=== PATIENT | male | born 1960 | race Caucasian/White ===

== ENCOUNTER 2017-08-23 14:11 | Inpatient (IN) | payer BC ==
[2017-08-23 15:41] LABS: Basophils % (A) 0 %; Eosinophils # (A) 0.1 k/uL (0-0.7); Eosinophils % (A) 2 %; HCT 42.2 % (39.0-53.0); HGB 14.1 gm/dL (13.0-17.5); Lymphocytes # (A) 0.8 k/uL (1.0-4.8); Lymphocytes % (A) 11 %; MCH 29.2 pg (25.0-35.0); MCHC 33.4 g/dL (31.0-37.0); MCV 87.3 fL (80.0-100.0); Mean Platelet Volume 7.2; Monocytes # (A) 0.5 k/uL (0-1.0); Monocytes % (A) 7 %; Neutrophils # (A) 5.5 k/uL (1.3-7.7); Neutrophils % (A) 78 %; Platelet Count 331 k/uL (150-450); RBC 4.83 m/uL (4.30-5.90); RDW 12.8 % (11.5-15.5); WBC 7.1 k/uL (3.8-10.6)
--- NOTE | 2017-08-23 15:43 | XR ---
EXAMINATION TYPE: XR chest 2V DATE OF EXAM: 08/23/2017 COMPARISON: NONE HISTORY: Shortness of breath TECHNIQUE: Frontal and lateral views of the chest are obtained. FINDINGS: Scattered senescent parenchymal changes noted. Patchy density left perihilar region may reflect underlying infiltrate. Correlate clinically and prog ress studies are recommended Heart size is stable. Mediastinal structures are stable and grossly unremarkable. No evidence for hilar prominence. Degenerative changes dorsal spine. IMPRESSION: 1. Patchy density left perihilar region may reflect underlying infiltrate. Correlate clinically and p rogress studies are recommended
[2017-08-23 15:46] LABS: Calcium 10.9 mg/dL (8.4-10.2); Potassium 4.3 mmol/L (3.5-5.1); Total Bilirubin 0.5 mg/dL (0.2-1.3); Total Protein 6.9 g/dL (6.3-8.2)
[2017-08-23 15:57] LABS: Creatine Kinase 57 U/L (55-170)
[2017-08-23] MEDS ORDERED: methylPREDNISolone SOD SUCCI 125 MG/2 ML VIAL IV STA (15:57)
[2017-08-23] MEDS ORDERED: IPRATROPIUM-ALBUTEROL 3 ML NEB INHALATION STA (15:57)
--- NOTE | 2017-08-23 15:59 | ED ---
General Adult HPI - General Chief complaint: Shortness of Breath Stated complaint: Difficulty Breathing Time Seen by Provider: 08/23/17 14:15 Source: patient, RN notes reviewed Mode of arrival: ambulatory Limitations: no limitations - History of Present Illness Initial comments: This is a 57-year-old male presents emergency department with past medical history significant for COPD per patient states he has been having some shortness of breath and coughing over the last few weeks and he has been on antibiotics and steroids which seemed to help for a short period time but he's been coughing last 2 weeks and been extremely short of breath per patient denies any chest pain or palpitations. Patient denies any fever chills. Patient's states he has had no sputum production. Patient denies any leg swelling or calf pain. Patient denies abdominal pain patient denies nausea vomiting diarrhea. Patient denies headache patient denies numbness weakness. Patient denies lightheadedness dizziness or near syncopal episode. - Related Data Home Medications Medication Instructions Recorded Confirmed traZODone HCL [Desyrel] 50 mg PO HS PRN 12/10/13 08/23/17 Albuterol Inhaler [Ventolin Hfa 1 - 2 puff INHALATION RT-Q6H PRN 08/23/17 Inhaler] Ascorbic Acid [Vitamin C] 500 mg PO BID 08/23/17 08/23/17 Aspirin [Adult Low Dose Aspirin EC] 81 mg PO DAILY 08/23/17 08/23/17 Fluticasone/Umeclidin/Vilanter 1 puff INHALATION RT-DAILY 08/23/17 08/23/17 [Trelecharles Ellipta 100-62.5-25] Glucosamine/Chondr Meneses A Sod [Osteo 1 tab PO DAILY 08/23/17 08/23/17 Bi-Flex Caplet] Multivitamin [Men's Multi-Vitamin] 1 tab PO DAILY 08/23/17 08/23/17 Nicotine 14Mg/24Hr Patch [Habitrol 1 patch TRANSDERM DAILY 08/23/17 08/23/17 14Mg/24Hr Patch] Omeprazole Magnesium [PriLOSEC OTC] 20 mg PO DAILY 08/23/17 08/23/17 Valsartan/Hydrochlorothiazide 1 tab PO DAILY 08/23/17 08/23/17 [Diovan Hct 80-12.5 mg Tablet] Allergies Allergy/AdvReac Type Severity Reaction Status Date / Time No Known Allergies Allergy Verified 08/23/17 19:04 Review of Systems ROS Statement: Those systems with pertinent positive or pertinent negative responses have been documented in the HPI. ROS Other: All systems not noted in ROS Statement are negative. Past Medical History Past Medical History: COPD, GERD/Reflux, Hypertension, Osteoarthritis (OA), Prostate Disorder Additional Past Medical History / Comment(s): CURRENTLY BEING TREATED FOR A PROSTATE INFECTION. Alcoholism History of Any Multi-Drug Resistant Organisms: None Reported Past Surgical History: Orthopedic Surgery Past Anesthesia/Blood Transfusion Reactions: Family History of Problems w/ Anesthesia Additional Past Anesthesia/Blood Transfusion Reaction / Comment(s): FATHER WOKE UP VERY AGITATED AND HAD TO BE "RE-MEDICATED" Past Psychological History: No Psychological Hx Reported Smoking Status: Current some day smoker Past Alcohol Use History: None Reported Past Drug Use History: None Reported - Past Family History Father Family Medical History: Myocardial Infarction (DE) Additional Family Medical History / Comment(s): ALCOHOLIC-- Mother Family Medical History: Myocardial Infarction (DE) Additional Family Medical History / Comment(s): ALCOHOLIC. General Exam - General Exam Comments Initial Comments: GENERAL: Patient is well-developed and well-nourished. Patient is nontoxic and well- hydrated and is in mild distress. ENT: Neck is soft and supple. No significant lymphadenopathy is noted. Oropharynx is clear. Moist mucous membranes. Neck has full range of motion without eliciting any pain. EYES: The sclera were anicteric and conjunctiva were pink and moist. Extraocular movements were intact and pupils were equal round and reactive to light. Eyelids were unremarkable. PULMONARY: She has some expiratory wheezing and decreased breath sounds throughout CARDIOVASCULAR: There is a regular rate and rhythm without any murmurs gallops or rubs. ABDOMEN: Soft and nontender with normal bowel sounds. No palpable organomegaly was noted. There is no palpable pulsatile mass. SKIN: Skin is clear with no lesions or rashes and otherwise unremarkable. NEUROLOGIC: Patient is alert and oriented x3. Cranial nerves II through XII are grossly intact. Motor and sensory are also intact. Normal speech, volume and content. Symmetrical smile. act. MUSCULOSKELETAL: Normal extremities with adequate strength and full range of motion. LYMPHATICS: No significant lymphadenopathy is noted PSYCHIATRIC: Normal psychiatric evaluation. Limitations: no limitations Course Vital Signs 08/23/17 08/23/17 08/23/17 14:13 16:06 16:58 Temperature 98.1 F 97.5 F L Pulse Rate 108 H 104 H 109 H Respiratory 20 18 Rate Blood Pressure 114/60 106/61 O2 Sat by Pulse 99 96 Oximetry Medical Decision Making - Medical Decision Making Chest x-ray shows left lower lobe pneumonia. Patient failed outpatient antibiotic treatment. I started the patient on Levaquin. Patient received a breathing treatment did feel little bit better. I gave the patient antibiotics as well. I spoke with some physician and he agreed to admit the patient admitted the patient wrote admitting orders - Lab Data Result diagrams: 08/23/17 15:20 08/23/17 15:20 Lab Results 08/23/17 08/23/17 08/23/17 Range/Units 15:20 15:20 15:20 WBC 7.1 (3.8-10.6) k/uL RBC 4.83 (4.30-5.90) m/uL Hgb 14.1 (13.0-17.5) gm/dL Hct 42.2 (39.0-53.0) % MCV 87.3 (80.0-100.0) fL MCH 29.2 (25.0-35.0) pg MCHC 33.4 (31.0-37.0) g/dL RDW 12.8 (11.5-15.5) % Plt Count 331 (150-450) k/uL Neutrophils % 78 % Lymphocytes % 11 % Monocytes % 7 % Eosinophils % 2 % Basophils % 0 % Neutrophils # 5.5 (1.3-7.7) k/uL Lymphocytes # 0.8 L (1.0-4.8) k/uL Monocytes # 0.5 (0-1.0) k/uL Eosinophils # 0.1 (0-0.7) k/uL Basophils # 0.0 (0-0.2) k/uL Sodium 142 (137-145) mmol/L Potassium 4.3 (3.5-5.1) mmol/L Chloride 100 (98-107) mmol/L Carbon Dioxide 26 (22-30) mmol/L Anion Gap 16 mmol/L BUN 24 H (9-20) mg/dL Creatinine 1.10 (0.66-1.25) mg/dL Est GFR (CKD-EPI)AfAm 87 (>60 ml/min/1.73 sqM) Est GFR (CKD-EPI)NonAf 75 (>60 ml/min/1.73 sqM) Glucose 91 (74-99) mg/dL Plasma Lactic Acid Pierre (0.7-2.0) mmol/L Calcium 10.9 H (8.4-10.2) mg/dL Total Bilirubin 0.5 (0.2-1.3) mg/dL AST 27 (17-59) U/L ALT 29 (21-72) U/L Alkaline Phosphatase 89 (38-126) U/L Total Creatine Kinase 57 (55-170) U/L CK-MB (CK-2) 1.0 (0.0-2.4) ng/mL CK-MB (CK-2) Rel Index 1.8 Troponin I <0.012 (0.000-0.034) ng/mL Total Protein 6.9 (6.3-8.2) g/dL Albumin 4.0 (3.5-5.0) g/dL 08/23/17 Range/Units 15:20 WBC (3.8-10.6) k/uL RBC (4.30-5.90) m/uL Hgb (13.0-17.5) gm/dL Hct (39.0-53.0) % MCV (80.0-100.0) fL MCH (25.0-35.0) pg MCHC (31.0-37.0) g/dL RDW (11.5-15.5) % Plt Count (150-450) k/uL Neutrophils % % Lymphocytes % % Monocytes % % Eosinophils % % Basophils % % Neutrophils # (1.3-7.7) k/uL Lymphocytes # (1.0-4.8) k/uL Monocytes # (0-1.0) k/uL Eosinophils # (0-0.7) k/uL Basophils # (0-0.2) k/uL Sodium (137-145) mmol/L Potassium (3.5-5.1) mmol/L Chloride (98-107) mmol/L Carbon Dioxide (22-30) mmol/L Anion Gap mmol/L BUN (9-20) mg/dL Creatinine (0.66-1.25) mg/dL Est GFR (CKD-EPI)AfAm (>60 ml/min/1.73 sqM) Est GFR (CKD-EPI)NonAf (>60 ml/min/1.73 sqM) Glucose (74-99) mg/dL Plasma Lactic Acid Pierre 1.5 (0.7-2.0) mmol/L Calcium (8.4-10.2) mg/dL Total Bilirubin (0.2-1.3) mg/dL AST (17-59) U/L ALT (21-72) U/L Alkaline Phosphatase (38-126) U/L Total Creatine Kinase (55-170) U/L CK-MB (CK-2) (0.0-2.4) ng/mL CK-MB (CK-2) Rel Index Troponin I (0.000-0.034) ng/mL Total Protein (6.3-8.2) g/dL Albumin (3.5-5.0) g/dL Disposition Clinical Impression: Pneumonia Disposition: ADMITTED IP TO THIS HOSP Is patient prescribed a controlled substance at d/c from ED?: No Time of Disposition: 16:25
[2017-08-23] MEDS ORDERED: LEVOFLOXACIN 750MG-D5W PMX 750 MG in DEXTROSE/WATER 1 150ML.BAG IVPB STA (16:00)
[2017-08-23 16:10] LABS: Troponin I <0.012 ng/mL (0.000-0.034)
[2017-08-23] MEDS ORDERED: PNEUMONIA PROTOCOL UTILIZED 1 EACH MISC PO PRN (16:28)
--- NOTE | 2017-08-23 16:59 | P.HPIM ---
History of Present Illness H&P Date: 08/23/17 Chief Complaint: shortness of breath 57 year old male that comes in with symptoms of shortness of breath and cough. Seems that symptoms have been ongoing for about 2 months now. Patient has taken 2 courses of prednisone and antibiotics. Last finished about 10 days ago. Denies any fever or chills. Says his appetite has been good. Shortness of breath exacerbated with exertion. Dry cough. No sputum production. He does not recall what was the antibiotic that he took. He was scheduled to see Dr. Roque for the first time next week. Today patient became very short of breath. Symptoms improved after steroids and nebulizer treatment given in the ER. Patient also says that he quit smoking 2 1/2 months ago. Review of Systems No chest pain no palpitations no fever no chills also systems reviewed were negative except those mentioned in HPI Past Medical History Past Medical History: COPD, GERD/Reflux, Hypertension, Osteoarthritis (OA), Prostate Disorder Additional Past Medical History / Comment(s): CURRENTLY BEING TREATED FOR A PROSTATE INFECTION. Alcoholism History of Any Multi-Drug Resistant Organisms: None Reported Past Surgical History: Orthopedic Surgery Past Anesthesia/Blood Transfusion Reactions: Family History of Problems w/ Anesthesia Additional Past Anesthesia/Blood Transfusion Reaction / Comment(s): FATHER WOKE UP VERY AGITATED AND HAD TO BE "RE-MEDICATED" Past Psychological History: No Psychological Hx Reported Smoking Status: Current some day smoker Past Alcohol Use History: None Reported Past Drug Use History: None Reported Medications and Allergies Home Medications Medication Instructions Recorded Confirmed Type Acetaminophen Tab [Tylenol] 325 mg PO Q6H PRN 12/10/13 08/23/17 History Calcium Carbonate [Tums] 500 mg PO TID PRN 12/10/13 08/23/17 History Naproxen Sodium [Aleve] 220 mg PO Q12HR PRN 12/10/13 08/23/17 History traZODone HCL [Desyrel] 50 mg PO HS PRN 12/10/13 08/23/17 History Valsartan/Hydrochlorothiazide 1 tab PO DAILY 08/23/17 08/23/17 History [Diovan Hct 80-12.5 mg Tablet] Allergies Allergy/AdvReac Type Severity Reaction Status Date / Time No Known Allergies Allergy Verified 08/23/17 14:17 Physical Exam Vitals: Vital Signs Temp Pulse Resp BP Pulse Ox 08/23/17 16:06 104 H 08/23/17 14:13 98.1 F 108 H 20 114/60 99 Intake and Output 08/23/17 08/23/17 08/23/17 06:59 14:59 22:59 Other: Weight 88.451 kg - Constitutional General appearance: no acute distress - EENT Eyes: EOMI, PERRLA - Neck Neck: no lymphadenopathy - Respiratory Respiratory: bilateral: wheezing, negative: CTA - Cardiovascular Rhythm: regular Heart sounds: normal: S1, S2 - Gastrointestinal General gastrointestinal: normal bowel sounds, soft - Integumentary Integumentary: normal - Neurologic Neurologic: CNII-XII intact, focal deficits - Musculoskeletal Musculoskeletal: gait normal - Psychiatric Psychiatric: A&O x's 3, appropriate affect Results CBC & Chem 7: 08/23/17 15:20 08/23/17 15:20 Labs: Abnormal Lab Results - Last 24 Hours (Table) 08/23/17 08/23/17 Range/Units 15:20 15:20 Lymphocytes # 0.8 L (1.0-4.8) k/uL BUN 24 H (9-20) mg/dL Calcium 10.9 H (8.4-10.2) mg/dL Assessment and Plan (1) Pneumonia Narrative/Plan: Continue IV Levaquin Current Visit: Yes Status: Acute Code(s): J18.9 - PNEUMONIA, UNSPECIFIED ORGANISM SNOMED Code(s): 613907855 (2) COPD (chronic obstructive pulmonary disease) Narrative/Plan: Nebulizer treatments IV steroids Pulmonary consult Patient never go formally diagnosed but probable with this history of smoking Current Visit: Yes Status: Acute Code(s): J44.9 - CHRONIC OBSTRUCTIVE PULMONARY DISEASE, UNSPECIFIED SNOMED Code(s): 71746903 (3) Hypertension Narrative/Plan: Controlled Continue valsartan hydrochlorothiazide Current Visit: Yes Status: Acute Code(s): I10 - ESSENTIAL (PRIMARY) HYPERTENSION SNOMED Code(s): 05937510
[2017-08-23] MEDS ORDERED: RX INFO: IV CONTRAST WAS GIVEN 1 EACH MISC MISCELLANE PRN ×4 (18:03→18:30)
[2017-08-23] MEDS ORDERED: PROMETHAZ-COD 6.25-10 MG/5 ML 5 ML CUP PO PRN (18:34)
--- NOTE | 2017-08-23 18:35 | P.CNPUL ---
History of Present Illness Consult date: 08/23/17 Reason for consult: pneumonia History of present illness: A 57-year-old male patient comes in to the hospital because of worsening shortness of breath and cough. The patient has been having these symptoms for the past 2 months. He has already received 2 rounds of antibiotics and steroids. He last finished the antibiotics approximately 10 days ago. He was supposed to see me in the office for the first time next week. The patient came in because of worsening shortness of breath. In the emergency department he was given IV steroids and nebulized treatments and he is feeling better already. Upon further questioning, the patient states that his been having increased cough and episodes for the past few months. The patient's cough has been progressively getting worse to the point where it's waking up in the middle of the night and sometimes he is unable to catch her breath in between and he gets nauseated and he throws up. No hemoptysis. No pleurisy. He subsequently lost his voice and this was attributed to smoking. At this point in time the patient 's voice is muffled and is quite hoarse and he has not had any recovery and he is voice characteristics over this past few months. He has been losing some weight and he has lost approximately 12 pounds. He is a chronic smoker and he was smoking up to 2 pack of cigarettes a day. He was asked to quit smoking by his primary care physician and he is in the process of quitting for now. No history of asthma. Most of recurrent pneumonias. No history of lymphoma. No history of any recurrent respiratory tract infections. No fever. No chills. No weight loss. His chest x-ray shows fullness within the left hilum and there are certain shadows that cannot be attributed based on vascular structures only. As such the patient will need a CAT scan. On his blood work, no significant leukocytosis. His calcium level was slightly elevated at 10.9. Renal function is within normal limits. On examination, the patient has firm lesions in the supraclavicular area which she was not aware of. Review of Systems Constitutional: Reports fatigue, Reports weight loss Eyes: denies blurred vision, denies bulging eye, denies decreased vision Ears: deny: decreased hearing, ear discharge, earache Ears, nose, mouth and throat: Reports as per HPI, Reports hoarseness, Reports neck lump, Reports sore throat Cardiovascular: Reports dyspnea on exertion Respiratory: Reports cough, Reports dyspnea Genitourinary: Reports as per HPI Musculoskeletal: Denies myalgias Musculoskeletal: absent: ankle pain, ankle stiffness, ankle swelling Integumentary: Denies pruritus, Denies rash Neurological: Denies numbness, Denies weakness Psychiatric: Denies anxiety, Denies depression Endocrine: Denies fatigue, Denies weight change Past Medical History Past Medical History: COPD, GERD/Reflux, Hypertension, Osteoarthritis (OA), Prostate Disorder Additional Past Medical History / Comment(s): COPD, hypertension, acid reflux, prostatitis, alcoholism, degenerative arthritis History of Any Multi-Drug Resistant Organisms: None Reported Past Surgical History: Orthopedic Surgery Past Anesthesia/Blood Transfusion Reactions: Family History of Problems w/ Anesthesia Additional Past Anesthesia/Blood Transfusion Reaction / Comment(s): FATHER WOKE UP VERY AGITATED AND HAD TO BE "RE-MEDICATED" Past Psychological History: No Psychological Hx Reported Smoking Status: Current some day smoker (The patient smokes about a pack of cigarettes a day and has been smoking since a young age. No alcoholism. 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.) Past Alcohol Use History: None Reported Past Drug Use History: None Reported Medications and Allergies Home Medications Medication Instructions Recorded Confirmed Type Acetaminophen Tab [Tylenol] 325 mg PO Q6H PRN 12/10/13 08/23/17 History Calcium Carbonate [Tums] 500 mg PO TID PRN 12/10/13 08/23/17 History Naproxen Sodium [Aleve] 220 mg PO Q12HR PRN 12/10/13 08/23/17 History traZODone HCL [Desyrel] 50 mg PO HS PRN 12/10/13 08/23/17 History Valsartan/Hydrochlorothiazide 1 tab PO DAILY 08/23/17 08/23/17 History [Diovan Hct 80-12.5 mg Tablet] Allergies Allergy/AdvReac Type Severity Reaction Status Date / Time No Known Allergies Allergy Verified 08/23/17 14:17 Physical Exam Vitals: Vital Signs Temp Pulse Pulse Resp BP BP Pulse Ox 08/23/17 17:29 97.0 F L 112 H 18 116/80 96 08/23/17 16:58 97.5 F L 109 H 18 106/61 96 08/23/17 16:06 104 H 08/23/17 14:13 98.1 F 108 H 20 114/60 99 Intake and Output 08/23/17 08/23/17 08/23/17 06:59 14:59 22:59 Other: Weight 88.451 kg 85.3 kg - Constitutional General appearance: no acute distress, the patient is not having any acute respiratory distress. His speech is interrupted by frequent coughing episodes. - EENT Eyes: EOMI, PERRLA - Neck Neck: There is a firm lymphadenopathy in the left supraclavicular area where several lymph nodes were palpated the largest of which is probably around 2 cm in size and it's quite firm on palpation. The right supra-clavicular areas within normal limits. No axillary lymph nodes were noted. - Respiratory Respiratory: There is obvious diminishment sounds bilaterally. There is prolongation of expiratory phase of breathing and diffuse expiratory wheezes heard throughout the lung ramirez bilaterally. - Cardiovascular Rhythm: regular Heart sounds: normal: S1, S2 - Gastrointestinal General gastrointestinal: normal bowel sounds, soft - Integumentary Integumentary: normal - Neurologic Neurologic: CNII-XII intact, focal deficits - Musculoskeletal Musculoskeletal: gait normal - Psychiatric Psychiatric: A&O x's 3, appropriate affect Results - Laboratory Findings CBC and BMP: 08/23/17 15:20 08/23/17 15:20 Abnormal lab findings: Abnormal Labs 08/23/17 08/23/17 15:20 15:20 Lymphocytes # 0.8 L BUN 24 H Calcium 10.9 H - Diagnostic Findings Chest x-ray: image reviewed Assessment and Plan Plan: Assessment 1 chronic cough with obvious abnormalities on a chest x-ray especially within the left hilum. There is fullness within the left hilum and there is concern for left hilar mass causing cough and possibly contributing to his hoarseness as I suspected the patient also has paralysis of the vocal cords. Overall suspicion for a left hilar tumor is quite high in this patient with chronic smoking and has progressive dyspnea and cough and hoarseness. 2 left supraclavicular lymphadenopathy, likely malignant 3 hoarseness, possible vocal cord paralysis on the left that needs to be further investigated 4 mild hypercalcemia, possible malignant in nature 5 COPD exacerbation 6 smoker 7 hypertension Plan There is a high suspicion that the patient has an underlying malignancy. Based on his progressive cough and dyspnea and hoarseness and based on the abnormalities of the chest x-ray and the abnormality on his physical examination that showed firm lymphadenopathy within the left supraclavicular area. My recommendations is to continue the DuoNeb nebulized treatments for now and put the patient IV Solu-Medrol and Phenergan for cough. Will also proceed with a CAT scan of the chest and neck with contrast. We'll consult interventional radiology to perform a fine-needle aspirate or a core biopsy of the left supraclavicular lymph node to establish a tissue diagnosis. Further recommendations are to follow based on the findings. We'll monitor the patient' s progress and recommend accordingly.
[2017-08-23] MEDS: NICOTINE 14MG/24HR PATCH TRANSDERM SCH (18:36)
[2017-08-23] MEDS ORDERED: INFLUENZA VACCINE (6 MOS+) 60 MCG/0.5 ML SYRINGE IM ONE (20:22)
[2017-08-23] MEDS: IPRATROPIUM-ALBUTEROL 3 ML NEB INHALATION SCH (20:28)
--- NOTE | 2017-08-23 21:15 | CT ---
EXAMINATION TYPE: CT neck chest w con DATE OF EXAM: 08/23/2017 COMPARISON: NONE HISTORY: Hoarseness, lesion left supraclavicular area, pneumonia CT DLP: 1074.50 mGycm CONTRAST: Patient injected with 100 mL of Isovue 300. TECHNIQUE: Axial images at 3 mm thick sections. Reconstructed images in the coronal plane and sagitt al plane are reviewed. FINDINGS: Limited CT sections are obtained the lung apices. The lung apices are evaluated on the CT of the chest. CT neck: The torus tubarius and fossa of Rosenmuller are normal. Manager Ed spaces are normal. Para nasal sinuses and mastoid air cells are clear. Parotid glands appear normal and symmetrical. Submandibular glands, are normal. Parapharyngeal spac es are normal. No suspicious adenopathy within the upper neck is evident. The enlarged abnormal selina opathy within the left supraclavicular region is evident. The hypopharynx appears within normal limits. Vocal cord level appear symmetrical. Thyroid as visualized is normal. Osseous structures are normal. IMPRESSIONS: 1. Enlarged left supraclavicular adenopathy. 2. Please see chest CT report same date. EXAMINATION TYPE: CT neck chest w con DATE OF EXAM: 08/23/2017 COMPARISON: NONE HISTORY: Hoarseness, lesion left supraclavicular area, pneumonia CT DLP: 1074.50 mGycm, Automated exposure control for dose reduction was used. CONTRAST: Performed injected with 100 mL of Isovue 300. TECHNIQUE: Axial images were obtained at 5 mm thick sections. Reconstructed images are reviewed on [employer] computer in the coronal plane. FINDINGS: Portion of the thyroid visualized is normal. There are multiple supraclavicular lymph nodes . These are larger and more numerous on the left with customer support representative largest measuring approximately 1.3 cm multiple superior mediastinal lymph nodes are also present. In the pretracheal space the large st lymph node measures 1.9 cm. Multiple aortopulmonic window lymph nodes are present which appear to be matted. The lower pretracheal node measures 1.3 cm. A subcarinal lymph node measures 1.0 cm. Coronary artery calcification is noted. There is diffuse thickening surrounding the bronchi lingula and right lower lobe. The perihilar regio ns and peribronchial thickening and some diffuse soft tissue. Underlying neoplasm should be considere d. There is a posterior medial left lung base mass measuring approximately 1.3 cm. Series 6 image 42. The ascending aorta diameter at the level of the main pulmonary artery is 3.7 cm. The main pulmonary artery diameter at the bifurcation is 2.[address] sections are obtained through the upper abdomen. Abdomen is essentially unremarkable. IMPRESSIONS: 1. Suspected nodular mass in the posterior infrahilar region on the left with perihilar soft tissue t hickening and peribronchial thickening. Findings are suspicious for neoplasm. Pneumonia could be cons idered within the differential. 2. Multiple enlarged lymph nodes throughout the mediastinum and in the supraclavicular regions greate r on the left suspicious for metastatic disease.
[2017-08-23] MEDS ORDERED: CALCIUM CARBONATE 500 MG CHEWABLE PO PRN (23:01)
[2017-08-23] MEDS ORDERED: guaiFENesin SYRUP 100MG/5ML 200 MG/10 ML CUP PO PRN (23:01)
[2017-08-23] MEDS: methylPREDNISolone SOD SUCCI 125 MG/2 ML VIAL IV SCH (23:35)
[2017-08-24] MEDS ORDERED: traZODone HCL 50 MG TAB PO PRN (02:12)
[2017-08-24] MEDS ORDERED: PANTOPRAZOLE 40 MG TABLET PO ONE (02:30)
[2017-08-24] MEDS: methylPREDNISolone SOD SUCCI 125 MG/2 ML VIAL IV SCH ×3 (06:39→18:33)
[2017-08-24] MEDS: IPRATROPIUM-ALBUTEROL 3 ML NEB INHALATION SCH ×3 (08:03→20:22)
--- NOTE | 2017-08-24 08:57 | XR ---
EXAMINATION TYPE: XR chest 2V DATE OF EXAM: 08/24/2017 COMPARISON: Prior chest x-ray and chest CT 08/23/2017 HISTORY: Pneumonia TECHNIQUE: Frontal and lateral views of the chest are obtained. FINDINGS: Interstitium is increased. No pneumothorax or pleural effusion. Cardiac silhouette, pulmon melissa vascularity are stable. Prominence of the left hilar region again noted. Mediastinum is widened compatible with known adenopathy. IMPRESSION: Interstitial lung disease. Mediastinal left hilar adenopathy. Consider pulmonary consult .
--- NOTE | 2017-08-24 09:10 | P.PN ---
Subjective Progress Note Date: 08/24/17 Principal diagnosis: shortness of breath /cough Patient says he has been coughing all night. has some shortness of breath Objective - Vital Signs Vital signs: Vital Signs Temp 97.1 F L 08/24/17 06:32 Pulse 100 08/24/17 08:23 Resp 16 08/24/17 08:23 BP 121/69 08/24/17 06:32 Pulse Ox 96 08/24/17 08:12 Intake & Output 08/23/17 08/24/17 08/24/17 18:59 06:59 18:59 Weight 85.3 kg Other: Voiding Method Toilet # Voids 1 - Exam gen:alert and oriented lungs:clear to auscultation heart:s1s2 abdomen:soft and depressible,non tender ext:no edema - Labs CBC & Chem 7: 08/23/17 15:20 08/23/17 15:20 Labs: Abnormal Lab Results - Last 24 Hours (Table) 08/23/17 08/23/17 Range/Units 15:20 15:20 Lymphocytes # 0.8 L (1.0-4.8) k/uL BUN 24 H (9-20) mg/dL Calcium 10.9 H (8.4-10.2) mg/dL Assessment and Plan (1) Lung mass Narrative/Plan: Plan for biopsy Suspicious for malignancy Current Visit: Yes Status: Acute Code(s): R91.8 - OTHER NONSPECIFIC ABNORMAL FINDING OF LUNG FIELD SNOMED Code(s): 364921712 (2) Lymphadenopathy Narrative/Plan: Plan for biopsy Current Visit: Yes Status: Acute Code(s): R59.1 - GENERALIZED ENLARGED LYMPH NODES SNOMED Code(s): 57244697 (3) Pneumonia Narrative/Plan: Continue IV Levaquin Current Visit: Yes Status: Acute Code(s): J18.9 - PNEUMONIA, UNSPECIFIED ORGANISM SNOMED Code(s): 367247971 (4) COPD (chronic obstructive pulmonary disease) Narrative/Plan: Nebulizer treatments IV steroids Pulmonary consult Patient never go formally diagnosed but probable with this history of smoking Current Visit: Yes Status: Acute Code(s): J44.9 - CHRONIC OBSTRUCTIVE PULMONARY DISEASE, UNSPECIFIED SNOMED Code(s): 87063959 (5) Hypertension Narrative/Plan: Controlled Continue valsartan hydrochlorothiazide Current Visit: Yes Status: Acute Code(s): I10 - ESSENTIAL (PRIMARY) HYPERTENSION SNOMED Code(s): 99639531
[2017-08-24 09:15] LABS: INR 1.1 (<1.2); Partial Thromboplastin Time 23.8 sec (22.0-30.0); Prothrombin Time 10.4 sec (9.0-12.0)
[2017-08-24 11:52] LABS: Glucose,Whole Blood 151 mg/dL (75-99)
[2017-08-24] MEDS: PROMETHAZ-COD 6.25-10 MG/5 ML 5 ML CUP PO SCH ×3 (11:54→22:11)
[2017-08-24] MEDS: INSULIN ASPART 100 UNIT/ML 1 ML 10 ML VIAL SQ SCH ×3 (13:06→22:06)
--- NOTE | 2017-08-24 13:11 | P.PN ---
Subjective Progress Note Date: 08/24/17 Principal diagnosis: Chronic cough, voice hoarseness, and the CT chest revealed a left hilar tumor, left supraclavicular lymphadenopathy, likely malignant. A 57-year-old male patient comes in to the hospital because of worsening shortness of breath and cough. The patient has been having these symptoms for the past 2 months. He has already received 2 rounds of antibiotics and steroids. He last finished the antibiotics approximately 10 days ago. He was supposed to see me in the office for the first time next week. The patient came in because of worsening shortness of breath. In the emergency department he was given IV steroids and nebulized treatments and he is feeling better already. Upon further questioning, the patient states that his been having increased cough and episodes for the past few months. The patient's cough has been progressively getting worse to the point where it's waking up in the middle of the night and sometimes he is unable to catch her breath in between and he gets nauseated and he throws up. No hemoptysis. No pleurisy. He subsequently lost his voice and this was attributed to smoking. At this point in time the patient 's voice is muffled and is quite hoarse and he has not had any recovery and he is voice characteristics over this past few months. He has been losing some weight and he has lost approximately 12 pounds. He is a chronic smoker and he was smoking up to 2 pack of cigarettes a day. He was asked to quit smoking by his primary care physician and he is in the process of quitting for now. No history of asthma. Most of recurrent pneumonias. No history of lymphoma. No history of any recurrent respiratory tract infections. No fever. No chills. No weight loss. His chest x-ray shows fullness within the left hilum and there are certain shadows that cannot be attributed based on vascular structures only. As such the patient will need a CAT scan. On his blood work, no significant leukocytosis. His calcium level was slightly elevated at 10.9. Renal function is within normal limits. On examination, the patient has firm lesions in the supraclavicular area which she was not aware of. On 08/24/2017 patient seen again in follow-up. Patient's CT neck and chest was reviewed, and showed a large left supraclavicular adenopathy, suspicious for malignancy. We consult interventional radiology for a fine-needle aspiration core biopsy of left subclavicular lymph nodes today. Patient voice continues to be hoarse, and there is suspicion of vocal cord paralysis, and ENT service will be consulted in that regard. Patient remains on room air, with O2 sat 91%. Afebrile, slightly tachycardic with heart rate up to 108 BPM. Lung sounds are diminished bilaterally, prolongation of expiratory phase of breathing and diffuse expiratory wheezes. No evidence of acute distress. Patient continues on IV Levaquin, nebulized treatments, and IV steroids. Objective - Vital Signs Vital signs: Vital Signs Temp 97.1 F L 08/24/17 08:00 Pulse 100 08/24/17 08:23 Resp 16 08/24/17 08:23 BP 121/69 08/24/17 08:00 Pulse Ox 96 08/24/17 08:12 Intake & Output 08/23/17 08/24/17 08/24/17 18:59 06:59 18:59 Weight 85.3 kg Other: Voiding Method Toilet # Voids 1 - Exam Constitutional General appearance: no acute distress, the patient is not having any acute respiratory distress. His speech is interrupted by frequent coughing episodes. - EENT Eyes: EOMI, PERRLA - Neck Neck: There is a firm lymphadenopathy in the left supraclavicular area where several lymph nodes were palpated the largest of which is probably around 2 cm in size and it's quite firm on palpation. The right supra-clavicular areas within normal limits. No axillary lymph nodes were noted. - Respiratory Respiratory: There is obvious diminishment sounds bilaterally. There is prolongation of expiratory phase of breathing and diffuse expiratory wheezes heard throughout the lung ramirez bilaterally. - Cardiovascular Rhythm: regular Heart sounds: normal: S1, S2 - Gastrointestinal General gastrointestinal: normal bowel sounds, soft - Integumentary Integumentary: normal - Neurologic Neurologic: CNII-XII intact, focal deficits - Musculoskeletal Musculoskeletal: gait normal - Psychiatric Psychiatric: A&O x's 3, appropriate affect - Labs CBC & Chem 7: 08/23/17 15:20 08/23/17 15:20 Labs: Abnormal Lab Results - Last 24 Hours (Table) 08/23/17 08/23/17 08/24/17 Range/Units 15:20 15:20 11:41 Lymphocytes # 0.8 L (1.0-4.8) k/uL BUN 24 H (9-20) mg/dL POC Glucose (mg/dL) 151 H (75-99) mg/dL Calcium 10.9 H (8.4-10.2) mg/dL Assessment and Plan Plan: Assessment: 1 chronic cough with obvious abnormalities on a chest x-ray especially within the left hilum. There is fullness within the left hilum and there is concern for left hilar mass causing cough and possibly contributing to his hoarseness as I suspected the patient also has paralysis of the vocal cords. Overall suspicion for a left hilar tumor is quite high in this patient with chronic smoking and has progressive dyspnea and cough and hoarseness. Neck/Chest CT showed enlarged left supraclavicular adenopathy, highly suspicious for malignancy. The patient is scheduled to undergo a fine-needle aspiration core biopsy by interventional radiology today. 2 left supraclavicular lymphadenopathy, likely malignant 3 hoarseness, possible vocal cord paralysis on the left that needs to be further investigated 4 mild hypercalcemia, possible malignant in nature 5 COPD exacerbation 6 smoker 7 hypertension Plan: Patient is scheduled to undergo FNA needle aspiration biopsy on the left supraclavicular lymph nodes, continues to be hoarse, we will consult ENT service for investigation of possible vocal cord paralysis on the left. Continue with empiric antibiotics, continue IV steroids, continue with nebulized treatments. We'll continue to closely follow. I performed a history & physical examination of the patient and discussed their management with my nurse practitioner, Mariam Ruiz. I reviewed the nurse practitioner's note and agree with the documented findings and plan of care. Lung sounds are positive for scattered wheezes, diminished lung sounds. The findings and the impression was discussed with the patient. I attest to the documentation by the nurse practitioner. Time with Patient: Less than 30
[2017-08-24 14:54] VITALS: BMI 26.2
--- NOTE | 2017-08-24 15:44 | US ---
EXAMINATION TYPE: US biopsy lymph node DATE OF EXAM: 08/24/2017 HISTORY: Left supraclavicular mass. FINDINGS: Maximal barrier technique was utilized. The skin overlying a suitable path to the patient' s mass was localized with ultrasound and the overlying skin prepped and draped. Ultrasound was utili zed with sterile technique. Lidocaine was used for local anesthesia. A skin chirag was made with a sc alpel. An 18-gauge needle was advanced under direct ultrasound guidance and core specimen obtained o f the mass. Specimen submitted in saline to Pathology. Following the procedure, hemostasis achieved and the patient is discharged in stable condition without complication. IMPRESSION:STATUS POST ULTRASOUND GUIDED CORE BIOPSY OF left supraclavicular MASS, PATHOLOGY IS PENDI NG. THIS PROCEDURE IS PERFORMED BY THE UNDERSIGNED.
[2017-08-24 17:03] LABS: Glucose,Whole Blood 156 mg/dL (75-99)
[2017-08-24] MEDS: LEVOFLOXACIN 750MG-D5W PMX 750 MG in DEXTROSE/WATER 1 150ML.BAG IVPB SCH (17:17)
[2017-08-24 18:21] LABS: Hemoglobin A1C 5.6 % (4.0-6.0)
[2017-08-24] MEDS: NICOTINE 14MG/24HR PATCH TRANSDERM SCH (18:33)
--- NOTE | 2017-08-24 19:35 | CONS ---
CONSULTATION REASON FOR CONSULTATION: Voice hoarseness, rule out paralysis. HISTORY: This is a 57-year-old white male who was admitted with shortness of breath and pneumonia. He was noted to have a left supraclavicular mass as well as pulmonary lesions as well as nodes in the superior mediastinum and pretracheal space, multiple. The mass is in the posterior infrahilar region on the left. The patient is being treated with antibiotics and steroids and has improved as far as his breathing. He is now afebrile. He states that he developed bronchitis about 3 months ago and became acutely hoarse. He has had quite a lot of coughing, which has improved with codeine- based cough suppressant now. He has no dysphagia, but does have occasional cough with taking fluids. No particular infiltrate on his last chest x-ray. He has no sore throat or otalgia. CT scan of the neck did not show any laryngeal lesions. PAST MEDICAL HISTORY: Positive for COPD, reflux, hypertension, arthritis, prostate disorder. PAST SURGICAL HISTORY: Orthopedic surgery. ALLERGIES: No known drug allergies. MEDICATIONS AT HOME: 1. Tylenol. 2. Tums. 3. Aleve. 4. Desyrel. 5. Diovan. SOCIAL HISTORY: He does have a long past history of smoking, but quit about 3 months ago. He also has a history of alcoholism and drug use, but none now. REVIEW OF SYSTEMS: Noncontributory other than as above. PHYSICAL EXAM: Vital signs are stable. GENERAL: This is a well-developed adult white male in no acute distress. He does have a weak voice and no respiratory difficulty. HEENT. Head: Normocephalic and atraumatic. Ears: Bilateral ear canals are clear. Tympanic membranes unremarkable and mobile. The nose shows no drainage. The septum is deviated to the right. The nasopharynx is unremarkable. Mouth shows no abnormal lesions or masses. Oropharynx shows no abnormal mass or lesions or erythema. Hypopharynx and larynx exam with flexible laryngoscopy shows no abnormal masses or lesions; however, the left true vocal cord is paralyzed in the paramedian position. Right vocal cord compensates, but was still a residual 1-2 mm posterior glottic chink on vocalization. Neck is supple. There is a left supraclavicular node noted with a gauze Band-Aid on it presently which is firm, nontender and fixed, approximately 2 cm. ASSESSMENT: 1. Left vocal cord paralysis. 2. Left supraclavicular adenopathy. 3. Left infrahilar mass with mediastinal adenopathy. PLAN: The patient has left vocal cord paralysis which is likely related to recurrent laryngeal nerve involvement with tumor in the mediastinum. The fine-needle aspiration of the left supraclavicular area may give ultimate etiology; however, certainly it appears that he has a pulmonary primary malignancy with metastatic disease. Will proceed with speech and swallowing evaluation to be sure he is not aspirating and if so, may need to restrict diet. He may necessitate a medialization procedure for the vocal cord; however, if he undergoes treatment for the chest lesion, then this vocal cord paralysis could potentially improve. I have already counseled him on swallowing precautions to try to prevent aspiration. Would await further evaluation on pathology and ultimately the decision making from the Pulmonary service as to how he will be treated prior to making any further decisions on any direct treatment with the vocal cord paralysis. If there are questions or concerns, please contact me. Approximately 40 minutes spent in consultation with the patient, over half of this in counseling. MMODL / IJN: [id number] /
--- NOTE | 2017-08-24 19:44 | PCN ---
PROCEDURE NOTE PREOPERATIVE DIAGNOSIS: Hoarseness. POSTOPERATIVE DIAGNOSIS: Left vocal cord [id number]. PROCEDURE: Flexible laryngoscopy. ANESTHESIA: None. COMPLICATIONS: None. FINDINGS: Left true vocal cord paralysis. PROCEDURE: The patient was in a hospital bed in a sitting position. Informed consent was obtained. Flexible laryngoscopy was performed through the left nasal cavity with systematic evaluation of the left nasal cavity and nasopharynx, oropharynx, hypopharynx and larynx with the above findings in his consultation note noted. The laryngoscope was removed. The patient had no complications, no blood loss. MMODL / IJN: [id number] /
[2017-08-24 20:57] LABS: Glucose,Whole Blood 159 mg/dL (75-99)
[2017-08-24] MEDS: ASCORBIC ACID 500 MG TAB PO SCH (21:37)
[2017-08-24] MEDS: ACETAMINOPHEN TAB 325 MG TAB PO PRN (23:13)
[2017-08-24] MEDS: PANTOPRAZOLE 40 MG TABLET PO SCH (23:13)
[2017-08-25] MEDS: methylPREDNISolone SOD SUCCI 125 MG/2 ML VIAL IV SCH ×5 (00:42→23:53)
[2017-08-25] MEDS: PROMETHAZ-COD 6.25-10 MG/5 ML 5 ML CUP PO SCH ×4 (05:50→21:58)
[2017-08-25 07:26] LABS: Glucose,Whole Blood 143 mg/dL (75-99)
[2017-08-25] MEDS ORDERED: PANTOPRAZOLE 40 MG TABLET PO SCH (07:30)
[2017-08-25] MEDS: NON-FORMULARY DRUG (Glucosamine/Chondr Su A Sod [Osteo Bi-Flex Caplet] 1 TAB) PO SCH (07:49)
[2017-08-25] MEDS: INSULIN ASPART 100 UNIT/ML 1 ML 10 ML VIAL SQ SCH ×4 (07:50→21:59)
[2017-08-25] MEDS: HYDROCHLOROTHIAZIDE 12.5 MG CAP PO SCH (07:50)
[2017-08-25] MEDS: ASCORBIC ACID 500 MG TAB PO SCH ×2 (07:50→21:58)
[2017-08-25] MEDS: VALSARTAN 80 MG TAB PO SCH (07:51)
[2017-08-25] MEDS: IPRATROPIUM-ALBUTEROL 3 ML NEB INHALATION SCH ×3 (07:56→19:49)
[2017-08-25] MEDS ORDERED: NON-FORMULARY DRUG (Fluticasone/Umeclidin/Vilanter [Trelegy Ellipta 100-62.5-25] 1 PUFF) INHALATION SCH (08:00)
[2017-08-25] MEDS ORDERED: NICOTINE 14MG/24HR PATCH TRANSDERM SCH (09:00)
[2017-08-25] MEDS: MULTIVITAMINS, THERA 1 EACH TAB PO SCH (11:56)
[2017-08-25 11:59] LABS: Glucose,Whole Blood 153 mg/dL (75-99)
[2017-08-25] MEDS: IPRATROPIUM-ALBUTEROL 3 ML NEB INHALATION PRN ×2 (13:01→13:39)
[2017-08-25] MEDS: TRELEGY ELLIPTA INHALATION SCH (13:01)
[2017-08-25] MEDS: ACETAMINOPHEN TAB 325 MG TAB PO PRN ×2 (14:23→21:59)
--- NOTE | 2017-08-25 15:23 | P.PN ---
Subjective Progress Note Date: 08/25/17 Principal diagnosis: Chronic cough, voice hoarseness with left vocal cord paralysis, left hilar tumor , left supraclavicular lymphadenopathy. Suspect malignancy. A 57-year-old male patient comes in to the hospital because of worsening shortness of breath and cough. The patient has been having these symptoms for the past 2 months. He has already received 2 rounds of antibiotics and steroids. He last finished the antibiotics approximately 10 days ago. He was supposed to see me in the office for the first time next week. The patient came in because of worsening shortness of breath. In the emergency department he was given IV steroids and nebulized treatments and he is feeling better already. Upon further questioning, the patient states that his been having increased cough and episodes for the past few months. The patient's cough has been progressively getting worse to the point where it's waking up in the middle of the night and sometimes he is unable to catch her breath in between and he gets nauseated and he throws up. No hemoptysis. No pleurisy. He subsequently lost his voice and this was attributed to smoking. At this point in time the patient 's voice is muffled and is quite hoarse and he has not had any recovery and he is voice characteristics over this past few months. He has been losing some weight and he has lost approximately 12 pounds. He is a chronic smoker and he was smoking up to 2 pack of cigarettes a day. He was asked to quit smoking by his primary care physician and he is in the process of quitting for now. No history of asthma. Most of recurrent pneumonias. No history of lymphoma. No history of any recurrent respiratory tract infections. No fever. No chills. No weight loss. His chest x-ray shows fullness within the left hilum and there are certain shadows that cannot be attributed based on vascular structures only. As such the patient will need a CAT scan. On his blood work, no significant leukocytosis. His calcium level was slightly elevated at 10.9. Renal function is within normal limits. On examination, the patient has firm lesions in the supraclavicular area which she was not aware of. On 08/24/2017 patient seen again in follow-up. Patient's CT neck and chest was reviewed, and showed a large left supraclavicular adenopathy, suspicious for malignancy. We consult interventional radiology for a fine-needle aspiration core biopsy of left subclavicular lymph nodes today. Patient voice continues to be hoarse, and there is suspicion of vocal cord paralysis, and ENT service will be consulted in that regard. Patient remains on room air, with O2 sat 91%. Afebrile, slightly tachycardic with heart rate up to 108 BPM. Lung sounds are diminished bilaterally, prolongation of expiratory phase of breathing and diffuse expiratory wheezes. No evidence of acute distress. Patient continues on IV Levaquin, nebulized treatments, and IV steroids. The patient is seen again today 08/25/2017 in follow-up on the regular medical floor. He is awake and alert in no acute distress. He did undergo evaluation by ENT and was found to have a left sided vocal cord paralysis. Most likely secondary to compression of the recurrent laryngeal nerve. He also had undergone a fine-needle aspiration of the left supraclavicular mass. Results are pending. He is breathing easier today as compared to yesterday. He has less cough as well. 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 He is maintaining good O2 saturations in the mid 90s on room air. He's been afebrile. Hemodynamically stable. Objective - Vital Signs Vital signs: Vital Signs Temp 97.6 F 08/25/17 05:55 Pulse 96 08/25/17 13:50 Resp 16 08/25/17 05:55 BP 108/71 08/25/17 05:55 Pulse Ox 95 08/25/17 05:55 Intake & Output 08/24/17 08/25/17 08/25/17 18:59 06:59 18:59 Intake Total 472 600 Balance 472 600 Weight 85.3 kg Intake: Oral 472 600 Other: Voiding Method Toilet Toilet # Voids 1 1 2 - Exam GENERAL EXAM: Alert, active, comfortable in no apparent distress. HEAD: Normocephalic. EYES: Normal reaction of pupils, equal size. NOSE: Clear with pink turbinates. THROAT: Hoarseness. No erythema or exudates. NECK: No palpable mass and left supraclavicular area. No JVD. CHEST: No chest wall deformity. LUNGS: Equal air entry expiratory wheeze. Some scattered rhonchi in the left lung. CVS: S1 and S2 normal with no audible murmur, regular rhythm. ABDOMEN: No hepatosplenomegaly, normal bowel sounds, no guarding or rigidity. SPINE: No scoliosis or deformity SKIN: No rashes CENTRAL NERVOUS SYSTEM: No focal deficits, tone is normal in all 4 extremities. EXTREMITIES: There is no peripheral edema. No clubbing, no cyanosis. Peripheral pulses are intact. - Labs CBC & Chem 7: 08/23/17 15:20 08/23/17 15:20 Labs: Abnormal Lab Results - Last 24 Hours (Table) 08/24/17 08/24/17 08/25/17 Range/Units 16:52 20:53 07:08 POC Glucose (mg/dL) 156 H 159 H 143 H (75-99) mg/dL 08/25/17 Range/Units 11:52 POC Glucose (mg/dL) 153 H (75-99) mg/dL Microbiology - Last 24 Hours (Table) 08/23/17 15:20 Blood Culture - Preliminary Blood No Growth after 24 hours Assessment and Plan Assessment: Assessment: 1 chronic cough with obvious abnormalities on a chest x-ray especially within the left hilum. There is fullness within the left hilum and there is concern for left hilar mass causing cough and possibly contributing to his hoarseness. ENT consultation was conducted. The patient does have a paralyzed left vocal cord. Overall suspicion for a left hilar tumor is quite high in this patient with chronic smoking and has progressive dyspnea and cough and hoarseness. Neck/ Chest CT showed enlarged left supraclavicular adenopathy, highly suspicious for malignancy. The patient did undergo a fine-needle aspiration core biopsy by interventional radiology with pathology pending. 2 left supraclavicular lymphadenopathy, likely malignant 3 hoarseness, vocal cord paralysis on the left 4 mild hypercalcemia, possible malignant in nature 5 COPD exacerbation 6 smoker 7 hypertension Plan: The patient was seen and evaluated by Dr. Roque. ENT notes were reviewed and appreciated. Pathology is pending regarding the left supraclavicular mass. Malignancy as suspected. We will consult oncology. We'll continue with his current treatment plan for now. We'll increase his activity as tolerated. We' ll continue to follow and make further recommendations based on his clinical status. I, the cosigning physician, performed a history & physical examination of the patient. Lungs sounds with faint end expiratory wheeze, few scattered rhonchi more so on the left. Maintaining good O2 saturations in the 90s on room air. I discussed the assessment and plan of care with my nurse practitioner, Sruthi Stone. I attest to the above note as dictated by her.
[2017-08-25] MEDS: LEVOFLOXACIN 750MG-D5W PMX 750 MG in DEXTROSE/WATER 1 150ML.BAG IVPB SCH (16:46)
[2017-08-25] MEDS: NICOTINE 14MG/24HR PATCH TRANSDERM SCH (16:56)
[2017-08-25 17:16] LABS: Glucose,Whole Blood 144 mg/dL (75-99)
[2017-08-25 21:28] LABS: Glucose,Whole Blood 156 mg/dL (75-99)
[2017-08-25] MEDS: PANTOPRAZOLE 40 MG TABLET PO SCH (21:58)
[2017-08-26] MEDS: PROMETHAZ-COD 6.25-10 MG/5 ML 5 ML CUP PO SCH ×4 (06:07→22:42)
[2017-08-26] MEDS: methylPREDNISolone SOD SUCCI 125 MG/2 ML VIAL IV SCH ×4 (06:07→23:47)
[2017-08-26] MEDS: TRELEGY ELLIPTA INHALATION SCH (07:17)
[2017-08-26] MEDS: IPRATROPIUM-ALBUTEROL 3 ML NEB INHALATION SCH ×4 (07:17→20:41)
[2017-08-26 07:38] LABS: Glucose,Whole Blood 128 mg/dL (75-99)
[2017-08-26] MEDS: INSULIN ASPART 100 UNIT/ML 1 ML 10 ML VIAL SQ SCH ×4 (07:39→21:45)
[2017-08-26] MEDS: VALSARTAN 80 MG TAB PO SCH (08:15)
[2017-08-26] MEDS: NON-FORMULARY DRUG (Glucosamine/Chondr Su A Sod [Osteo Bi-Flex Caplet] 1 TAB) PO SCH (08:15)
[2017-08-26] MEDS: HYDROCHLOROTHIAZIDE 12.5 MG CAP PO SCH (08:15)
[2017-08-26] MEDS: ASCORBIC ACID 500 MG TAB PO SCH ×2 (08:15→20:56)
--- NOTE | 2017-08-26 09:18 | P.PN ---
Subjective Progress Note Date: 08/26/17 Principal diagnosis: shortness of breath /cough Still having cough throughout the night. Hoarseness of voice unchanged. Patient says that his shortness of breath has improved Objective - Vital Signs Vital signs: Vital Signs Temp 98.1 F 08/26/17 05:35 Pulse 96 08/26/17 07:34 Resp 20 08/26/17 05:35 BP 142/81 08/26/17 05:35 Pulse Ox 96 08/26/17 07:20 Intake & Output 08/25/17 08/26/17 08/26/17 18:59 06:59 18:59 Intake Total 200 240 Balance 200 240 Intake: Oral 200 240 Other: Voiding Method Toilet # Voids 2 1 - Exam gen:alert and oriented lungs:clear to auscultation heart:s1s2 abdomen:soft and depressible,non tender ext:no edema - Labs CBC & Chem 7: 08/23/17 15:20 08/23/17 15:20 Labs: Abnormal Lab Results - Last 24 Hours (Table) 08/25/17 08/25/17 08/25/17 Range/Units 11:52 17:08 21:24 POC Glucose (mg/dL) 153 H 144 H 156 H (75-99) mg/dL 08/26/17 Range/Units 07:07 POC Glucose (mg/dL) 128 H (75-99) mg/dL Microbiology - Last 24 Hours (Table) 08/23/17 15:20 Blood Culture - Preliminary Blood No Growth after 48 hours Assessment and Plan (1) Lung mass Narrative/Plan: Dr. Donovan and Dr. Roque following Await biopsy results performed on Sunday on the lymph node Current Visit: Yes Status: Acute Code(s): R91.8 - OTHER NONSPECIFIC ABNORMAL FINDING OF LUNG FIELD SNOMED Code(s): 206354608 (2) Lymphadenopathy Narrative/Plan: Status post biopsy Current Visit: Yes Status: Acute Code(s): R59.1 - GENERALIZED ENLARGED LYMPH NODES SNOMED Code(s): 66014792 (3) Pneumonia Narrative/Plan: ivLevaquin Current Visit: Yes Status: Acute Code(s): J18.9 - PNEUMONIA, UNSPECIFIED ORGANISM SNOMED Code(s): 464408922 (4) COPD (chronic obstructive pulmonary disease) Narrative/Plan: Stable continue prednisone and nebulizer Current Visit: Yes Status: Acute Code(s): J44.9 - CHRONIC OBSTRUCTIVE PULMONARY DISEASE, UNSPECIFIED SNOMED Code(s): 58803623 (5) Hypertension Narrative/Plan: Controlled Continue valsartan and hydrochlorothiazide Current Visit: Yes Status: Acute Code(s): I10 - ESSENTIAL (PRIMARY) HYPERTENSION SNOMED Code(s): 59054279 Plan: Discussed with Dr. Roque, would like to continue workup as an inpatient
[2017-08-26] MEDS: MULTIVITAMINS, THERA 1 EACH TAB PO SCH (12:17)
[2017-08-26] MEDS: ACETAMINOPHEN TAB 325 MG TAB PO PRN ×2 (12:19→21:45)
[2017-08-26 12:30] LABS: Glucose,Whole Blood 140 mg/dL (75-99)
--- NOTE | 2017-08-26 14:41 | P.PN ---
Subjective Progress Note Date: 08/26/17 Chronic cough, voice hoarseness with left vocal cord paralysis, left hilar tumor , left supraclavicular lymphadenopathy. Suspect malignancy. A 57-year-old male patient comes in to the hospital because of worsening shortness of breath and cough. The patient has been having these symptoms for the past 2 months. He has already received 2 rounds of antibiotics and steroids. He last finished the antibiotics approximately 10 days ago. He was supposed to see me in the office for the first time next week. The patient came in because of worsening shortness of breath. In the emergency department he was given IV steroids and nebulized treatments and he is feeling better already. Upon further questioning, the patient states that his been having increased cough and episodes for the past few months. The patient's cough has been progressively getting worse to the point where it's waking up in the middle of the night and sometimes he is unable to catch her breath in between and he gets nauseated and he throws up. No hemoptysis. No pleurisy. He subsequently lost his voice and this was attributed to smoking. At this point in time the patient 's voice is muffled and is quite hoarse and he has not had any recovery and he is voice characteristics over this past few months. He has been losing some weight and he has lost approximately 12 pounds. He is a chronic smoker and he was smoking up to 2 pack of cigarettes a day. He was asked to quit smoking by his primary care physician and he is in the process of quitting for now. No history of asthma. Most of recurrent pneumonias. No history of lymphoma. No history of any recurrent respiratory tract infections. No fever. No chills. No weight loss. His chest x-ray shows fullness within the left hilum and there are certain shadows that cannot be attributed based on vascular structures only. As such the patient will need a CAT scan. On his blood work, no significant leukocytosis. His calcium level was slightly elevated at 10.9. Renal function is within normal limits. On examination, the patient has firm lesions in the supraclavicular area which she was not aware of. On 08/24/2017 patient seen again in follow-up. Patient's CT neck and chest was reviewed, and showed a large left supraclavicular adenopathy, suspicious for malignancy. We consult interventional radiology for a fine-needle aspiration core biopsy of left subclavicular lymph nodes today. Patient voice continues to be hoarse, and there is suspicion of vocal cord paralysis, and ENT service will be consulted in that regard. Patient remains on room air, with O2 sat 91%. Afebrile, slightly tachycardic with heart rate up to 108 BPM. Lung sounds are diminished bilaterally, prolongation of expiratory phase of breathing and diffuse expiratory wheezes. No evidence of acute distress. Patient continues on IV Levaquin, nebulized treatments, and IV steroids. The patient is seen again today 08/25/2017 in follow-up on the regular medical floor. He is awake and alert in no acute distress. He did undergo evaluation by ENT and was found to have a left sided vocal cord paralysis. Most likely secondary to compression of the recurrent laryngeal nerve. He also had undergone a fine-needle aspiration of the left supraclavicular mass. Results are pending. He is breathing easier today as compared to yesterday. He has less cough as well. 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 He is maintaining good O2 saturations in the mid 90s on room air. He's been afebrile. Hemodynamically stable. On 08/27/2079 I'm seeing this patient for a follow-up. His cough has subsided somewhat compared to yesterday. He is still very hoarse. He was confirmed to have a left vocal cord paralysis due to involvement of the recurrent laryngeal nerve. Fine-needle aspirate of the supraclavicular mass was done and the results are still pending for now. Meanwhile an oncology consultation was also requested. I think the patient may ultimately require a bronchoscopy to inspect his airways especially continues to have excessive cough. He has no specific complaints. Awaiting the workup to be completed and the patient to be seen by various consultants regarding his ongoing difficulties with hoarseness and cough and. Underlying malignancy is highly suspected. Objective - Vital Signs Vital signs: Vital Signs Temp 98.1 F 08/26/17 05:35 Pulse 96 08/26/17 11:39 Resp 20 08/26/17 05:35 BP 142/81 08/26/17 05:35 Pulse Ox 96 08/26/17 07:20 Intake & Output 08/25/17 08/26/17 08/26/17 18:59 06:59 18:59 Intake Total 200 240 Balance 200 240 Intake: Oral 200 240 Other: Voiding Method Toilet # Voids 2 1 3 - Exam GENERAL EXAM: Alert, active, comfortable in no apparent distress. HEAD: Normocephalic. EYES: Normal reaction of pupils, equal size. NOSE: Clear with pink turbinates. THROAT: Hoarseness. No erythema or exudates. NECK: No palpable mass and left supraclavicular area. No JVD. CHEST: No chest wall deformity. LUNGS: Equal air entry expiratory wheeze. Some scattered rhonchi in the left lung. CVS: S1 and S2 normal with no audible murmur, regular rhythm. ABDOMEN: No hepatosplenomegaly, normal bowel sounds, no guarding or rigidity. SPINE: No scoliosis or deformity SKIN: No rashes CENTRAL NERVOUS SYSTEM: No focal deficits, tone is normal in all 4 extremities. EXTREMITIES: There is no peripheral edema. No clubbing, no cyanosis. Peripheral pulses are intact. - Labs CBC & Chem 7: 08/23/17 15:20 08/23/17 15:20 Labs: Abnormal Lab Results - Last 24 Hours (Table) 08/25/17 08/25/17 08/26/17 Range/Units 17:08 21:24 07:07 POC Glucose (mg/dL) 144 H 156 H 128 H (75-99) mg/dL 08/26/17 Range/Units 11:58 POC Glucose (mg/dL) 140 H (75-99) mg/dL Microbiology - Last 24 Hours (Table) 08/23/17 15:20 Blood Culture - Preliminary Blood No Growth after 48 hours Assessment and Plan Plan: 1 chronic cough with obvious abnormalities on a chest x-ray especially within the left hilum. There is fullness within the left hilum and there is concern for left hilar mass causing cough and possibly contributing to his hoarseness. ENT consultation was conducted. The patient does have a paralyzed left vocal cord. Overall suspicion for a left hilar tumor is quite high in this patient with chronic smoking and has progressive dyspnea and cough and hoarseness. Neck/ Chest CT showed enlarged left supraclavicular adenopathy, highly suspicious for malignancy. The patient did undergo a fine-needle aspiration core biopsy by interventional radiology with pathology pending. 2 left supraclavicular lymphadenopathy, likely malignant 3 hoarseness, vocal cord paralysis on the left 4 mild hypercalcemia, possible malignant in nature 5 COPD exacerbation 6 smoker 7 hypertension Plan Awaiting the final pathology from the supraclavicular biopsy of the lymph node. Meanwhile the patient is being treated with accommodation bronchodilators and steroids and antitussive medication. An oncology consultation will be needed once the biopsy results are available. The patient had an ENT evaluation. He may need a lateralization thyroplasty at a later stage regarding the vocal cord paralysis. No other new complaints for now. Cough has subsided. We'll continue to follow.
[2017-08-26] MEDS: LEVOFLOXACIN 750MG-D5W PMX 750 MG in DEXTROSE/WATER 1 150ML.BAG IVPB SCH (16:22)
[2017-08-26 17:06] LABS: Glucose,Whole Blood 133 mg/dL (75-99)
[2017-08-26] MEDS: NICOTINE 14MG/24HR PATCH TRANSDERM SCH (17:55)
[2017-08-26] MEDS: PANTOPRAZOLE 40 MG TABLET PO SCH (20:56)
--- NOTE | 2017-08-26 21:19 | CONS ---
CONSULTATION DATE OF SERVICE: August 26, 2017. REASON FOR CONSULTATION: Possible lung cancer. CHIEF COMPLAINT: Hoarseness of his voice. HISTORY OF PRESENT ILLNESS: Mr. Wheeler is a very pleasant 57 years old gentleman who was initially admitted to the hospital on 08/23/2017 because of worsening shortness of breath and cough of about 3 months duration. This was treated initially with courses of steroid and antibiotics in the outpatient setting without any improvement. His initial chest x- ray was suspicious for a left hilar mass. Subsequently, he ended up having a CT scan of the neck and chest, which revealed evidence of bilateral supraclavicular lymphadenopathies and suspected mass in the left hilar lesion with perihilar soft tissue thickening and peribronchial thickening as well and multiple enlarged nodes throughout the mediastinum. The patient subsequently ended up having ultrasound-guided biopsy of the left supraclavicular node and results are pending. He was evaluated by ENT and he was found to have paralysis of his vocal cord. As stated above, the patient has been having this ongoing cough for the last 3 months with worsening hoarseness of his voice. The cough is nonproductive. He has lost about 10 pounds over the last 3 months and there is no associated hemoptysis. He denies any headaches or dysphagia, nausea or vomiting or change in her bowel movement. He denies any musculoskeletal pain. No melena, hematochezia or hematuria, hemoptysis, hematemesis or epistaxis. PAST MEDICAL HISTORY: Significant for hypertension, COPD, gastroesophageal reflux disease, arthritis. He had an orthopedic surgery in the past. SOCIAL HISTORY: He is a smoker on a daily basis. He used to drink. FAMILY HISTORY: For malignancy is negative. His father had myocardial infarction. REVIEW OF SYSTEMS: As stated above in history of present illness, otherwise negative. MEDICATION: Medications and allergies are reviewed in his electronic medical record. PHYSICAL EXAMINATION: He is alert, oriented x3. Does not appear to be in distress at this time. His vital signs temperature 98.1, afebrile, pulse 96 regular, respiration 20, blood pressure 142/81. HEENT: Normocephalic, atraumatic. The right pupil is dilated. NECK: Supple. No jugular venous distention. Chest equal expansion bilaterally. Lungs revealed clear to auscultation and percussion. HEART: Regular rate and rhythm. ABDOMEN: Soft. No tenderness, organomegaly or masses. Bowel sounds present. EXTREMITIES: No edema. Skin no significant bruises, ecchymosis, petechiae. Lymphatics: He has palpable left supraclavicular nodes. Musculoskeletal, no percussion tenderness directly over spine, sternum. RADIOGRAPHIC DATA: As mentioned above in the history of present illness. LABORATORY DATA: WBC 7.1, hemoglobin 14.1, hematocrit 42.2, platelets are 313. Sodium 142, potassium is 4.3, chloride is 100, CO2 is 26, BUN is 24, creatinine 1.1. His calcium is 10.9, AST 26, ALT is 29. IMPRESSION: 1. 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 2. Mild hypercalcemia. This also could be related to underlying malignancy. RECOMMENDATION: 1. We will await the results of the ultrasound guided left supraclavicular node biopsy. 2. Based on the pathologic finding, then the further staging workup, further therapeutic decision will be made. 3. Monitor calcium and continue with further decision will be made. The above was discussed in detail with the patient. I have answered all his questions. Thank you very much for asking me to participate in the care of this nice gentleman. [place] / [place]: [id number] /
[2017-08-26 21:24] LABS: Glucose,Whole Blood 174 mg/dL (75-99)
[2017-08-27] MEDS: PROMETHAZ-COD 6.25-10 MG/5 ML 5 ML CUP PO SCH ×4 (04:41→21:12)
[2017-08-27] MEDS: methylPREDNISolone SOD SUCCI 125 MG/2 ML VIAL IV SCH ×2 (06:27→12:00)
[2017-08-27] MEDS: ACETAMINOPHEN TAB 325 MG TAB PO PRN ×3 (06:39→21:16)
[2017-08-27] MEDS: IPRATROPIUM-ALBUTEROL 3 ML NEB INHALATION SCH ×4 (07:22→20:19)
[2017-08-27] MEDS: TRELEGY ELLIPTA INHALATION SCH (07:27)
[2017-08-27 07:32] LABS: Glucose,Whole Blood 122 mg/dL (75-99)
[2017-08-27] MEDS: VALSARTAN 80 MG TAB PO SCH (07:53)
[2017-08-27] MEDS: ASCORBIC ACID 500 MG TAB PO SCH ×2 (07:53→21:12)
[2017-08-27] MEDS: HYDROCHLOROTHIAZIDE 12.5 MG CAP PO SCH (07:53)
[2017-08-27] MEDS: INSULIN ASPART 100 UNIT/ML 1 ML 10 ML VIAL SQ SCH ×4 (07:54→21:04)
[2017-08-27] MEDS: NON-FORMULARY DRUG (Glucosamine/Chondr Su A Sod [Osteo Bi-Flex Caplet] 1 TAB) PO SCH (07:55)
[2017-08-27 09:31] LABS: Basophils % (A) 0 %; Eosinophils % (A) 0 %; HGB 12.5 gm/dL (13.0-17.5); Lymphocytes # (A) 0.7 k/uL (1.0-4.8); Lymphocytes % (A) 5 %; MCH 28.9 pg (25.0-35.0); MCHC 32.1 g/dL (31.0-37.0); MCV 90.3 fL (80.0-100.0); Mean Platelet Volume 7.1; Monocytes # (A) 0.4 k/uL (0-1.0); Monocytes % (A) 3 %; Neutrophils # (A) 13.5 k/uL (1.3-7.7); Neutrophils % (A) 92 %; Platelet Count 350 k/uL (150-450); RBC 4.32 m/uL (4.30-5.90); RDW 13.1 % (11.5-15.5); WBC 14.6 k/uL (3.8-10.6)
[2017-08-27 09:46] LABS: Anion Gap 16 mmol/L; Blood Urea Nitrogen 28 mg/dL (9-20); Calcium 9.8 mg/dL (8.4-10.2); Carbon Dioxide 21 mmol/L (22-30); Chloride 101 mmol/L (98-107); Glucose 201 mg/dL (74-99); Potassium 4.2 mmol/L (3.5-5.1); Sodium 138 mmol/L (137-145)
--- NOTE | 2017-08-27 12:22 | P.PN ---
Subjective Progress Note Date: 08/27/17 Principal diagnosis: Chronic cough, voice hoarseness, and the CT chest revealed a left hilar tumor, left supraclavicular lymphadenopathy, likely malignant. A 57-year-old male patient comes in to the hospital because of worsening shortness of breath and cough. The patient has been having these symptoms for the past 2 months. He has already received 2 rounds of antibiotics and steroids. He last finished the antibiotics approximately 10 days ago. He was supposed to see me in the office for the first time next week. The patient came in because of worsening shortness of breath. In the emergency department he was given IV steroids and nebulized treatments and he is feeling better already. Upon further questioning, the patient states that his been having increased cough and episodes for the past few months. The patient's cough has been progressively getting worse to the point where it's waking up in the middle of the night and sometimes he is unable to catch her breath in between and he gets nauseated and he throws up. No hemoptysis. No pleurisy. He subsequently lost his voice and this was attributed to smoking. At this point in time the patient 's voice is muffled and is quite hoarse and he has not had any recovery and he is voice characteristics over this past few months. He has been losing some weight and he has lost approximately 12 pounds. He is a chronic smoker and he was smoking up to 2 pack of cigarettes a day. He was asked to quit smoking by his primary care physician and he is in the process of quitting for now. No history of asthma. Most of recurrent pneumonias. No history of lymphoma. No history of any recurrent respiratory tract infections. No fever. No chills. No weight loss. His chest x-ray shows fullness within the left hilum and there are certain shadows that cannot be attributed based on vascular structures only. As such the patient will need a CAT scan. On his blood work, no significant leukocytosis. His calcium level was slightly elevated at 10.9. Renal function is within normal limits. On examination, the patient has firm lesions in the supraclavicular area which she was not aware of. On 08/24/2017 patient seen again in follow-up. Patient's CT neck and chest was reviewed, and showed a large left supraclavicular adenopathy, suspicious for malignancy. We consult interventional radiology for a fine-needle aspiration core biopsy of left subclavicular lymph nodes today. Patient voice continues to be hoarse, and there is suspicion of vocal cord paralysis, and ENT service will be consulted in that regard. Patient remains on room air, with O2 sat 91%. Afebrile, slightly tachycardic with heart rate up to 108 BPM. Lung sounds are diminished bilaterally, prolongation of expiratory phase of breathing and diffuse expiratory wheezes. No evidence of acute distress. Patient continues on IV Levaquin, nebulized treatments, and IV steroids. The patient is seen again today 08/25/2017 in follow-up on the regular medical floor. He is awake and alert in no acute distress. He did undergo evaluation by ENT and was found to have a left sided vocal cord paralysis. Most likely secondary to compression of the recurrent laryngeal nerve. He also had undergone a fine-needle aspiration of the left supraclavicular mass. Results are pending. He is breathing easier today as compared to yesterday. He has less cough as well. 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 He is maintaining good O2 saturations in the mid 90s on room air. He's been afebrile. Hemodynamically stable. On 08/27/2079 I'm seeing this patient for a follow-up. His cough has subsided somewhat compared to yesterday. He is still very hoarse. He was confirmed to have a left vocal cord paralysis due to involvement of the recurrent laryngeal nerve. Fine-needle aspirate of the supraclavicular mass was done and the results are still pending for now. Meanwhile an oncology consultation was also requested. I think the patient may ultimately require a bronchoscopy to inspect his airways especially continues to have excessive cough. He has no specific complaints. Awaiting the workup to be completed and the patient to be seen by various consultants regarding his ongoing difficulties with hoarseness and cough and. Underlying malignancy is highly suspected. On 08/27/2017 patient seen in follow-up on medical surgical floor. The results of the lymph node biopsy are still pending, patient's shortness of breath and coughing is improving. Patient is receiving promethazine [id number], he is being evaluated by speech therapy for his left vocal cord paralysis. He was seen by medical oncology in consultation who is also waiting on the results of the lymph node biopsy. Patient remains afebrile, he is on room air with O2 sat 96%. Vital signs are stable. Lung sounds are positive for some bibasilar rales , worse on the right posterior lower lobe. No worsening dyspnea. Patient is on IV Solu-Medrol, empiric antibiotics in the form of Levaquin, and bronchodilators. Continue current medical treatment. Objective - Vital Signs Vital signs: Vital Signs Temp 97.8 F 08/27/17 05:30 Pulse 90 08/27/17 07:33 Resp 16 08/27/17 08:00 BP 120/74 08/27/17 05:30 Pulse Ox 96 08/27/17 05:30 Intake & Output 08/26/17 08/27/17 08/27/17 18:59 06:59 18:59 Intake Total 240 Balance 240 Intake: Oral 240 Other: Voiding Method Toilet Toilet # Voids 3 1 - Exam Constitutional General appearance: no acute distress, the patient is not having any acute respiratory distress. His speech is interrupted by frequent coughing episodes. - EENT Eyes: EOMI, PERRLA - Neck Neck: There is a firm lymphadenopathy in the left supraclavicular area where several lymph nodes were palpated the largest of which is probably around 2 cm in size and it's quite firm on palpation. The right supra-clavicular areas within normal limits. No axillary lymph nodes were noted. - Respiratory Respiratory: There is obvious diminishment sounds bilaterally. There is prolongation of expiratory phase of breathing and there is some scattered rails auscultated and bilateral bases, right greater than the left - Cardiovascular Rhythm: regular Heart sounds: normal: S1, S2 - Gastrointestinal General gastrointestinal: normal bowel sounds, soft - Integumentary Integumentary: normal - Neurologic Neurologic: CNII-XII intact, focal deficits - Musculoskeletal Musculoskeletal: gait normal - Psychiatric Psychiatric: A&O x's 3, appropriate affect - Labs CBC & Chem 7: 08/27/17 09:16 08/27/17 09:16 Labs: Abnormal Lab Results - Last 24 Hours (Table) 08/26/17 08/26/17 08/26/17 Range/Units 11:58 17:00 21:18 WBC (3.8-10.6) k/uL Hgb (13.0-17.5) gm/dL Neutrophils # (1.3-7.7) k/uL Lymphocytes # (1.0-4.8) k/uL Carbon Dioxide (22-30) mmol/L BUN (9-20) mg/dL Glucose (74-99) mg/dL POC Glucose (mg/dL) 140 H 133 H 174 H (75-99) mg/dL 08/27/17 08/27/17 08/27/17 Range/Units 07:26 09:16 09:16 WBC 14.6 H (3.8-10.6) k/uL Hgb 12.5 L (13.0-17.5) gm/dL Neutrophils # 13.5 H (1.3-7.7) k/uL Lymphocytes # 0.7 L (1.0-4.8) k/uL Carbon Dioxide 21 L (22-30) mmol/L BUN 28 H (9-20) mg/dL Glucose 201 H (74-99) mg/dL POC Glucose (mg/dL) 122 H (75-99) mg/dL Microbiology - Last 24 Hours (Table) 08/23/17 15:20 Blood Culture - Preliminary Blood No Growth after 72 hours Assessment and Plan Plan: Assessment: 1 chronic cough with obvious abnormalities on a chest x-ray especially within the left hilum. There is fullness within the left hilum and there is concern for left hilar mass causing cough and possibly contributing to his hoarseness as I suspected the patient also has paralysis of the vocal cords. Overall suspicion for a left hilar tumor is quite high in this patient with chronic smoking and has progressive dyspnea and cough and hoarseness. Neck/Chest CT showed enlarged left supraclavicular adenopathy, highly suspicious for malignancy. The patient is scheduled to undergo a fine-needle aspiration core biopsy by interventional radiology today. 2 left supraclavicular lymphadenopathy, likely malignant 3 hoarseness, related to left vocal cord paralysis 4 mild hypercalcemia, possible malignant in nature 5 COPD exacerbation 6 smoker 7 hypertension Plan: Continue with current medical treatment, patient is less wheezy, less short of breath. His cough is better controlled with cough syrup, promethazine which she is getting around the clock. We'll decrease the IV Solu-Medrol to 40 mg every 8 hours, continue Levaquin, continue bronchodilators. Still awaiting the results of the left supraclavicular lymph node biopsy. Patient is being evaluated by speech therapy for possible aspiration. Activity as tolerated, encourage ambulation. I performed a history & physical examination of the patient and discussed their management with my nurse practitioner, Mariam Ruiz. I reviewed the nurse practitioner's note and agree with the documented findings and plan of care. Lung sounds are positive for bibasilar crackles, right greater than the left. The findings and the impression was discussed with the patient. I attest to the documentation by the nurse practitioner. Time with Patient: Less than 30
[2017-08-27 12:44] LABS: Glucose,Whole Blood 130 mg/dL (75-99)
[2017-08-27] MEDS: MULTIVITAMINS, THERA 1 EACH TAB PO SCH (13:15)
--- NOTE | 2017-08-27 13:46 | FL ---
MODIFIED SWALLOW / DEGLUTITION STUDY DATE OF EXAM: 08/27/2017 CLINICAL HISTORY: 57-year-old male presents with pneumonia, rule out silent aspiration. Patient with vocal fold paralysis. Dysphagia. TECHNIQUE: Deglutition study is performed utilizing thin liquid barium, honey and nectar thick liqui d barium, barium thick applesauce, and barium coated cracker. COMPARISON: None. Total fluoroscopy time: 63 seconds. Total images: None. Real-time fluoroscopy support was provided to speech pathology. FINDINGS: The oral and pharyngeal phases show satisfactory initiation and propagation with all modalities teste d. The patient is edentulous. Satisfactory mastication with solid modality. There is no evidence of penetration or aspiration with any modality tested. No significant pharyngeal residue was appreciate d. IMPRESSION: Functional swallow. Please refer to speech therapist notes for further details if necessary.
--- NOTE | 2017-08-27 16:55 | P.PN ---
Subjective Progress Note Date: 08/27/17 patient reports that his shortness of breath and coughing is improved, denies any chest pain. Still complain of hoarseness this is also slightly improved. No acute events overnight Objective - Vital Signs Vital signs: Vital Signs Temp 96.9 F L 08/27/17 14:40 Pulse 88 08/27/17 15:52 Resp 16 08/27/17 14:40 BP 120/68 08/27/17 14:40 Pulse Ox 97 08/27/17 15:38 Intake & Output 08/26/17 08/27/17 08/27/17 18:59 06:59 18:59 Intake Total 240 Balance 240 Intake: Oral 240 Other: Voiding Method Toilet Toilet # Voids 3 1 3 - Exam Constitutional: No acute distress, conversant, pleasant Eyes: Anicteric sclerae, moist conjunctiva, no lid-lag, PERRLA ENMT: NC/AT,Oropharynx clear, no erythema, exudates Neck:Supple, FROM, no masses, or JVD, No carotid bruits; No thyromegaly, firm lymphadenopathy in the left supraclavicular area where several lymph nodes were palpated the largest of which is probably around 2 cm in size and it's quite firm on palpation. no right sided LAD Lungs: Clear to auscultation, Clear to percussion, Normal respiratory effort, no accessory muscle use Cardiovascular: Heart regular in rate and rhythm, No murmurs, gallops, or rubs no peripheral edema Abdominal: Soft Nontender, nom distended, no guarding, no rebound or rigidity, Normoactive bowel sounds No hepatomegaly, No splenomegaly, No palpable mass No abdominal wall hernia noted Skin: Normal temperature, tone, texture, turgor, No induration No subcutaneous nodules, No rash, lesions, No ulcers Extremities:No digital cyanosis No clubbing, Pedal pulses intact and symmetrical Radial pulses intact and symmetrical Normal gait and station, No calf tenderness Psychiatric: Alert and oriented to person, place and time, Appropriate affect Intact judgement Neuro: Muscles Strength 5/5 in all 4 extremities, Sensation to light touch grossly present throughout, Cranial nerves II-XII grossly intact. No focal sensory deficits - Labs CBC & Chem 7: 08/27/17 09:16 08/27/17 09:16 Labs: Abnormal Lab Results - Last 24 Hours (Table) 08/26/17 08/26/17 08/27/17 Range/Units 17:00 21:18 07:26 WBC (3.8-10.6) k/uL Hgb (13.0-17.5) gm/dL Neutrophils # (1.3-7.7) k/uL Lymphocytes # (1.0-4.8) k/uL Carbon Dioxide (22-30) mmol/L BUN (9-20) mg/dL Glucose (74-99) mg/dL POC Glucose (mg/dL) 133 H 174 H 122 H (75-99) mg/dL 08/27/17 08/27/17 08/27/17 Range/Units 09:16 09:16 12:41 WBC 14.6 H (3.8-10.6) k/uL Hgb 12.5 L (13.0-17.5) gm/dL Neutrophils # 13.5 H (1.3-7.7) k/uL Lymphocytes # 0.7 L (1.0-4.8) k/uL Carbon Dioxide 21 L (22-30) mmol/L BUN 28 H (9-20) mg/dL Glucose 201 H (74-99) mg/dL POC Glucose (mg/dL) 130 H (75-99) mg/dL Microbiology - Last 24 Hours (Table) 08/23/17 15:20 Blood Culture - Preliminary Blood No Growth after 72 hours Assessment and Plan (1) Lung mass Narrative/Plan: * Awaiting pathology results for left supraclavicular lymph node biopsy * Patient seen by oncology Dr. Gomes, high suspicion of underlying malignancy possibly a bronchogenic carcinoma Current Visit: Yes Status: Acute Code(s): R91.8 - OTHER NONSPECIFIC ABNORMAL FINDING OF LUNG FIELD SNOMED Code(s): 689815234 (2) COPD (chronic obstructive pulmonary disease) Narrative/Plan: * Continue DuoNeb breathing treatments, IV steroids and Levaquin * Pulmonary following Current Visit: Yes Status: Acute Code(s): J44.9 - CHRONIC OBSTRUCTIVE PULMONARY DISEASE, UNSPECIFIED SNOMED Code(s): 05989874 (3) Vocal cord paralysis Narrative/Plan: * Patient seen by speech pathology recommending MOBAS swallow evaluation * Laryngoscopy indicating left vocal cord paralysis as a cause of the patient's hoarseness Current Visit: Yes Status: Acute Code(s): J38.00 - PARALYSIS OF VOCAL CORDS AND LARYNX, UNSPECIFIED SNOMED Code(s): 353772968 (4) Hypertension Narrative/Plan: * Patient's blood pressure stable medical continue current regimen with losartan and HCTZ * Patient having intermittent tachycardia potentially related to his inhaler treatments will order echocardiogram to further evaluate his cardiac structure Current Visit: Yes Status: Acute Code(s): I10 - ESSENTIAL (PRIMARY) HYPERTENSION SNOMED Code(s): 42723112 (5) Lymphadenopathy Current Visit: Yes Status: Acute Code(s): R59.1 - GENERALIZED ENLARGED LYMPH NODES SNOMED Code(s): 32141303 (6) Pneumonia Narrative/Plan: Continue with Levaquin Current Visit: Yes Status: Acute Code(s): J18.9 - PNEUMONIA, UNSPECIFIED ORGANISM SNOMED Code(s): 361617373
[2017-08-27] MEDS: NICOTINE 14MG/24HR PATCH TRANSDERM SCH (17:24)
[2017-08-27] MEDS: LEVOFLOXACIN 750 MG TAB PO SCH (17:25)
[2017-08-27 17:35] LABS: Glucose,Whole Blood 128 mg/dL (75-99)
[2017-08-27 20:41] LABS: Glucose,Whole Blood 126 mg/dL (75-99)
[2017-08-27] MEDS: PANTOPRAZOLE 40 MG TABLET PO SCH (21:12)
[2017-08-27] MEDS: methylPREDNISolone SOD SUCCI 40 MG/ML 1 ML VIAL IV SCH (21:13)
[2017-08-28] MEDS: PROMETHAZ-COD 6.25-10 MG/5 ML 5 ML CUP PO SCH ×3 (04:41→16:30)
[2017-08-28] MEDS: methylPREDNISolone SOD SUCCI 40 MG/ML 1 ML VIAL IV SCH ×2 (04:43→11:43)
[2017-08-28] MEDS: ACETAMINOPHEN TAB 325 MG TAB PO PRN ×2 (04:43→11:55)
[2017-08-28 06:01] VITALS: BP 133/85; RESP 18; TEMP 96.4
[2017-08-28] MEDS: IPRATROPIUM-ALBUTEROL 3 ML NEB INHALATION SCH ×3 (07:09→16:27)
[2017-08-28] MEDS: TRELEGY ELLIPTA INHALATION SCH (07:09)
[2017-08-28 07:12] LABS: Glucose,Whole Blood 120 mg/dL (75-99)
[2017-08-28] MEDS: MULTIVITAMINS, THERA 1 EACH TAB PO SCH (08:07)
[2017-08-28] MEDS: INSULIN ASPART 100 UNIT/ML 1 ML 10 ML VIAL SQ SCH ×3 (08:07→16:30)
[2017-08-28] MEDS: ASCORBIC ACID 500 MG TAB PO SCH (08:07)
[2017-08-28] MEDS: HYDROCHLOROTHIAZIDE 12.5 MG CAP PO SCH (08:07)
[2017-08-28] MEDS: VALSARTAN 80 MG TAB PO SCH (08:07)
[2017-08-28] MEDS: NON-FORMULARY DRUG (Glucosamine/Chondr Su A Sod [Osteo Bi-Flex Caplet] 1 TAB) PO SCH (08:08)
--- NOTE | 2017-08-28 11:11 | ECHOF ---
Referral Reason:Tachycardia MEASUREMENTS -------- HEIGHT: 180.3 cm WEIGHT: 85.3 kg BP: 120/68 RVIDd: 2.2 cm (< 3.3) IVSd: 1.1 cm (0.6 - 1.1) LVIDd: 4.3 cm (3.9 - 5.3) LVPWd: 1.0 cm (0.6 - 1.1) IVSs: 1.3 cm LVIDs: 3.2 cm LVPWs: 1.3 cm LAESV Index (A-L): 14.31 ml/m Ao Diam: 3.7 cm (2.0 - 3.7) AV Cusp: 1.7 cm (1.5 - 2.6) LA Diam: 2.6 cm (2.7 - 3.8) MV EXCURSION: 18.048 mm (> 18.000) MV EF SLOPE: 66 mm/s (70 - 150) EPSS: 0.8 cm MV E Terry: 0.66 m/s MV DecT: 265 ms MV A Terry: 0.91 m/s MV E/A Ratio: 0.73 RAP: 5.00 mmHg RVSP: 10.25 mmHg FINDINGS -------- Resting tachycardia (HR>100bpm). This was a technically adequate study. The left ventricular size is normal. Left ventricular wall thickness is normal. Overall left vent ricular systolic function is normal with, an EF between 55 - 60 %. The right ventricle is normal in size and function. Normal LA size by volume 22+/-6 ml/m2. The right atrium is normal in size. Aortic valve is trileaflet and is mildly thickened. There is no evidence of aortic regurgitation. There is no evidence of aortic stenosis. The mitral valve leaflets are mildly thickened. There is trace to mild mitral regurgitation. Trace tricuspid regurgitation present. Right ventricular systolic pressure is normal at < 35 mmHg. There is no evidence of pulmonary hypertension. Trace/mild (physiologic) pulmonic regurgitation. The aortic root size is normal. IVC Not well visulized. There is a trivial pericardial effusion present. CONCLUSIONS -------- 1. Resting tachycardia (HR>100bpm). 2. This was a technically adequate study. 3. The left ventricular size is normal. 4. Left ventricular wall thickness is normal. 5. Overall left ventricular systolic function is normal with, an EF between 55 - 60 %. 6. Normal LA size by volume 22+/-6 ml/m2. 7. Aortic valve is trileaflet and is mildly thickened. 8. The mitral valve leaflets are mildly thickened. 9. There is trace to mild mitral regurgitation. 10. Trace tricuspid regurgitation present. 11. Right ventricular systolic pressure is normal at < 35 mmHg. 12. There is no evidence of pulmonary hypertension. 13. Trace/mild (physiologic) pulmonic regurgitation. 14. The aortic root size is normal. 15. IVC Not well visulized. 16. There is a trivial pericardial effusion present. CRAFT WORKER: Tr Bradley RDCS
[2017-08-28 12:04] LABS: Glucose,Whole Blood 137 mg/dL (75-99)
--- NOTE | 2017-08-28 13:16 | P.PN ---
Subjective Progress Note Date: 08/28/17 Principal diagnosis: Chronic cough, voice hoarseness, and the CT chest revealed a left hilar tumor, left supraclavicular lymphadenopathy, likely malignant. A 57-year-old male patient comes in to the hospital because of worsening shortness of breath and cough. The patient has been having these symptoms for the past 2 months. He has already received 2 rounds of antibiotics and steroids. He last finished the antibiotics approximately 10 days ago. He was supposed to see me in the office for the first time next week. The patient came in because of worsening shortness of breath. In the emergency department he was given IV steroids and nebulized treatments and he is feeling better already. Upon further questioning, the patient states that his been having increased cough and episodes for the past few months. The patient's cough has been progressively getting worse to the point where it's waking up in the middle of the night and sometimes he is unable to catch her breath in between and he gets nauseated and he throws up. No hemoptysis. No pleurisy. He subsequently lost his voice and this was attributed to smoking. At this point in time the patient 's voice is muffled and is quite hoarse and he has not had any recovery and he is voice characteristics over this past few months. He has been losing some weight and he has lost approximately 12 pounds. He is a chronic smoker and he was smoking up to 2 pack of cigarettes a day. He was asked to quit smoking by his primary care physician and he is in the process of quitting for now. No history of asthma. Most of recurrent pneumonias. No history of lymphoma. No history of any recurrent respiratory tract infections. No fever. No chills. No weight loss. His chest x-ray shows fullness within the left hilum and there are certain shadows that cannot be attributed based on vascular structures only. As such the patient will need a CAT scan. On his blood work, no significant leukocytosis. His calcium level was slightly elevated at 10.9. Renal function is within normal limits. On examination, the patient has firm lesions in the supraclavicular area which she was not aware of. On 08/24/2017 patient seen again in follow-up. Patient's CT neck and chest was reviewed, and showed a large left supraclavicular adenopathy, suspicious for malignancy. We consult interventional radiology for a fine-needle aspiration core biopsy of left subclavicular lymph nodes today. Patient voice continues to be hoarse, and there is suspicion of vocal cord paralysis, and ENT service will be consulted in that regard. Patient remains on room air, with O2 sat 91%. Afebrile, slightly tachycardic with heart rate up to 108 BPM. Lung sounds are diminished bilaterally, prolongation of expiratory phase of breathing and diffuse expiratory wheezes. No evidence of acute distress. Patient continues on IV Levaquin, nebulized treatments, and IV steroids. The patient is seen again today 08/25/2017 in follow-up on the regular medical floor. He is awake and alert in no acute distress. He did undergo evaluation by ENT and was found to have a left sided vocal cord paralysis. Most likely secondary to compression of the recurrent laryngeal nerve. He also had undergone a fine-needle aspiration of the left supraclavicular mass. Results are pending. He is breathing easier today as compared to yesterday. He has less cough as well. 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 He is maintaining good O2 saturations in the mid 90s on room air. He's been afebrile. Hemodynamically stable. On 08/27/2079 I'm seeing this patient for a follow-up. His cough has subsided somewhat compared to yesterday. He is still very hoarse. He was confirmed to have a left vocal cord paralysis due to involvement of the recurrent laryngeal nerve. Fine-needle aspirate of the supraclavicular mass was done and the results are still pending for now. Meanwhile an oncology consultation was also requested. I think the patient may ultimately require a bronchoscopy to inspect his airways especially continues to have excessive cough. He has no specific complaints. Awaiting the workup to be completed and the patient to be seen by various consultants regarding his ongoing difficulties with hoarseness and cough and. Underlying malignancy is highly suspected. On 08/27/2017 patient seen in follow-up on medical surgical floor. The results of the lymph node biopsy are still pending, patient's shortness of breath and coughing is improving. Patient is receiving promethazine [id number], he is being evaluated by speech therapy for his left vocal cord paralysis. He was seen by medical oncology in consultation who is also waiting on the results of the lymph node biopsy. Patient remains afebrile, he is on room air with O2 sat 96%. Vital signs are stable. Lung sounds are positive for some bibasilar rales , worse on the right posterior lower lobe. No worsening dyspnea. Patient is on IV Solu-Medrol, empiric antibiotics in the form of Levaquin, and bronchodilators. Continue current medical treatment. On 08/28/2017 patient is seen in follow-up on medical surgical floor. He continues to improve, coughing less, and is not able to produce some sputum. Less wheezy, less bronchospastic. He had MBS study yesterday and was noted to have no evidence of penetration or aspiration. He still whispers. Lung sounds are only positive for a few scattered rales, but no rhonchi or wheezing noted. Patient continues on promethazine for his persistent cough. The results of the supraclavicular lymph node biopsy are still pending at this time, patient's echocardiogram showed EF of 55-60%, no evidence of pulmonary hypertension. He denies any chest pain, no acute events overnight, he has been ambulating extensively and tolerating activity well. Would like to go home today. From pulmonary standpoint patient is stable for discharge home today, he has completed 5 days of Levaquin 750 mg with significant improvement, will continue prednisone taper, we'll continue cough syrup for 7 more days. Follow-up with medical oncology and Dr. Roque in the office and 7-10 days Objective - Vital Signs Vital signs: Vital Signs Temp 96.4 F L 08/28/17 05:40 Pulse 84 08/28/17 11:34 Resp 18 08/28/17 07:38 BP 133/85 08/28/17 05:40 Pulse Ox 94 L 08/28/17 05:40 Intake & Output 08/27/17 08/28/17 08/28/17 18:59 06:59 18:59 Intake Total 200 Balance 200 Weight 85.3 kg Intake: Oral 200 Other: Voiding Method Toilet # Voids 3 1 - Exam Constitutional General appearance: no acute distress, the patient is not having any acute respiratory distress. His speech is interrupted by frequent coughing episodes. - EENT Eyes: EOMI, PERRLA - Neck Neck: There is a firm lymphadenopathy in the left supraclavicular area where several lymph nodes were palpated the largest of which is probably around 2 cm in size and it's quite firm on palpation. The right supra-clavicular areas within normal limits. No axillary lymph nodes were noted. - Respiratory Respiratory: There is obvious diminishment sounds bilaterally. Patient is positive for a few scattered rales, no significant wheezing on today's exam, there is prolongation of expiratory phase - Cardiovascular Rhythm: regular Heart sounds: normal: S1, S2 - Gastrointestinal General gastrointestinal: normal bowel sounds, soft - Integumentary Integumentary: normal - Neurologic Neurologic: CNII-XII intact, focal deficits - Musculoskeletal Musculoskeletal: gait normal - Psychiatric Psychiatric: A&O x's 3, appropriate affect - Labs CBC & Chem 7: 08/27/17 09:16 08/27/17 09:16 Labs: Abnormal Lab Results - Last 24 Hours (Table) 08/27/17 08/27/17 08/28/17 Range/Units 17:34 20:38 07:02 POC Glucose (mg/dL) 128 H 126 H 120 H (75-99) mg/dL 08/28/17 Range/Units 12:00 POC Glucose (mg/dL) 137 H (75-99) mg/dL Microbiology - Last 24 Hours (Table) 08/23/17 15:20 Blood Culture - Preliminary Blood No Growth after 96 hours Assessment and Plan Plan: Assessment: 1 chronic cough with obvious abnormalities on a chest x-ray especially within the left hilum. There is fullness within the left hilum and there is concern for left hilar mass causing cough and possibly contributing to his hoarseness as I suspected the patient also has paralysis of the vocal cords. Overall suspicion for a left hilar tumor is quite high in this patient with chronic smoking and has progressive dyspnea and cough and hoarseness. Neck/Chest CT showed enlarged left supraclavicular adenopathy, highly suspicious for malignancy. The patient is scheduled to undergo a fine-needle aspiration core biopsy by interventional radiology today. 2 left supraclavicular lymphadenopathy, likely malignant 3 hoarseness, related to left vocal cord paralysis 4 mild hypercalcemia, possible malignant in nature 5 COPD exacerbation 6 smoker 7 hypertension Plan: Clinically patient ports continuous improvement, less dyspneic, less wheezy, his cough is improving, although persist especially at bedtime. Vital signs are stable, no acute events overnight, no chest pain. Patient has received a course of Levaquin 750 mg for 5 days, and has responded well. From pulmonary standpoint patient stable for discharge home today, on prednisone taper, no need for outpatient oral antibiotics, his maintenance inhalers, and promethazine cough syrup. Will need to follow-up with Dr. Roque and Dr. Jack regarding the results of his lymph node biopsies in 1 week I performed a history & physical examination of the patient and discussed their management with my nurse practitioner, Mariam Ruiz. I reviewed the nurse practitioner's note and agree with the documented findings and plan of care. Lung sounds are positive for bibasilar crackles, right greater than the left. The findings and the impression was discussed with the patient. I attest to the documentation by the nurse practitioner. Time with Patient: Less than 30
--- NOTE | 2017-08-28 15:19 | P.DS ---
Providers Date of admission: 08/24/17 14:22 Expected date of discharge: 08/28/17 Attending physician: Linda Ma MD Consults: 08/23/17 16:28 Consult Physician Routine Consulting Provider: Caroline Roque Consult Reason/Comments: Pneumonia Do you want consulting provider notified?: Yes 08/24/17 10:20 Consult Physician Urgent Consulting Provider: Nicho Croft Consult Reason/Comments: voice hoarseness, rule out VC paralysis Do you want consulting provider notified?: Yes 08/25/17 15:23 Consult Physician Routine Consulting Provider: Hima Donovan Consult Reason/Comments: Left hilar mass, left supraclavicular mass, pathology pending. Do you want consulting provider notified?: Yes, Notify in am 08/28/17 11:57 Consult Physician Routine Consulting Provider: iRchardson Roque Consult Reason/Comments: establish with Radiation Onc for either definitive or palliative treatment Do you want consulting provider notified?: Already Contacted Primary care physician: Ben Busch - Discharge Diagnosis(es) (1) Lung mass Current Visit: Yes Status: Acute (2) COPD (chronic obstructive pulmonary disease) Current Visit: Yes Status: Acute (3) Vocal cord paralysis Current Visit: Yes Status: Acute (4) Hypertension Current Visit: Yes Status: Acute (5) Lymphadenopathy Current Visit: Yes Status: Acute (6) Pneumonia Current Visit: Yes Status: Acute Hospital Course: The patient is a 57-year-old male that presented to the ER increase cough shortness of breath and was subsequently admitted for acute COPD exacerbation and pneumoniaand started on empiric IV antibiotics and systemic steroids along with scheduled and when necessary breathing treatments, the patient had the symptoms ongoing for the last 2 months and had 2 rounds of antibiotics. The patient also complained of and given his significant pack history he had a chest x-ray that showed fullness of the left hilum, subsequent CT of the neck/chest revealed enlarged left supraclavicular lymphadenopathy with a suspicious liver mass in the posterior infrahilar region on the left with perihilar soft tissue thickening and peribronchial thickening suspicious of neoplasm. Pulmonary Dr. Roque was consulted and recommended supraclavicular lymph node biopsy that was done and results are pending at time of discharge, given the patient's hoarseness the patient was seen by ENT and laryngoscopy was performed indicating left vocal cord paralysis likely due to her compression of the left recurrent laryngeal nerve. Subsequently MObAS study was performed which showed no suggestion of any aspiration. The patient was seen by oncology Dr. Jack, and the case was discussed that this is possibly a bronchogenic adenocarcinoma and that we would wait for pathology results. Patient was subsequently discharged home in stable condition with plans for follow-up with pulmonary Dr. Roque 08/31/[address] Jack on 09/04/17 for ongoing plan of care. He was given new prescription for prednisone taper, Phenergan and codeine cough syrup, and a refill of his losartan/HCTZ 80/12.5 mg by mouth daily #90 Patient Condition at Discharge: Fair Plan - Discharge Summary Discharge Rx Participant: Yes New Discharge Prescriptions: New predniSONE 10 mg PO DAILY 12 Days #30 tab Promethaz-Cod 6.25-10 mg/5 ml [Phenergan with Codeine] 5 ml PO Q6HR PRN 7 Days #140 ml PRN Reason: cough guaiFENesin SYRUP 100MG/5ML [Robitussin] 200 mg PO Q6H PRN cup PRN Reason: Cough Ipratropium-Albuterol Nebulize [Duoneb 0.5 mg-3 mg/3 ml Soln] 3 ml INHALATION RT-QID PRN 30 Days #30 ampul.neb PRN Reason: SOA/cough Promethaz-Cod 6.25-10 mg/5 ml [Phenergan with Codeine] 5 ml PO Q6H ml Continue traZODone HCL [Desyrel] 50 mg PO HS PRN PRN Reason: Insomnia Ascorbic Acid [Vitamin C] 500 mg PO BID Nicotine 14Mg/24Hr Patch [Habitrol] 1 patch TRANSDERM DAILY Omeprazole Magnesium [PriLOSEC OTC] 20 mg PO DAILY Multivitamin [Men's Multi-Vitamin] 1 tab PO DAILY Glucosamine/Chondr Meneses A Sod [Osteo Bi-Flex Caplet] 1 tab PO DAILY Fluticasone/Umeclidin/Vilanter [Trelegy Ellipta 100-62.5-25] 1 puff INHALATION RT-DAILY Aspirin [Adult Low Dose Aspirin EC] 81 mg PO DAILY Valsartan/Hydrochlorothiazide [Diovan Hct 80-12.5 mg Tablet] 1 tab PO DAILY # 90 tablet Discontinued Albuterol Inhaler [Ventolin Hfa Inhaler] 1 - 2 puff INHALATION RT-Q6H PRN PRN Reason: Shortness Of Breath Discharge Medication List traZODone HCL [Desyrel] 50 mg PO HS PRN 12/10/13 [History] Ascorbic Acid [Vitamin C] 500 mg PO BID 08/23/17 [History] Aspirin [Adult Low Dose Aspirin EC] 81 mg PO DAILY 08/23/17 [History] Fluticasone/Umeclidin/Vilanter [Trelegy Ellipta 100-62.5-25] 1 puff INHALATION RT-DAILY 08/23/17 [History] Glucosamine/Chondr Meneses A Sod [Osteo Bi-Flex Caplet] 1 tab PO DAILY 08/23/17 [ History] Multivitamin [Men's Multi-Vitamin] 1 tab PO DAILY 08/23/17 [History] Nicotine 14Mg/24Hr Patch [Habitrol] 1 patch TRANSDERM DAILY 08/23/17 [History] Omeprazole Magnesium [PriLOSEC OTC] 20 mg PO DAILY 08/23/17 [History] Ipratropium-Albuterol Nebulize [Duoneb 0.5 mg-3 mg/3 ml Soln] 3 ml INHALATION RT -QID PRN 30 Days #30 ampul.neb 08/28/17 [Rx] Promethaz-Cod 6.25-10 mg/5 ml [Phenergan with Codeine] 5 ml PO Q6H ml 08/28/17 [Rx] Promethaz-Cod 6.25-10 mg/5 ml [Phenergan with Codeine] 5 ml PO Q6HR PRN 7 Days # 140 ml 08/28/17 [Rx] Valsartan/Hydrochlorothiazide [Diovan Hct 80-12.5 mg Tablet] 1 tab PO DAILY #90 tablet 08/28/17 [Rx] guaiFENesin SYRUP 100MG/5ML [Robitussin] 200 mg PO Q6H PRN cup 08/28/17 [Rx] predniSONE 10 mg PO DAILY 12 Days #30 tab 08/28/17 [Rx] Follow up Appointment(s)/Referral(s): Richardson Roque MD [STAFF PHYSICIAN] - 09/13/17 9:00 am (To see Dr Roque at [facility] on September at 9am. Radiation Oncologist. ) Ben Busch DO [Primary Care Provider] - 09/03/17 1:30 pm Caroline Roque MD [STAFF PHYSICIAN] - 08/31/17 2:30 pm Stephanie Gomes MD [STAFF PHYSICIAN] - 09/04/17 ([facility] will call you with appointment time) Patient Instructions/Handouts: Lymphadenopathy (GEN), Pneumonia (DC), Lymph Node Biopsy (DC) Activity/Diet/Wound Care/Special Instructions: Cardiac diet. Activity as tolerated. NO smoking, cessation information provided. Discharge Disposition: HOME SELF-CARE
[2017-08-28 16:30] VITALS: PULSE 88
[2017-08-28] MEDS: LEVOFLOXACIN 750 MG TAB PO SCH (16:30)
--- NOTE | 2017-08-29 20:08 | CDI ---
Last Revision, April 2017 Documentation Clarification Form Date: 08/29/2017 12:00:00 AM From: [facility] [place] Phone: If you have a question, contact Lyn Bisyadiraomari, Classification Officer at Admit Date: 08/24/2017 2:22:00 PM Patient Name: David Noonan Visit Number: [id number] Discharge Date: 08/28/17 ATTENTION: The Clinical Documentation Specialists (CDI) and [facility] Coding Staff appreciate your assistance in clarifying documentation. Please respond to the clarification below the line at the bottom and electronically sign. The CDI & [facility] Coding staff will review the response and follow-up if needed. Please note: Queries are made part of the Legal Health Record. If you have any questions, please contact the author of this message via ITS. Dr. Corey Lewis Pathology results from the supraclavicular lymph node biopsy done on 08/24/17 are now available to view and indicate a diagnosis of metastatic non-small cell carcinoma consistent with adenocarcinoma. The ICD-10-CM Official Guidelines for Coding and Reporting (Section III, B. Abnormal Findings) states, "Abnormal findings (laboratory, x-ray, pathologic, and other diagnostic results) are not coded and reported unless the physician indicates their clinical significance. In your professional opinion, do you agree with the pathology report specifying the lymph node findings as metastatic non-small cell carcinoma consistent with adenocarcinoma? x Yes Thank you for your time. MTDD
== END 2017-08-28 17:16 | disposition home or self-care (01) | DRG 194 ==
LOC: EC 14:11 → 4MS4W 16:28 → OBSVTOIN 16:28 → UNDOADMOB 16:28 → 4MS4W 16:39 → OBSVTOIN 08-24 14:22 → INTOOBSV 08-24 14:22 → UNDODISIN 08-28 17:16 → UNDODISOB 08-28 17:16
PROVIDERS: ADMIT Internal Medicine; ATTEND Internal Medicine
PROC: 0CJS8ZZ Inspection of Larynx, Via Natural or Artificial Opening Endoscopic (ICD-10-PCS; principal; 2017-08-24)
PROC: 07D23ZX Extraction of Left Neck Lymphatic, Percutaneous Approach, Diagnostic (ICD-10-PCS; 2017-08-24)
DX: J18.9 Pneumonia, unspecified organism (principal); J44.0 Chronic obstructive pulmonary disease with (acute) lower respiratory infection; J38.01 Paralysis of vocal cords and larynx, unilateral; C77.0 Secondary and unspecified malignant neoplasm of lymph nodes of head, face and neck; E83.52 Hypercalcemia; J44.1 Chronic obstructive pulmonary disease with (acute) exacerbation; R91.8 Other nonspecific abnormal finding of lung field; F17.210 Nicotine dependence, cigarettes, uncomplicated; C80.1 Malignant (primary) neoplasm, unspecified; I10 Essential (primary) hypertension; K21.9 Gastro-esophageal reflux disease without esophagitis; M19.90 Unspecified osteoarthritis, unspecified site; Z79.51 Long term (current) use of inhaled steroids; Z79.82 Long term (current) use of aspirin; Z79.899 Other long term (current) drug therapy; Z82.49 Family history of ischemic heart disease and other diseases of the circulatory system; Z87.01 Personal history of pneumonia (recurrent)
CPT/HCPCS: 36415; 38505; 70491; 71046; 71260; 74230; 76942; 80048; 80053; 82550; 82553; 83036; 83605; 84484; 85025; 85610; 85730; 87040; 88305; 88341; 88342; 93005; 93306; 94640; 94760; 96365; 96375; 99285

== ENCOUNTER → 2017-09-01 | Outpatient (CLI) | payer BC ==
--- NOTE | 2017-09-02 11:43 | PE ---
EXAMINATION TYPE: PET CT fusion skull to thigh DATE OF EXAM: 09/01/2017 CLINICAL HISTORY: 77-year-old male initially staging solitary pulmonary nodule. TECHNIQUE: Following the intravenous administration of 10.2 mCi of F-18 FDG, whole body images are performed from the skull base to the midthigh. Images are reviewed on the computer in the coronal, a xial, and sagittal planes. Reconstructed rotating images are created on independent workstation and reviewed on the computer. A localization and attenuation correction CT is performed in conjunction with the PET scan. Glucose level: 182 mg/dL CTDI: 3.88 mGy DLP: 345.65 mGy-cm COMPARISON: 08/11/2012 and 08/07/2017 FINDINGS: PET: Physiologic FDG uptake within the neck. A 7 mm right upper lobe pulmonary nodule axial image 77 is just at the threshold for adequate PET tanisha racterization but shows no discrete FDG uptake and was present back on 08/11/2012. A 1.8 cm related left apical pulmonary nodule showed only patchy groundglass on 08/11/2012. Max SUV 3.4 which is suspicious for a nodule of this size. Heterogeneous liver uptake likely normal variation. Average liver SUV is 2.8. Otherwise, physiologic FDG uptake within the abdomen and pelvis. Variable mild degenerative disc FDG uptake throughout the spine. Variable mild to moderate uptake at the left hip seems to relate to combination of heterotopic ossifi cation anteriorly and gluteal insertional tendinosis. ATTENUATION CORRECTION CT: Visualized paranasal sinuses are clear. Post resection changes involving the left mastoid process. Ri ghtward nasal septal deviation. No cervical lymphadenopathy. Median sternotomy wires are present with post-CABG changes. Heart upper limits of normal in size with out pericardial effusion. Aorta normal caliber with conventional arch was a branching anatomy and mil d atherosclerotic calcifications. Large caliber to the main radial pulmonary arteries at 2.9 and 2.8 cm, respectively, suggesting underlying pulmonary arterial hypertension. Scattered nonenlarged media stinal lymph nodes are present. Patchy peribronchovascular groundglass is noted in the mid and lower lungs. The overall opacities hav e improved from 08/07/2017. There is biapical pleural-parenchymal scarring and moderate emphysema. No p leural effusion. Normal variant azygos fissure. Tiny hiatal hernia. There is an endovascular abdominal aortic stent graft present distending from the level of the celiac axis. Infrarenal tetlin sac size is 4.9 cm versus 5.3 cm preprocedural on 2015. Moderate stool burden. No mesenteric or retroperitoneal lymphadenopathy. Bladder is urine distended. Prostate gland prominent degenerative 5.2 cm wide. No abnormal fluid karen ection in the pelvis or pelvic lymphadenopathy seen. There is some scarring in the bilateral inguinal regions. Bones: Mild degenerative changes at the hips. Moderate degenerative changes SI joints. Endplate spond ylosis throughout the visualized spine and cervical spondylosis. No osseous destructive process seen. IMPRESSION: 1. The spiculated 1.8 cm left apical pulmonary nodule shows borderline moderate hypermetabolism and i s suspicious for lung cancer. 2. No evidence for metastatic disease. 3. A 7 mm right upper lobe pulmonary nodule shows no discrete FDG uptake and was present back in 2012 suggesting a benign etiology. 4. COPD with moderate emphysema and pulmonary arterial hypertension. 5. Some patchy peribronchovascular groundglass in the mid to lower lungs is improving from 08/07/2017. Correlate for possible causes such as improving pneumonia or interstitial pneumonitis.
== END | disposition home or self-care (01) ==
LOC: RADPETMAIN 13:53
PROVIDERS: ATTEND Internal Medicine Hematology & Oncology
DX: C77.9 Secondary and unspecified malignant neoplasm of lymph node, unspecified (principal); C34.82 Malignant neoplasm of overlapping sites of left bronchus and lung; C78.1 Secondary malignant neoplasm of mediastinum; C79.89 Secondary malignant neoplasm of other specified sites; C79.51 Secondary malignant neoplasm of bone; J38.01 Paralysis of vocal cords and larynx, unilateral; K44.9 Diaphragmatic hernia without obstruction or gangrene; N20.0 Calculus of kidney
CPT/HCPCS: 78815; A9552

== ENCOUNTER → 2017-09-20 | Outpatient (CLI) | payer BC ==
--- NOTE | 2017-09-20 15:04 | MR ---
EXAMINATION TYPE: MR brain wo/w con DATE OF EXAM: 09/20/2017 COMPARISON: PET/CT dated 09/01/2017 HISTORY: Malignant neoplasm of lower lobe, left lung TECHNIQUE: Multiplanar, multisequence images of the brain and brainstem is performed without and with IV contras t, utilizing 8.5 mL intravenous Gadavist . FINDINGS: Diffusion weighted images demonstrate no evidence of a recent infarct or other diffusion ab normality. There is no extra-axial fluid collection. Solitary punctate T2/FLAIR hyperintense focus is seen within the left parietal lobe in the periatrial white matter on FLAIR image 32. The ventricul ar system and cisternal spaces are normal in size and appearance. The brain volume is age appropriat e. Midline structures demonstrate normal morphology. The craniocervical junction appears within normal limits. Post contrast images demonstrate no abnormal enhancement. The dural venous sinuses appear pa tent. The globes are intact. There is moderate right maxillary mucosal thickening with inspissated de bris and an air-fluid level. Bilateral vicente bullosa are incidentally noted. Minimal mucosal thicken ing is seen in the ethmoid sinuses. Remaining visualized paranasal sinuses and mastoid air cells are well aerated. Nasal turbinate mucosal hypertrophy is also seen. Major intracranial flow voids are farzaneh ntained. IMPRESSION: 1. No abnormal postcontrast enhancement. No evidence of intracranial metastasis. 2. Solitary focus of nonspecific white matter change, without enhancement, likely on the basis of praneeth roangiopathy. 3. Redemonstration of moderate right paranasal sinus disease, minimal ethmoidal mucosal thickening, a nd nasal turbinate mucosal hypertrophy.
== END | disposition home or self-care (01) ==
LOC: RADMRIMAIN 13:37
PROVIDERS: ATTEND Radiology Radiation Oncology
DX: C34.32 Malignant neoplasm of lower lobe, left bronchus or lung (principal); R90.89 Other abnormal findings on diagnostic imaging of central nervous system
CPT/HCPCS: 70553; A9581

== ENCOUNTER → 2017-11-09 | Outpatient (CLI) | payer BC ==
[2017-11-09 15:06] LABS: Blood Urea Nitrogen 12 mg/dL (9-20)
--- NOTE | 2017-11-12 14:22 | CT ---
"EXAMINATION TYPE: CT ChestAbdPelvis w con DATE OF EXAM: 11/09/2017 COMPARISON: PET/CT dated 09/01/2017. CT neck and chest dated 08/23/2017. HISTORY: Lung CA. Follow-up exam. CT DLP: 2133 mGycm. Automated Exposure Control for Dose Reduction was Utilized. CONTRAST: CT scan of the thorax, abdomen and pelvis is performed with IV Contrast, patient injected with 100 mL of Isovue 300. FINDINGS: LUNGS: The previously seen left basilar pulmonary nodule measuring 2.2 cm on the prior PET/CT of 09/01 now measures 0.8 x 1.2 cm on series 3 image 34. New small pleural effusions and bibasilar atele ctasis have developed in the interim. There is left-sided peribronchial cuffing and central intralobu lar septal thickening with decrease in degree of soft tissue density surrounding the bronchi. MEDIASTINUM: There is decrease in degree of mediastinal lymphadenopathy with the previously seen abno rmal right paratracheal lymph node measuring up to 1.6 cm in short axis and now currently measuring u p to 1.1 cm. The previously seen abnormally enlarged prevascular lymph nodes have resolved in the int erim. The aorticopulmonary window soft tissue mass that extends to encase the left hilar vasculature has also decreased when measured on series 3 image 20 currently measuring up to 2.8 x 3.9 cm and prev iously 3.6 x 5.5 cm. There is no narrowing of the left mainstem bronchus. The subcarinal lymph node p reviously measured 1.0 cm in short axis and now measures 9 mm. However there is been interval worsening of a now large pericardial effusion with maximal thickness o f 3.3 cm. This is low density indicative of simple fluid. No distinct enhancement is seen to suggest current pericarditis. No reflux of contrast is seen within the inferior vena cava or hepatic veins to suggest right heart failure. Extensive three-vessel coronary calcifications are seen. OTHER: The previously seen left axillary soft tissue density is vague and barely perceptible on today 's examination on series 3 image 32. Minimal bilateral retroareolar probable gynecomastia is noted. LIVER/GB: There are at least 4 subcentimeter hypoattenuated hepatic lesions that are ill-defined yennifer uring up to 3 mm such as on series 3 image 43, 55 and 56. These were appreciated on the prior PET/CT and appear slightly less conspicuous than on the prior exam of 08/23/2017.. PANCREAS: No significant abnormality is seen. SPLEEN: No significant abnormality is seen. ADRENALS: Left adrenal gland nodularity is less than on the prior exam and remains low density, howev er is unchanged overall in size measuring approximately 1.2 cm. No right adrenal gland lesion is seen . KIDNEYS: There is a nonobstructing left lower pole 8 mm calculus and too small to accurately characte rize cortically based left lower pole lateral 4 mm hypoattenuating lesion. BOWEL: No dilated large or small bowel. Motion artifact throughout the abdomen slightly limits evalu ation. Appendix is contrast-filled and within normal limits LYMPH NODES: No greater than 1cm abdominal or pelvic lymph nodes are appreciated. OSSEOUS STRUCTURES: There is redemonstration of a similar-appearing lytic lesion within the T12 verte bral body (previously described as L1 as well as focal sclerotic lesions within T9, T10, T12, L2, L3, L4, and L5. Punctate foci are also seen within the posterior spinous processes of T4 and T5 as well as a punctate sclerotic focus within T2 vertebral body. These punctate foci are nonspecific and were present on the prior PET/CT. OTHER: Moderate calcific and noncalcific atheromatous plaquing is seen within the abdominal aorta and its branches. Circumferential urinary bladder wall thickening is likely due to incomplete distention . Very small urachal remnant is noted. IMPRESSION: 1. Response to treatment. Marked decrease in degree of mediastinal adenopathy, marked decrease in the size of the left aorticopulmonary window mass, an overall decrease in degree of soft tissue density/ peribronchial thickening along the left central bronchi. Additionally the left lower lobe pulmonary n odule has also decreased in size previously measuring 2.2 cm now measures up to 1.2 cm. 2. Interval worsening of the now large pericardial effusion measuring up to 3.3 cm. No current eviden ce on CT of right heart strain although echocardiogram could be performed for further evaluation. 3. Similar appearing osseous lytic lesion of T12 with multifocal punctate sclerotic foci also suspici ous for stable metastatic foci. 4. The subcentimeter hepatic lesions that are suspicious for metastasis are less conspicuous than on the prior exam (only 4 now appreciable). 5. Unchanged nonspecific left adrenal gland nodule, low-density and possibly benign. A Yellow level critical message alert has been initiated for Stephanie Gomes MD via the [employer] 36 0 | Critical Results System on 11/12/2017 2:18 PM. This message alert has been sent to Stephanie Gomes MD via the preferences provided by the clinician for the receipt of Radiology Critical Findings. Mess age ID [id number]."
== END | disposition home or self-care (01) ==
LOC: RADCTMAIN 14:16
PROVIDERS: ATTEND Internal Medicine Hematology & Oncology
DX: Z03.89 Encounter for observation for other suspected diseases and conditions ruled out (principal); R59.0 Localized enlarged lymph nodes; R91.8 Other nonspecific abnormal finding of lung field; R91.1 Solitary pulmonary nodule; I31.3 Pericardial effusion (noninflammatory); M89.9 Disorder of bone, unspecified; D73.89 Other diseases of spleen; E27.8 Other specified disorders of adrenal gland; C34.32 Malignant neoplasm of lower lobe, left bronchus or lung
CPT/HCPCS: 82565; 84520; 71260; 74177; 36415; Q9967

== ENCOUNTER 2017-11-13 16:44 | Inpatient (IN) | payer BC ==
[2017-11-13] MEDS ORDERED: ONDANSETRON ODT 4 MG TAB PO PRN (19:23)
[2017-11-13 20:32] LABS: HCT 27.6 % (39.0-53.0); HGB 9.3 gm/dL (13.0-17.5); Hypochromasia Slight; MCH 29.6 pg (25.0-35.0); MCHC 33.7 g/dL (31.0-37.0); MCV 87.9 fL (80.0-100.0); Mean Platelet Volume 6.4; Platelet Count 297 k/uL (150-450); Poikilocytosis Slight; RBC 3.13 m/uL (4.30-5.90); RDW 15.1 % (11.5-15.5)
[2017-11-13 20:35] LABS: WBC 1.4 k/uL (3.8-10.6)
[2017-11-13 20:36] LABS: ALT 44 U/L (21-72); AST 29 U/L (17-59); Albumin 3.4 g/dL (3.5-5.0); Alkaline Phosphatase 84 U/L (38-126); Anion Gap 14 mmol/L; Blood Urea Nitrogen 15 mg/dL (9-20); Calcium 8.9 mg/dL (8.4-10.2); Carbon Dioxide 25 mmol/L (22-30); Chloride 98 mmol/L (98-107); Glucose 115 mg/dL (74-99); Potassium 3.7 mmol/L (3.5-5.1); Sodium 137 mmol/L (137-145); Total Bilirubin 0.4 mg/dL (0.2-1.3)
[2017-11-13 21:06] LABS: Eosinophils # (M) 0.01 k/uL (0-0.7); Lymphocytes # (M) 0.36 k/uL (1.0-4.8); Monocytes # (M) 0.11 k/uL (0-1.0); Neutrophils # (M) 0.91 k/uL (1.3-7.7); Neutrophils % (M) 65 %; Nucleated Red Blood Cells 0 /100 WBC (0-0); Polychromasia Present; Total Cells Counted 100
[2017-11-13] MEDS: SENNOSIDES 8.6 MG TAB PO SCH (21:10)
[2017-11-13] MEDS: methylPREDNISolone SOD SUCCI 40 MG/ML 1 ML VIAL IV SCH (21:10)
[2017-11-13] MEDS: traZODone HCL 50 MG TAB PO SCH (21:10)
[2017-11-13] MEDS ORDERED: ACETAMINOPHEN TAB 500 MG TAB PO PRN (22:32)
[2017-11-14 06:08] LABS: Glucose,Whole Blood 156 mg/dL (75-99)
[2017-11-14] MEDS: INSULIN ASPART 100 UNIT/ML 1 ML 10 ML VIAL SQ SCH ×4 (06:11→22:25)
[2017-11-14] MEDS: PANTOPRAZOLE 40 MG TABLET PO SCH ×2 (06:40→17:10)
[2017-11-14] MEDS ORDERED: FUROSEMIDE 20 MG TAB PO SCH (09:00)
[2017-11-14] MEDS ORDERED: BENZONATATE 100 MG CAP PO SCH (09:00)
[2017-11-14] MEDS: methylPREDNISolone SOD SUCCI 40 MG/ML 1 ML VIAL IV SCH ×2 (09:21→22:29)
[2017-11-14] MEDS: FOLIC ACID 1 MG TAB PO SCH (09:21)
--- NOTE | 2017-11-14 10:41 | P.CRDCN ---
History of Present Illness Consult date: 11/14/17 Chief complaint: Shortness of breath History of present illness: This is a pleasant 57-year-old gentleman with a past medical history significant for stage IV lung cancer who responded very well to immunotherapy and currently on immunotherapy was directly admitted from Dr. Gomes office to the hospital for further evaluation and management after he was found to have moderate to large pericardial effusion. The patient underwent a computed tomography scan of the chest as a follow-up on the lung cancer and that revealed large pericardial effusion. Subsequently the patient was sent to the hospital where he underwent an echocardiogram yesterday which I reviewed and revealed moderate to large pericardial effusion without tamponade physiology. The patient denies having any chest pain or chest discomfort but he does have shortness of breath which according to him is the same as before which is chronic and related to his history of smoking in the past as well as to the lung cancer. No dizziness or lightheadedness, no feeling of heart racing or fluttering, and no syncope. Hemodynamically the patient has been maintaining normal blood pressure but his heart rate has been slightly on the tachycardic side and the heart rate is in the 100 beats per minutes. The patient was admitted to the hospital. He was started on steroids IV. We will repeat the echocardiogram tomorrow morning to assess for progression or regression in the amount of pericardial effusion. We will continue monitor the blood pressure and heart rate very closely. He was receiving Lasix by mouth which I did stop. Past Medical History Past Medical History: Cancer, COPD, GERD/Reflux, Hypertension, Osteoarthritis ( OA), Pneumonia, Prostate Disorder Additional Past Medical History / Comment(s): recovering alcoholic-quit 2002,hx of skin ca(sx), pt stated lung cancer w/ mets dx august 2017 currently recieving chemo(had a tx last sunday11-05-17 and immunotherapy), occ episodes of liteheadedness w/ exertion History of Any Multi-Drug Resistant Organisms: None Reported Past Surgical History: Orthopedic Surgery Additional Past Surgical History / Comment(s): rt carpal tunel release, skin cancer removed from face/nose, colonoscopy/polypectomy-per pt was neg. Past Anesthesia/Blood Transfusion Reactions: Family History of Problems w/ Anesthesia Additional Past Anesthesia/Blood Transfusion Reaction / Comment(s): FATHER WOKE UP VERY AGITATED AND HAD TO BE "RE-MEDICATED" Smoking Status: Former smoker - Past Family History Father Family Medical History: Myocardial Infarction ([place]) Additional Family Medical History / Comment(s): ALCOHOLIC-- Mother Family Medical History: Myocardial Infarction ([place]) Additional Family Medical History / Comment(s): ALCOHOLIC. Medications and Allergies Home Medications Medication Instructions Recorded Confirmed Type traZODone HCL [Desyrel] 50 mg PO HS PRN 12/10/13 11/13/17 History Glucosamine/Chondr Meneses A Sod [Osteo 1 tab PO DAILY 08/23/17 11/13/17 History Bi-Flex Caplet] Multivitamin [Men's Multi-Vitamin] 1 tab PO DAILY 08/23/17 11/13/17 History Omeprazole Magnesium [PriLOSEC OTC] 20 mg PO BID 08/23/17 11/13/17 History Benzonatate [Tessalon Perles] 100 mg PO DAILY PRN 11/13/17 11/13/17 History Folic Acid 1 mg PO DAILY 11/13/17 11/13/17 History Furosemide [Lasix] 20 mg PO DAILY 11/13/17 11/13/17 History Ondansetron [Zofran] 4 mg PO Q6H PRN 11/13/17 11/13/17 History Sennosides-Docusate Sodium 2 tab PO HS PRN 11/13/17 11/13/17 History [Senokot-S] Allergies Allergy/AdvReac Type Severity Reaction Status Date / Time No Known Allergies Allergy Verified 11/13/17 18:21 Physical Exam Vitals: Vital Signs Temp Pulse Pulse Resp BP Pulse Ox 11/14/17 09:00 96.4 F L 103 H 103 H 16 108/73 95 11/13/17 20:00 97.8 F 106 H 18 120/79 94 L 11/13/17 17:30 97.8 F 110 H 16 131/77 97 Intake and Output 11/13/17 11/14/17 11/14/17 22:59 06:59 14:59 Intake Total 250 Balance 250 Intake: IV 10 Invasive Line 1 10 Oral 240 Other: Voiding Method Toilet Weight 0 g 72 kg - Constitutional General appearance: no acute distress - Respiratory Respiratory: bilateral: CTA - Cardiovascular Rhythm: regular Heart sounds: normal: S1, S2 Results 11/13/17 19:58 11/13/17 19:58 Cardiac Enzymes 11/13/17 Range/Units 19:58 AST 29 (17-59) U/L CBC 11/13/17 Range/Units 19:58 WBC 1.4 L* (3.8-10.6) k/uL RBC 3.13 L (4.30-5.90) m/uL Hgb 9.3 L (13.0-17.5) gm/dL Hct 27.6 L (39.0-53.0) % Plt Count 297 (150-450) k/uL Comprehensive Metabolic Panel 11/13/17 Range/Units 19:58 Sodium 137 (137-145) mmol/L Potassium 3.7 (3.5-5.1) mmol/L Chloride 98 (98-107) mmol/L Carbon Dioxide 25 (22-30) mmol/L BUN 15 (9-20) mg/dL Creatinine 0.84 (0.66-1.25) mg/dL Glucose 115 H (74-99) mg/dL Calcium 8.9 (8.4-10.2) mg/dL AST 29 (17-59) U/L ALT 44 (21-72) U/L Alkaline Phosphatase 84 (38-126) U/L Total Protein 6.0 L (6.3-8.2) g/dL Albumin 3.4 L (3.5-5.0) g/dL Current Medications Generic Name Dose Route Start Last Admin Trade Name Freq PRN Reason Stop Dose Admin Acetaminophen 500 mg 11/13/17 22:32 Tylenol Tab PO Q6HR PRN Fever and/ or Pain Benzonatate 100 mg 11/14/17 09:00 11/14/17 09:51 Tessalon Perles PO 100 mg DAILY KALI Administration Folic Acid 1 mg 11/14/17 12:00 11/14/17 09:21 Folic Acid PO 1 mg DAILY@1200 KALI Administration Furosemide 20 mg 11/14/17 09:00 11/14/17 09:21 Lasix PO 20 mg DAILY KALI Administration Insulin Aspart 0 unit 11/14/17 07:30 11/14/17 06:11 Novolog SQ Not Given ACHS [facility] Protocol Methylprednisolone Sodium Succinate 40 mg 11/13/17 21:00 11/14/17 09:21 Solu-Medrol IV 40 mg Q12HR KALI Administration Ondansetron HCl 4 mg 11/13/17 19:23 Zofran Odt PO Q6H PRN Nausea Pantoprazole Sodium 40 mg 11/14/17 07:30 11/14/17 06:40 Protonix PO 40 mg AC-BID KALI Administration Senna 17.2 mg 11/13/17 21:00 11/13/17 21:10 Senokot PO 17.2 mg HS KALI Administration Trazodone HCl 50 mg 11/13/17 21:00 11/13/17 21:10 Desyrel PO 50 mg HS KALI Administration Intake and Output 11/13/17 11/14/17 11/14/17 22:59 06:59 14:59 Intake Total 250 Balance 250 Intake: IV 10 Invasive Line 1 10 Oral 240 Other: Voiding Method Toilet Weight 0 g 72 kg 11/13/17 19:58 11/13/17 19:58 Assessment and Plan Assessment: Assessment #1 moderate to large pericardial effusion without tamponade physiology #2 stage IV lung cancer currently on immunotherapy #3 history of smoking in the past. Plan #1 the patient was started on steroids IV which we will continue that #2 repeat the echocardiogram in the next 24-48 hours to assess for progression or regression in the amount of pericardial effusion #3 continue monitor the vital signs very closely, and consider pericardial window for any drop in the blood pressure or for any tachycardia #4 follow-up with the patient. Thank you for allowing us participate in his care
[2017-11-14 11:53] LABS: Glucose,Whole Blood 169 mg/dL (75-99)
--- NOTE | 2017-11-14 13:53 | P.HPIM ---
History of Present Illness H&P Date: 11/14/17 Chief Complaint: Weakness This is a very nice patient who follows closely with Dr. Gomes for his oncologic care. He was first evaluated on 08/26/2017 as inpatient who he was admitted because of persistent cough and hoarseness of his voice of about 3 months duration. On 08/23/2017,CT scan of neck revealed left supraclavicular node,CT of chest revealed 1.3cm LLL mass and left hilar adenopathy and bulky mediastinal nodes. On 08/24/2017,biopsy of left supraclavicular node was positive for adenocarcinoma,IHC stains were non specific but felt in view of clinical picture to be compatible with lung origin. On 09/01/2017,PET scan revealed suspicious uptake in bulky mediastinal nodes, bilateral supraclavicular nodes,LLL lesion,6 suspicious liver lesions and small lytic lesion on T8-L1. PDL-1 was negative,NexGen revealed TP53 mutation, negative EGFR,ALK,ROS-1,BRAF,MET He started carboplatin/alimta/keytruda on 09/24/2017. He was last evaluated in the office by Dr. Gomes on 10/29/17 and complained of feeling tired,some swelling in both feet,eating okay,no diarrhea or rash. The swelling improved with the low dose lasix and he was set up for a restaging CT scan on 11/12/17. The CT scan CT Chest/Abdomen/Pelvis from 11/12/17 - Showed overall good response to treatment. He received 3 of the 6 planned treatments. There was a marked decrease in the mediastinal adenopathy and decreased left aortic pulmonary window mass, decrease degree of soft tissue density/peribronchial thickening along central bronchi, LLL nodule decreased. Osseous lesions on t12 same, and likely decreased liver lesions. ALthough the concern on the CT was the interval worsening of a now large pericardial effusion. He was sent for an immediate echocardiogram on 11/13/[address] Gomes discussed findings with Dr. Ocasio. Because of the concern of impending tamponade it was advised to admit him and monitor closely for improvement after anti-inflammatory administration. He was seen in the office prior to admission. Minimal side effects expressed with the exception of weakness, fatigue, cough (occassionaly clear productive), and LE swelling which has now resolved. I reveiwed the CT scan with him and we planned for a direct admission at that time with consultation to cardiology and order for high dose steroids. 11/14/17 - Patient was seen and evaluated in follow-up today. He feels overall good, and is in good spirits because of his CT scan results. No noticeable swelling of upper extremities or neck at glance, no increased shortness of breath, same unchanged cough since diagnosis, no dizziness, nausea, or light- headiness. He feels tired and weak but has felt this way throughout treatment. His voice is hoarse, chronic since 3 months prior to diagnosis. Heart Rate has been mildly tachycardic around 105, BP stable. Last cycle of chemotherapy was on 11/05/17, therefore is blood counts do show cytopenia's. He received Carboplatin, Almta, and Keytruda. He did not receive a colony stimulating factor such as neulasta. Review of Systems A 14 point review of systems assessed and completed and all negative except HPI Past Medical History Past Medical History: Cancer, COPD, GERD/Reflux, Hypertension, Osteoarthritis ( OA), Pneumonia, Prostate Disorder Additional Past Medical History / Comment(s): recovering alcoholic-quit 2002,hx of skin ca(sx), pt stated lung cancer w/ mets dx august 2017 currently recieving chemo(had a tx last sunday11-05-17 and immunotherapy), occ episodes of liteheadedness w/ exertion History of Any Multi-Drug Resistant Organisms: None Reported Past Surgical History: Orthopedic Surgery Additional Past Surgical History / Comment(s): rt carpal tunel release, skin cancer removed from face/nose, colonoscopy/polypectomy-per pt was neg. Past Anesthesia/Blood Transfusion Reactions: Family History of Problems w/ Anesthesia Additional Past Anesthesia/Blood Transfusion Reaction / Comment(s): FATHER WOKE UP VERY AGITATED AND HAD TO BE "RE-MEDICATED" Smoking Status: Former smoker - Past Family History Father Family Medical History: Myocardial Infarction (NH) Additional Family Medical History / Comment(s): ALCOHOLIC-- Mother Family Medical History: Myocardial Infarction (NH) Additional Family Medical History / Comment(s): ALCOHOLIC. Medications and Allergies Home Medications Medication Instructions Recorded Confirmed Type traZODone HCL [Desyrel] 50 mg PO HS PRN 12/10/13 11/13/17 History Glucosamine/Chondr Meneses A Sod [Osteo 1 tab PO DAILY 08/23/17 11/13/17 History Bi-Flex Caplet] Multivitamin [Men's Multi-Vitamin] 1 tab PO DAILY 08/23/17 11/13/17 History Omeprazole Magnesium [PriLOSEC OTC] 20 mg PO BID 08/23/17 11/13/17 History Benzonatate [Tessalon Perles] 100 mg PO DAILY PRN 11/13/17 11/13/17 History Folic Acid 1 mg PO DAILY 11/13/17 11/13/17 History Furosemide [Lasix] 20 mg PO DAILY 11/13/17 11/13/17 History Ondansetron [Zofran] 4 mg PO Q6H PRN 11/13/17 11/13/17 History Sennosides-Docusate Sodium 2 tab PO HS PRN 11/13/17 11/13/17 History [Senokot-S] Allergies Allergy/AdvReac Type Severity Reaction Status Date / Time No Known Allergies Allergy Verified 11/13/17 18:21 Physical Exam Vitals: Vital Signs Temp Pulse Pulse Resp BP Pulse Ox 11/14/17 11:22 97.4 F L 100 100 16 120/73 96 11/14/17 09:00 96.4 F L 103 H 103 H 16 108/73 95 11/13/17 20:00 97.8 F 106 H 18 120/79 94 L 11/13/17 17:30 97.8 F 110 H 16 131/77 97 Intake and Output 11/13/17 11/14/17 11/14/17 22:59 06:59 14:59 Intake Total 250 Balance 250 Intake: IV 10 Invasive Line 1 10 Oral 240 Other: Voiding Method Toilet Weight 0 g 72 kg Hoarse Voice is chronic, No significant neck swelling or JVD noted. Mild fulness on very inquisite exam of neck. - Constitutional General appearance: average body habitus, cooperative, no acute distress - EENT Eyes: EOMI, PERRLA, dentition normal, normal appearance ENT: NA/AT, normal oropharynx - Neck supple, Trachea Midline, no JVD Neck: normal ROM - Respiratory Respiratory: bilateral: CTA (No increased effort) - Cardiovascular Heart rate: 102 (Mild Muffled) Rhythm: irregularly irregular leg Peripheral Edema: bilateral: Trace (Puffiness in LE, non-pitting) - Gastrointestinal General gastrointestinal: normal bowel sounds, soft - Integumentary Integumentary: normal - Neurologic No focal defects Neurologic: CNII-XII intact - Musculoskeletal Musculoskeletal: gait normal, generalized weakness, strength equal bilaterally - Psychiatric Psychiatric: A&O x's 3, appropriate affect, intact judgment & insight Results CBC & Chem 7: 11/13/17 19:58 11/13/17 19:58 Labs: Abnormal Lab Results - Last 24 Hours (Table) 11/13/17 11/13/17 11/14/17 Range/Units 19:58 19:58 06:07 WBC 1.4 L* (3.8-10.6) k/uL RBC 3.13 L (4.30-5.90) m/uL Hgb 9.3 L (13.0-17.5) gm/dL Hct 27.6 L (39.0-53.0) % Neutrophils # (Manual) 0.91 L (1.3-7.7) k/uL Lymphocytes # (Manual) 0.36 L (1.0-4.8) k/uL Glucose 115 H (74-99) mg/dL POC Glucose (mg/dL) 156 H (75-99) mg/dL Total Protein 6.0 L (6.3-8.2) g/dL Albumin 3.4 L (3.5-5.0) g/dL 11/14/17 Range/Units 11:49 WBC (3.8-10.6) k/uL RBC (4.30-5.90) m/uL Hgb (13.0-17.5) gm/dL Hct (39.0-53.0) % Neutrophils # (Manual) (1.3-7.7) k/uL Lymphocytes # (Manual) (1.0-4.8) k/uL Glucose (74-99) mg/dL POC Glucose (mg/dL) 169 H (75-99) mg/dL Total Protein (6.3-8.2) g/dL Albumin (3.5-5.0) g/dL CT scan - abdomen: report reviewed CT scan - chest: report reviewed CT scan - pelvis: report reviewed Thrombosis Risk Factor Assmnt - DVT/VTE Prophylaxis DVT/VTE Prophylaxis: Pharmacologic Prophylaxis ordered - Choose All That Apply Each Factor Represents 1 point: Age 41-60 years Other Risk Factors: No Thrombosis Risk Factor Assessment Total Risk Factor Score: 1 Thrombosis Risk Factor Assessment Level: Low Risk Assessment and Plan Plan: Assessment and Plan: 1. 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 Stage IV (T1, N3, M1B) - Molecular testing negative for EGFR, ALK, ROS1, BRAF, MET - Status Post Cycle 3 of recommended 6 Carboplatin, Almta, and Keytruda (No Neulasta Initiated). Last Treatment on 11/05/17. - Most Recent Restaging CT Scan on 11/12/17 - Showed Overall Marked Response to Treatment Evidenced by Decrease in Disease, see HPI. - Plan to continue treatment with Carboplatin and Almta as outpatient, will need to further assess and evaluate if Keytruda (PD1-inhibitor) risk of inflammation contributed to current Pericardial Effusion increase. Will be decided as outpatient by Dr. Gomes - Monitor Daily CBC and CMP with recent treatment - COntinue daily Folic Acid as patient is on Almta 2. Increasing Moderate to Large Pericardial Effusion with Potential of Impending Tamponade - Dr. Ocasio from Cardiology following - Reviewed and discussed results of Echocardiogram with Cardiology, currently continue to monitor on conservative treatment (i.e. steroids). Probable reassessment in am with limited echocardiogram. - Potential etiology related to inflammatory risk of PD1-Inhibitor - Keytruda, Initiated Corticosteroids at 1mg/kg/day, if improvement occurs will require A very slow long taper of steroids. PPI Prophylaxis with High Dose Steroids Ordered - If no improvement on effusion, Pericardiocentesis with fluid to be sent for cytology recommended, ?pericardial window per cardiology recs. 3. Neutropenia - Secondary to recent Chemotherapy - Recheck today, if patients WBC and Neutrophils are still low will initiate temporary protection with Granix daily. - Monitor closely for s/s of infection 4. Normocytic Anemia - Secondary to chemotherapy - Check Iron studies for possible supplementation to assist with his fatigue 5. VTE Prophylaxis - Lovenox 40mg Subcut Daily 6. Insomnia - Trazadone Physician Attestation: I have completed the full history and physical of this patient and agree with above dictation by Vanessa Richardson NP. Dictated as a scribe.
[2017-11-14 15:21] LABS: ALT 43 U/L (21-72); AST 27 U/L (17-59); Albumin 3.6 g/dL (3.5-5.0); Alkaline Phosphatase 87 U/L (38-126); Anion Gap 14 mmol/L; Blood Urea Nitrogen 13 mg/dL (9-20); Calcium 9.3 mg/dL (8.4-10.2); Carbon Dioxide 22 mmol/L (22-30); Chloride 103 mmol/L (98-107); Glucose 156 mg/dL (74-99); Potassium 4.5 mmol/L (3.5-5.1); Sodium 139 mmol/L (137-145); Total Bilirubin 0.2 mg/dL (0.2-1.3); Total Protein 6.4 g/dL (6.3-8.2)
[2017-11-14 15:24] LABS: Basophils % (A) 0 %; Eosinophils % (A) 0 %; HCT 28.5 % (39.0-53.0); HGB 9.1 gm/dL (13.0-17.5); Hypochromasia Slight; Lymphocytes # (A) 0.2 k/uL (1.0-4.8); Lymphocytes % (A) 13 %; MCV 87.4 fL (80.0-100.0); Mean Platelet Volume 7.3; Monocytes # (A) 0.1 k/uL (0-1.0); Monocytes % (A) 5 %; Neutrophils # (A) 1.4 k/uL (1.3-7.7); Neutrophils % (A) 79 %; Platelet Count 267 k/uL (150-450); Poikilocytosis Slight; RBC 3.26 m/uL (4.30-5.90); RDW 14.9 % (11.5-15.5); Reticulocyte % 0.2 % (0.5-2.0)
[2017-11-14 15:29] LABS: WBC 1.7 k/uL (3.8-10.6)
[2017-11-14 15:47] LABS: Poikilocytosis (M) Present; Target Cells Present
[2017-11-14 16:49] LABS: Glucose,Whole Blood 157 mg/dL (75-99)
[2017-11-14] MEDS: ENOXAPARIN 40 MG/0.4 ML SYRINGE SQ SCH (17:09)
[2017-11-14 20:52] LABS: Iron Saturation 25.79 (15.00-50.00)
[2017-11-14 20:59] LABS: Glucose,Whole Blood 134 mg/dL (75-99)
[2017-11-14 21:09] LABS: Folate, Serum >24.0 ng/mL
[2017-11-14] MEDS: SENNOSIDES 8.6 MG TAB PO SCH (22:29)
[2017-11-14] MEDS: traZODone HCL 50 MG TAB PO SCH (22:30)
[2017-11-14] MEDS: BENZONATATE 100 MG CAP PO PRN (22:31)
[2017-11-15 06:20] LABS: Glucose,Whole Blood 140 mg/dL (75-99)
[2017-11-15] MEDS: INSULIN ASPART 100 UNIT/ML 1 ML 10 ML VIAL SQ SCH ×4 (06:30→21:11)
[2017-11-15] MEDS: PANTOPRAZOLE 40 MG TABLET PO SCH ×2 (06:31→17:22)
[2017-11-15] MEDS: ENOXAPARIN 40 MG/0.4 ML SYRINGE SQ SCH (08:22)
[2017-11-15] MEDS: methylPREDNISolone SOD SUCCI 40 MG/ML 1 ML VIAL IV SCH ×2 (08:22→20:22)
--- NOTE | 2017-11-15 10:29 | P.PN ---
Subjective Progress Note Date: 11/15/17 Principal diagnosis: Pericardial effusion This is a pleasant 57-year-old gentleman with a past medical history significant for stage IV lung cancer who responded very well to immunotherapy and currently on immunotherapy was directly admitted from Dr. Gomes office to the hospital for further evaluation and management after he was found to have moderate to large pericardial effusion. The patient underwent a computed tomography scan of the chest as a follow-up on the lung cancer and that revealed large pericardial effusion. Subsequently the patient was sent to the hospital where he underwent an echocardiogram yesterday which I reviewed and revealed moderate to large pericardial effusion without tamponade physiology. The patient denies having any chest pain or chest discomfort but he does have shortness of breath which according to him is the same as before which is chronic and related to his history of smoking in the past as well as to the lung cancer. No dizziness or lightheadedness, no feeling of heart racing or fluttering, and no syncope. Hemodynamically the patient has been maintaining normal blood pressure but his heart rate has been slightly on the tachycardic side and the heart rate is in the 100 beats per minutes. The patient was admitted to the hospital. He was started on steroids IV. We will repeat the echocardiogram tomorrow morning to assess for progression or regression in the amount of pericardial effusion. We will continue monitor the blood pressure and heart rate very closely. He was receiving Lasix by mouth which I did stop. On follow-up with the patient today, overall is feeling slightly better. Denies having any chest pain or chest discomfort. A limited echocardiogram was performed bedside which I reviewed and showed improvement in the amount of pericardial effusion and continues to have no signs of tamponade physiology. The heart rate still around 100. The blood pressure seems to be within normal limits. I did recommend continue the IV steroids and repeat the echocardiogram in 48 hours. Objective - Vital Signs Vital signs: Vital Signs Temp 97.8 F 11/15/17 08:10 Pulse 100 11/15/17 08:10 Resp 18 11/15/17 08:10 BP 118/73 11/15/17 08:10 Pulse Ox 95 11/15/17 08:10 Intake & Output 11/14/17 11/15/17 11/15/17 18:59 06:59 18:59 Intake Total 490 Balance 490 Weight 82.4 kg Intake: IV 10 Invasive Line 1 10 Oral 480 Other: Voiding Method Toilet Toilet # Voids 1 2 - Constitutional General appearance: Present: no acute distress - Respiratory Respiratory: bilateral: CTA - Cardiovascular Rhythm: regular Heart sounds: normal: S1, S2 - Labs CBC & Chem 7: 11/14/17 14:40 11/14/17 14:40 Labs: Abnormal Lab Results - Last 24 Hours (Table) 11/14/17 11/14/17 11/14/17 Range/Units 11:49 14:40 14:40 WBC 1.7 L* (3.8-10.6) k/uL RBC 3.26 L (4.30-5.90) m/uL Hgb 9.1 L (13.0-17.5) gm/dL Hct 28.5 L (39.0-53.0) % Lymphocytes # 0.2 L (1.0-4.8) k/uL Retic Count 0.2 L (0.5-2.0) % Glucose (74-99) mg/dL POC Glucose (mg/dL) 169 H (75-99) mg/dL Ferritin 1296.4 H (22.0-322.0) ng/mL Vitamin B12 1483.0 H (200.0-944.0) pg/mL 11/14/17 11/14/17 11/14/17 Range/Units 14:40 16:28 20:58 WBC (3.8-10.6) k/uL RBC (4.30-5.90) m/uL Hgb (13.0-17.5) gm/dL Hct (39.0-53.0) % Lymphocytes # (1.0-4.8) k/uL Retic Count (0.5-2.0) % Glucose 156 H (74-99) mg/dL POC Glucose (mg/dL) 157 H 134 H (75-99) mg/dL Ferritin (22.0-322.0) ng/mL Vitamin B12 (200.0-944.0) pg/mL 11/15/17 Range/Units 06:18 WBC (3.8-10.6) k/uL RBC (4.30-5.90) m/uL Hgb (13.0-17.5) gm/dL Hct (39.0-53.0) % Lymphocytes # (1.0-4.8) k/uL Retic Count (0.5-2.0) % Glucose (74-99) mg/dL POC Glucose (mg/dL) 140 H (75-99) mg/dL Ferritin (22.0-322.0) ng/mL Vitamin B12 (200.0-944.0) pg/mL Assessment and Plan Assessment: Assessment #1 moderate to large pericardial effusion without tamponade physiology. The pericardial effusion has improved on an echocardiogram was performed today #2 stage IV lung cancer currently on immunotherapy #3 history of smoking in the past. Plan #1 the patient was started on steroids IV which we will continue that #2 repeat the echocardiogram in the next 48 hours to assess for progression or regression in the amount of pericardial effusion #3 continue monitor the vital signs very closely, and consider pericardial window for any drop in the blood pressure or for any tachycardia #4 follow-up with the patient. Thank you for allowing us participate in his care
[2017-11-15 11:11] LABS: HCT 27.4 % (39.0-53.0); Hypochromasia Slight; MCH 29.6 pg (25.0-35.0); MCHC 32.9 g/dL (31.0-37.0); Mean Platelet Volume 6.4; Platelet Count 234 k/uL (150-450); Poikilocytosis Slight; RBC 3.05 m/uL (4.30-5.90); RDW 15.6 % (11.5-15.5); WBC 2.1 k/uL (3.8-10.6)
[2017-11-15] MEDS: FOLIC ACID 1 MG TAB PO SCH (11:18)
[2017-11-15 11:59] LABS: Glucose,Whole Blood 127 mg/dL (75-99)
[2017-11-15 12:23] LABS: Lymphocytes # (M) 0.38 k/uL (1.0-4.8); Monocytes # (M) 0.21 k/uL (0-1.0); Neutrophils # (M) 1.51 k/uL (1.3-7.7); Neutrophils % (M) 72 %; Nucleated Red Blood Cells 0 /100 WBC (0-0); Total Cells Counted 100
[2017-11-15 16:26] LABS: Glucose,Whole Blood 162 mg/dL (75-99)
--- NOTE | 2017-11-15 17:52 | ECHOF ---
Referral Reason:pericardial effusion MEASUREMENTS -------- HEIGHT: 157.5 cm WEIGHT: 82.1 kg BP: FINDINGS -------- Sinus rhythm. Pt had complete 11/13/17 for Pericardial Effusion: Limited Study for Pericardial Effusion. There is a moderate, generalized pericardial effusion present. CONCLUSIONS -------- 1. Pt had complete 11/13/17 for Pericardial Effusion: Limited Study for Pericardial Effusion. 2. There is a moderate, generalized pericardial effusion present. DIFFUSION OPERATOR: China Onofre RDCS
[2017-11-15] MEDS: BENZONATATE 100 MG CAP PO PRN (18:05)
--- NOTE | 2017-11-15 19:03 | P.PN ---
Subjective Progress Note Date: 11/15/17 Principal diagnosis: Impending Tamponade This is a very nice patient who follows closely with Dr. Gomes for his oncologic care. He was first evaluated on 08/26/2017 as inpatient who he was admitted because of persistent cough and hoarseness of his voice of about 3 months duration. On 08/23/2017,CT scan of neck revealed left supraclavicular node,CT of chest revealed 1.3cm LLL mass and left hilar adenopathy and bulky mediastinal nodes. On 08/24/2017,biopsy of left supraclavicular node was positive for adenocarcinoma,IHC stains were non specific but felt in view of clinical picture to be compatible with lung origin. On 09/01/2017,PET scan revealed suspicious uptake in bulky mediastinal nodes, bilateral supraclavicular nodes,LLL lesion,6 suspicious liver lesions and small lytic lesion on T8-L1. PDL-1 was negative,NexGen revealed TP53 mutation, negative EGFR,ALK,ROS-1,BRAF,MET He started carboplatin/alimta/keytruda on 09/24/2017. He was last evaluated in the office by Dr. Gomes on 10/29/17 and complained of feeling tired,some swelling in both feet,eating okay,no diarrhea or rash. The swelling improved with the low dose lasix and he was set up for a restaging CT scan on 11/12/17. The CT scan CT Chest/Abdomen/Pelvis from 11/12/17 - Showed overall good response to treatment. He received 3 of the 6 planned treatments. There was a marked decrease in the mediastinal adenopathy and decreased left aortic pulmonary window mass, decrease degree of soft tissue density/peribronchial thickening along central bronchi, LLL nodule decreased. Osseous lesions on t12 same, and likely decreased liver lesions. ALthough the concern on the CT was the interval worsening of a now large pericardial effusion. He was sent for an immediate echocardiogram on 11/13/[address] Gomes discussed findings with Dr. Ocasio. Because of the concern of impending tamponade it was advised to admit him and monitor closely for improvement after anti-inflammatory administration. He was seen in the office prior to admission. Minimal side effects expressed with the exception of weakness, fatigue, cough (occassionaly clear productive), and LE swelling which has now resolved. I reveiwed the CT scan with him and we planned for a direct admission at that time with consultation to cardiology and order for high dose steroids. 11/14/17 - Patient was seen and evaluated in follow-up today. He feels overall good, and is in good spirits because of his CT scan results. No noticeable swelling of upper extremities or neck at glance, no increased shortness of breath, same unchanged cough since diagnosis, no dizziness, nausea, or light- headiness. He feels tired and weak but has felt this way throughout treatment. His voice is hoarse, chronic since 3 months prior to diagnosis. Heart Rate has been mildly tachycardic around 105, BP stable. Last cycle of chemotherapy was on 11/05/17, therefore is blood counts do show cytopenia's. He received Carboplatin, Almta, and Keytruda. He did not receive a colony stimulating factor such as neulasta. 11/15/17 - David is doing well today, he is still in good spirits. His WBC count is recovering as expected from his chemotherapy yas. He continues with no apparent signs of tamponade physically. His Heart rate is mildly tachycardic at 100, which is likely multifactoral with his anemia. His blood pressure is wnl. He did have a repeat limited echocardiogram this am at bedside which showed improvement in the pericardial effusion fluid. Objective - Vital Signs Vital signs: Vital Signs Temp 97.1 F L 11/15/17 15:00 Pulse 107 H 11/15/17 15:00 Resp 18 11/15/17 15:00 BP 136/86 11/15/17 15:00 Pulse Ox 96 11/15/17 15:00 Intake & Output 11/14/17 11/15/17 11/15/17 18:59 06:59 18:59 Intake Total 490 840 Balance 490 840 Weight 82.4 kg Intake: IV 10 Invasive Line 1 10 Oral 480 840 Other: Voiding Method Toilet Toilet # Voids 1 2 1 - Constitutional General appearance: Present: cooperative, no acute distress - EENT Eyes: Present: EOMI, dentition normal, normal appearance ENT: Present: NA/AT, normal oropharynx - Neck Details: supple, trachea midline Neck: Present: normal ROM - Respiratory Respiratory: negative: CTA (respiratory effort noted) - Cardiovascular Heart rate: 104 Rhythm: regular Heart sounds: normal: S1, S2 - Peripheral edema leg Peripheral Edema: bilateral: Trace (non-pitting puffiness) - Gastrointestinal General gastrointestinal: Present: normal bowel sounds, soft - Integumentary Integumentary: Present: pale - Neurologic Neurologic Comment(s): No focal defects Neurologic: Present: CNII-XII intact - Musculoskeletal Musculoskeletal: Present: gait normal, strength equal bilaterally - Labs CBC & Chem 7: 11/15/17 10:33 11/14/17 14:40 Labs: Abnormal Lab Results - Last 24 Hours (Table) 11/14/17 11/14/17 11/15/17 Range/Units 14:40 20:58 06:18 WBC (3.8-10.6) k/uL RBC (4.30-5.90) m/uL Hgb (13.0-17.5) gm/dL Hct (39.0-53.0) % RDW (11.5-15.5) % Lymphocytes # (Manual) (1.0-4.8) k/uL POC Glucose (mg/dL) 134 H 140 H (75-99) mg/dL Ferritin 1296.4 H (22.0-322.0) ng/mL Vitamin B12 1483.0 H (200.0-944.0) pg/mL 11/15/17 11/15/17 11/15/17 Range/Units 10:33 11:57 16:23 WBC 2.1 L (3.8-10.6) k/uL RBC 3.05 L (4.30-5.90) m/uL Hgb 9.0 L (13.0-17.5) gm/dL Hct 27.4 L (39.0-53.0) % RDW 15.6 H (11.5-15.5) % Lymphocytes # (Manual) 0.38 L (1.0-4.8) k/uL POC Glucose (mg/dL) 127 H 162 H (75-99) mg/dL Ferritin (22.0-322.0) ng/mL Vitamin B12 (200.0-944.0) pg/mL Assessment and Plan Plan: Assessment and Plan: 1. 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 Stage IV (T1, N3, M1B) - Molecular testing negative for EGFR, ALK, ROS1, BRAF, MET - Status Post Cycle 3 of recommended 6 Carboplatin, Almta, and Keytruda (No Neulasta Initiated). Last Treatment on 11/05/17. - Most Recent Restaging CT Scan on 11/12/17 - Showed Overall Marked Response to Treatment Evidenced by Decrease in Disease, see HPI. - Plan to continue treatment with Carboplatin and Almta as outpatient, will need to further assess and evaluate if Keytruda (PD1-inhibitor) risk of inflammation contributed to current Pericardial Effusion increase. Will be decided as outpatient by Dr. Gomes - Monitor Daily CBC and CMP with recent treatment - Continue daily Folic Acid as patient is on Almta 2. Increasing Moderate to Large Pericardial Effusion with Potential of Impending Tamponade - Dr. Ocasio from Cardiology following - Reviewed and discussed results of Echocardiogram with Cardiology, currently continue to monitor on conservative treatment (i.e. steroids). Probable reassessment in am with limited echocardiogram. - Potential etiology related to inflammatory risk of PD1-Inhibitor - Keytruda, Initiated Corticosteroids at 1mg/kg/day, if improvement occurs will require A very slow long taper of steroids. PPI Prophylaxis with High Dose Steroids Ordered - Limited echocardiogram performed today 11/15/17 - Improvement id pericardial fluid effusion was identified. He will continue on IV corticosteroid (with PPI prophylaxis) and per cardiolgy plan will be to repeat echocardiogram again in 48 hours, if fluid continues to decrease favorably he will likely be discharged on a long steroid taper. 3. Neutropenia - Secondary to recent Chemotherapy - Recheck today shows increasing WBC, Neutrophils are within normal ranges, therefore will not need addition of colony stimulating factor at this time with expected normal WBC recovery - Monitor closely for s/s of infection 4. Normocytic Anemia - Secondary to chemotherapy - monitor CBC 5. VTE Prophylaxis - Lovenox 40mg Subcut Daily 6. Insomnia - Trazadone Vanessa Richardson NP
[2017-11-15] MEDS: traZODone HCL 50 MG TAB PO SCH (20:22)
[2017-11-15] MEDS: SENNOSIDES 8.6 MG TAB PO SCH (20:22)
[2017-11-15 21:09] LABS: Glucose,Whole Blood 124 mg/dL (75-99)
[2017-11-16] MEDS: BENZONATATE 100 MG CAP PO PRN ×3 (03:11→17:37)
[2017-11-16 06:07] LABS: Glucose,Whole Blood 131 mg/dL (75-99)
[2017-11-16] MEDS: INSULIN ASPART 100 UNIT/ML 1 ML 10 ML VIAL SQ SCH ×4 (06:08→20:43)
[2017-11-16] MEDS: PANTOPRAZOLE 40 MG TABLET PO SCH ×2 (06:14→17:36)
[2017-11-16] MEDS: ENOXAPARIN 40 MG/0.4 ML SYRINGE SQ SCH (09:17)
[2017-11-16] MEDS: methylPREDNISolone SOD SUCCI 40 MG/ML 1 ML VIAL IV SCH ×2 (09:17→21:23)
--- NOTE | 2017-11-16 10:52 | P.PN ---
Subjective Progress Note Date: 11/16/17 Principal diagnosis: Pericardial effusion This is a pleasant 57-year-old gentleman with a past medical history significant for stage IV lung cancer who responded very well to immunotherapy and currently on immunotherapy was directly admitted from Dr. Mireya hutchinson to the hospital for further evaluation and management after he was found to have moderate to large pericardial effusion. The patient underwent a computed tomography scan of the chest as a follow-up on the lung cancer and that revealed large pericardial effusion. Subsequently the patient was sent to the hospital where he underwent an echocardiogram yesterday which I reviewed and revealed moderate to large pericardial effusion without tamponade physiology. The patient denies having any chest pain or chest discomfort but he does have shortness of breath which according to him is the same as before which is chronic and related to his history of smoking in the past as well as to the lung cancer. No dizziness or lightheadedness, no feeling of heart racing or fluttering, and no syncope. Hemodynamically the patient has been maintaining normal blood pressure but his heart rate has been slightly on the tachycardic side and the heart rate is in the 100 beats per minutes. The patient was admitted to the hospital. He was started on steroids IV. We will repeat the echocardiogram tomorrow morning to assess for progression or regression in the amount of pericardial effusion. We will continue monitor the blood pressure and heart rate very closely. He was receiving Lasix by mouth which I did stop. On follow-up with the patient today, overall is feeling slightly better. Denies having any chest pain or chest discomfort. I will continue the IV steroids and repeat limited echocardiogram tomorrow to assess for the improvement in the pericardial effusion. Hopefully the patient can be discharged home tomorrow. Objective - Vital Signs Vital signs: Vital Signs Temp 98 F 11/16/17 03:12 Pulse 100 11/16/17 04:00 Resp 18 11/16/17 04:00 BP 121/68 11/16/17 03:12 Pulse Ox 95 11/16/17 03:12 Intake & Output 11/15/17 11/16/17 11/16/17 18:59 06:59 18:59 Intake Total 840 236 Output Total 400 Balance 840 -400 236 Weight 82.2 kg Intake: Oral 840 236 Output: Urine 400 Other: Voiding Method Toilet # Voids 1 1 1 - Constitutional General appearance: Present: no acute distress - Respiratory Respiratory: bilateral: CTA - Cardiovascular Rhythm: regular Heart sounds: normal: S1, S2 - Labs CBC & Chem 7: 11/15/17 10:33 11/14/17 14:40 Labs: Abnormal Lab Results - Last 24 Hours (Table) 11/15/17 11/15/17 11/15/17 Range/Units 10:33 11:57 16:23 WBC 2.1 L (3.8-10.6) k/uL RBC 3.05 L (4.30-5.90) m/uL Hgb 9.0 L (13.0-17.5) gm/dL Hct 27.4 L (39.0-53.0) % RDW 15.6 H (11.5-15.5) % Lymphocytes # (Manual) 0.38 L (1.0-4.8) k/uL POC Glucose (mg/dL) 127 H 162 H (75-99) mg/dL 11/15/17 11/16/17 Range/Units 21:07 06:05 WBC (3.8-10.6) k/uL RBC (4.30-5.90) m/uL Hgb (13.0-17.5) gm/dL Hct (39.0-53.0) % RDW (11.5-15.5) % Lymphocytes # (Manual) (1.0-4.8) k/uL POC Glucose (mg/dL) 124 H 131 H (75-99) mg/dL Assessment and Plan Assessment: Assessment #1 moderate to large pericardial effusion without tamponade physiology. The pericardial effusion has improved on an echocardiogram was performed today #2 stage IV lung cancer currently on immunotherapy #3 history of smoking in the past. Plan #1 continue the IV steroids #2 repeat the echocardiogram tomorrow. Thank you for allowing us participate in his care
[2017-11-16 11:37] LABS: Glucose,Whole Blood 122 mg/dL (75-99)
[2017-11-16] MEDS: FOLIC ACID 1 MG TAB PO SCH (12:15)
[2017-11-16 17:17] LABS: Glucose,Whole Blood 134 mg/dL (75-99)
--- NOTE | 2017-11-16 20:30 | P.PN ---
Subjective Progress Note Date: 11/16/17 Principal diagnosis: Impending Tamponade This is a very nice patient who follows closely with Dr. Gomes for his oncologic care. He was first evaluated on 08/26/2017 as inpatient who he was admitted because of persistent cough and hoarseness of his voice of about 3 months duration. On 08/23/2017,CT scan of neck revealed left supraclavicular node,CT of chest revealed 1.3cm LLL mass and left hilar adenopathy and bulky mediastinal nodes. On 08/24/2017,biopsy of left supraclavicular node was positive for adenocarcinoma,IHC stains were non specific but felt in view of clinical picture to be compatible with lung origin. On 09/01/2017,PET scan revealed suspicious uptake in bulky mediastinal nodes, bilateral supraclavicular nodes,LLL lesion,6 suspicious liver lesions and small lytic lesion on T8-L1. PDL-1 was negative,NexGen revealed TP53 mutation, negative EGFR,ALK,ROS-1,BRAF,MET He started carboplatin/alimta/keytruda on 09/24/2017. He was last evaluated in the office by Dr. Gomes on 10/29/17 and complained of feeling tired,some swelling in both feet,eating okay,no diarrhea or rash. The swelling improved with the low dose lasix and he was set up for a restaging CT scan on 11/12/17. The CT scan CT Chest/Abdomen/Pelvis from 11/12/17 - Showed overall good response to treatment. He received 3 of the 6 planned treatments. There was a marked decrease in the mediastinal adenopathy and decreased left aortic pulmonary window mass, decrease degree of soft tissue density/peribronchial thickening along central bronchi, LLL nodule decreased. Osseous lesions on t12 same, and likely decreased liver lesions. ALthough the concern on the CT was the interval worsening of a now large pericardial effusion. He was sent for an immediate echocardiogram on 11/13/[address] Gomes discussed findings with Dr. Ocasio. Because of the concern of impending tamponade it was advised to admit him and monitor closely for improvement after anti-inflammatory administration. He was seen in the office prior to admission. Minimal side effects expressed with the exception of weakness, fatigue, cough (occassionaly clear productive), and LE swelling which has now resolved. I reveiwed the CT scan with him and we planned for a direct admission at that time with consultation to cardiology and order for high dose steroids. 11/14/17 - Patient was seen and evaluated in follow-up today. He feels overall good, and is in good spirits because of his CT scan results. No noticeable swelling of upper extremities or neck at glance, no increased shortness of breath, same unchanged cough since diagnosis, no dizziness, nausea, or light- headiness. He feels tired and weak but has felt this way throughout treatment. His voice is hoarse, chronic since 3 months prior to diagnosis. Heart Rate has been mildly tachycardic around 105, BP stable. Last cycle of chemotherapy was on 11/05/17, therefore is blood counts do show cytopenia's. He received Carboplatin, Almta, and Keytruda. He did not receive a colony stimulating factor such as neulasta. 11/15/17 - David is doing well today, he is still in good spirits. His WBC count is recovering as expected from his chemotherapy yas. He continues with no apparent signs of tamponade physically. His Heart rate is mildly tachycardic at 100, which is likely multifactoral with his anemia. His blood pressure is wnl. He did have a repeat limited echocardiogram this am at bedside which showed improvement in the pericardial effusion fluid. 11/16/17 - Feeling good today, swelling in legs decreased, cough improving and overall he feels better. A little jittery from steroids, but otherwise no acute concerns Objective - Vital Signs Vital signs: Vital Signs Temp 98.1 F 11/16/17 16:00 Pulse 91 11/16/17 16:00 Resp 18 11/16/17 16:00 BP 126/77 11/16/17 16:00 Pulse Ox 97 11/16/17 16:00 Intake & Output 11/16/17 11/16/17 11/17/17 06:59 18:59 06:59 Intake Total 1312 Output Total 400 Balance -400 1312 Weight 82.2 kg Intake: Oral 1312 Output: Urine 400 Other: Voiding Method Toilet # Voids 1 1 - Constitutional General appearance: Present: cooperative, no acute distress - EENT Eyes: Present: EOMI, PERRLA ENT: Present: NA/AT, normal oropharynx - Neck Details: Supple, Trachea Midline - Respiratory Respiratory: bilateral: CTA (No increased effort) - Cardiovascular Rhythm: regular (Rate has improved to 90s) Heart sounds: normal: S1, S2 - Gastrointestinal General gastrointestinal: Present: normal bowel sounds, soft - Integumentary Integumentary: Present: normal - Neurologic Neurologic Comment(s): No focal defects Neurologic: Present: CNII-XII intact - Musculoskeletal Musculoskeletal: Present: gait normal, strength equal bilaterally - Psychiatric Psychiatric: Present: A&O x's 3, appropriate affect, intact judgment & insight - Labs CBC & Chem 7: 11/15/17 10:33 11/14/17 14:40 Labs: Abnormal Lab Results - Last 24 Hours (Table) 11/15/17 11/16/17 11/16/17 Range/Units 21:07 06:05 11:36 POC Glucose (mg/dL) 124 H 131 H 122 H (75-99) mg/dL 11/16/17 Range/Units 17:05 POC Glucose (mg/dL) 134 H (75-99) mg/dL Assessment and Plan Plan: Assessment and Plan: 1. 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 Stage IV (T1, N3, M1B) - Molecular testing negative for EGFR, ALK, ROS1, BRAF, MET - Status Post Cycle 3 of recommended 6 Carboplatin, Almta, and Keytruda (No Neulasta Initiated). Last Treatment on 11/05/17. - Most Recent Restaging CT Scan on 11/12/17 - Showed Overall Marked Response to Treatment Evidenced by Decrease in Disease, see HPI. - Plan to continue treatment with Carboplatin and Almta as outpatient, will need to further assess and evaluate if Keytruda (PD1-inhibitor) risk of inflammation contributed to current Pericardial Effusion increase. Will be decided as outpatient by Dr. Gomes - Monitor Daily CBC and CMP with recent treatment - Continue daily Folic Acid as patient is on Almta 2. Increasing Moderate to Large Pericardial Effusion with Potential of Impending Tamponade - Dr. Ocasio from Cardiology following - Reviewed and discussed results of Echocardiogram with Cardiology, currently continue to monitor on conservative treatment (i.e. steroids). Probable reassessment in am with limited echocardiogram. - Potential etiology related to inflammatory risk of PD1-Inhibitor - Keytruda, Initiated Corticosteroids at 1mg/kg/day, if improvement occurs will require A very slow long taper of steroids. PPI Prophylaxis with High Dose Steroids Ordered - Limited echocardiogram performed today 11/15/17 - Improvement id pericardial fluid effusion was identified. He will continue on IV corticosteroid (with PPI prophylaxis) and per cardiolgy plan will be to repeat echocardiogram again in 48 hours, if fluid continues to decrease favorably he will likely be discharged on a long steroid taper. 3. Neutropenia - Secondary to recent Chemotherapy - Improved - Recheck shows increasing WBC, Neutrophils are within normal ranges, therefore will not need addition of colony stimulating factor at this time with expected normal WBC recovery - Monitor closely for s/s of infection 4. Normocytic Anemia - Secondary to chemotherapy - monitor CBC 5. VTE Prophylaxis - Lovenox 40mg Subcut Daily 6. Insomnia - Trazadone Vanessa Richardson [employer]
[2017-11-16 21:09] LABS: Glucose,Whole Blood 135 mg/dL (75-99)
[2017-11-16] MEDS: traZODone HCL 50 MG TAB PO SCH (21:24)
[2017-11-16] MEDS: SENNOSIDES 8.6 MG TAB PO SCH (21:24)
[2017-11-17 04:22] VITALS: RESP 16
[2017-11-17 04:50] VITALS: PULSE 100
[2017-11-17 06:10] LABS: Glucose,Whole Blood 133 mg/dL (75-99)
[2017-11-17] MEDS: INSULIN ASPART 100 UNIT/ML 1 ML 10 ML VIAL SQ SCH (06:16)
[2017-11-17] MEDS: PANTOPRAZOLE 40 MG TABLET PO SCH (06:21)
[2017-11-17] MEDS: BENZONATATE 100 MG CAP PO PRN (06:21)
[2017-11-17] MEDS: methylPREDNISolone SOD SUCCI 40 MG/ML 1 ML VIAL IV SCH (09:29)
[2017-11-17] MEDS: ENOXAPARIN 40 MG/0.4 ML SYRINGE SQ SCH (09:29)
--- NOTE | 2017-11-17 09:32 | P.DS ---
Providers Date of admission: 11/13/17 16:52 Expected date of discharge: 11/17/17 Attending physician: Stephanie Gomes Consults: 11/13/17 19:19 Consult Physician Stat Consulting Provider: Roel Ocasio Consult Reason/Comments: plueral effusions Do you want consulting provider notified?: Yes Primary care physician: Stephanie Gomes [facility] Course: The patient is a 57-year-old white male, with stage IV adenocarcinoma of the lung, recently diagnosed in 08/22. He was started on treatment with chemoimmunotherapy, consisting of carboplatin/Alimta/Keytruda. He is status post 3/6 cycles. Computed tomography scan after 3 cycles showed a good treatment response but incidentally showed increase in size of pericardial effusion. The patient also noted symptoms such as increase in heart rate, as well as swelling of his hands and feet. He was therefore admitted to the hospital, and cardiology was consulted. The main concern was pericardial effusion due to immunotherapy effect. The patient was therefore started on IV steroids. He otherwise remained asymptomatic, and noted resolution of his extremity swelling. He was seen by cardiology, and had serial echocardiograms showing decrease in size of the effusion. It was therefore decided to discharge him home on a tapering dose of steroids, once he had a follow-up echocardiogram done today and this was reviewed and felt to be satisfactory by cardiology. Pertinent Studies: Serial echocardiograms Patient Condition at Discharge: Fair Plan - Discharge Summary Discharge Rx Participant: Yes New Discharge Prescriptions: New predniSONE See Taper PO DIRECTED #56 tab No Action traZODone HCL [Desyrel] 50 mg PO HS PRN PRN Reason: Insomnia Omeprazole Magnesium [PriLOSEC OTC] 20 mg PO BID Multivitamin [Men's Multi-Vitamin] 1 tab PO DAILY Glucosamine/Chondr Meneses A Sod [Osteo Bi-Flex Caplet] 1 tab PO DAILY Ondansetron [Zofran] 4 mg PO Q6H PRN PRN Reason: Nausea And Vomiting Benzonatate [Tessalon Perles] 100 mg PO DAILY PRN PRN Reason: Cough Sennosides-Docusate Sodium [Senokot-S] 2 tab PO HS PRN PRN Reason: Constipation Furosemide [Lasix] 20 mg PO DAILY Folic Acid 1 mg PO DAILY Discharge Medication List traZODone HCL [Desyrel] 50 mg PO HS PRN 12/10/13 [History] Glucosamine/Chondr Meneses A Sod [Osteo Bi-Flex Caplet] 1 tab PO DAILY 08/23/17 [ History] Multivitamin [Men's Multi-Vitamin] 1 tab PO DAILY 08/23/17 [History] Omeprazole Magnesium [PriLOSEC OTC] 20 mg PO BID 08/23/17 [History] Benzonatate [Tessalon Perles] 100 mg PO DAILY PRN 11/13/17 [History] Folic Acid 1 mg PO DAILY 11/13/17 [History] Furosemide [Lasix] 20 mg PO DAILY 11/13/17 [History] Ondansetron [Zofran] 4 mg PO Q6H PRN 11/13/17 [History] Sennosides-Docusate Sodium [Senokot-S] 2 tab PO HS PRN 11/13/17 [History] predniSONE See Taper PO DIRECTED #56 tab 11/17/17 [Rx] Follow up Appointment(s)/Referral(s): Stephanie Gomes MD [Primary Care Provider] - 11/21/17 2:30 pm (Sunday with Vanessa [employer]CH[employer]GER) Roel Ocasio MD [STAFF PHYSICIAN] - 2 Weeks (Pt to call office for appt) Discharge Disposition: HOME SELF-CARE
--- NOTE | 2017-11-17 10:58 | P.PN ---
Subjective Progress Note Date: 11/17/17 Principal diagnosis: Pericardial effusion This is a pleasant 57-year-old gentleman with a past medical history significant for stage IV lung cancer who responded very well to immunotherapy and currently on immunotherapy was directly admitted from Dr. Mireya hutchinson to the hospital for further evaluation and management after he was found to have moderate to large pericardial effusion. The patient underwent a computed tomography scan of the chest as a follow-up on the lung cancer and that revealed large pericardial effusion. Subsequently the patient was sent to the hospital where he underwent an echocardiogram yesterday which I reviewed and revealed moderate to large pericardial effusion without tamponade physiology. The patient denies having any chest pain or chest discomfort but he does have shortness of breath which according to him is the same as before which is chronic and related to his history of smoking in the past as well as to the lung cancer. No dizziness or lightheadedness, no feeling of heart racing or fluttering, and no syncope. Hemodynamically the patient has been maintaining normal blood pressure but his heart rate has been slightly on the tachycardic side and the heart rate is in the 100 beats per minutes. The patient was admitted to the hospital. He was started on steroids IV. We will repeat the echocardiogram tomorrow morning to assess for progression or regression in the amount of pericardial effusion. We will continue monitor the blood pressure and heart rate very closely. He was receiving Lasix by mouth which I did stop. On follow-up with the patient today, overall is feeling slightly better. Denies having any chest pain or chest discomfort. The repeated echocardiogram revealed mild improvement in the amount of pericardial effusion. The patient is in process to be discharged home on oral steroids and I will follow-up with the patient as an outpatient with an echocardiogram. Objective - Vital Signs Vital signs: Vital Signs Temp 96.7 F L 11/17/17 04:00 Pulse 100 11/17/17 04:00 Resp 16 11/17/17 04:00 BP 134/86 11/17/17 04:00 Pulse Ox 97 11/17/17 04:00 Intake & Output 11/16/17 11/17/17 11/17/17 18:59 06:59 18:59 Intake Total 1312 Output Total 200 Balance 1312 -200 Weight 82.3 kg Intake: Oral 1312 Output: Urine 200 Other: Voiding Method Toilet # Voids 1 3 - Constitutional General appearance: Present: no acute distress - Respiratory Respiratory: bilateral: CTA - Cardiovascular Rhythm: regular Heart sounds: normal: S1, S2 - Labs CBC & Chem 7: 11/15/17 10:33 11/14/17 14:40 Labs: Abnormal Lab Results - Last 24 Hours (Table) 11/16/17 11/16/17 11/16/17 Range/Units 11:36 17:05 21:08 POC Glucose (mg/dL) 122 H 134 H 135 H (75-99) mg/dL 11/17/17 Range/Units 06:09 POC Glucose (mg/dL) 133 H (75-99) mg/dL Assessment and Plan Assessment: Assessment #1 moderate to large pericardial effusion without tamponade physiology. The pericardial effusion has improved on an echocardiogram was performed today #2 stage IV lung cancer currently on immunotherapy #3 history of smoking in the past. Plan #1 the repeated echocardiogram showed improvement in the pericardial effusion #2 the patient is in process to be discharged home. Thank you for allowing us participate in his care
[2017-11-17 11:03] VITALS: BP 124/85; TEMP 98
--- NOTE | 2017-11-17 13:07 | ECHOF ---
Referral Reason:PE MEASUREMENTS -------- HEIGHT: 180.3 cm WEIGHT: 82.1 kg BP: 134/86 IVSd: 1.2 cm (0.6 - 1.1) LVIDd: 3.5 cm (3.9 - 5.3) LVPWd: 1.1 cm (0.6 - 1.1) IVSs: 1.2 cm LVIDs: 2.1 cm LVPWs: 1.3 cm FINDINGS -------- Sinus rhythm. This was a technically good study. Limited study for assessment of pericardial effusion. The left ventricular size is normal. There is mild concentric left ventricular hypertrophy. Overa ll left ventricular systolic function is normal with, an EF between 60 - 65 %. There is a moderate, generalized pericardial effusion present. CONCLUSIONS -------- 1. Sinus rhythm. 2. This was a technically good study. 3. Limited study for assessment of pericardial effusion. 4. The left ventricular size is normal. 5. There is mild concentric left ventricular hypertrophy. 6. Overall left ventricular systolic function is normal with, an EF between 60 - 65 %. 7. There is a moderate, generalized pericardial effusion present. [employer] SUPERVISOR: Tr Bradley [facility]
== END 2017-11-17 12:05 | disposition home or self-care (01) | DRG 315 ==
LOC: 6SEL 16:52
PROVIDERS: ADMIT Internal Medicine Hematology & Oncology; ATTEND Internal Medicine Hematology & Oncology
DX: I31.3 Pericardial effusion (noninflammatory) (principal); C34.90 Malignant neoplasm of unspecified part of unspecified bronchus or lung; C78.7 Secondary malignant neoplasm of liver and intrahepatic bile duct; C77.9 Secondary and unspecified malignant neoplasm of lymph node, unspecified; C79.70 Secondary malignant neoplasm of unspecified adrenal gland; F10.21 Alcohol dependence, in remission; D70.1 Agranulocytosis secondary to cancer chemotherapy; D64.81 Anemia due to antineoplastic chemotherapy; T45.1X5A Adverse effect of antineoplastic and immunosuppressive drugs, initial encounter; G47.00 Insomnia, unspecified; I10 Essential (primary) hypertension; J44.9 Chronic obstructive pulmonary disease, unspecified; K21.9 Gastro-esophageal reflux disease without esophagitis; Z82.49 Family history of ischemic heart disease and other diseases of the circulatory system; Z85.828 Personal history of other malignant neoplasm of skin; Z87.891 Personal history of nicotine dependence; Z81.1 Family history of alcohol abuse and dependence; Z79.899 Other long term (current) drug therapy; Z87.01 Personal history of pneumonia (recurrent); M19.90 Unspecified osteoarthritis, unspecified site; Z86.010 Personal history of colon polyps
CPT/HCPCS: 80053; 82607; 82728; 82746; 83540; 83550; 85025; 85045; 93308

== ENCOUNTER → 2017-11-13 | Outpatient (CLI) | payer BC ==
--- NOTE | 2017-11-14 10:39 | ECHOF ---
Referral Reason:I31.3 Pericardial effusion MEASUREMENTS -------- HEIGHT: 180.3 cm WEIGHT: 81.6 kg BP: 144/73 RVIDd: 2.8 cm (< 3.3) IVSd: 1.2 cm (0.6 - 1.1) LVIDd: 4.4 cm (3.9 - 5.3) LVPWd: 1.2 cm (0.6 - 1.1) IVSs: 1.6 cm LVIDs: 2.7 cm LVPWs: 1.5 cm LAESV Index (A-L): 25.79 ml/m Ao Diam: 3.5 cm (2.0 - 3.7) AV Cusp: 2.0 cm (1.5 - 2.6) LA Diam: 2.9 cm (2.7 - 3.8) EPSS: 0.5 cm MV E Terry: 0.43 m/s MV DecT: 174 ms MV A Terry: 0.90 m/s MV E/A Ratio: 0.48 RAP: 5.00 mmHg RVSP: 14.45 mmHg MV EF SLOPE: 55.09 mm/s (70 - 150) MV EXCURSION: 1.44 cm (> 18.000) FINDINGS -------- Resting tachycardia (HR>100bpm). This was a technically good study. The left ventricular size is normal. There is mild concentric left ventricular hypertrophy. Overa ll left ventricular systolic function is normal with, an EF between 60 - 65 %. The right ventricle is normal in size and function. Normal LA size by volume 22+/-6 ml/m2. The right atrium is normal in size. Aortic valve is trileaflet and is mildly thickened. There is no evidence of aortic regurgitation. There is no evidence of aortic stenosis. The mitral valve leaflets are mildly thickened. There is trace to mild mitral regurgitation. Trace tricuspid regurgitation present. Right ventricular systolic pressure is normal at < 35 mmHg. There is no evidence of pulmonary hypertension. Trace/mild (physiologic) pulmonic regurgitation. The aortic root size is normal. IVC Not well visulized. There is a large, generalized pericardial effusion present. CONCLUSIONS -------- 1. Resting tachycardia (HR>100bpm). 2. This was a technically good study. 3. The left ventricular size is normal. 4. There is mild concentric left ventricular hypertrophy. 5. Overall left ventricular systolic function is normal with, an EF between 60 - 65 %. 6. Normal LA size by volume 22+/-6 ml/m2. 7. Aortic valve is trileaflet and is mildly thickened. 8. The mitral valve leaflets are mildly thickened. 9. There is trace to mild mitral regurgitation. 10. Trace tricuspid regurgitation present. 11. Right ventricular systolic pressure is normal at < 35 mmHg. 12. There is no evidence of pulmonary hypertension. 13. Trace/mild (physiologic) pulmonic regurgitation. 14. The aortic root size is normal. 15. IVC Not well visulized. 16. There is a large, generalized pericardial effusion present. RADIO BOARD OPERATOR ANNOUNCER: Tr Bradley RDCS
== END | disposition home or self-care (01) ==
LOC: RADECHMAIN 13:07
PROVIDERS: ATTEND Internal Medicine Hematology & Oncology
DX: I08.3 Combined rheumatic disorders of mitral, aortic and tricuspid valves (principal)
CPT/HCPCS: 93306

== ENCOUNTER → 2017-12-26 | Outpatient (CLI) | payer BC ==
--- NOTE | 2017-12-26 16:19 | US ---
EXAMINATION TYPE: US venous doppler duplex UE LT DATE OF EXAM: 12/26/2017 COMPARISON: NONE CLINICAL HISTORY: M79.622,R22.32 PAIN AND SWELLING LT UPPER LIMB. Warmness, hardness, redness left me dial upper arm for 1 week post chemo treatment (right hand) SIDE PERFORMED: left Grayscale, color doppler, spectral doppler imaging performed of the deep veins of the upper extremity . There is normal flow, compressability and vascular waveforms. Left Arm: No evidence of DVT. Superficial thrombus left basilic IMPRESSION: Superficial thrombus as noted without evidence of DVT.
== END | disposition home or self-care (01) ==
LOC: RADUSWWP 15:31
PROVIDERS: ATTEND Internal Medicine Hematology & Oncology
DX: I82.612 Acute embolism and thrombosis of superficial veins of left upper extremity (principal)

== ENCOUNTER → 2018-01-16 | Outpatient (CLI) | payer BC ==
[2018-01-16 18:09] LABS: Blood Urea Nitrogen 14 mg/dL (9-20)
--- NOTE | 2018-01-17 00:26 | CT ---
EXAMINATION TYPE: CT ChestAbdPelvis w con DATE OF EXAM: 01/16/2018 COMPARISON: 11/09/2017 and 08/23/2017 HISTORY: 57-year-old male lung ca, observe for mets TECHNIQUE: Contiguous axial scanning of the chest, abdomen, and pelvis performed with IV Contrast, pa tient injected with 100 mL of Isovue 300. Delayed images through the kidneys were obtained. Coronal/s agittal reconstructions performed. CT DLP: 1316.4 mGycm Automated exposure control for dose reduction was used. FINDINGS: Chest: Heart upper limits of normal in size with trace residual pericardial effusion. Significantly improved from prior. Coronary vessel calcifications are present in remarkable for clear artery disease. Borderline ectasia ascending aorta 3.5 cm. Conventional arch vessel branching anatomy. Trace bilateral gynecomastia. Residual AP soft tissue density measures 1.8 cm, not significantly uriostegui ged. An AP window area of nodularity is better defined and possibly new measuring 1.3 cm, axial image 24. Mild peribronchovascular soft tissue thickening at the left hilum is unchanged. There is bilater al gynecomastia. Mild diffuse bronchial wall thickening and mild centrilobular emphysema. Improved septal thickening i n the left upper lobe and interval resolution of the patient's previous trace to small pleural effusi ons. 6 mm right mid lung pulmonary nodule along the minor fissure, axial image 32 is unchanged. The patien t's previous medial left lower lobe pulmonary nodules no longer appreciated. A 6 mm pulmonary nodule posterior left upper lobe, axial and 24 not clearly seen previously. ABDOMEN: No focal liver lesion or biliary ductal dilatation. Portal venous system is patent. Gallbladder, right adrenal gland, right kidney, spleen, and pancreas appear within normal limits. 1.2 cm low-density nodule in the left adrenal gland is unchanged, suspected lipid rich adrenal adenoma. 1 cm nonobstructive left lower pole renal calculus is unchanged. Symmetric uptake and excretion of co ntrast from both kidneys. Moderate atherosclerotic calcifications and plaque within the abdominal aorta and left greater than r ight iliac arteries. No mesenteric or retroperitoneal lymphadenopathy. No dilated small bowel, free fluid, or free air. Tiny fatty umbilical hernia. Normal appendix. No significant stool burden. No pericolonic inflammatory change. Pelvis: Bladder partially distended. Left-sided pelvic phleboliths. No abnormal fluid collection in the pelvi s or pelvic lymphadenopathy. Bones: Numerous scattered tiny hyperdense foci throughout the spine, for example, left posterior aspect of t he T12 vertebral body, axial images 64 is stable from 11/09/2017 but more defined as compared to 018 the lytic lesion near the superior endplate of T12 shows some increasing surrounding sclerosis an d is equivocal for a healing Schmorl's node versus lytic lesion. IMPRESSION: 1. STABLE RESIDUAL 1.8 CM AP WINDOW SOFT TISSUE DENSITY AND STABLE MINIMAL LEFT HILAR PERIBRONCHOVASC ULAR SOFT TISSUE THICKENING. ADJACENT 1.3 CM SOFT TISSUE NODULARITY ALSO IN THE AP WINDOW IS SLIGHTLY MORE DEFINED. CONTINUED FOLLOW-UP RECOMMENDED. 2. 6 MM RIGHT MID LUNG PULMONARY NODULE IS STABLE AND THE PREVIOUS MEDIAL LEFT LOWER LOBE PULMONARY N ODULE IS NO LONGER SEEN. HOWEVER, THERE IS A POSSIBLE NEW 6 MM POSTERIOR LEFT UPPER LOBE PULMONARY NO DULE. AGAIN, FOLLOW UP RECOMMENDED. 3. SCATTERED TINY SCLEROTIC FOCI THROUGHOUT THE SPINE ARE UNCHANGED FROM 11/09/2017 BUT MORE NUMEROUS A ND MORE DEFINED COMPARED TO 08/23/2017. THESE MAY REPRESENT HEALED OSSEOUS METASTASES. 4. THE PREVIOUS LYTIC LESION ALONG THE SUPERIOR ENDPLATE OF T12 SHOWS SOME INCREASING PERIPHERAL SCLE ROSIS AND IS EQUIVOCAL FOR A HEALING LYTIC OSSEOUS METASTASIS VERSUS HEALING SCHMORL'S NODE. 5. RESOLUTION OF THE PATIENT'S PREVIOUS PERICARDIAL EFFUSION AND PLEURAL EFFUSIONS. 6. A 1 CM NONOBSTRUCTIVE LEFT RENAL CALCULUS.
== END ==
LOC: RADCTMAIN 16:40
PROVIDERS: ATTEND Internal Medicine Hematology & Oncology
DX: C34.32 Malignant neoplasm of lower lobe, left bronchus or lung (principal); N20.0 Calculus of kidney
CPT/HCPCS: 82565; 84520; 71260; 74177; 36415; Q9967

== ENCOUNTER 2018-02-13 11:03 | Day surgery (SDC) | payer BC ==
[2018-02-06 14:48] VITALS: BMI 26.4
[~2018-02-13 11:03] MED LIST: DEXAMETHASONE SOD PHOSPHATE 4 MG/ML 1 ML VIAL IV ONE; FAMOTIDINE 20 MG/2 ML VIAL IV ONE; HYDROmorphone 0.5 MG/0.5 ML SYRINGE IVP PRN; LACTATED RINGERS 1,000 ML IV SCH; MORPHINE SULFATE 2 MG/ML SYRINGE IV PRN; ONDANSETRON 4 MG/2 ML VIAL IVP ONE; ceFAZolin 1,000 MG in DEXTROSE/WATER 1 50ML.BAG IV ONE; ceFAZolin IN SWFI 2 GM/20 ML SYRINGE IVP ONE; metroNIDAZOLE-NS PMX 500 MG in SALINE 1 100ML.BAG IVPB ONE
[2018-02-13 12:27] VITALS: RESP 18; TEMP 97.8
[2018-02-13] MEDS ORDERED: LIDOCAINE 1% 20 ML VIAL (10MG/ML) FOR IV START INTRADERMA ONE (12:45)
[2018-02-13] MEDS ORDERED: DEXAMETHASONE SOD PHOS (MDV) 100 MG/10 ML VIAL IVP ONE (12:48)
[2018-02-13] MEDS ORDERED: ONDANSETRON 4 MG/2 ML VIAL IVP ONE (12:49)
[2018-02-13] MEDS ORDERED: PROPOFOL 10 MG/ML 20 ML VIAL IV ONE (13:22)
[2018-02-13] MEDS ORDERED: PHENYLEPHRINE-0.9% NACL SYG 1 MG/10 ML SYRINGE ONE (13:22)
[2018-02-13] MEDS ORDERED: fentaNYL (PF) 50 MCG/ML 2 ML AMP ONE (13:22)
[2018-02-13] MEDS ORDERED: KETAMINE 10 MG/ML 20 ML VIAL ONE (13:22)
[2018-02-13] MEDS ORDERED: MIDAZOLAM 2 MG/2 ML VIAL ONE (13:22)
[2018-02-13] MEDS ORDERED: DEXAMETHASONE SOD PHOS (MDV) 100 MG/10 ML VIAL ONE (13:22)
[2018-02-13] MEDS ORDERED: LIDOCAINE 1% INJ 10MG/ML (20 ML MDV) ONE (13:22)
[2018-02-13] MEDS ORDERED: LIDOCAINE 1%-EPI 1:100,000 30 ML VIAL SQ ONE ×2 (13:37)
--- NOTE | 2018-02-13 15:09 | P.OP ---
Date of Procedure: 02/13/18 Preoperative Diagnosis: Left vocal cord paralysis Postoperative Diagnosis: Same Procedure(s) Performed: Left medialization thyroplasty Anesthesia: MICHELLE Surgeon: Richardson Tran Estimated Blood Loss (ml): 2 Pathology: none sent Condition: stable Disposition: PACU Indications for Procedure: This is a 57-year-old white female with a history of pulmonary carcinoma and secondary left vocal cord paralysis. Operative Findings: Left true vocal cord paralyzed in the paramedian position Description of Procedure: Patient brought in the operative suite and placed in a supine position. The patient was positioned with head donut and shoulder roll and was prepped and draped in usual aseptic fashion. Patient underwent induction of IV sedation after appropriate monitors were placed by the server cashier. 1% lidocaine with 1 100,000 epinephrine was infused over the left side of the neck and anterior neck. A transverse anterior incision was made approximate 5 mm below the inferior edge of the thyroid cartilage crossing the midline. This was carried through the skin subcutaneous tissue as well as platysma layer. The strap muscles were identified and reflected laterally from the midline raphae. The thyroid cartilage was identified and was then skeletonized with position of the muscular layer. The inferior aspect of the thyroid cartilage which was reflected superiorly. The primary thyroplasty instrumentation was used to ascertain the lao point and then a window was made in the thyroid cartilage based on the template which was based on the lao point. The cartilage was ossified and therefore microscopy saw was utilized to make this window. The underlying perichondrium was elevated in her table of the thyroid cartilage and divided horizontally. The [place] thyroplasty sizing instruments were then utilized to ascertain the best voicing while the patient vocalized and the male #11 size was felt to be the best without strain. Therefore this size implant was placed. This was placed without difficulty. The patient then vocalized further and had improved strength of voice with less weakness. He had no strain and no respiratory difficulty or cough with this. Flexible laryngoscopy was then performed through the right nasal cavity and there didn't was noted to be good medialization of the left vocal cord. There was good airway and no stridor. A #10-Serbian suction drain was placed and the wound was closed in the muscular layers with inverted interrupted 4-0 Vicryl and 4-0 chromic suture and the subcutaneous layer closed with inverted interrupted 4-0 chromic suture and skin closed with running locking 5-0 nylon suture. Steri-Strips and sterile dressing were placed. The drain was working well with only 1 mL of output. The patient was awake and alert and transferred to the postop recovery area in satisfactory condition. Good vocalization was noted no stridor or respiratory difficulty.
[2018-02-13 15:38] VITALS: BP 111/74; PULSE 97
== END 2018-02-13 15:57 | disposition home or self-care (01) ==
LOC: OR 11:03
PROVIDERS: ATTEND Otolaryngology
DX: J38.01 Paralysis of vocal cords and larynx, unilateral (principal); I10 Essential (primary) hypertension; J44.9 Chronic obstructive pulmonary disease, unspecified; K21.9 Gastro-esophageal reflux disease without esophagitis; Z79.899 Other long term (current) drug therapy; Z79.52 Long term (current) use of systemic steroids; Z85.118 Personal history of other malignant neoplasm of bronchus and lung
CPT/HCPCS: 31591; L8509; J2250; J2405; J2001; J3010; J0690; J1100; J2370; J2704

== ENCOUNTER 2018-03-04 10:23 | Inpatient (IN) | payer BC, OTHER ==
[2018-03-04] MEDS ORDERED: ACETAMINOPHEN TAB 500 MG TAB PO STA (10:57)
--- NOTE | 2018-03-04 11:00 | ED ---
General Adult HPI - General Chief complaint: Fever Stated complaint: Chest pain Time Seen by Provider: 03/04/18 10:51 Source: patient, family, RN notes reviewed Mode of arrival: wheelchair Limitations: no limitations - History of Present Illness Initial comments: Patient is a pleasant 58-year-old male presenting to the emergency department with cough and fever and chest discomfort. Symptoms have been present for the past 4 days or so. Patient does have history of lung cancer. Last chemotherapy was one week ago. Patient went for follow-up today and was advised come to the emergency department. Cough is been dry nonproductive. Chest discomfort is sharp and mild however can become severe with coughing episodes. No leg pain or leg swelling. Patient has been somewhat fatigued. - Related Data Home Medications Medication Instructions Recorded Confirmed traZODone HCL [Desyrel] 50 mg PO HS PRN 12/10/13 03/04/18 Glucosamine/Chondr Meneses A Sod [Osteo 1 tab PO DAILY 08/23/17 03/04/18 Bi-Flex Caplet] Multivitamin [Men's Multi-Vitamin] 1 tab PO DAILY 08/23/17 03/04/18 Omeprazole Magnesium [PriLOSEC OTC] 20 mg PO BID 08/23/17 03/04/18 Benzonatate [Tessalon Perles] 100 mg PO DAILY PRN 11/13/17 03/04/18 Folic Acid 1 mg PO DAILY 11/13/17 03/04/18 Ondansetron [Zofran] 4 mg PO Q6H PRN 11/13/17 03/04/18 Sennosides-Docusate Sodium 2 tab PO HS PRN 11/13/17 03/04/18 [Senokot-S] Diphenox-Atrop 2.5-0.025 mg 1 tab PO DAILY PRN 02/06/18 03/04/18 [Lomotil] Metoprolol Tartrate [Lopressor] 25 mg PO BID 02/06/18 03/04/18 Tamsulosin HCl [Flomax] 0.4 mg PO HS 02/06/18 03/04/18 HYDROcodone/APAP 7.5-325MG [[place] 1 tab PO Q6HR PRN 03/04/18 03/04/18 7.5-325] Allergies Allergy/AdvReac Type Severity Reaction Status Date / Time No Known Allergies Allergy Verified 03/04/18 11:11 Review of Systems ROS Statement: Those systems with pertinent positive or pertinent negative responses have been documented in the HPI. ROS Other: All systems not noted in ROS Statement are negative. Constitutional: Reports: fever Eyes: Denies: eye pain ENT: Denies: ear pain Respiratory: Reports: cough Cardiovascular: Reports: chest pain Endocrine: Reports: fatigue Gastrointestinal: Denies: abdominal pain Genitourinary: Denies: dysuria Musculoskeletal: Denies: back pain Skin: Denies: rash Neurological: Denies: weakness Past Medical History Past Medical History: Cancer, COPD, GERD/Reflux, Hypertension, Osteoarthritis ( OA), Pneumonia, Prostate Disorder Additional Past Medical History / Comment(s): recovering alcoholic-quit 2002,hx of skin ca(sx), pt stated lung cancer w/ mets dx august 2017 currently recieving chemo(had a tx last sunday11-05-17 and immunotherapy), occ episodes of liteheadedness w/ exertion History of Any Multi-Drug Resistant Organisms: None Reported Past Surgical History: Orthopedic Surgery Additional Past Surgical History / Comment(s): rt carpal tunel release, skin cancer removed from face/nose, colonoscopy/polypectomy-per pt was neg. Past Anesthesia/Blood Transfusion Reactions: Family History of Problems w/ Anesthesia Additional Past Anesthesia/Blood Transfusion Reaction / Comment(s): FATHER WOKE UP VERY AGITATED AND HAD TO BE "RE-MEDICATED" Past Psychological History: No Psychological Hx Reported Smoking Status: Former smoker - Past Family History Father Family Medical History: Myocardial Infarction ([place]) Additional Family Medical History / Comment(s): ALCOHOLIC-- Mother Family Medical History: Myocardial Infarction ([place]) Additional Family Medical History / Comment(s): ALCOHOLIC. General Exam Limitations: no limitations General appearance: alert, in no apparent distress Head exam: Present: atraumatic Eye exam: Present: normal appearance, PERRL ENT exam: Present: normal oropharynx Neck exam: Present: normal inspection Respiratory exam: Present: normal lung sounds bilaterally. Absent: chest wall tenderness Cardiovascular Exam: Present: tachycardia GI/Abdominal exam: Present: soft. Absent: tenderness Extremities exam: Present: normal inspection. Absent: pedal edema, calf tenderness Back exam: Present: normal inspection Neurological exam: Present: alert Psychiatric exam: Present: normal affect, normal mood Skin exam: Present: normal color Course Vital Signs 03/04/18 03/04/18 03/04/18 10:28 10:38 11:00 Temperature 100.7 F H Pulse Rate 122 H Respiratory 24 Rate Blood Pressure 75/50 107/74 96/70 O2 Sat by Pulse 91 L 97 100 Oximetry 03/04/18 12:00 Temperature Pulse Rate 101 H Respiratory 18 Rate Blood Pressure 104/70 O2 Sat by Pulse 97 Oximetry - Reevaluation(s) Reevaluation #1: 03/04/18 14:40 Patient does meet criteria for sepsis. Diagnosed at 1440. Blood culture and lactic acid and IV antibiotics have all been ordered. EKG Findings - EKG Comments: EKG Findings:: Sinus tachycardia 110. PVCs present. [place] 150. QRS 88. QT 342. QTC or 62. Normal axis. Inferior Q waves. No acute ST change. Medical Decision Making - Medical Decision Making Case was earlier discussed with Dr. Love, who does recommend cefepime and vancomycin if patient is neutropenic. he does request CTA. CTA concerning for pulmonary embolism which may be somewhat chronic. Patient reevaluated and updated. Dr. Love also recommended patient be admitted to medical jury consultant. - Lab Data Result diagrams: 03/04/18 11:26 03/04/18 11:26 Lab Results 03/04/18 03/04/18 03/04/18 Range/Units 11:26 11:26 11:26 WBC 1.5 L (3.8-10.6) k/uL RBC 3.10 L (4.30-5.90) m/uL Hgb 9.3 L (13.0-17.5) gm/dL Hct 29.8 L (39.0-53.0) % MCV 96.2 (80.0-100.0) fL MCH 30.1 (25.0-35.0) pg MCHC 31.3 (31.0-37.0) g/dL RDW 17.8 H (11.5-15.5) % Plt Count 139 L (150-450) k/uL Neutrophils % (Manual) 61 % Band Neutrophils % 1 % Lymphocytes % (Manual) 16 % Monocytes % (Manual) 17 % Eosinophils % (Manual) 5 % Neutrophils # (Manual) 0.90 L (1.3-7.7) k/uL Lymphocytes # (Manual) 0.24 L (1.0-4.8) k/uL Monocytes # (Manual) 0.26 (0-1.0) k/uL Eosinophils # (Manual) 0.08 (0-0.7) k/uL Nucleated RBCs 0 (0-0) /100 WBC Manual Slide Review Performed Hypochromasia Slight Anisocytosis Slight Macrocytosis Slight PT (9.0-12.0) sec INR (<1.2) APTT (22.0-30.0) sec Sodium 135 L (137-145) mmol/L Potassium 4.8 (3.5-5.1) mmol/L Chloride 103 (98-107) mmol/L Carbon Dioxide 20 L (22-30) mmol/L Anion Gap 12 mmol/L BUN 19 (9-20) mg/dL Creatinine 1.09 (0.66-1.25) mg/dL Est GFR (CKD-EPI)AfAm 87 (>60 ml/min/1.73 sqM) Est GFR (CKD-EPI)NonAf 76 (>60 ml/min/1.73 sqM) Glucose 110 H (74-99) mg/dL Plasma Lactic Acid Pierre 1.8 (0.7-2.0) mmol/L Calcium 9.5 (8.4-10.2) mg/dL Total Bilirubin 1.1 (0.2-1.3) mg/dL AST 40 (17-59) U/L ALT 33 (21-72) U/L Alkaline Phosphatase 107 (38-126) U/L Total Creatine Kinase (55-170) U/L CK-MB (CK-2) (0.0-2.4) ng/mL CK-MB (CK-2) Rel Index Troponin I (0.000-0.034) ng/mL Total Protein 6.7 (6.3-8.2) g/dL Albumin 3.3 L (3.5-5.0) g/dL Urine Color Urine Appearance (Clear) Urine pH (5.0-8.0) Ur Specific [place] (1.001-1.035) Urine Protein (Negative) Urine Glucose (UA) (Negative) Urine Ketones (Negative) Urine Blood (Negative) Urine Nitrite (Negative) Urine Bilirubin (Negative) Urine Urobilinogen (<2.0) mg/dL Ur Leukocyte Esterase (Negative) Urine WBC (0-5) /hpf Amorphous Sediment (None) /hpf Urine Bacteria (None) /hpf Hyaline Casts (0-2) /lpf Urine Mucus (None) /hpf 03/04/18 03/04/18 03/04/18 Range/Units 11:26 11:26 11:40 WBC (3.8-10.6) k/uL RBC (4.30-5.90) m/uL Hgb (13.0-17.5) gm/dL Hct (39.0-53.0) % MCV (80.0-100.0) fL MCH (25.0-35.0) pg MCHC (31.0-37.0) g/dL RDW (11.5-15.5) % Plt Count (150-450) k/uL Neutrophils % (Manual) % Band Neutrophils % % Lymphocytes % (Manual) % Monocytes % (Manual) % Eosinophils % (Manual) % Neutrophils # (Manual) (1.3-7.7) k/uL Lymphocytes # (Manual) (1.0-4.8) k/uL Monocytes # (Manual) (0-1.0) k/uL Eosinophils # (Manual) (0-0.7) k/uL Nucleated RBCs (0-0) /100 WBC Manual Slide Review Hypochromasia Anisocytosis Macrocytosis PT 10.3 (9.0-12.0) sec INR 1.1 (<1.2) APTT 26.7 (22.0-30.0) sec Sodium (137-145) mmol/L Potassium (3.5-5.1) mmol/L Chloride (98-107) mmol/L Carbon Dioxide (22-30) mmol/L Anion Gap mmol/L BUN (9-20) mg/dL Creatinine (0.66-1.25) mg/dL Est GFR (CKD-EPI)AfAm (>60 ml/min/1.73 sqM) Est GFR (CKD-EPI)NonAf (>60 ml/min/1.73 sqM) Glucose (74-99) mg/dL Plasma Lactic Acid Pierre (0.7-2.0) mmol/L Calcium (8.4-10.2) mg/dL Total Bilirubin (0.2-1.3) mg/dL AST (17-59) U/L ALT (21-72) U/L Alkaline Phosphatase (38-126) U/L Total Creatine Kinase 21 L (55-170) U/L CK-MB (CK-2) <0.2 (0.0-2.4) ng/mL CK-MB (CK-2) Rel Index Troponin I 0.018 (0.000-0.034) ng/mL Total Protein (6.3-8.2) g/dL Albumin (3.5-5.0) g/dL Urine Color Light [place] Urine Appearance Cloudy (Clear) Urine pH 5.5 (5.0-8.0) Ur Specific [place] 1.018 (1.001-1.035) Urine Protein 1+ H (Negative) Urine Glucose (UA) Negative (Negative) Urine Ketones Negative (Negative) Urine Blood Negative (Negative) Urine Nitrite Negative (Negative) Urine Bilirubin 1+ H (Negative) Urine Urobilinogen 3.0 (<2.0) mg/dL Ur Leukocyte Esterase Large H (Negative) Urine WBC 60 H (0-5) /hpf Amorphous Sediment Rare H (None) /hpf Urine Bacteria Occasional H (None) /hpf Hyaline Casts 12 H (0-2) /lpf Urine Mucus Moderate H (None) /hpf - Radiology Data Radiology results: report reviewed (Computed tomography scan chest concerning for right-sided pulmonary embolism.), image reviewed (Chest x-ray shows no acute process) Disposition Clinical Impression: Neutropenic fever, Pulmonary embolism, Urinary tract infection Disposition: ADMITTED IP TO THIS [facility] Condition: Serious Is patient prescribed a controlled substance at d/c from ED?: No Referrals: None,Stated [Primary Care Provider] - 1-2 days Decision Time: 14:41
[2018-03-04] MEDS: SODIUM CHLORIDE 0.9% 500 ML 500 ML IV SCH ×2 (11:34→12:05)
[2018-03-04 11:53] LABS: Albumin 3.3 g/dL (3.5-5.0); Calcium 9.5 mg/dL (8.4-10.2); Potassium 4.8 mmol/L (3.5-5.1); Total Bilirubin 1.1 mg/dL (0.2-1.3); Total Protein 6.7 g/dL (6.3-8.2)
[2018-03-04 11:55] LABS: INR 1.1 (<1.2); Partial Thromboplastin Time 26.7 sec (22.0-30.0); Prothrombin Time 10.3 sec (9.0-12.0)
[2018-03-04 11:58] LABS: Anisocytosis Slight; HCT 29.8 % (39.0-53.0); HGB 9.3 gm/dL (13.0-17.5); Hypochromasia Slight; MCH 30.1 pg (25.0-35.0); MCHC 31.3 g/dL (31.0-37.0); MCV 96.2 fL (80.0-100.0); Macrocytosis Slight; Mean Platelet Volume 7.6; Platelet Count 139 k/uL (150-450); RDW 17.8 % (11.5-15.5); WBC 1.5 k/uL (3.8-10.6)
--- NOTE | 2018-03-04 11:58 | XR ---
EXAMINATION TYPE: XR chest 2V DATE OF EXAM: 03/04/2018 COMPARISON: 09/05/2017 HISTORY: Shortness of breath TECHNIQUE: Frontal and lateral views of the chest are obtained. FINDINGS: Scattered senescent parenchymal changes noted. Hyperinflation compatible with COPD. No evidence for infiltrate. No evidence for atelectasis. Heart size is stable. Mediastinal structures are stable and grossly unremarkable. No evidence for hilar prominence. Degenerative changes dorsal spine. IMPRESSION: 1. No evidence for acute pulmonary disease.
[2018-03-04 12:07] LABS: Creatine Kinase 21 U/L (55-170)
[2018-03-04 12:08] LABS: Amorphous Sediment,Urine Rare /hpf; Appearance,Urine Cloudy (Clear); Bacteria,Urine Occasional /hpf; Bilirubin,Urine 1+ (Negative); Blood,Urine Negative (Negative); Color,Urine Light Orange; Glucose,Urine (UA) Negative (Negative); Hyaline Casts,Urine 12 /lpf (0-2); Ketones,Urine Negative (Negative); Leukocyte Esterase,Urine Large (Negative); Mucus,Urine Moderate /hpf; Nitrite,Urine Negative (Negative); PH, Urine 5.5 (5.0-8.0); Protein,Urine 1+ (Negative); Specific Gravity,Urine 1.018 (1.001-1.035); WBC,Urine 60 /hpf (0-5)
[2018-03-04 12:21] LABS: Creatine Kinase MB <0.2 ng/mL (0.0-2.4); Troponin I 0.018 ng/mL (0.000-0.034)
[2018-03-04 12:33] LABS: Band Neutrophils % 1 %; Eosinophils # (M) 0.08 k/uL (0-0.7); Lymphocytes # (M) 0.24 k/uL (1.0-4.8); Monocytes # (M) 0.26 k/uL (0-1.0); Neutrophils % (M) 61 %; Nucleated Red Blood Cells 0 /100 WBC (0-0); Total Cells Counted 100
--- NOTE | 2018-03-04 14:09 | CT ---
EXAMINATION TYPE: CT angio chest DATE OF EXAM: 03/04/2018 COMPARISON: Prior CT chest 01/16/2018 HISTORY: SOB, history of lung CA CT DLP: 274.1 mGycm Automated exposure control for dose reduction was used. CONTRAST: CTA scan of the thorax is performed with IV Contrast, patient injected with 100 mL of Isovue 370, pul monary embolism protocol. MIP images are created and reviewed. 3D reconstructed images are created on an independent workstation and reviewed. FINDINGS: LUNGS: Dependent atelectatic changes are present, small left pleural effusion noted. Interstitial ban ds are prominent especially at the lung bases bilaterally, left upper lobe. There is bronchial wall t hickening. Nodular density along the right middle lobe is somewhat less well differentiated. AORTA: No additional significant abnormality is seen. MEDIASTINUM: There is satisfactory enhancement of the pulmonary artery and its branches, there is abn ormal luminal density which appears adherent to the root of the right pulmonary artery, luminal filli ng defects noted within the right pulmonary artery and including the right lower lobe branches. There is an interval development of abnormal increased attenuation within the mediastinum in the aorticopu lmonary window region, ill-defined soft tissue is present, extension towards the hilar regions. Minim al pericardial fluid, there are coronary artery calcifications. The heart is enlarged. OTHER: Liver again shows low attenuation. Changes of gynecomastia are stable. IMPRESSION: FINDINGS COMPATIBLE PULMONARY EMBOLI, THERE MAY BE A CHRONIC COMPONENT WITH RECANALIZATION OR POSSIBL Y WEB FORMATION, REPORT RELAYED TO DR. MENDES TELEPHONICALLY AT THE TIME OF PERFORMANCE OF THE EXAM. A BNORMAL SOFT TISSUE WITHIN THE MEDIASTINUM MAY BE RELATED TO PATIENT'S KNOWN DIAGNOSIS, INTERVAL DEVE LOPMENT OF SMALL LEFT PLEURAL EFFUSION. CORONARY ARTERY DISEASE AND CARDIOMEGALY.
[2018-03-04] MEDS ORDERED: CEFEPIME 2 GM in SODIUM CHLORIDE 0.9% 50 ML IVPB STA (14:38)
[2018-03-04] MEDS ORDERED: HEPARIN SODIUM,PORCINE 5,000 UNIT/ML 1 ML VIAL IV PRN (14:39)
[2018-03-04] MEDS ORDERED: VANCOMYCIN IV PER PHARMACY 1 EACH MISC MISCELLANE PRN (14:39)
[2018-03-04] MEDS ORDERED: HEPARIN SODIUM,PORCINE 10,000 UNIT/ML 1 ML VIAL IV ONE (14:39)
[2018-03-04] MEDS ORDERED: NALOXONE 0.4 MG/ML 1 ML VIAL IV PRN (14:41)
[2018-03-04] MEDS ORDERED: MORPHINE SULFATE 4 MG/ML SYRINGE IV PRN (14:41)
[2018-03-04] MEDS ORDERED: SODIUM CHLORIDE 0.9% 500 ML 600 ML IV STA (15:00)
[2018-03-04] MEDS ORDERED: SODIUM CHLORIDE 0.9% 1,000 ML IV STA ×2 (15:00)
[2018-03-04] MEDS: HEPARIN SOD,PORK IN 0.45% NACL 25,000 UNIT in 0.45% NACL 1 500ML.BAG IV SCH (15:20)
[2018-03-04] MEDS ORDERED: BENZONATATE 100 MG CAP PO PRN (15:34)
[2018-03-04] MEDS ORDERED: SENNOSIDES-DOCUSATE SODIUM 1 EACH TAB PO PRN (15:34)
[2018-03-04] MEDS ORDERED: VANCOMYCIN 1,750 MG in SODIUM CHLORIDE 0.9% 500 ML 500 ML IVPB ONE (16:00)
[2018-03-04] MEDS: SODIUM CHLORIDE 0.9% 1,000 ML IV SCH (16:15)
[2018-03-04] MEDS: PANTOPRAZOLE 40 MG TABLET PO SCH (20:28)
--- NOTE | 2018-03-04 21:20 | P.CONS ---
History of Present Illness - Reason for Consult Consult date: 03/04/18 Lung Cancer on Chemotherapy Requesting physician: Ren Justice - Chief Complaint Shortness of Breath - History of Present Illness This is a very nice patient who was first evaluated on 08/26/2017 as inpatient who he was admitted because of persistent cough and hoarness of his voice of about 3 months duration. On 08/23/2017,CT scan of neck revealed left supraclavicular node,CT of chest revealed 1.3cm LLL mass and left hilar adenopathy and bulky mediastinal nodes. On 08/24/2017,biopsy of left supraclavicular node was positive for adenocarcinoma,IHC stains were non specific but felt in view of clinical picture to be compatible with lung origin. On 09/01/2017,PET scan revealed suspicious uptake in bulky mediastinal nodes, bilateral supraclavicular nodes,LLL lesion,6 suspicious liver lesions and small lytic lesion on T8-L1 PDL-1 was negative,NexGen revealed TP53 mutation,negative EGFR,ALK,ROS-1,BRAF, MET He started carboplatin/alimta/keytruda on 09/24/2017. Repeat CT scan of chest/abdomen/pelvis on 11/12/2017 revealed significant improvement in his disease,however,there was large pericardial effusion,he was admitted to the hospital,had an echocardiogram,evaluated by cardiology,did not have cardiac tamponade,it was felt that it could be related to keytruda,was put on prednisone and the fluid improved. He was seen by Dr Ocasio after discharge from hospital and repeat echo in his office revealed significant improvement in his pericardial effusion. He resumed keytruda along with carboplatin/alimta on 12/17/2017 He completed 6 cycles of carboplatin/kd/keytruda on 01/09/2018. Repeat CT scan of chest/abdomen/pelvis on 01/16/2018 continued to reveal significant improvement ,no pericardial effusion. He feels much better,his appetite is down 03/04/18-Pt here today with c/o, fevers, sharp chest pain with deep inhalation, across chest and then straight down midline, pain is constant at a 3, and it increases to a 9 with the cough, general malise, not sleeping, no energy, stamina, dizziness, he notices it when he gets up, things look like they are "closing in", can't get out of the house, not sleeping, cough is better then it has been, less "bubbling", no expectoration - Sent for further evaluation to Emergency, CTA performed on admission and did show evidence of Pulmonary Embolism, patient has been started on Heparin Drip. . Review of Systems A 14 point review of systems assessed and completed and all negative except HPI Past Medical History Past Medical History: Cancer, COPD, GERD/Reflux, Hypertension, Osteoarthritis ( OA), Pneumonia, Prostate Disorder Additional Past Medical History / Comment(s): recovering alcoholic-quit 2002,hx of skin ca(sx), pt stated lung cancer w/ mets dx august 2017 currently recieving chemo(PER PT had a tx last sunday02-25-18 and immunotherapy), occ episodes of liteheadedness w/ exertion,HX LT VOCAL CORD PARALYSIS(SX0 History of Any Multi-Drug Resistant Organisms: None Reported Past Surgical History: Orthopedic Surgery Additional Past Surgical History / Comment(s): rt carpal tunel release, skin cancer removed from face/nose, colonoscopy/polypectomy-per pt was neg. 02-13-18 LT MEDIALIZATION THROIDPLASTY Past Anesthesia/Blood Transfusion Reactions: Family History of Problems w/ Anesthesia Additional Past Anesthesia/Blood Transfusion Reaction / Comm: FATHER WOKE UP VERY AGITATED AND HAD TO BE "RE-MEDICATED". HAD BLOOD TRANSFUSION-NO REACTION Smoking Status: Former smoker - Past Family History Father Family Medical History: Myocardial Infarction ([place]) Additional Family Medical History / Comment(s): ALCOHOLIC-- Mother Family Medical History: Myocardial Infarction ([place]) Additional Family Medical History / Comment(s): ALCOHOLIC. Medications and Allergies Home Medications Medication Instructions Recorded Confirmed Type traZODone HCL [Desyrel] 50 mg PO HS PRN 12/10/13 03/04/18 History Glucosamine/Chondr Meneses A Sod [Osteo 1 tab PO DAILY 08/23/17 03/04/18 History Bi-Flex Caplet] Multivitamin [Men's Multi-Vitamin] 1 tab PO DAILY 08/23/17 03/04/18 History Omeprazole Magnesium [PriLOSEC OTC] 20 mg PO BID 08/23/17 03/04/18 History Benzonatate [Tessalon Perles] 100 mg PO DAILY PRN 11/13/17 03/04/18 History Folic Acid 1 mg PO DAILY 11/13/17 03/04/18 History Ondansetron [Zofran] 4 mg PO Q6H PRN 11/13/17 03/04/18 History Sennosides-Docusate Sodium 2 tab PO HS PRN 11/13/17 03/04/18 History [Senokot-S] Diphenox-Atrop 2.5-0.025 mg 1 tab PO DAILY PRN 02/06/18 03/04/18 History [Lomotil] Metoprolol Tartrate [Lopressor] 25 mg PO BID 02/06/18 03/04/18 History Tamsulosin HCl [Flomax] 0.4 mg PO HS 02/06/18 03/04/18 History HYDROcodone/APAP 7.5-325MG [[place] 1 tab PO Q6HR PRN 03/04/18 03/04/18 History 7.5-325] Allergies Allergy/AdvReac Type Severity Reaction Status Date / Time No Known Allergies Allergy Verified 03/04/18 11:11 Physical Exam Vitals: Vital Signs Temp Pulse Resp BP Pulse Ox 03/04/18 19:57 98.0 F 101 H 18 101/72 100 03/04/18 18:00 99 18 106/75 96 03/04/18 17:00 95 18 101/64 98 03/04/18 16:30 98.0 F 86 19 105/72 03/04/18 16:00 90 15 95/63 100 03/04/18 15:30 88 23 99/69 03/04/18 15:00 90 15 95/62 96 03/04/18 14:30 90 15 89/60 96 03/04/18 14:00 92 18 84/59 95 03/04/18 13:30 92 18 86/60 03/04/18 13:00 96 23 86/62 96 03/04/18 12:30 100 17 98 03/04/18 12:00 101 H 18 104/70 97 03/04/18 11:00 96/70 100 03/04/18 10:38 107/74 97 03/04/18 10:28 100.7 F H 122 H 24 75/50 91 L Intake and Output 03/04/18 03/04/18 03/04/18 06:59 14:59 22:59 Intake Total 171.49 Balance 171.49 Intake: Intake, IV Titration 171.49 Amount Heparin Sod,Pork in 0.45% 171.49 NaCl 25,000 unit In 0.45 % NaCl 1 500ml.bag @ 18 UNITS/KG/HR 31.18 mls/hr IV .Q16H3M [facility] Rx#: [id number] Other: Weight 86.636 kg Patient no acute distress, awake alert and oriented.. HEENT: Normocephalic. Neck is supple. atraumatic, no lymphadenopathy Neck reveals no JVD, carotid bruits, or thyromegaly. CHEST Lung fieldsrhonchi throughout and expiratory wheezes, mild increased effort CARDIAC: Tachycardic. reg ABDOMEN: Soft. Bowel sounds normal. No organomegaly. Extremities: reveal no edema. No clubbing or cyanosis Neurologically awake, alert, oriented x3 No focal deficits noted Skin: No rash or skin lesions. Psychiatric: Anxious, appropriate Results CBC & Chem 7: 03/05/18 06:26 03/04/18 11:26 Labs: Abnormal Lab Results - Last 24 Hours (Table) 03/04/18 03/04/18 03/04/18 Range/Units 11:26 11:26 11:26 WBC 1.5 L (3.8-10.6) k/uL RBC 3.10 L (4.30-5.90) m/uL Hgb 9.3 L (13.0-17.5) gm/dL Hct 29.8 L (39.0-53.0) % RDW 17.8 H (11.5-15.5) % Plt Count 139 L (150-450) k/uL Neutrophils # (Manual) 0.90 L (1.3-7.7) k/uL Lymphocytes # (Manual) 0.24 L (1.0-4.8) k/uL APTT (22.0-30.0) sec Sodium 135 L (137-145) mmol/L Carbon Dioxide 20 L (22-30) mmol/L Glucose 110 H (74-99) mg/dL Total Creatine Kinase 21 L (55-170) U/L Albumin 3.3 L (3.5-5.0) g/dL Urine Protein (Negative) Urine Bilirubin (Negative) Ur Leukocyte Esterase (Negative) Urine WBC (0-5) /hpf Amorphous Sediment (None) /hpf Urine Bacteria (None) /hpf Hyaline Casts (0-2) /lpf Urine Mucus (None) /hpf 03/04/18 03/04/18 Range/Units 11:40 20:19 WBC (3.8-10.6) k/uL RBC (4.30-5.90) m/uL Hgb (13.0-17.5) gm/dL Hct (39.0-53.0) % RDW (11.5-15.5) % Plt Count (150-450) k/uL Neutrophils # (Manual) (1.3-7.7) k/uL Lymphocytes # (Manual) (1.0-4.8) k/uL APTT 56.0 H (22.0-30.0) sec Sodium (137-145) mmol/L Carbon Dioxide (22-30) mmol/L Glucose (74-99) mg/dL Total Creatine Kinase (55-170) U/L Albumin (3.5-5.0) g/dL Urine Protein 1+ H (Negative) Urine Bilirubin 1+ H (Negative) Ur Leukocyte Esterase Large H (Negative) Urine WBC 60 H (0-5) /hpf Amorphous Sediment Rare H (None) /hpf Urine Bacteria Occasional H (None) /hpf Hyaline Casts 12 H (0-2) /lpf Urine Mucus Moderate H (None) /hpf Microbiology - Last 24 Hours (Table) 03/04/18 11:40 Urine Culture - Preliminary Urine,Voided CT scan - chest: report reviewed Assessment and Plan Plan: Assessment and Recommendations: 1. Adenocarcinoma of the Lung: Currently on chemotherapy: - Last March 01, no neulasta - Immunotherapy recently discontinued secondary to pericarditis 2. Pancytopenia secondary to chemotherapy: Neutropenia - Add Zarxio while in hospital and neutrophils less than 1 - Monitor for fevers Thrombocytopenia: - Monitor daily and keep greater than 50K secondary to active anticoagulation therapy secondary to acute Pulmonary embolism Anemia - Transfuse if less than 7 - Continue daily CBC monitoring 3. Acute respiratory Failure secondary to Pulmonary embolism, Lung Carcinoma, and Community acquired pneumonia - Continue supportive care 4. Pulmonary Embolism: - COntinue to monitor on Heparin drip as patient is approaching yas and thrombocytopenia may worsen, must keep greater than 50K to ensure low risk for instant bleeding. - Once stabilized will discharge home on Eliquis or xarelto at therapeutic dose for pulmonary embolism
--- NOTE | 2018-03-04 22:57 | P.HPIM ---
History of Present Illness H&P Date: 03/04/18 Chief Complaint: Fever and chest pain. Patient is a 58-year-old male with a known history of lung cancer with metastases diagnosed in August 2017 currently receiving chemotherapy last dose on Sunday last week, hypertension, GERD, COPD and history of smoking came to ER with complaints of fever and chest pain. Patient says that he had chemotherapy on last Sunday. Since Sunday and his condition has been declining as per patient. Patient has been having fever for last 3 days and has been very shaky. Patient also developed chest pain which is sharp and coming on and off. Patient also been has been tachycardic with heart rate going up to 140s as per patient. Patient felt very weak and felt dizzy. Patient was feeling very weak even after going 4-5 steps. Patient went for follow-up today and was advised to come to ER for further evaluation. Patient does have cough without sputum production. Chest pain gets worse with coughing episodes. No leg swelling. No nausea vomiting or diarrhea. CT angiogram of the chest showed findings compatible with pulmonary emboli there may be a chronic component with recannulization or possibly the formation. Abnormal soft tissues in the mediastinum could be related to his diagnosis. Chest x-ray showed no acute cardiopulmonary process WBC 1.5, platelets 139 and hemoglobin 9.3 UA showed large leukocyte esterase and WBC greater than 60 Patient was tachycardic on admission and T-max 100.7 on admission Review of Systems Constitutional: Does have fever or chills . Generalized weakness and fatigue.. Abdomen: Patient denied nausea vomiting and diarrhea and abdominal pain. Cardiovascular: Patient does have sharp chest pain. No leg swelling. no palpitations. Respiratory: Cough without sputum production. Patient does have shortness of breath Neurologic: Patient denied any numbness or tingling headache. Musculoskeletal: Patient denies any complaints of joint swelling or deformity. Skin: Negative Psychiatric: Negative Endocrine: No heat or cold intolerance. No recent weight gain. Genitourinary: No dysuria or hematuria. All other 14 point ROS negative except the above Past Medical History Past Medical History: Cancer, COPD, GERD/Reflux, Hypertension, Osteoarthritis ( OA), Pneumonia, Prostate Disorder Additional Past Medical History / Comment(s): recovering alcoholic-quit 2002,hx of skin ca(sx), pt stated lung cancer w/ mets dx august 2017 currently recieving chemo(had a tx last sunday11-05-17 and immunotherapy), occ episodes of liteheadedness w/ exertion History of Any Multi-Drug Resistant Organisms: None Reported Past Surgical History: Orthopedic Surgery Additional Past Surgical History / Comment(s): rt carpal tunel release, skin cancer removed from face/nose, colonoscopy/polypectomy-per pt was neg. Past Anesthesia/Blood Transfusion Reactions: Family History of Problems w/ Anesthesia Additional Past Anesthesia/Blood Transfusion Reaction / Comment(s): FATHER WOKE UP VERY AGITATED AND HAD TO BE "RE-MEDICATED" Past Psychological History: No Psychological Hx Reported Smoking Status: Former smoker - Past Family History Father Family Medical History: Myocardial Infarction ([place]) Additional Family Medical History / Comment(s): ALCOHOLIC-- Mother Family Medical History: Myocardial Infarction ([place]) Additional Family Medical History / Comment(s): ALCOHOLIC. Medications and Allergies Home Medications Medication Instructions Recorded Confirmed Type traZODone HCL [Desyrel] 50 mg PO HS PRN 12/10/13 03/04/18 History Glucosamine/Chondr Meneses A Sod [Osteo 1 tab PO DAILY 08/23/17 03/04/18 History Bi-Flex Caplet] Multivitamin [Men's Multi-Vitamin] 1 tab PO DAILY 08/23/17 03/04/18 History Omeprazole Magnesium [PriLOSEC OTC] 20 mg PO BID 08/23/17 03/04/18 History Benzonatate [Tessalon Perles] 100 mg PO DAILY PRN 11/13/17 03/04/18 History Folic Acid 1 mg PO DAILY 11/13/17 03/04/18 History Ondansetron [Zofran] 4 mg PO Q6H PRN 11/13/17 03/04/18 History Sennosides-Docusate Sodium 2 tab PO HS PRN 11/13/17 03/04/18 History [Senokot-S] Diphenox-Atrop 2.5-0.025 mg 1 tab PO DAILY PRN 02/06/18 03/04/18 History [Lomotil] Metoprolol Tartrate [Lopressor] 25 mg PO BID 02/06/18 03/04/18 History Tamsulosin HCl [Flomax] 0.4 mg PO HS 02/06/18 03/04/18 History HYDROcodone/APAP 7.5-325MG [[place] 1 tab PO Q6HR PRN 03/04/18 03/04/18 History 7.5-325] Allergies Allergy/AdvReac Type Severity Reaction Status Date / Time No Known Allergies Allergy Verified 03/04/18 11:11 Physical Exam Vitals: Vital Signs Temp Pulse Resp BP Pulse Ox 03/04/18 12:00 101 H 18 104/70 97 03/04/18 11:00 96/70 100 03/04/18 10:38 107/74 97 03/04/18 10:28 100.7 F H 122 H 24 75/50 91 L Intake and Output 03/04/18 03/04/18 03/04/18 06:59 14:59 22:59 Other: Weight 86.636 kg PHYSICAL EXAMINATION: Patient is lying in the bed comfortably, no acute distress, awake alert and oriented.. HEENT: Normocephalic. Neck is supple. Pupils reactive. Nostrils clear. Oral cavity is moist. Ears reveal no drainage. Neck reveals no JVD, carotid bruits, or thyromegaly. CHEST EXAMINATION: Trachea is central. Symmetrical expansion. Bibasilar rhonchi. Lung ramirez clear to auscultation and percussion. CARDIAC: Normal S1, S2 with no gallops. No murmurs . Tachycardic. ABDOMEN: Soft. Bowel sounds normal. No organomegaly. No abdominal bruits. Extremities: reveal no edema. No clubbing or cyanosis Neurologically awake, alert, oriented x3 with well-coordinated movements. No focal deficits noted Skin: No rash or skin lesions. Psychiatric: Coperative. Nonsuicidal. Anxious Musculoskeletal: No joint swelling or deformity. Normal range of motion. Results CBC & Chem 7: 03/04/18 11:26 03/04/18 11:26 Labs: Abnormal Lab Results - Last 24 Hours (Table) 03/04/18 03/04/18 03/04/18 Range/Units 11:26 11:26 11:26 WBC 1.5 L (3.8-10.6) k/uL RBC 3.10 L (4.30-5.90) m/uL Hgb 9.3 L (13.0-17.5) gm/dL Hct 29.8 L (39.0-53.0) % RDW 17.8 H (11.5-15.5) % Plt Count 139 L (150-450) k/uL Neutrophils # (Manual) 0.90 L (1.3-7.7) k/uL Lymphocytes # (Manual) 0.24 L (1.0-4.8) k/uL Sodium 135 L (137-145) mmol/L Carbon Dioxide 20 L (22-30) mmol/L Glucose 110 H (74-99) mg/dL Total Creatine Kinase 21 L (55-170) U/L Albumin 3.3 L (3.5-5.0) g/dL Urine Protein (Negative) Urine Bilirubin (Negative) Ur Leukocyte Esterase (Negative) Urine WBC (0-5) /hpf Amorphous Sediment (None) /hpf Urine Bacteria (None) /hpf Hyaline Casts (0-2) /lpf Urine Mucus (None) /hpf 03/04/18 Range/Units 11:40 WBC (3.8-10.6) k/uL RBC (4.30-5.90) m/uL Hgb (13.0-17.5) gm/dL Hct (39.0-53.0) % RDW (11.5-15.5) % Plt Count (150-450) k/uL Neutrophils # (Manual) (1.3-7.7) k/uL Lymphocytes # (Manual) (1.0-4.8) k/uL Sodium (137-145) mmol/L Carbon Dioxide (22-30) mmol/L Glucose (74-99) mg/dL Total Creatine Kinase (55-170) U/L Albumin (3.5-5.0) g/dL Urine Protein 1+ H (Negative) Urine Bilirubin 1+ H (Negative) Ur Leukocyte Esterase Large H (Negative) Urine WBC 60 H (0-5) /hpf Amorphous Sediment Rare H (None) /hpf Urine Bacteria Occasional H (None) /hpf Hyaline Casts 12 H (0-2) /lpf Urine Mucus Moderate H (None) /hpf Thrombosis Risk Factor Assmnt - DVT/VTE Prophylaxis DVT/VTE Prophylaxis: Pharmacologic Prophylaxis ordered Assessment and Plan Assessment: Febrile neutropenia Acute pulmonary embolism Sepsis secondary to urinary tract infection Pancytopenia secondary to recent chemotherapy-one week ago Lung cancer with metastases diagnosed in August 2017 currently receiving chemotherapy. History of alcohol abuse GERD COPD with former smoking history Osteoarthritis of multiple joints Hypertension BPH rt carpal tunel release, skin cancer removed from face/nose, colonoscopy/ polypectomy-per pt was neg. DVT prophylaxis patient is already on heparin drip Plan: Patient will be continued on heparin drip. Continue with the broad-spectrum antibiotics in the form of vancomycin and cefepime. Continue to monitor CBC. Continue the pain management and follow with urine culture report. Oncology was consulted. Further recommendations based on the clinical course. Prognosis is guarded with multiple medical problems and comorbid conditions along with metastatic lung cancer. Time with Patient: Greater than 30
[2018-03-05] MEDS: VANCOMYCIN 1,500 MG in SODIUM CHLORIDE 0.9% 250 ML IVPB SCH ×2 (00:36→16:56)
[2018-03-05] MEDS: ACETAMINOPHEN TAB 325 MG TAB PO PRN ×3 (01:09→20:54)
[2018-03-05] MEDS: CEFEPIME 1 GM in SODIUM CHLORIDE 0.9% 50 ML IVPB SCH ×2 (04:05→16:19)
[2018-03-05] MEDS: SODIUM CHLORIDE 0.9% 1,000 ML IV SCH ×2 (04:05→16:57)
[2018-03-05] MEDS: PANTOPRAZOLE 40 MG TABLET PO SCH ×2 (06:06→16:57)
[2018-03-05 07:37] LABS: Anisocytosis Slight; HCT 24.4 % (39.0-53.0); Hypochromasia Moderate; MCH 30.2 pg (25.0-35.0); MCHC 31.2 g/dL (31.0-37.0); MCV 96.8 fL (80.0-100.0); Macrocytosis Slight; Mean Platelet Volume 7.6; Platelet Count 106 k/uL (150-450); RBC 2.53 m/uL (4.30-5.90); RDW 17.8 % (11.5-15.5)
[2018-03-05 07:43] LABS: HGB 7.6 gm/dL (13.0-17.5)
[2018-03-05] MEDS: MULTIVITAMINS, THERA 1 EACH TAB PO SCH (08:21)
[2018-03-05] MEDS: FOLIC ACID 1 MG TAB PO SCH (08:21)
[2018-03-05] MEDS ORDERED: NON-FORMULARY DRUG (Glucosamine/Chondr Su A Sod [Osteo Bi-Flex Caplet] 1 TAB) PO SCH (09:00)
[2018-03-05] MEDS ORDERED: PANTOPRAZOLE 40 MG/10 ML VIAL IV SCH (09:00)
[2018-03-05 11:55] LABS: Band Neutrophils % 1 %; Eosinophils # (M) 0.18 k/uL (0-0.7); Lymphocytes # (M) 0.17 k/uL (1.0-4.8); Monocytes # (M) 0.29 k/uL (0-1.0); Neutrophils % (M) 53 %; Nucleated Red Blood Cells 0 /100 WBC (0-0); Total Cells Counted 100
[2018-03-05 12:08] LABS: WBC 1.4 k/uL (3.8-10.6)
[2018-03-05] MEDS: HEPARIN SOD,PORK IN 0.45% NACL 25,000 UNIT in 0.45% NACL 1 500ML.BAG IV SCH (16:16)
[2018-03-05] MEDS ORDERED: traZODone HCL 50 MG TAB PO PRN (16:21)
[2018-03-05] MEDS: FILGRASTIM-SNDZ 480 MCG/0.8 ML SYRINGE SQ SCH (16:56)
[2018-03-05] MEDS: ALPRAZolam 0.25 MG TAB PO PRN (16:57)
[2018-03-05] MEDS: NYSTATIN 100,000 UNIT/ML SUSP 500,000 UNIT/5 ML CUP PO SCH ×2 (17:00→19:57)
--- NOTE | 2018-03-05 17:34 | P.PN ---
Subjective Progress Note Date: 03/05/18 Principal diagnosis: lung carcinoma new PE Tachycardia, Blood cultures and urine cultures negative Objective - Vital Signs Vital signs: Vital Signs Temp 98.7 F 03/05/18 04:00 Pulse 116 H 03/05/18 12:00 Resp 16 03/05/18 12:00 BP 99/62 03/05/18 12:00 Pulse Ox 97 03/05/18 12:00 Intake & Output 03/04/18 03/05/18 03/05/18 18:59 06:59 18:59 Intake Total 571.49 Output Total 1200 1000 Balance -628.51 -1000 Weight 86.636 kg 86.5 kg Intake: Intake, IV Titration 371.49 Amount Heparin Sod,Pork in 0.45% 171.49 NaCl 25,000 unit In 0.45 % NaCl 1 500ml.bag @ 18 UNITS/KG/HR 31.18 mls/hr IV .Q16H3M [facility] Rx#: [id number] Sodium Chloride 0.9% 1, 200 000 ml @ 75 mls/hr IV . [id number] [facility] Rx#:[id number] Oral 200 Output: Urine 1200 1000 Other: Voiding Method Urinal Urinal # Voids 3 - Exam Anxious, mild distress HEENT: Normocephalic. Neck is supple. Pupils reactive. Nostrils clear. Oral cavity is moist. Ears reveal no drainage. Neck reveals no JVD, carotid bruits, or thyromegaly. CHEST EXAMINATION: Trachea is central. Symmetrical expansion. Bibasilar rhonchi. Lung ramirez clear to auscultation and percussion. CARDIAC:Tachycardic, irreg ABDOMEN: Soft. Bowel sounds normal. No organomegaly. No abdominal bruits. Extremities: reveal no edema. No clubbing or cyanosis Neurologically awake, alert, oriented x3 with well-coordinated movements. No focal deficits noted Skin: No rash or skin lesions. Psychiatric: anxious, no focal defects, cooperative no lymphadenopathy - Labs CBC & Chem 7: 03/05/18 06:26 03/04/18 11:26 Labs: Abnormal Lab Results - Last 24 Hours (Table) 03/04/18 03/05/18 03/05/18 Range/Units 20:19 06:26 06:26 WBC 1.4 L* (3.8-10.6) k/uL RBC 2.53 L (4.30-5.90) m/uL Hgb 7.6 L D (13.0-17.5) gm/dL Hct 24.4 L (39.0-53.0) % RDW 17.8 H (11.5-15.5) % Plt Count 106 L (150-450) k/uL Neutrophils # (Manual) 0.70 L (1.3-7.7) k/uL Lymphocytes # (Manual) 0.17 L (1.0-4.8) k/uL APTT 56.0 H 50.9 H (22.0-30.0) sec Microbiology - Last 24 Hours (Table) 03/04/18 11:40 Urine Culture - Preliminary Urine,Voided Assessment and Plan Plan: Assessment and Recommendations: 1. Adenocarcinoma of the Lung: Currently on chemotherapy: - Last March 01, no neulasta - Immunotherapy recently discontinued secondary to pericarditis 2. Pancytopenia secondary to chemotherapy: Neutropenia - Add Zarxio today while in hospital and neutrophils less than 1 - Monitor for fevers Thrombocytopenia: - Monitor daily and keep greater than 50K secondary to active anticoagulation therapy secondary to acute Pulmonary embolism Anemia - Transfuse if less than 7 - Continue daily CBC monitoring 3. Acute respiratory Failure secondary to Pulmonary embolism, Lung Carcinoma, and Community acquired pneumonia - Continue supportive care 4. Pulmonary Embolism: - Continue to monitor on Heparin drip as patient is approaching yas and thrombocytopenia may worsen, must keep greater than 50K to ensure low risk for instant bleeding. - Once stabilized will discharge home on Eliquis or xarelto at therapeutic dose for pulmonary embolism 5. Perisistent tachycardia: - Cardiology Following 6. Febrile Neutropenia: - Lamb cultures neg so far - Continue broad spectru antibiotics.
[2018-03-05] MEDS: TAMSULOSIN 0.4 MG CAP.ER.24H PO SCH (19:56)
[2018-03-05] MEDS: METOPROLOL TARTRATE 12.5 MG TAB PO SCH (19:57)
[2018-03-05] MEDS ORDERED: METOPROLOL TARTRATE 25 MG TAB PO SCH (21:00)
[2018-03-06] MEDS: HEPARIN SOD,PORK IN 0.45% NACL 25,000 UNIT in 0.45% NACL 1 500ML.BAG IV SCH ×2 (00:39→19:39)
[2018-03-06] MEDS: VANCOMYCIN 1,500 MG in SODIUM CHLORIDE 0.9% 250 ML IVPB SCH ×2 (00:47→12:58)
[2018-03-06] MEDS: ALPRAZolam 0.25 MG TAB PO PRN ×3 (00:47→18:24)
[2018-03-06] MEDS: CEFEPIME 1 GM in SODIUM CHLORIDE 0.9% 50 ML IVPB SCH ×2 (04:00→17:13)
[2018-03-06] MEDS: SODIUM CHLORIDE 0.9% 1,000 ML IV SCH ×2 (05:31→08:42)
[2018-03-06] MEDS: PANTOPRAZOLE 40 MG TABLET PO SCH ×2 (06:22→17:14)
[2018-03-06 06:46] LABS: Anisocytosis Slight; Basophils % (A) 0 %; Eosinophils # (A) 0.2 k/uL (0-0.7); Eosinophils % (A) 5 %; HCT 24.7 % (39.0-53.0); HGB 7.5 gm/dL (13.0-17.5); Hypochromasia Moderate; Lymphocytes # (A) 0.3 k/uL (1.0-4.8); Lymphocytes % (A) 5 %; MCH 29.3 pg (25.0-35.0); MCHC 30.5 g/dL (31.0-37.0); MCV 95.9 fL (80.0-100.0); Macrocytosis Slight; Mean Platelet Volume 7.6; Monocytes # (A) 0.3 k/uL (0-1.0); Monocytes % (A) 5 %; Neutrophils # (A) 4.3 k/uL (1.3-7.7); Neutrophils % (A) 84 %; Platelet Count 123 k/uL (150-450); RBC 2.58 m/uL (4.30-5.90); WBC 5.1 k/uL (3.8-10.6)
[2018-03-06 07:31] LABS: ALT 35 U/L (21-72); AST 33 U/L (17-59); Albumin 2.4 g/dL (3.5-5.0); Alkaline Phosphatase 105 U/L (38-126); Anion Gap 9 mmol/L; Blood Urea Nitrogen 5 mg/dL (9-20); Carbon Dioxide 18 mmol/L (22-30); Chloride 113 mmol/L (98-107); Glucose 103 mg/dL (74-99); Sodium 140 mmol/L (137-145); Total Bilirubin 0.7 mg/dL (0.2-1.3); Total Protein 5.2 g/dL (6.3-8.2)
[2018-03-06 07:46] LABS: Potassium 3.8 mmol/L (3.5-5.1)
[2018-03-06] MEDS: ACETAMINOPHEN TAB 325 MG TAB PO PRN ×3 (08:29→23:28)
[2018-03-06] MEDS: METOPROLOL TARTRATE 12.5 MG TAB PO SCH ×2 (08:29→20:17)
[2018-03-06 08:30] LABS: Poikilocytosis (M) Present; Polychromasia Present
[2018-03-06] MEDS: FOLIC ACID 1 MG TAB PO SCH (08:30)
[2018-03-06] MEDS: BENZONATATE 100 MG CAP PO PRN (08:30)
[2018-03-06] MEDS: MULTIVITAMINS, THERA 1 EACH TAB PO SCH (08:30)
[2018-03-06] MEDS: NYSTATIN 100,000 UNIT/ML SUSP 500,000 UNIT/5 ML CUP PO SCH ×4 (08:39→20:18)
[2018-03-06] MEDS ORDERED: VANCOMYCIN TROUGH DUE 1 EACH MISC MISCELLANE ONE (11:00)
--- NOTE | 2018-03-06 12:09 | P.CNPUL ---
History of Present Illness Consult date: 03/06/18 Requesting physician: Edwin Be Chief complaint: Shortness of breath, profound weakness History of present illness: This is a very pleasant 58-year-old gentleman with a history of previous alcoholism, hypertension, osteoarthritis, benign prosthetic hypertrophy, gastroesophageal reflux disease, previous smoking history. He was diagnosed with metastatic non-small cell carcinoma consistent with adenocarcinoma back in August 2017 via FNA of the supraclavicular lymph node on the left. The PET scan 09/01/2017 showed extensive metastatic lymphadenopathy throughout the mediastinum involving the left hilum, right supraclavicular area, left supraclavicular area in addition to that the patient had a left hilar mass and left basilar metastatic pulmonary nodules. Several other lesions are present in the liver in addition to 1.2 cm left adrenal gland nodule that is thought to be metastatic in nature. The patient has also has metastases to the T8 spinous process and the small lytic ascitic lesion involving the anterior L1 vertebral body. There are also soft tissue metastatic deposits to the left axilla and the superficial upper left gluteal musculature. PDL 1 was negative, nexGen revealed Tp53 mutation, negative EGFR, ALK, ROS1, BRAF, MET. The patient started carboplatin/ali,aircraft captain/Keytruda on 09/24/2017. Follow-up computed tomography scan of the chest abdomen pelvis in November 2017 revealed improvement however there was a large paracardial effusion and he was admitted for the hospital at that time. No evidence of tamponade. Immunotherapy was discontinued. His chemotherapy was resumed and computed tomography scan in January revealed significant improvement with no evidence of pericardial effusion. His last round of therapy was 02/25/2018. The patient presented to the hospital on 03/04/2018 after be seen at the oncology office. The patient had significant weakness, shortness of breath, fever and sharp chest pain. Chest x-ray showed no acute pulmonary disease. CT angiogram did show evidence of pulmonary embolism that may be somewhat chronic in nature based on recannulization or possible web formation. There was some continued soft tissue within the mediastinum and small left pleural effusion. He did have a T- max of 100.7. Tachycardic. Hypotensive. The patient was admitted and initiated on a heparin drip. Initial labs revealed a WBC of 1.5. Hemoglobin 9.3. Platelet count 139,000. Creatinine 1.09. Troponin negative. He is seen today in consultation on the selective care unit. He is currently awake and alert in no acute distress. He is maintaining good O2 saturations in the mid to upper 90s on room air. He's been afebrile. Slightly tachycardic. Blood pressure stable. Urine cultures positive for group D enterococcus. Blood culture reveals no growth to date. White count 5.1. Hemoglobin 7.5. Platelet count 123,000. Creatinine 0.77. He has been initiated on cefepime and vancomycin. On Zarxio. Review of Systems Constitutional: Reports fever, Reports malaise, Reports poor appetite, Reports weakness Eyes: denies blurred vision, denies decreased vision Ears: deny: decreased hearing Ears, nose, mouth and throat: Reports hoarseness, Reports sore throat Cardiovascular: Reports decreased exercise tolerance, Reports dyspnea on exertion, Reports lightheadedness, Reports rapid heart beat, Reports shortness of breath Respiratory: Reports cough, Reports dyspnea Gastrointestinal: Reports loss of appetite Genitourinary: Reports as per HPI Musculoskeletal: Denies myalgias Integumentary: Denies pruritus, Denies rash Neurological: Denies numbness, Denies weakness Psychiatric: Reports anxiety Endocrine: Denies fatigue, Denies weight change Hematologic/Lymphatic: Reports as per HPI Allergic/Immunologic: Reports as per HPI Past Medical History Past Medical History: Cancer, COPD, GERD/Reflux, Hypertension, Osteoarthritis ( OA), Pneumonia, Prostate Disorder Additional Past Medical History / Comment(s): recovering alcoholic-quit 2002,hx of skin ca(sx), pt stated lung cancer w/ mets dx august 2017 currently recieving chemo(PER PT had a tx last sunday02-25-18 and immunotherapy), occ episodes of liteheadedness w/ exertion,HX LT VOCAL CORD PARALYSIS(SX0 History of Any Multi-Drug Resistant Organisms: None Reported Past Surgical History: Orthopedic Surgery Additional Past Surgical History / Comment(s): rt carpal tunel release, skin cancer removed from face/nose, colonoscopy/polypectomy-per pt was neg. 02-13-18 LT MEDIALIZATION THROIDPLASTY Past Anesthesia/Blood Transfusion Reactions: Family History of Problems w/ Anesthesia Additional Past Anesthesia/Blood Transfusion Reaction / Comment(s): FATHER WOKE UP VERY AGITATED AND HAD TO BE "RE-MEDICATED". HAD BLOOD TRANSFUSION-NO REACTION Smoking Status: Former smoker - Past Family History Father Family Medical History: Myocardial Infarction ([place]) Additional Family Medical History / Comment(s): ALCOHOLIC-- Mother Family Medical History: Myocardial Infarction ([place]) Additional Family Medical History / Comment(s): ALCOHOLIC. Medications and Allergies Home Medications Medication Instructions Recorded Confirmed Type traZODone HCL [Desyrel] 50 mg PO HS PRN 12/10/13 03/04/18 History Glucosamine/Chondr Meneses A Sod [Osteo 1 tab PO DAILY 08/23/17 03/04/18 History Bi-Flex Caplet] Multivitamin [Men's Multi-Vitamin] 1 tab PO DAILY 08/23/17 03/04/18 History Omeprazole Magnesium [PriLOSEC OTC] 20 mg PO BID 08/23/17 03/04/18 History Benzonatate [Tessalon Perles] 100 mg PO DAILY PRN 11/13/17 03/04/18 History Folic Acid 1 mg PO DAILY 11/13/17 03/04/18 History Ondansetron [Zofran] 4 mg PO Q6H PRN 11/13/17 03/04/18 History Sennosides-Docusate Sodium 2 tab PO HS PRN 11/13/17 03/04/18 History [Senokot-S] Diphenox-Atrop 2.5-0.025 mg 1 tab PO DAILY PRN 02/06/18 03/04/18 History [Lomotil] Metoprolol Tartrate [Lopressor] 25 mg PO BID 02/06/18 03/04/18 History Tamsulosin HCl [Flomax] 0.4 mg PO HS 02/06/18 03/04/18 History HYDROcodone/APAP 7.5-325MG [[place] 1 tab PO Q6HR PRN 03/04/18 03/04/18 History 7.5-325] Allergies Allergy/AdvReac Type Severity Reaction Status Date / Time No Known Allergies Allergy Verified 03/04/18 11:11 Physical Exam Vitals: Vital Signs Temp Pulse Resp BP Pulse Ox 03/06/18 08:00 119 H 16 94/64 98 03/06/18 04:00 97.7 F 111 H 20 103/67 98 03/06/18 00:00 98.2 F 115 H 20 99/62 95 03/05/18 20:00 97.9 F 140 H 20 120/72 95 03/05/18 17:30 97 03/05/18 15:38 99.2 F 130 H 16 121/81 96 03/05/18 12:00 116 H 16 99/62 97 03/05/18 11:31 16 Intake and Output 03/05/18 03/06/18 03/06/18 22:59 06:59 14:59 Intake Total 1120 761.392 180 Output Total 400 2800 500 Balance 720 -2038.608 -320 Intake: Intake, IV Titration 120 761.392 Amount Heparin Sod,Pork in 0.45% 261.392 NaCl 25,000 unit In 0.45 % NaCl 1 500ml.bag @ 18 UNITS/KG/HR 31.18 mls/hr IV .Q16H3M REPLACED BY [facility] Rx#: [id number] Sodium Chloride 0.9% 1, 120 500 000 ml @ 75 mls/hr IV . [id number] [facility] Rx#:[id number] Oral 1000 180 Output: Urine 400 2800 500 Other: Voiding Method Urinal Urinal # Voids 1 2 1 Weight 92 kg - Constitutional General appearance: average body habitus, mild distress - EENT Eyes: EOMI, PERRLA ENT: hearing grossly normal - Neck Neck: normal ROM Carotids: bilateral: upstroke normal Thyroid: bilateral: normal size - Respiratory Respiratory: bilateral: CTA - Cardiovascular Heart rate: 119 Rhythm: regular Heart sounds: normal: S1, S2 - Gastrointestinal General gastrointestinal: normal bowel sounds - Genitourinary Male genitourinary: enlarged prostate - Integumentary Integumentary: normal turgor - Neurologic Neurologic: CNII-XII intact - Musculoskeletal Musculoskeletal: generalized weakness - Psychiatric Psychiatric: A&O x's 3, appropriate affect, intact judgment & insight Results - Laboratory Findings CBC and BMP: 03/06/18 06:26 03/06/18 06:26 PT/INR, D-dimer PT 10.3 sec (9.0-12.0) 03/04/18 11:26 INR 1.1 (<1.2) 03/04/18 11:26 Abnormal lab findings: Abnormal Labs 03/04/18 03/04/18 03/04/18 11:26 11:26 11:26 WBC 1.5 L RBC 3.10 L Hgb 9.3 L Hct 29.8 L MCHC RDW 17.8 H Plt Count 139 L Neutrophils # (Manual) 0.90 L Lymphocytes # Lymphocytes # (Manual) 0.24 L APTT Sodium 135 L Chloride Carbon Dioxide 20 L BUN Glucose 110 H Calcium Total Creatine Kinase 21 L Total Protein Albumin 3.3 L Urine Protein Urine Bilirubin Ur Leukocyte Esterase Urine WBC Amorphous Sediment Urine Bacteria Hyaline Casts Urine Mucus 03/04/18 03/04/18 03/05/18 11:40 20:19 06:26 WBC 1.4 L* RBC 2.53 L Hgb 7.6 L D Hct 24.4 L MCHC RDW 17.8 H Plt Count 106 L Neutrophils # (Manual) 0.70 L Lymphocytes # Lymphocytes # (Manual) 0.17 L APTT 56.0 H Sodium Chloride Carbon Dioxide BUN Glucose Calcium Total Creatine Kinase Total Protein Albumin Urine Protein 1+ H Urine Bilirubin 1+ H Ur Leukocyte Esterase Large H Urine WBC 60 H Amorphous Sediment Rare H Urine Bacteria Occasional H Hyaline Casts 12 H Urine Mucus Moderate H 03/05/18 03/06/18 03/06/18 06:26 06:26 06:26 WBC RBC 2.58 L Hgb 7.5 L Hct 24.7 L MCHC 30.5 L RDW 18.0 H Plt Count 123 L Neutrophils # (Manual) Lymphocytes # 0.3 L Lymphocytes # (Manual) APTT 50.9 H 59.8 H Sodium Chloride Carbon Dioxide BUN Glucose Calcium Total Creatine Kinase Total Protein Albumin Urine Protein Urine Bilirubin Ur Leukocyte Esterase Urine WBC Amorphous Sediment Urine Bacteria Hyaline Casts Urine Mucus 03/06/18 06:26 WBC RBC Hgb Hct MCHC RDW Plt Count Neutrophils # (Manual) Lymphocytes # Lymphocytes # (Manual) APTT Sodium Chloride 113 H Carbon Dioxide 18 L BUN 5 L Glucose 103 H Calcium 8.0 L Total Creatine Kinase Total Protein 5.2 L Albumin 2.4 L Urine Protein Urine Bilirubin Ur Leukocyte Esterase Urine WBC Amorphous Sediment Urine Bacteria Hyaline Casts Urine Mucus - Diagnostic Findings Chest x-ray: image reviewed CT scan - chest: image reviewed Assessment and Plan Assessment: Impression: #1 Acute febrile illness with pancytopenia secondary to chemotherapy and group D enterococcus urinary tract infection. #2 Acute hypoxic respiratory failure secondary to suspected pulmonary embolism involving the root of the right pulmonary artery, and right lower lobe branches. Small left pleural effusion. There is interval development of an abnormal increased attenuation within the mediastinum at the aorticopulmonary window region, ill-defined soft tissue is present, extension towards the hilar regions. #3 Urinary tract infection secondary to group D enterococcus. #4 Metastatic non-small cell carcinoma consistent with adenocarcinoma via FNA of the left supra clavicular mass in August 2017 with metastatic lymphadenopathy throughout the mediastinum and skeletal and liver involvement per PET scan in August 2017. Status post chemo/immunotherapy. Follow-up scans show improvement. #5 Left vocal cord paralysis secondary to above. #6 History of chronic tobacco dependence. #7 Recent admission in November 2017 for large pericardial effusion suspect secondary to immunotherapy. #8 History of alcoholism. Quit drinking in 2002. #9 History of hypertension. #10 Osteoarthritis. Plan: The patient was seen and evaluated by Dr. Peralta. CAT scan, chest x-ray and labs were all reviewed. We will continue the patient heparin drip for now. Continue antibiotics in the form of vancomycin and cefepime. Continue hydration with 0.9 normal saline at 75 ML's per hour. He is currently stable from the pulmonary standpoint and maintaining good O2 saturations in the upper 90s on room air. He's currently afebrile. We'll continue to follow and make further recommendations based on his clinical status. I, the cosigning physician, performed a history & physical examination of the patient. Lungs sounds with faint crackles in left posterior base. Maintaining good O2 saturations in the 90s on room air. I discussed the assessment and plan of care with my nurse practitioner, Sruthi Stone. I attest to the above consultation as dictated by her. Time with Patient: Greater than 30
--- NOTE | 2018-03-06 12:46 | P.PN ---
Subjective Progress Note Date: 03/05/18 Principal diagnosis: Acute pulmonary embolism Metastatic lung cancer currently undergoing chemotherapy Sepsis secondary to urinary tract infection Patient is a 58-year-old male with a known history of lung cancer with metastases diagnosed in August 2017 currently receiving chemotherapy last dose on Sunday last week, hypertension, GERD, COPD and history of smoking came to ER with complaints of fever and chest pain. Patient says that he had chemotherapy on last Sunday. Since Sunday and his condition has been declining as per patient. Patient has been having fever for last 3 days and has been very shaky. Patient also developed chest pain which is sharp and coming on and off. Patient also been has been tachycardic with heart rate going up to 140s as per patient. Patient felt very weak and felt dizzy. Patient was feeling very weak even after going 4-5 steps. Patient went for follow-up today and was advised to come to ER for further evaluation. Patient does have cough without sputum production. Chest pain gets worse with coughing episodes. No leg swelling. No nausea vomiting or diarrhea. CT angiogram of the chest showed findings compatible with pulmonary emboli there may be a chronic component with recannulization or possibly the formation. Abnormal soft tissues in the mediastinum could be related to his diagnosis. Chest x-ray showed no acute cardiopulmonary process WBC 1.5, platelets 139 and hemoglobin 9.3 UA showed large leukocyte esterase and WBC greater than 60 Patient was tachycardic on admission and T-max 100.7 on admission 03/05/2018 Patient says that chest pain is slightly improved. Continued on heparin drip. Otherwise hemoglobin dropped to 7.6. No signs of active bleeding noted. Patient is still neutropenic. Patient is pancytopenic secondary to chemotherapy Oncology is following. Pulmonary was consulted. Continue the antibiotics for urinary tract infection and sepsis. Patient has been afebrile. Continued on vancomycin and cefepime. Current medications reviewed. Objective - Vital Signs Vital signs: Vital Signs Temp 98.7 F 03/05/18 04:00 Pulse 116 H 03/05/18 08:00 Resp 16 03/05/18 08:00 BP 103/64 03/05/18 08:00 Pulse Ox 98 03/05/18 08:00 Intake & Output 03/04/18 03/05/18 03/05/18 18:59 06:59 18:59 Intake Total 571.49 Output Total 1200 Balance -628.51 Weight 86.636 kg 86.5 kg Intake: Intake, IV Titration 371.49 Amount Heparin Sod,Pork in 0.45% 171.49 NaCl 25,000 unit In 0.45 % NaCl 1 500ml.bag @ 18 UNITS/KG/HR 31.18 mls/hr IV .Q16H3M [facility] Rx#: [id number] Sodium Chloride 0.9% 1, 200 000 ml @ 75 mls/hr IV . [id number] [facility] Rx#:[id number] Oral 200 Output: Urine 1200 Other: Voiding Method Urinal Urinal # Voids 3 - Exam PHYSICAL EXAMINATION: Patient is lying in the bed comfortably, no acute distress, awake alert and oriented.. HEENT: Normocephalic. Neck is supple. Pupils reactive. Nostrils clear. Oral cavity is moist. Ears reveal no drainage. Neck reveals no JVD, carotid bruits, or thyromegaly. CHEST EXAMINATION: Trachea is central. Symmetrical expansion. Bibasilar rhonchi. Lung ramirez clear to auscultation and percussion. CARDIAC: Normal S1, S2 with no gallops. No murmurs . Tachycardic. ABDOMEN: Soft. Bowel sounds normal. No organomegaly. No abdominal bruits. Extremities: reveal no edema. No clubbing or cyanosis Neurologically awake, alert, oriented x3 with well-coordinated movements. No focal deficits noted Skin: No rash or skin lesions. Psychiatric: Coperative. Nonsuicidal. Anxious Musculoskeletal: No joint swelling or deformity. Normal range of motion. - Labs CBC & Chem 7: 03/06/18 06:26 03/06/18 06:26 Labs: Abnormal Lab Results - Last 24 Hours (Table) 03/04/18 03/04/18 03/04/18 Range/Units 11:26 11:26 11:26 WBC 1.5 L (3.8-10.6) k/uL RBC 3.10 L (4.30-5.90) m/uL Hgb 9.3 L (13.0-17.5) gm/dL Hct 29.8 L (39.0-53.0) % RDW 17.8 H (11.5-15.5) % Plt Count 139 L (150-450) k/uL Neutrophils # (Manual) 0.90 L (1.3-7.7) k/uL Lymphocytes # (Manual) 0.24 L (1.0-4.8) k/uL APTT (22.0-30.0) sec Sodium 135 L (137-145) mmol/L Carbon Dioxide 20 L (22-30) mmol/L Glucose 110 H (74-99) mg/dL Total Creatine Kinase 21 L (55-170) U/L Albumin 3.3 L (3.5-5.0) g/dL Urine Protein (Negative) Urine Bilirubin (Negative) Ur Leukocyte Esterase (Negative) Urine WBC (0-5) /hpf Amorphous Sediment (None) /hpf Urine Bacteria (None) /hpf Hyaline Casts (0-2) /lpf Urine Mucus (None) /hpf 03/04/18 03/04/18 03/05/18 Range/Units 11:40 20:19 06:26 WBC 1.4 L* (3.8-10.6) k/uL RBC 2.53 L (4.30-5.90) m/uL Hgb 7.6 L D (13.0-17.5) gm/dL Hct 24.4 L (39.0-53.0) % RDW 17.8 H (11.5-15.5) % Plt Count 106 L (150-450) k/uL Neutrophils # (Manual) (1.3-7.7) k/uL Lymphocytes # (Manual) (1.0-4.8) k/uL APTT 56.0 H (22.0-30.0) sec Sodium (137-145) mmol/L Carbon Dioxide (22-30) mmol/L Glucose (74-99) mg/dL Total Creatine Kinase (55-170) U/L Albumin (3.5-5.0) g/dL Urine Protein 1+ H (Negative) Urine Bilirubin 1+ H (Negative) Ur Leukocyte Esterase Large H (Negative) Urine WBC 60 H (0-5) /hpf Amorphous Sediment Rare H (None) /hpf Urine Bacteria Occasional H (None) /hpf Hyaline Casts 12 H (0-2) /lpf Urine Mucus Moderate H (None) /hpf 03/05/18 Range/Units 06:26 WBC (3.8-10.6) k/uL RBC (4.30-5.90) m/uL Hgb (13.0-17.5) gm/dL Hct (39.0-53.0) % RDW (11.5-15.5) % Plt Count (150-450) k/uL Neutrophils # (Manual) (1.3-7.7) k/uL Lymphocytes # (Manual) (1.0-4.8) k/uL APTT 50.9 H (22.0-30.0) sec Sodium (137-145) mmol/L Carbon Dioxide (22-30) mmol/L Glucose (74-99) mg/dL Total Creatine Kinase (55-170) U/L Albumin (3.5-5.0) g/dL Urine Protein (Negative) Urine Bilirubin (Negative) Ur Leukocyte Esterase (Negative) Urine WBC (0-5) /hpf Amorphous Sediment (None) /hpf Urine Bacteria (None) /hpf Hyaline Casts (0-2) /lpf Urine Mucus (None) /hpf Microbiology - Last 24 Hours (Table) 03/04/18 11:40 Urine Culture - Preliminary Urine,Voided Assessment and Plan Assessment: Febrile neutropenia secondary to chemotherapy and urinary tract infection Acute pulmonary embolism Sepsis secondary to group B enterococcus urinary tract infection Pancytopenia secondary to recent chemotherapy-one week ago Lung cancer with metastases diagnosed in August 2017 currently receiving chemotherapy. History of alcohol abuse GERD COPD with former smoking history Osteoarthritis of multiple joints Hypertension BPH rt carpal tunel release, skin cancer removed from face/nose, colonoscopy/ polypectomy-per pt was neg. DVT prophylaxis patient is already on heparin drip Plan: Patient will be continued on heparin drip. Continue with the broad-spectrum antibiotics in the form of vancomycin and cefepime. Continue to monitor CBC. Continue the pain management and follow with urine culture report. Oncology was consulted. Further recommendations based on the clinical course. Prognosis is guarded with multiple medical problems and comorbid conditions along with metastatic lung cancer.
[2018-03-06] MEDS: FILGRASTIM-SNDZ 480 MCG/0.8 ML SYRINGE SQ SCH (12:57)
[2018-03-06] MEDS: RIVAROXABAN 15 MG TAB PO SCH (17:14)
--- NOTE | 2018-03-06 19:55 | P.PN ---
Subjective Progress Note Date: 03/06/18 Principal diagnosis: lung carcinoma new PE Seen in follow-up, overall he is not feeling well, he appears moderately confused, having trouble expressing the right word, he does not know the day but does know year. Denies vision changes or headaches but concerned as he feels very "cloudy", he has not had an appetite in the past week, stating today is the day he was able to "want" breakfast Objective - Vital Signs Vital signs: Vital Signs Temp 97.7 F 03/06/18 04:00 Pulse 105 H 03/06/18 12:00 Resp 16 03/06/18 12:00 BP 98/66 03/06/18 12:00 Pulse Ox 98 03/06/18 12:00 Intake & Output 03/06/18 03/06/18 03/07/18 06:59 18:59 06:59 Intake Total 1881.392 280 480 Output Total 3200 900 Balance -1318.608 -620 480 Weight 92 kg Intake: Intake, IV Titration 881.392 Amount Heparin Sod,Pork in 0.45% 261.392 NaCl 25,000 unit In 0.45 % NaCl 1 500ml.bag @ 18 UNITS/KG/HR 31.18 mls/hr IV .Q16H3M [facility] Rx#: [id number] Sodium Chloride 0.9% 1, 620 000 ml @ 75 mls/hr IV . [id number] [facility] Rx#:[id number] Oral 1000 280 480 Output: Urine 3200 900 Other: Voiding Method Urinal Urinal # Voids 2 1 # Bowel Movements 0 - Exam Anxious, mild distress HEENT: Normocephalic. Neck is supple. Pupils reactive. Nostrils clear. Oral cavity is moist. Ears reveal no drainage. Neck reveals no JVD, carotid bruits, or thyromegaly. CHEST EXAMINATION: Trachea is central. Symmetrical expansion. Bibasilar rhonchi. Lung ramirez clear to auscultation and percussion. CARDIAC:Tachycardic, irreg ABDOMEN: Soft. Bowel sounds normal. No organomegaly. No abdominal bruits. Extremities: reveal no edema. No clubbing or cyanosis Neurologically awake, alert, oriented x3 with well-coordinated movements. No focal deficits noted Skin: No rash or skin lesions. Psychiatric: anxious, no focal defects, cooperative no lymphadenopathy - Labs CBC & Chem 7: 03/06/18 06:26 03/06/18 06:26 Labs: Abnormal Lab Results - Last 24 Hours (Table) 03/06/18 03/06/18 03/06/18 Range/Units 06:26 06:26 06:26 RBC 2.58 L (4.30-5.90) m/uL Hgb 7.5 L (13.0-17.5) gm/dL Hct 24.7 L (39.0-53.0) % MCHC 30.5 L (31.0-37.0) g/dL RDW 18.0 H (11.5-15.5) % Plt Count 123 L (150-450) k/uL Lymphocytes # 0.3 L (1.0-4.8) k/uL APTT 59.8 H (22.0-30.0) sec Chloride 113 H (98-107) mmol/L Carbon Dioxide 18 L (22-30) mmol/L BUN 5 L (9-20) mg/dL Glucose 103 H (74-99) mg/dL Calcium 8.0 L (8.4-10.2) mg/dL Total Protein 5.2 L (6.3-8.2) g/dL Albumin 2.4 L (3.5-5.0) g/dL Microbiology - Last 24 Hours (Table) 03/04/18 11:40 Urine Culture - Final Urine,Voided Enterococcus faecalis 03/04/18 11:26 Blood Culture - Preliminary Blood No Growth after 48 hours Assessment and Plan Plan: Assessment and Recommendations: 1. Adenocarcinoma of the Lung: Currently on chemotherapy: - Last March 01, no neulasta - Immunotherapy recently discontinued secondary to pericarditis 2. Pancytopenia secondary to chemotherapy: Neutropenia - Add Zarxio today while in hospital and neutrophils less than 1 - Monitor for fevers - May stop Zarixo if WBC increase more Thrombocytopenia: - Monitor daily and keep greater than 50K secondary to active anticoagulation therapy secondary to acute Pulmonary embolism Anemia - Transfuse if less than 7 - Continue daily CBC monitoring 3. Acute respiratory Failure secondary to Pulmonary embolism, Lung Carcinoma, and Community acquired pneumonia - Continue supportive care 4. Pulmonary Embolism: - Continue to monitor on Heparin drip as patient is approaching yas and thrombocytopenia may worsen, must keep greater than 50K to ensure low risk for instant bleeding. - Once stabilized will discharge home on Eliquis or xarelto at therapeutic dose for pulmonary embolism 5. Perisistent tachycardia: - Cardiology Following 6. Febrile Neutropenia:improved - Lamb cultures neg so far - Continue broad spectru antibiotics. 7. Mental status confusion/change: - Monitor closely and if persists after resolution of acute illness resonable to assess MRI for potential progressive disease. 8. Depression/Anxiety: - Decreased PO intake - Monitor
[2018-03-06] MEDS: TAMSULOSIN 0.4 MG CAP.ER.24H PO SCH (20:17)
--- NOTE | 2018-03-06 22:28 | P.PN ---
Subjective Progress Note Date: 03/06/18 Principal diagnosis: Acute pulmonary embolism Metastatic lung cancer currently undergoing chemotherapy Sepsis secondary to urinary tract infection Patient is a 58-year-old male with a known history of lung cancer with metastases diagnosed in August 2017 currently receiving chemotherapy last dose on Sunday last week, hypertension, GERD, COPD and history of smoking came to ER with complaints of fever and chest pain. Patient says that he had chemotherapy on last Sunday. Since Sunday and his condition has been declining as per patient. Patient has been having fever for last 3 days and has been very shaky. Patient also developed chest pain which is sharp and coming on and off. Patient also been has been tachycardic with heart rate going up to 140s as per patient. Patient felt very weak and felt dizzy. Patient was feeling very weak even after going 4-5 steps. Patient went for follow-up today and was advised to come to ER for further evaluation. Patient does have cough without sputum production. Chest pain gets worse with coughing episodes. No leg swelling. No nausea vomiting or diarrhea. CT angiogram of the chest showed findings compatible with pulmonary emboli there may be a chronic component with recannulization or possibly the formation. Abnormal soft tissues in the mediastinum could be related to his diagnosis. Chest x-ray showed no acute cardiopulmonary process WBC 1.5, platelets 139 and hemoglobin 9.3 UA showed large leukocyte esterase and WBC greater than 60 Patient was tachycardic on admission and T-max 100.7 on admission 03/05/2018 Patient says that chest pain is slightly improved. Continued on heparin drip. Otherwise hemoglobin dropped to 7.6. No signs of active bleeding noted. Patient is still neutropenic. Patient is pancytopenic secondary to chemotherapy Oncology is following. Pulmonary was consulted. Continue the antibiotics for urinary tract infection and sepsis. Patient has been afebrile. Continued on vancomycin and cefepime. 03/06/2018 Patient denied any complaints of chest pain today. Patient does have shortness of breath and basilar crackles were heard in the lung exam. IV fluids were discontinued. Otherwise hemoglobin is at 7.5 today. Heparin drip will be discontinued and patient will be started on xarelto for anticoagulation. Patient has been afebrile. Urine culture showed group D enterococcus species. We will de-escalate antibiotics based on. Neutropenia improved with WBC count 5.1 today. No nausea vomiting or abdominal pain. No other acute overnight issues. Current medications reviewed. Objective - Vital Signs Vital signs: Vital Signs Temp 97.7 F 03/06/18 04:00 Pulse 105 H 03/06/18 12:00 Resp 16 03/06/18 12:00 BP 98/66 03/06/18 12:00 Pulse Ox 98 03/06/18 12:00 Intake & Output 03/06/18 03/06/18 03/07/18 06:59 18:59 06:59 Intake Total 1881.392 280 480 Output Total 3200 900 Balance -1318.608 -620 480 Weight 92 kg Intake: Intake, IV Titration 881.392 Amount Heparin Sod,Pork in 0.45% 261.392 NaCl 25,000 unit In 0.45 % NaCl 1 500ml.bag @ 18 UNITS/KG/HR 31.18 mls/hr IV .[id number] [facility] Rx#: [id number] Sodium Chloride 0.9% 1, 620 000 ml @ 75 mls/hr IV . [id number] [facility] Rx#:[id number] Oral 1000 280 480 Output: Urine 3200 900 Other: Voiding Method Urinal Urinal # Voids 2 1 # Bowel Movements 0 - Exam PHYSICAL EXAMINATION: Patient is lying in the bed comfortably, no acute distress, awake alert and oriented.. HEENT: Normocephalic. Neck is supple. Pupils reactive. Nostrils clear. Oral cavity is moist. Ears reveal no drainage. Neck reveals no JVD, carotid bruits, or thyromegaly. CHEST EXAMINATION: Trachea is central. Symmetrical expansion. Bibasilar rhonchi. Lung ramirez clear to auscultation and percussion. CARDIAC: Normal S1, S2 with no gallops. No murmurs . Tachycardic. ABDOMEN: Soft. Bowel sounds normal. No organomegaly. No abdominal bruits. Extremities: reveal no edema. No clubbing or cyanosis Neurologically awake, alert, oriented x3 with well-coordinated movements. No focal deficits noted Skin: No rash or skin lesions. Psychiatric: Coperative. Nonsuicidal. Anxious Musculoskeletal: No joint swelling or deformity. Normal range of motion. - Labs CBC & Chem 7: 03/06/18 06:26 03/06/18 06:26 Labs: Abnormal Lab Results - Last 24 Hours (Table) 03/06/18 03/06/18 03/06/18 Range/Units 06:26 06:26 06:26 RBC 2.58 L (4.30-5.90) m/uL Hgb 7.5 L (13.0-17.5) gm/dL Hct 24.7 L (39.0-53.0) % MCHC 30.5 L (31.0-37.0) g/dL RDW 18.0 H (11.5-15.5) % Plt Count 123 L (150-450) k/uL Lymphocytes # 0.3 L (1.0-4.8) k/uL APTT 59.8 H (22.0-30.0) sec Chloride 113 H (98-107) mmol/L Carbon Dioxide 18 L (22-30) mmol/L BUN 5 L (9-20) mg/dL Glucose 103 H (74-99) mg/dL Calcium 8.0 L (8.4-10.2) mg/dL Total Protein 5.2 L (6.3-8.2) g/dL Albumin 2.4 L (3.5-5.0) g/dL Microbiology - Last 24 Hours (Table) 03/04/18 11:40 Urine Culture - Final Urine,Voided Enterococcus faecalis 03/04/18 11:26 Blood Culture - Preliminary Blood No Growth after 48 hours Assessment and Plan Assessment: Febrile neutropenia secondary to chemotherapy and urinary tract infection Acute pulmonary embolism Sepsis secondary to group B enterococcus urinary tract infection Pancytopenia secondary to recent chemotherapy-one week ago Lung cancer with metastases diagnosed in August 2017 currently receiving chemotherapy. History of alcohol abuse GERD COPD with former smoking history Osteoarthritis of multiple joints Hypertension BPH rt carpal tunel release, skin cancer removed from face/nose, colonoscopy/ polypectomy-per pt was neg. DVT prophylaxis patient is already on heparin drip Plan: We'll discontinue heparin drip and start on oral anticoagulation.. Continue with the broad-spectrum antibiotics in the form of vancomycin and cefepime. Continue to monitor CBC. Continue the pain management and follow with final urine culture report. Oncology and pulmonary is following.. Further recommendations based on the clinical course. Prognosis is guarded with multiple medical problems and comorbid conditions along with metastatic lung cancer. Time with Patient: Greater than 30
[2018-03-06] MEDS: VANCOMYCIN 1,750 MG in SODIUM CHLORIDE 0.9% 500 ML 500 ML IVPB SCH (22:46)
[2018-03-07] MEDS: CEFEPIME 1 GM in SODIUM CHLORIDE 0.9% 50 ML IVPB SCH ×2 (04:49→16:05)
[2018-03-07] MEDS: ALPRAZolam 0.25 MG TAB PO PRN ×3 (04:54→20:38)
[2018-03-07] MEDS: RIVAROXABAN 15 MG TAB PO SCH ×2 (06:08→17:47)
[2018-03-07] MEDS: PANTOPRAZOLE 40 MG TABLET PO SCH ×2 (06:08→17:47)
[2018-03-07 06:22] LABS: Anisocytosis Slight; Basophils % (A) 0 %; Eosinophils # (A) 0.4 k/uL (0-0.7); Eosinophils % (A) 4 %; HCT 24.7 % (39.0-53.0); HGB 7.6 gm/dL (13.0-17.5); Hypochromasia Marked; Lymphocytes # (A) 0.5 k/uL (1.0-4.8); Lymphocytes % (A) 4 %; MCH 30.7 pg (25.0-35.0); MCHC 30.9 g/dL (31.0-37.0); MCV 99.2 fL (80.0-100.0); Macrocytosis Slight; Monocytes # (A) 0.4 k/uL (0-1.0); Monocytes % (A) 4 %; Neutrophils # (A) 9.6 k/uL (1.3-7.7); Neutrophils % (A) 87 %; Platelet Count 131 k/uL (150-450); RBC 2.49 m/uL (4.30-5.90); RDW 18.3 % (11.5-15.5)
--- NOTE | 2018-03-07 08:02 | XR ---
EXAMINATION TYPE: XR chest 1V DATE OF EXAM: 03/07/2018 COMPARISON: 03/04/2018 HISTORY: Shortness of breath TECHNIQUE: Single frontal view of the chest is obtained. FINDINGS: The heart is enlarged and there is a coarsened interstitium with small bilateral effusions and basilar consolidation. Underlying COPD suspected. IMPRESSION: 1. Interval increase in interstitium correlate for developing venous congestion and heart failure august shakir interstitial pneumonitis. Small bilateral effusion and basilar infiltrate present.
[2018-03-07] MEDS: ACETAMINOPHEN TAB 325 MG TAB PO PRN ×3 (08:06→20:39)
[2018-03-07] MEDS: NYSTATIN 100,000 UNIT/ML SUSP 500,000 UNIT/5 ML CUP PO SCH ×4 (08:06→20:39)
[2018-03-07] MEDS: METOPROLOL TARTRATE 12.5 MG TAB PO SCH ×2 (08:06→20:38)
[2018-03-07] MEDS: FILGRASTIM-SNDZ 480 MCG/0.8 ML SYRINGE SQ SCH (08:49)
--- NOTE | 2018-03-07 11:00 | P.PN ---
Subjective Progress Note Date: 03/07/18 Principal diagnosis: lung carcinoma new PE WBC recovering so will discontinue zarxio. HR with persistant tachycardia. Objective - Vital Signs Vital signs: Vital Signs Temp 96.4 F L 03/07/18 08:00 Pulse 120 H 03/07/18 08:00 Resp 18 03/07/18 08:00 BP 93/63 03/07/18 08:00 Pulse Ox 97 03/07/18 08:00 Intake & Output 03/06/18 03/07/18 03/07/18 18:59 06:59 18:59 Intake Total 280 1220 120 Output Total 900 750 380 Balance -620 470 -260 Weight 94.1 kg Intake: Intake, IV Titration 500 Amount Vancomycin 1,750 mg In 500 Sodium Chloride 0.9% 500 ml 500 ml @ 167 mls/hr IVPB Q12H [facility] Rx#: [id number] Oral 280 720 120 Output: Urine 900 750 380 Other: Voiding Method Urinal Urinal # Voids 1 3 # Bowel Movements 0 - Exam Anxious, mild distress HEENT: Normocephalic. Neck is supple. Pupils reactive. Nostrils clear. Oral cavity is moist. Ears reveal no drainage. Neck reveals no JVD, carotid bruits, or thyromegaly. CHEST EXAMINATION: Trachea is central. Symmetrical expansion. Bibasilar rhonchi. Lung ramirez clear to auscultation and percussion. CARDIAC:Tachycardic, irreg ABDOMEN: Soft. Bowel sounds normal. No organomegaly. No abdominal bruits. Extremities: reveal no edema. No clubbing or cyanosis Neurologically awake, alert, oriented x3 with well-coordinated movements. No focal deficits noted Skin: No rash or skin lesions. Psychiatric: anxious, no focal defects, cooperative no lymphadenopathy - Labs CBC & Chem 7: 03/07/18 05:46 03/07/18 14:01 Labs: Abnormal Lab Results - Last 24 Hours (Table) 03/07/18 Range/Units 05:46 WBC 11.0 H (3.8-10.6) k/uL RBC 2.49 L (4.30-5.90) m/uL Hgb 7.6 L (13.0-17.5) gm/dL Hct 24.7 L (39.0-53.0) % MCHC 30.9 L (31.0-37.0) g/dL RDW 18.3 H (11.5-15.5) % Plt Count 131 L (150-450) k/uL Neutrophils # 9.6 H (1.3-7.7) k/uL Lymphocytes # 0.5 L (1.0-4.8) k/uL Microbiology - Last 24 Hours (Table) 03/04/18 11:40 Urine Culture - Final Urine,Voided Enterococcus faecalis 03/04/18 11:26 Blood Culture - Preliminary Blood No Growth after 48 hours Assessment and Plan Plan: Assessment and Recommendations: 1. Adenocarcinoma of the Lung: Currently on chemotherapy: - Last March 01, no neulasta - Immunotherapy recently discontinued secondary to pericarditis 2. Pancytopenia secondary to chemotherapy: Neutropenia - Improving stop zarxio today Thrombocytopenia: - Monitor daily and keep greater than 50K secondary to active anticoagulation therapy secondary to acute Pulmonary embolism Anemia - related to chemotherapy - Transfuse if less than 7 - Continue daily CBC monitoring 3. Acute respiratory Failure secondary to Pulmonary embolism, Lung Carcinoma, and Community acquired pneumonia - Continue supportive care - Chest xray 03/07/18 cannot rule out underlyinh pneumonitis and with recent immunotherapy re-intiation of decadron may be resonable. I will discuss with dr Donovan. 4. Pulmonary Embolism: - Continue to monitor on Heparin drip as patient is approaching yas and thrombocytopenia may worsen, must keep greater than 50K to ensure low risk for instant bleeding. - Once stabilized will discharge home on Eliquis or xarelto at therapeutic dose for pulmonary embolism 5. Perisistent tachycardia: - Cardiology Following 6. Febrile Neutropenia:improved - Lamb cultures neg so far - Continue broad spectru antibiotics. 7. Mental status confusion/change: - Monitor closely and if persists after resolution of acute illness resonable to assess MRI for potential progressive disease. 8. Depression/Anxiety: - Decreased PO intake - Monitor
--- NOTE | 2018-03-07 12:12 | CDI ---
Last Revision, April 2017 Documentation Clarification Form Date: 03/07/2018 12:02:00 PM From: Sridevi Gagnon RN, CCDS Admit Date: 03/04/2018 2:43:00 PM Patient Name: David Noonan Visit Number: [id number] ATTENTION: The Clinical Documentation Specialists (CDI) and [facility] Coding Staff appreciate your assistance in clarifying documentation. Please respond to the clarification below the line at the bottom and electronically sign. The CDI & [facility] Coding staff will review the response and follow-up if needed. Please note: Queries are made part of the Legal Health Record. If you have any questions, please contact the author of this message via ITS. Hima Evans MD/ Vanessa Richardson [employer] A diagnosis of anemia lacks specificity to accurately reflect your patients severity of condition and clarification is needed. History/Risk Factors: Lung Adenocarcinoma, COPD, HTN, Pneu, Ex-ETOH, Clinical indicators: Oncology Progress Notes: "Monitor daily and keep greater than 50K secondary to active anticoagulation therapy secondary to acute Pulmonary embolism. Anemia - Transfuse if less than 7. Continue daily CBC monitoring." Hemoglobin: 9.3/7.6/7.5 Hematocrit: 29.8/24.4/24.7 Treatment: Zario 480 SQ QD Folic Acid 1 mg PO QD Iv Heparin Gtt, titrate Theragran 1 tab PO QD Xarelto 15 mg PO BID w/ meals 2.6 L IVF Bolus In order to capture the severity of condition, please clarify the type of anemia and etiology if known: anemia secodnary to chemo as it states in the assessment and plan: Pancytopeia secondary to chemo Acute blood loss anemia Acute on chronic blood loss anemia Chronic blood loss anemia Iron deficiency anemia Drug induced anemia Anemia due to malignancy Nutritional anemia Anemia of chronic disease (please Specify) Unable to determine Other, please specify Please continue to document in your progress notes and discharge summary in order to capture severity of illness and risk of mortality. Include clinical findings that support your diagnosis. MTDD
[2018-03-07] MEDS: VANCOMYCIN 1,750 MG in SODIUM CHLORIDE 0.9% 500 ML 500 ML IVPB SCH ×2 (12:13→23:45)
[2018-03-07] MEDS: MULTIVITAMINS, THERA 1 EACH TAB PO SCH (12:13)
[2018-03-07] MEDS: FOLIC ACID 1 MG TAB PO SCH (12:13)
[2018-03-07] MEDS: BENZONATATE 100 MG CAP PO PRN (12:20)
[2018-03-07] MEDS ORDERED: FUROSEMIDE 10 MG/ML 4 ML VIAL IV STA (13:20)
--- NOTE | 2018-03-07 13:29 | P.PN ---
Subjective Progress Note Date: 03/07/18 Principal diagnosis: Acute hypoxic respiratory failure secondary to suspected pulmonary embolism, small left pleural effusion, and a component of fluid overload, congestive heart failure This is a very pleasant 58-year-old gentleman with a history of previous alcoholism, hypertension, osteoarthritis, benign prosthetic hypertrophy, gastroesophageal reflux disease, previous smoking history. He was diagnosed with metastatic non-small cell carcinoma consistent with adenocarcinoma back in August 2017 via FNA of the supraclavicular lymph node on the left. The PET scan 09/01/2017 showed extensive metastatic lymphadenopathy throughout the mediastinum involving the left hilum, right supraclavicular area, left supraclavicular area in addition to that the patient had a left hilar mass and left basilar metastatic pulmonary nodules. Several other lesions are present in the liver in addition to 1.2 cm left adrenal gland nodule that is thought to be metastatic in nature. The patient has also has metastases to the T8 spinous process and the small lytic ascitic lesion involving the anterior L1 vertebral body. There are also soft tissue metastatic deposits to the left axilla and the superficial upper left gluteal musculature. PDL 1 was negative, nexGen revealed Tp53 mutation, negative EGFR, ALK, ROS1, BRAF, MET. The patient started carboplatin/ali,mine captain/Keytruda on 09/24/2017. Follow-up computed tomography scan of the chest abdomen pelvis in November 2017 revealed improvement however there was a large paracardial effusion and he was admitted for the hospital at that time. No evidence of tamponade. Immunotherapy was discontinued. His chemotherapy was resumed and computed tomography scan in January revealed significant improvement with no evidence of pericardial effusion. His last round of therapy was 02/25/2018. The patient presented to the hospital on 03/04/2018 after be seen at the oncology office. The patient had significant weakness, shortness of breath, fever and sharp chest pain. Chest x-ray showed no acute pulmonary disease. CT angiogram did show evidence of pulmonary embolism that may be somewhat chronic in nature based on recannulization or possible web formation. There was some continued soft tissue within the mediastinum and small left pleural effusion. He did have a T- max of 100.7. Tachycardic. Hypotensive. The patient was admitted and initiated on a heparin drip. Initial labs revealed a WBC of 1.5. Hemoglobin 9.3. Platelet count 139,000. Creatinine 1.09. Troponin negative. He is seen today in consultation on the selective care unit. He is currently awake and alert in no acute distress. He is maintaining good O2 saturations in the mid to upper 90s on room air. He's been afebrile. Slightly tachycardic. Blood pressure stable. Urine cultures positive for group D enterococcus. Blood culture reveals no growth to date. White count 5.1. Hemoglobin 7.5. Platelet count 123,000. Creatinine 0.77. He has been initiated on cefepime and vancomycin. On xio. On 03/07/2018 patient seen in follow-up on selective care unit. He sitting up in the recliner, in no acute distress, he states last night he was experiencing some shortness of breath, he has his home Ventolin inhaler she used last night with no significant improvements. This morning he noted that he has increased swelling in his bilateral lower extremities, pedal edema, ankle edema, swelling in his hands, mild JVD. Exertional and orthopneic dyspnea. The tachycardic, with a heart rate up to 105 BPM, afebrile. Today's blood work has been reviewed , WBC is up to 11.0, hemoglobin of 7.6, platelet count is 131, no BMP was done today, we will order one for this afternoon. Vital signs are stable, blood pressures 107/86, room air pulse ox is 99%. Lung sounds are positive for bibasilar rhonchi. Urine culture was positive for Enterococcus faecalis, patient is currently on a combination of cefepime and vancomycin. His heparin drip has been discontinued, and patient has been transitioned to Xarelto. Objective - Vital Signs Vital signs: Vital Signs Temp 96.4 F L 03/07/18 08:00 Pulse 105 H 03/07/18 12:00 Resp 18 03/07/18 12:00 BP 107/86 03/07/18 12:00 Pulse Ox 99 03/07/18 12:00 Intake & Output 03/06/18 03/07/18 03/07/18 18:59 06:59 18:59 Intake Total 280 1220 120 Output Total 900 750 380 Balance -620 470 -260 Weight 94.1 kg Intake: Intake, IV Titration 500 Amount Vancomycin 1,750 mg In 500 Sodium Chloride 0.9% 500 ml 500 ml @ 167 mls/hr IVPB Q12H [facility] Rx#: [id number] Oral 280 720 120 Output: Urine 900 750 380 Other: Voiding Method Urinal Urinal # Voids 1 3 1 # Bowel Movements 0 - Exam - Constitutional General appearance: average body habitus, mild distress - EENT Eyes: EOMI, PERRLA ENT: hearing grossly normal - Neck Neck: normal ROM Carotids: bilateral: upstroke normal Thyroid: bilateral: normal size - Respiratory Respiratory: bilateral: Bibasilar rhonchi - Cardiovascular Heart rate: 119 Rhythm: regular Heart sounds: normal: S1, S2 - Gastrointestinal General gastrointestinal: normal bowel sounds - Genitourinary Male genitourinary: enlarged prostate - Integumentary Integumentary: normal turgor, nonpitting edema in bilateral upper and lower extremities - Neurologic Neurologic: CNII-XII intact - Musculoskeletal Musculoskeletal: generalized weakness - Psychiatric Psychiatric: A&O x's 3, appropriate affect, intact judgment & insight - Labs CBC & Chem 7: 03/07/18 05:46 03/06/18 06:26 Labs: Abnormal Lab Results - Last 24 Hours (Table) 03/07/18 Range/Units 05:46 WBC 11.0 H (3.8-10.6) k/uL RBC 2.49 L (4.30-5.90) m/uL Hgb 7.6 L (13.0-17.5) gm/dL Hct 24.7 L (39.0-53.0) % MCHC 30.9 L (31.0-37.0) g/dL RDW 18.3 H (11.5-15.5) % Plt Count 131 L (150-450) k/uL Neutrophils # 9.6 H (1.3-7.7) k/uL Lymphocytes # 0.5 L (1.0-4.8) k/uL Microbiology - Last 24 Hours (Table) 03/04/18 11:40 Urine Culture - Final Urine,Voided Enterococcus faecalis 03/04/18 11:26 Blood Culture - Preliminary Blood No Growth after 48 hours Assessment and Plan Plan: #1 Acute febrile illness with pancytopenia secondary to chemotherapy and group D enterococcus urinary tract infection. #2 Acute hypoxic respiratory failure secondary to suspected pulmonary embolism involving the root of the right pulmonary artery, and right lower lobe branches. Small left pleural effusion. There is interval development of an abnormal increased attenuation within the mediastinum at the aorticopulmonary window region, ill-defined soft tissue is present, extension towards the hilar regions. #3 Urinary tract infection secondary to group D enterococcus. #4 Metastatic non-small cell carcinoma consistent with adenocarcinoma via FNA of the left supra clavicular mass in August 2017 with metastatic lymphadenopathy throughout the mediastinum and skeletal and liver involvement per PET scan in August 2017. Status post chemo/immunotherapy. Follow-up scans show improvement. #5 Left vocal cord paralysis secondary to above. #6 History of chronic tobacco dependence. #7 Recent admission in November 2017 for large pericardial effusion suspect secondary to immunotherapy. #8 History of alcoholism. Quit drinking in 2002. #9 History of hypertension. #10 Osteoarthritis. Plan: Continue with current antibiotic coverage, IV heparin has been transitioned to Xarelto. Patient is complaining of increased dyspnea, orthopnea, exertional shortness of breath. Today's chest x-ray has been reviewed, and shows increased interstitium, small bilateral pleural effusions, consistent with fluid overload, we'll obtain a BNP, patient also has peripheral edema. We will give the patient a dose of IV Lasix. Repeat BMP today. We will order DuoNeb nebulized treatments on an as-needed basis, patient has his Ventolin inhaler from home which he prefers to use. Office records were reviewed, and the PFT from 08/31/2017 showed FEV1 of 68%, FVC of 68%, consistent with restrictive pulmonary defect, and mild diffusion abnormality of 74 percent of predicted. We 'll continue to follow and make further adjustments depending on the clinical course. I performed a history & physical examination of the patient and discussed their management with my nurse practitioner, Mariam Ruiz. I reviewed the nurse practitioner's note and agree with the documented findings and plan of care. Lung sounds are positive for bibasilar rhonchi. The findings and the impression was discussed with the patient. I attest to the documentation by the nurse practitioner. Time with Patient: Less than 30
[2018-03-07 14:31] LABS: Anion Gap 8 mmol/L; Blood Urea Nitrogen 6 mg/dL (9-20); Calcium 8.4 mg/dL (8.4-10.2); Carbon Dioxide 21 mmol/L (22-30); Chloride 110 mmol/L (98-107); Glucose 112 mg/dL (74-99); Potassium 3.5 mmol/L (3.5-5.1); Sodium 139 mmol/L (137-145)
[2018-03-07] MEDS: IPRATROPIUM-ALBUTEROL 3 ML NEB INHALATION PRN (16:42)
[2018-03-07] MEDS: TAMSULOSIN 0.4 MG CAP.ER.24H PO SCH (20:38)
[2018-03-07] MEDS: methylPREDNISolone SOD SUCCI 40 MG/ML 1 ML VIAL IV SCH (20:39)
[2018-03-07 21:07] LABS: Glucose,Whole Blood 99 mg/dL (75-99)
--- NOTE | 2018-03-07 22:03 | P.PN ---
Subjective Progress Note Date: 03/07/18 Principal diagnosis: Acute pulmonary embolism Metastatic lung cancer currently undergoing chemotherapy Sepsis secondary to urinary tract infection Patient is a 58-year-old male with a known history of lung cancer with metastases diagnosed in August 2017 currently receiving chemotherapy last dose on Sunday last week, hypertension, GERD, COPD and history of smoking came to ER with complaints of fever and chest pain. Patient says that he had chemotherapy on last Sunday. Since Sunday and his condition has been declining as per patient. Patient has been having fever for last 3 days and has been very shaky. Patient also developed chest pain which is sharp and coming on and off. Patient also been has been tachycardic with heart rate going up to 140s as per patient. Patient felt very weak and felt dizzy. Patient was feeling very weak even after going 4-5 steps. Patient went for follow-up today and was advised to come to ER for further evaluation. Patient does have cough without sputum production. Chest pain gets worse with coughing episodes. No leg swelling. No nausea vomiting or diarrhea. CT angiogram of the chest showed findings compatible with pulmonary emboli there may be a chronic component with recannulization or possibly the formation. Abnormal soft tissues in the mediastinum could be related to his diagnosis. Chest x-ray showed no acute cardiopulmonary process WBC 1.5, platelets 139 and hemoglobin 9.3 UA showed large leukocyte esterase and WBC greater than 60 Patient was tachycardic on admission and T-max 100.7 on admission 03/05/2018 Patient says that chest pain is slightly improved. Continued on heparin drip. Otherwise hemoglobin dropped to 7.6. No signs of active bleeding noted. Patient is still neutropenic. Patient is pancytopenic secondary to chemotherapy Oncology is following. Pulmonary was consulted. Continue the antibiotics for urinary tract infection and sepsis. Patient has been afebrile. Continued on vancomycin and cefepime. 03/06/2018 Patient denied any complaints of chest pain today. Patient does have shortness of breath and basilar crackles were heard in the lung exam. IV fluids were discontinued. Otherwise hemoglobin is at 7.5 today. Heparin drip will be discontinued and patient will be started on xarelto for anticoagulation. Patient has been afebrile. Urine culture showed group D enterococcus species. We will de-escalate antibiotics based on. Neutropenia improved with WBC count 5.1 today. No nausea vomiting or abdominal pain. No other acute overnight issues. 03/07/2018 Patient is complaining of shortness of breath today. Chest x-ray showed developing vascular congestion. Underlying pneumonitis and with recent immunotherapy. Patient was started on IV steroids. IV fluids have been held yesterday. Patient was given a dose of IV Lasix. Otherwise patient is tachycardic. WBC up to 11.0. Hemoglobin 7.6 is fairly stable. Patient is being continued on xarelto now. Urine culture showed Enterococcus faecalis. Patient will be continued on vancomycin and cefepime at this time. No fever no chills. Blood cultures are negative so far. Current medications reviewed. Objective - Vital Signs Vital signs: Vital Signs Temp 98.7 F 03/07/18 19:32 Pulse 120 H 03/07/18 19:32 Resp 18 03/07/18 19:32 BP 110/60 03/07/18 19:32 Pulse Ox 97 03/07/18 19:32 Intake & Output 03/07/18 03/07/18 03/08/18 06:59 18:59 06:59 Intake Total 1220 476 Output Total 750 2430 Balance 470 -1954 Weight 94.1 kg Intake: Intake, IV Titration 500 Amount Vancomycin 1,750 mg In 500 Sodium Chloride 0.9% 500 ml 500 ml @ 167 mls/hr IVPB Q12H [facility] Rx#: [id number] Oral 720 476 Output: Urine 750 2430 Other: Voiding Method Urinal # Voids 3 2 - Exam PHYSICAL EXAMINATION: Patient is lying in the bed comfortably, no acute distress, awake alert and oriented.. HEENT: Normocephalic. Neck is supple. Pupils reactive. Nostrils clear. Oral cavity is moist. Ears reveal no drainage. Neck reveals no JVD, carotid bruits, or thyromegaly. CHEST EXAMINATION: Trachea is central. Symmetrical expansion. Bibasilar crackles and rhonchi. No wheezing otherwise Lung ramirez clear to auscultation and percussion. CARDIAC: Normal S1, S2 with no gallops. No murmurs . Tachycardic. ABDOMEN: Soft. Bowel sounds normal. No organomegaly. No abdominal bruits. Extremities: reveal no edema. No clubbing or cyanosis Neurologically awake, alert, oriented x3 with well-coordinated movements. No focal deficits noted Skin: No rash or skin lesions. Psychiatric: Coperative. Nonsuicidal. Anxious Musculoskeletal: No joint swelling or deformity. Normal range of motion. - Labs CBC & Chem 7: 03/07/18 05:46 03/07/18 14:01 Labs: Abnormal Lab Results - Last 24 Hours (Table) 03/07/18 03/07/18 Range/Units 05:46 14:01 WBC 11.0 H (3.8-10.6) k/uL RBC 2.49 L (4.30-5.90) m/uL Hgb 7.6 L (13.0-17.5) gm/dL Hct 24.7 L (39.0-53.0) % MCHC 30.9 L (31.0-37.0) g/dL RDW 18.3 H (11.5-15.5) % Plt Count 131 L (150-450) k/uL Neutrophils # 9.6 H (1.3-7.7) k/uL Lymphocytes # 0.5 L (1.0-4.8) k/uL Chloride 110 H (98-107) mmol/L Carbon Dioxide 21 L (22-30) mmol/L BUN 6 L (9-20) mg/dL Glucose 112 H (74-99) mg/dL Microbiology - Last 24 Hours (Table) 03/04/18 11:26 Blood Culture - Preliminary Blood No Growth after 72 hours 03/04/18 11:40 Urine Culture - Final Urine,Voided Enterococcus faecalis Assessment and Plan Assessment: Febrile neutropenia secondary to chemotherapy and urinary tract infection Acute pulmonary embolism Acute hypoxic respiratory Failure secondary to Pulmonary embolism, Lung Carcinoma and suspected pneumonitis Pneumonitis with recent immunotherapy was suspected. Started on Solu-Medrol. Sepsis secondary to group B enterococcus urinary tract infection Pancytopenia secondary to recent chemotherapy-one week ago Lung cancer with metastases diagnosed in August 2017 currently receiving chemotherapy. History of alcohol abuse GERD COPD with former smoking history Osteoarthritis of multiple joints Hypertension BPH rt carpal tunel release, skin cancer removed from face/nose, colonoscopy/ polypectomy-per pt was neg. DVT prophylaxis patient is already on heparin drip Plan: Continue with on oral anticoagulation.. Continue with the broad-spectrum antibiotics in the form of vancomycin and cefepime. Continue to monitor CBC. Continue the pain management and follow with final urine culture report. Patient was started on IV Solu-Medrol. Oncology and pulmonary is following.. Further recommendations based on the clinical course. Prognosis is guarded with multiple medical problems and comorbid conditions along with metastatic lung cancer. Time with Patient: Greater than 30
[2018-03-07] MEDS: INSULIN ASPART 100 UNIT/ML 1 ML 10 ML VIAL SQ SCH (22:16)
[2018-03-08] MEDS: CEFEPIME 1 GM in SODIUM CHLORIDE 0.9% 50 ML IVPB SCH (04:38)
[2018-03-08 06:09] LABS: Anisocytosis Slight; Basophils # (A) 0.1 k/uL (0-0.2); Basophils % (A) 0 %; Eosinophils # (A) 0.3 k/uL (0-0.7); Eosinophils % (A) 2 %; HCT 27.9 % (39.0-53.0); HGB 8.5 gm/dL (13.0-17.5); Hypochromasia Marked; Lymphocytes # (A) 0.5 k/uL (1.0-4.8); Lymphocytes % (A) 3 %; MCH 29.8 pg (25.0-35.0); MCHC 30.3 g/dL (31.0-37.0); MCV 98.2 fL (80.0-100.0); Macrocytosis Slight; Mean Platelet Volume 7.7; Monocytes # (A) 0.6 k/uL (0-1.0); Monocytes % (A) 3 %; Neutrophils # (A) 17.7 k/uL (1.3-7.7); Neutrophils % (A) 92 %; Platelet Count 168 k/uL (150-450); RBC 2.84 m/uL (4.30-5.90); RDW 18.3 % (11.5-15.5); WBC 19.4 k/uL (3.8-10.6)
[2018-03-08 06:18] LABS: Glucose,Whole Blood 163 mg/dL (75-99)
[2018-03-08 06:32] LABS: Anion Gap 8 mmol/L; Blood Urea Nitrogen 8 mg/dL (9-20); Calcium 8.7 mg/dL (8.4-10.2); Carbon Dioxide 22 mmol/L (22-30); Chloride 109 mmol/L (98-107); Glucose 167 mg/dL (74-99); LDH 921 U/L (313-618); Potassium 4.5 mmol/L (3.5-5.1); Sodium 139 mmol/L (137-145)
[2018-03-08] MEDS: INSULIN ASPART 100 UNIT/ML 1 ML 10 ML VIAL SQ SCH ×4 (06:32→21:35)
[2018-03-08] MEDS: RIVAROXABAN 15 MG TAB PO SCH ×2 (06:32→18:16)
[2018-03-08] MEDS: PANTOPRAZOLE 40 MG TABLET PO SCH ×2 (06:32→18:16)
[2018-03-08 08:54] LABS: Polychromasia Present
[2018-03-08] MEDS: NYSTATIN 100,000 UNIT/ML SUSP 500,000 UNIT/5 ML CUP PO SCH ×4 (09:16→21:34)
[2018-03-08] MEDS: methylPREDNISolone SOD SUCCI 40 MG/ML 1 ML VIAL IV SCH (09:16)
[2018-03-08] MEDS: FUROSEMIDE 40 MG TAB PO SCH (09:16)
[2018-03-08] MEDS: METOPROLOL TARTRATE 12.5 MG TAB PO SCH (09:16)
[2018-03-08] MEDS: ALPRAZolam 0.25 MG TAB PO PRN ×2 (09:29→18:42)
[2018-03-08 11:33] LABS: Glucose,Whole Blood 152 mg/dL (75-99)
--- NOTE | 2018-03-08 11:50 | P.PN ---
Subjective Progress Note Date: 03/08/18 Principal diagnosis: Acute hypoxic respiratory failure secondary to suspected pulmonary embolism, small left pleural effusion, and a component of fluid overload, congestive heart failure This is a very pleasant 58-year-old gentleman with a history of previous alcoholism, hypertension, osteoarthritis, benign prosthetic hypertrophy, gastroesophageal reflux disease, previous smoking history. He was diagnosed with metastatic non-small cell carcinoma consistent with adenocarcinoma back in August 2017 via FNA of the supraclavicular lymph node on the left. The PET scan 09/01/2017 showed extensive metastatic lymphadenopathy throughout the mediastinum involving the left hilum, right supraclavicular area, left supraclavicular area in addition to that the patient had a left hilar mass and left basilar metastatic pulmonary nodules. Several other lesions are present in the liver in addition to 1.2 cm left adrenal gland nodule that is thought to be metastatic in nature. The patient has also has metastases to the T8 spinous process and the small lytic ascitic lesion involving the anterior L1 vertebral body. There are also soft tissue metastatic deposits to the left axilla and the superficial upper left gluteal musculature. PDL 1 was negative, nexGen revealed Tp53 mutation, negative EGFR, ALK, ROS1, BRAF, MET. 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 Follow-up computed tomography scan of the chest abdomen pelvis in November 2017 revealed improvement however there was a large paracardial effusion and he was admitted for the hospital at that time. No evidence of tamponade. Immunotherapy was discontinued. His chemotherapy was resumed and computed tomography scan in January revealed significant improvement with no evidence of pericardial effusion. His last round of therapy was 02/25/2018. The patient presented to the hospital on 03/04/2018 after be seen at the oncology office. The patient had significant weakness, shortness of breath, fever and sharp chest pain. Chest x-ray showed no acute pulmonary disease. CT angiogram did show evidence of pulmonary embolism that may be somewhat chronic in nature based on recannulization or possible web formation. There was some continued soft tissue within the mediastinum and small left pleural effusion. He did have a T- max of 100.7. Tachycardic. Hypotensive. The patient was admitted and initiated on a heparin drip. Initial labs revealed a WBC of 1.5. Hemoglobin 9.3. Platelet count 139,000. Creatinine 1.09. Troponin negative. He is seen today in consultation on the selective care unit. He is currently awake and alert in no acute distress. He is maintaining good O2 saturations in the mid to upper 90s on room air. He's been afebrile. Slightly tachycardic. Blood pressure stable. Urine cultures positive for group D enterococcus. Blood culture reveals no growth to date. White count 5.1. Hemoglobin 7.5. Platelet count 123,000. Creatinine 0.77. He has been initiated on cefepime and vancomycin. On Zarxio. On 03/07/2018 patient seen in follow-up on selective care unit. He sitting up in the recliner, in no acute distress, he states last night he was experiencing some shortness of breath, he has his home Ventolin inhaler she used last night with no significant improvements. This morning he noted that he has increased swelling in his bilateral lower extremities, pedal edema, ankle edema, swelling in his hands, mild JVD. Exertional and orthopneic dyspnea. The tachycardic, with a heart rate up to 105 BPM, afebrile. Today's blood work has been reviewed , WBC is up to 11.0, hemoglobin of 7.6, platelet count is 131, no BMP was done today, we will order one for this afternoon. Vital signs are stable, blood pressures 107/86, room air pulse ox is 99%. Lung sounds are positive for bibasilar rhonchi. Urine culture was positive for Enterococcus faecalis, patient is currently on a combination of cefepime and vancomycin. His heparin drip has been discontinued, and patient has been transitioned to Xarelto. The patient is seen again today 03/08/2018 in follow-up on the selective care unit. He is doing much better. He denies any worsening shortness of breath, cough or congestion. He's been up emulating in the room without any acute distress. He is currently sitting in a chair at the bedside. He is maintaining O2 saturations up to 100% on room air. He's been afebrile. Blood pressure stable. Still slightly tachycardic. Urine culture positive for Enterococcus faecalis. Blood cultures reveal no growth to date. White count 19.4. Hemoglobin 8.5. Creatinine 0.81. He is currently on Augmentin and vancomycin. He was given IV Lasix yesterday and started on oral Lasix today. His chest x-ray is improved. Objective - Vital Signs Vital signs: Vital Signs Temp 97.6 F 03/08/18 11:28 Pulse 116 H 03/08/18 11:28 Resp 20 03/08/18 11:28 BP 121/73 03/08/18 11:28 Pulse Ox 99 03/08/18 11:28 Intake & Output 03/07/18 03/08/18 03/08/18 18:59 06:59 18:59 Intake Total 476 Output Total 2430 500 200 Balance -1953 -500 -200 Weight 93.9 kg Intake: Oral 476 Output: Urine 2430 500 200 Other: Voiding Method Urinal # Voids 2 - Exam - Constitutional General appearance: average body habitus, mild distress - EENT Eyes: EOMI, PERRLA ENT: hearing grossly normal - Neck Neck: normal ROM Carotids: bilateral: upstroke normal Thyroid: bilateral: normal size - Respiratory Respiratory: bilateral: Bibasilar rhonchi - Cardiovascular Heart rate: 119 Rhythm: regular Heart sounds: normal: S1, S2 - Gastrointestinal General gastrointestinal: normal bowel sounds - Genitourinary Male genitourinary: enlarged prostate - Integumentary Integumentary: normal turgor, nonpitting edema in bilateral upper and lower extremities - Neurologic Neurologic: CNII-XII intact - Musculoskeletal Musculoskeletal: generalized weakness - Psychiatric Psychiatric: A&O x's 3, appropriate affect, intact judgment & insight - Labs CBC & Chem 7: 03/08/18 05:40 03/08/18 05:40 Labs: Abnormal Lab Results - Last 24 Hours (Table) 03/07/18 03/08/18 03/08/18 Range/Units 14:01 05:40 05:40 WBC 19.4 H (3.8-10.6) k/uL RBC 2.84 L (4.30-5.90) m/uL Hgb 8.5 L (13.0-17.5) gm/dL Hct 27.9 L (39.0-53.0) % MCHC 30.3 L (31.0-37.0) g/dL RDW 18.3 H (11.5-15.5) % Neutrophils # 17.7 H (1.3-7.7) k/uL Lymphocytes # 0.5 L (1.0-4.8) k/uL Chloride 110 H 109 H (98-107) mmol/L Carbon Dioxide 21 L (22-30) mmol/L BUN 6 L 8 L (9-20) mg/dL Glucose 112 H 167 H (74-99) mg/dL POC Glucose (mg/dL) (75-99) mg/dL Lactate Dehydrogenase 921 H (313-618) U/L 03/08/18 03/08/18 Range/Units 06:17 11:30 WBC (3.8-10.6) k/uL RBC (4.30-5.90) m/uL Hgb (13.0-17.5) gm/dL Hct (39.0-53.0) % MCHC (31.0-37.0) g/dL RDW (11.5-15.5) % Neutrophils # (1.3-7.7) k/uL Lymphocytes # (1.0-4.8) k/uL Chloride (98-107) mmol/L Carbon Dioxide (22-30) mmol/L BUN (9-20) mg/dL Glucose (74-99) mg/dL POC Glucose (mg/dL) 163 H 152 H (75-99) mg/dL Lactate Dehydrogenase (313-618) U/L Microbiology - Last 24 Hours (Table) 03/04/18 11:26 Blood Culture - Preliminary Blood No Growth after 72 hours Assessment and Plan Assessment: Impression: #1 Acute febrile illness with pancytopenia secondary to chemotherapy and enterococcus faecalis urinary tract infection. #2 Acute hypoxic respiratory failure secondary to suspected pulmonary embolism involving the root of the right pulmonary artery, and right lower lobe branches. Small left pleural effusion. There is interval development of an abnormal increased attenuation within the mediastinum at the aorticopulmonary window region, ill-defined soft tissue is present, extension towards the hilar regions. #3 Urinary tract infection secondary to Enterococcus faecalis. #4 Metastatic non-small cell carcinoma consistent with adenocarcinoma via FNA of the left supra clavicular mass in August 2017 with metastatic lymphadenopathy throughout the mediastinum and skeletal and liver involvement per PET scan in August 2017. Status post chemo/immunotherapy. Follow-up scans show improvement. #5 Left vocal cord paralysis secondary to above. #6 History of chronic tobacco dependence. #7 Recent admission in November 2017 for large pericardial effusion suspect secondary to immunotherapy. #8 History of alcoholism. Quit drinking in 2002. #9 History of hypertension. #10 Osteoarthritis. Plan: The patient was seen and evaluated by Dr. Peralta. Chest x-ray and labs were all reviewed. Improved mental of fluid volume overload following diuretics. He has been transitioned to Xarelto. Continue antibiotics in the form of vancomycin and Augmentin. He is currently stable from the pulmonary standpoint and maintaining good O2 saturations in the upper 90s on room air. We'll continue to follow and make further recommendations based on his clinical status. I, the cosigning physician, performed a history & physical examination of the patient. Lungs sounds with faint crackles in left posterior base. Maintaining good O2 saturations in the 90s on room air. I discussed the assessment and plan of care with my nurse practitioner, Sruthi Stone. I attest to the above consultation as dictated by her.
[2018-03-08] MEDS: IPRATROPIUM-ALBUTEROL 3 ML NEB INHALATION PRN ×2 (12:06→20:18)
[2018-03-08] MEDS: MULTIVITAMINS, THERA 1 EACH TAB PO SCH (12:45)
[2018-03-08] MEDS: FOLIC ACID 1 MG TAB PO SCH (12:45)
--- NOTE | 2018-03-08 12:51 | XR ---
EXAMINATION TYPE: XR chest 2V DATE OF EXAM: 03/08/2018 COMPARISON: 03/07/2018 TECHNIQUE: PA and lateral views submitted. HISTORY: Shortness of breath FINDINGS: The heart is enlarged and there is a coarsened interstitium with small bilateral effusions and basila r consolidation. Underlying COPD suspected. Findings are stable. Prominence the right paratracheal st ripe is again noted is stable. Degenerative change of the spine noted. IMPRESSION: 1. Interval increase in interstitium correlate for developing venous congestion and heart failure august shakir interstitial pneumonitis. Small bilateral effusion and basilar infiltrate present. 2 prominence o f the upper mediastinum may be related adenopathy or mass.
[2018-03-08] MEDS: AMOXIC-POT CLAV 875-125MG 1 EACH TAB PO SCH ×2 (12:52→21:34)
--- NOTE | 2018-03-08 13:06 | P.PN ---
Subjective 58-year-old male with a known history of lung cancer with metastases diagnosed in August 2017 currently receiving chemotherapy last dose on Sunday last week, hypertension, GERD, COPD and history of smoking came to ER with complaints of fever and chest pain. Patient says that he had chemotherapy on last Sunday. Since Sunday and his condition has been declining as per patient. Patient has been having fever for last 3 days and has been very shaky. Patient also developed chest pain which is sharp and coming on and off. Patient also been has been tachycardic with heart rate going up to 140s as per patient. Patient felt very weak and felt dizzy. Patient was feeling very weak even after going 4-5 steps. Patient went for follow-up today and was advised to come to ER for further evaluation. Patient does have cough without sputum production. Chest pain gets worse with coughing episodes. No leg swelling. No nausea vomiting or diarrhea. CT angiogram of the chest showed findings compatible with pulmonary emboli there may be a chronic component with recannulization or possibly the formation. Abnormal soft tissues in the mediastinum could be related to his diagnosis. Chest x-ray showed no acute cardiopulmonary process WBC 1.5, platelets 139 and hemoglobin 9.3 UA showed large leukocyte esterase and WBC greater than 60 Patient was tachycardic on admission and T-max 100.7 on admission 03/05/2018 Patient says that chest pain is slightly improved. Continued on heparin drip. Otherwise hemoglobin dropped to 7.6. No signs of active bleeding noted. Patient is still neutropenic. Patient is pancytopenic secondary to chemotherapy Oncology is following. Pulmonary was consulted. Continue the antibiotics for urinary tract infection and sepsis. Patient has been afebrile. Continued on vancomycin and cefepime. 03/06/2018 Patient denied any complaints of chest pain today. Patient does have shortness of breath and basilar crackles were heard in the lung exam. IV fluids were discontinued. Otherwise hemoglobin is at 7.5 today. Heparin drip will be discontinued and patient will be started on xarelto for anticoagulation. Patient has been afebrile. Urine culture showed group D enterococcus species. We will de-escalate antibiotics based on. Neutropenia improved with WBC count 5.1 today. No nausea vomiting or abdominal pain. No other acute overnight issues. 03/07/2018 Patient is complaining of shortness of breath today. Chest x-ray showed developing vascular congestion. Underlying pneumonitis and with recent immunotherapy. Patient was started on IV steroids. IV fluids have been held yesterday. Patient was given a dose of IV Lasix. Otherwise patient is tachycardic. WBC up to 11.0. Hemoglobin 7.6 is fairly stable. Patient is being continued on xarelto now. Urine culture showed Enterococcus faecalis. Patient will be continued on vancomycin and cefepime at this time. No fever no chills. Blood cultures are negative so far. 03/08/2018 Patient has enterococcus in the urine chest x-ray is not consistent with pneumonia patient will be switched to Augmentin because of enterococcus. Patient doesn't have any issues with neutropenia now patient has leukocytosis is secondary to systemic steroids patient is bit tachycardic appears to be chronic. We'll increase the dose of metoprolol to 25 twice a day patient's TSH is within normal limits. Patient has sinus tachycardia. Patient is still bit short of breath upon amputation because of which I will hold his day discharged today will monitor overnight possibility of discharge tomorrow patient does not appear to be in COPD exacerbation patient will be switched to oral steroids. Constitutional: Denied any fatigue denied any fever. Cardio vascular: denied any chest pain, palpitations Gastrointestinal denied any nausea vomiting Pulmonary: As mentioned in HPI Neurologic denied any new focal deficits Objective - Vital Signs Vital signs: Vital Signs Temp 97.6 F 03/08/18 11:28 Pulse 80 03/08/18 12:18 Resp 20 03/08/18 11:28 BP 121/73 03/08/18 11:28 Pulse Ox 99 03/08/18 11:28 Intake & Output 03/07/18 03/08/18 03/08/18 18:59 06:59 18:59 Intake Total 476 240 Output Total 2430 500 200 Balance -1954 -500 40 Weight 93.9 kg Intake: Oral 476 240 Output: Urine 2430 500 200 Other: Voiding Method Urinal # Voids 2 - Exam PHYSICAL EXAMINATION: Patient is lying in the bed comfortably, no acute distress, awake alert and oriented.. HEENT: Normocephalic. Neck is supple. Pupils reactive. Nostrils clear. Oral cavity is moist. Ears reveal no drainage. Neck reveals no JVD, carotid bruits, or thyromegaly. CHEST EXAMINATION: Trachea is central. Symmetrical expansion. Bibasilar crackles and rhonchi. No wheezing otherwise Lung ramirez clear to auscultation and percussion. CARDIAC: Normal S1, S2 with no gallops. No murmurs . Tachycardic. ABDOMEN: Soft. Bowel sounds normal. No organomegaly. No abdominal bruits. Extremities: reveal no edema. No clubbing or cyanosis Neurologically awake, alert, oriented x3 with well-coordinated movements. No focal deficits noted Skin: No rash or skin lesions. Psychiatric: Coperative. Nonsuicidal. Anxious Musculoskeletal: No joint swelling or deformity. Normal range of motion. - Labs CBC & Chem 7: 03/08/18 05:40 03/08/18 05:40 Labs: Abnormal Lab Results - Last 24 Hours (Table) 03/07/18 03/08/18 03/08/18 Range/Units 14:01 05:40 05:40 WBC 19.4 H (3.8-10.6) k/uL RBC 2.84 L (4.30-5.90) m/uL Hgb 8.5 L (13.0-17.5) gm/dL Hct 27.9 L (39.0-53.0) % MCHC 30.3 L (31.0-37.0) g/dL RDW 18.3 H (11.5-15.5) % Neutrophils # 17.7 H (1.3-7.7) k/uL Lymphocytes # 0.5 L (1.0-4.8) k/uL Chloride 110 H 109 H (98-107) mmol/L Carbon Dioxide 21 L (22-30) mmol/L BUN 6 L 8 L (9-20) mg/dL Glucose 112 H 167 H (74-99) mg/dL POC Glucose (mg/dL) (75-99) mg/dL Lactate Dehydrogenase 921 H (313-618) U/L 03/08/18 03/08/18 Range/Units 06:17 11:30 WBC (3.8-10.6) k/uL RBC (4.30-5.90) m/uL Hgb (13.0-17.5) gm/dL Hct (39.0-53.0) % MCHC (31.0-37.0) g/dL RDW (11.5-15.5) % Neutrophils # (1.3-7.7) k/uL Lymphocytes # (1.0-4.8) k/uL Chloride (98-107) mmol/L Carbon Dioxide (22-30) mmol/L BUN (9-20) mg/dL Glucose (74-99) mg/dL POC Glucose (mg/dL) 163 H 152 H (75-99) mg/dL Lactate Dehydrogenase (313-618) U/L Microbiology - Last 24 Hours (Table) 03/04/18 11:26 Blood Culture - Preliminary Blood No Growth after 72 hours Assessment and Plan Plan: Febrile neutropenia secondary to chemotherapy and urinary tract infection, neutropenia improved patient has enterococcus in the urine for which patient will be started on Augmentin cefepime and vancomycin will be discontinued Acute pulmonary embolism: Patient is presently on oral anticoagulation with Xarelto Acute hypoxic respiratory Failure secondary to Pulmonary embolism, Lung Carcinoma, my suspicion is extremely low for pneumonia Sepsis secondary to group B enterococcus urinary tract infection Pancytopenia secondary to recent chemotherapy Lung cancer with metastases diagnosed in August 2017 currently receiving chemotherapy. History of alcohol abuse GERD COPD with former smoking history Osteoarthritis of multiple joints Hypertension BPH rt carpal tunel release, skin cancer removed from face/nose, colonoscopy/ polypectomy-per pt was neg. -Sinus tachycardia etiology is unknown increasing the dose of metoprolol -Possibility of discharge tomorrow
--- NOTE | 2018-03-08 13:44 | P.PN ---
Subjective Progress Note Date: 03/08/18 Principal diagnosis: lung carcinoma new PE WBC recovering so will discontinue zarxio. HR with persistant tachycardia. Steroids were initiated yesterday secondary to concern for underlying pneumonitis secondary to recent Immunotherapy. Objective - Vital Signs Vital signs: Vital Signs Temp 97.6 F 03/08/18 11:28 Pulse 80 03/08/18 12:18 Resp 20 03/08/18 11:28 BP 121/73 03/08/18 11:28 Pulse Ox 99 03/08/18 11:28 Intake & Output 03/07/18 03/08/18 03/08/18 18:59 06:59 18:59 Intake Total 476 240 Output Total 2430 500 200 Balance -1954 -500 40 Weight 93.9 kg Intake: Oral 476 240 Output: Urine 2430 500 200 Other: Voiding Method Urinal # Voids 2 - Exam Anxious, mild distress HEENT: Normocephalic. Neck is supple. Pupils reactive. Nostrils clear. Oral cavity is moist. Ears reveal no drainage. Neck reveals no JVD, carotid bruits, or thyromegaly. CHEST EXAMINATION: Trachea is central. Symmetrical expansion. Bibasilar rhonchi. Lung ramirez clear to auscultation and percussion. CARDIAC:Tachycardic, irreg ABDOMEN: Soft. Bowel sounds normal. No organomegaly. No abdominal bruits. Extremities: reveal no edema. No clubbing or cyanosis Neurologically awake, alert, oriented x3 with well-coordinated movements. No focal deficits noted Skin: No rash or skin lesions. Psychiatric: anxious, no focal defects, cooperative no lymphadenopathy - Labs CBC & Chem 7: 03/08/18 05:40 03/08/18 05:40 Labs: Abnormal Lab Results - Last 24 Hours (Table) 03/07/18 03/08/18 03/08/18 Range/Units 14:01 05:40 05:40 WBC 19.4 H (3.8-10.6) k/uL RBC 2.84 L (4.30-5.90) m/uL Hgb 8.5 L (13.0-17.5) gm/dL Hct 27.9 L (39.0-53.0) % MCHC 30.3 L (31.0-37.0) g/dL RDW 18.3 H (11.5-15.5) % Neutrophils # 17.7 H (1.3-7.7) k/uL Lymphocytes # 0.5 L (1.0-4.8) k/uL Chloride 110 H 109 H (98-107) mmol/L Carbon Dioxide 21 L (22-30) mmol/L BUN 6 L 8 L (9-20) mg/dL Glucose 112 H 167 H (74-99) mg/dL POC Glucose (mg/dL) (75-99) mg/dL Lactate Dehydrogenase 921 H (313-618) U/L 03/08/18 03/08/18 Range/Units 06:17 11:30 WBC (3.8-10.6) k/uL RBC (4.30-5.90) m/uL Hgb (13.0-17.5) gm/dL Hct (39.0-53.0) % MCHC (31.0-37.0) g/dL RDW (11.5-15.5) % Neutrophils # (1.3-7.7) k/uL Lymphocytes # (1.0-4.8) k/uL Chloride (98-107) mmol/L Carbon Dioxide (22-30) mmol/L BUN (9-20) mg/dL Glucose (74-99) mg/dL POC Glucose (mg/dL) 163 H 152 H (75-99) mg/dL Lactate Dehydrogenase (313-618) U/L Microbiology - Last 24 Hours (Table) 03/04/18 11:26 Blood Culture - Preliminary Blood No Growth after 72 hours Assessment and Plan Plan: Assessment and Recommendations: 1. Adenocarcinoma of the Lung: Currently on chemotherapy: - Last March 01, no neulasta - Immunotherapy recently discontinued secondary to pericarditis 2. Pancytopenia secondary to chemotherapy: Neutropenia - Improving stop zarxio today Thrombocytopenia: - Monitor daily and keep greater than 50K secondary to active anticoagulation therapy secondary to acute Pulmonary embolism Anemia - related to chemotherapy - Transfuse if less than 7 - Continue daily CBC monitoring 3. Acute respiratory Failure secondary to Pulmonary embolism, Lung Carcinoma, and Community acquired pneumonia - Continue supportive care - Chest xray 03/07/18 cannot rule out underlying pneumonitis and with recent immunotherapy re-intiation of decadron may be resonable. initiated solu medrol 03/07/18 for this treatment - Heart failure with likely component of immunotherapy induced pneumonitis. 4. Pulmonary Embolism: - Continue to monitor on Heparin drip as patient is approaching yas and thrombocytopenia may worsen, must keep greater than 50K to ensure low risk for instant bleeding. - Once stabilized will discharge home on Eliquis or xarelto at therapeutic dose for pulmonary embolism 5. Perisistent tachycardia: - Cardiology Following 6. Febrile Neutropenia:improved - Lamb cultures neg so far - Continue broad spectru antibiotics. 7. Mental status confusion/change: - Monitor closely and if persists after resolution of acute illness resonable to assess MRI for potential progressive disease. 8. Depression/Anxiety: - Decreased PO intake Plan: - Continue on steroids (long taper) 1mg/kg (with PPI) for possible contributing factor of pneumonitis induced by immunotherapy - Agree with Chest xray in am, if planning on discharge - Leukocytosis reactive (recently received Zarxio x2 days and then started on IV abx 03/07/18) - Will assist in making appointment for patient next week in Oncology Office if discharged over weekend. Oncology with continue wean of steroids as outpatient
[2018-03-08 15:27] LABS: Hemoglobin A1C 5.5 % (4.0-6.0)
[2018-03-08 16:33] LABS: Glucose,Whole Blood 158 mg/dL (75-99)
[2018-03-08] MEDS: ACETAMINOPHEN TAB 325 MG TAB PO PRN (18:40)
[2018-03-08 21:03] LABS: Glucose,Whole Blood 169 mg/dL (75-99)
[2018-03-08] MEDS: METOPROLOL TARTRATE 25 MG TAB PO SCH (21:34)
[2018-03-08] MEDS: TAMSULOSIN 0.4 MG CAP.ER.24H PO SCH (21:34)
[2018-03-09 06:03] VITALS: RESP 16
[2018-03-09] MEDS: INSULIN ASPART 100 UNIT/ML 1 ML 10 ML VIAL SQ SCH ×2 (06:28→12:15)
[2018-03-09] MEDS: PANTOPRAZOLE 40 MG TABLET PO SCH (06:29)
[2018-03-09] MEDS: RIVAROXABAN 15 MG TAB PO SCH (06:29)
[2018-03-09 06:30] LABS: Glucose,Whole Blood 116 mg/dL (75-99)
[2018-03-09 07:17] LABS: Anisocytosis Slight; HCT 27.2 % (39.0-53.0); HGB 8.3 gm/dL (13.0-17.5); Hypochromasia Marked; MCH 30.5 pg (25.0-35.0); MCHC 30.4 g/dL (31.0-37.0); MCV 100.5 fL (80.0-100.0); Macrocytosis Moderate; Mean Platelet Volume 8.3; Platelet Count 195 k/uL (150-450); RBC 2.71 m/uL (4.30-5.90); RDW 18.9 % (11.5-15.5); WBC 25.9 k/uL (3.8-10.6)
[2018-03-09 07:34] LABS: Anion Gap 9 mmol/L; Blood Urea Nitrogen 16 mg/dL (9-20); Calcium 8.9 mg/dL (8.4-10.2); Carbon Dioxide 25 mmol/L (22-30); Chloride 106 mmol/L (98-107); Glucose 112 mg/dL (74-99); Potassium 4.5 mmol/L (3.5-5.1); Sodium 140 mmol/L (137-145)
[2018-03-09 08:31] LABS: Band Neutrophils % 8 %; Eosinophils # (M) 0.52 k/uL (0-0.7); Lymphocytes # (M) 1.04 k/uL (1.0-4.8); Metamyelocytes # (M) 1.04 k/uL (0); Metamyelocytes % 4 %; Myelocytes # (M) 0.78 k/uL (0); Myelocytes % 3 %; Neutrophils % (M) 77 %; Nucleated Red Blood Cells 0 /100 WBC (0-0); Polychromasia Present; Total Cells Counted 200
[2018-03-09 08:32] LABS: Poikilocytosis (M) Present; Toxic Granulation Present
[2018-03-09] MEDS: AMOXIC-POT CLAV 875-125MG 1 EACH TAB PO SCH (08:46)
[2018-03-09] MEDS: NYSTATIN 100,000 UNIT/ML SUSP 500,000 UNIT/5 ML CUP PO SCH ×2 (08:46→12:15)
[2018-03-09] MEDS: FUROSEMIDE 40 MG TAB PO SCH (08:46)
[2018-03-09] MEDS: METOPROLOL TARTRATE 25 MG TAB PO SCH (08:46)
[2018-03-09] MEDS ORDERED: predniSONE 20 MG TAB PO SCH (09:00)
[2018-03-09 09:53] VITALS: TEMP 97.7
[2018-03-09] MEDS ORDERED: VANCOMYCIN TROUGH DUE 1 EACH MISC MISCELLANE ONE (11:00)
--- NOTE | 2018-03-09 11:18 | P.PN ---
Subjective Progress Note Date: 03/09/18 Principal diagnosis: Acute hypoxic respiratory failure secondary to suspected pulmonary embolism, small left pleural effusion, and a component of fluid overload, congestive heart failure This is a very pleasant 58-year-old gentleman with a history of previous alcoholism, hypertension, osteoarthritis, benign prosthetic hypertrophy, gastroesophageal reflux disease, previous smoking history. He was diagnosed with metastatic non-small cell carcinoma consistent with adenocarcinoma back in August 2017 via FNA of the supraclavicular lymph node on the left. The PET scan 09/01/2017 showed extensive metastatic lymphadenopathy throughout the mediastinum involving the left hilum, right supraclavicular area, left supraclavicular area in addition to that the patient had a left hilar mass and left basilar metastatic pulmonary nodules. Several other lesions are present in the liver in addition to 1.2 cm left adrenal gland nodule that is thought to be metastatic in nature. The patient has also has metastases to the T8 spinous process and the small lytic ascitic lesion involving the anterior L1 vertebral body. There are also soft tissue metastatic deposits to the left axilla and the superficial upper left gluteal musculature. PDL 1 was negative, nexGen revealed Tp53 mutation, negative EGFR, ALK, ROS1, BRAF, MET. The patient started carboplatin/ali,bar captain/Keytruda on 09/24/2017. Follow-up computed tomography scan of the chest abdomen pelvis in November 2017 revealed improvement however there was a large paracardial effusion and he was admitted for the hospital at that time. No evidence of tamponade. Immunotherapy was discontinued. His chemotherapy was resumed and computed tomography scan in January revealed significant improvement with no evidence of pericardial effusion. His last round of therapy was 02/25/2018. The patient presented to the hospital on 03/04/2018 after be seen at the oncology office. The patient had significant weakness, shortness of breath, fever and sharp chest pain. Chest x-ray showed no acute pulmonary disease. CT angiogram did show evidence of pulmonary embolism that may be somewhat chronic in nature based on recannulization or possible web formation. There was some continued soft tissue within the mediastinum and small left pleural effusion. He did have a T- max of 100.7. Tachycardic. Hypotensive. The patient was admitted and initiated on a heparin drip. Initial labs revealed a WBC of 1.5. Hemoglobin 9.3. Platelet count 139,000. Creatinine 1.09. Troponin negative. He is seen today in consultation on the selective care unit. He is currently awake and alert in no acute distress. He is maintaining good O2 saturations in the mid to upper 90s on room air. He's been afebrile. Slightly tachycardic. Blood pressure stable. Urine cultures positive for group D enterococcus. Blood culture reveals no growth to date. White count 5.1. Hemoglobin 7.5. Platelet count 123,000. Creatinine 0.77. He has been initiated on cefepime and vancomycin. On Zarxio. On 03/07/2018 patient seen in follow-up on selective care unit. He sitting up in the recliner, in no acute distress, he states last night he was experiencing some shortness of breath, he has his home Ventolin inhaler she used last night with no significant improvements. This morning he noted that he has increased swelling in his bilateral lower extremities, pedal edema, ankle edema, swelling in his hands, mild JVD. Exertional and orthopneic dyspnea. The tachycardic, with a heart rate up to 105 BPM, afebrile. Today's blood work has been reviewed , WBC is up to 11.0, hemoglobin of 7.6, platelet count is 131, no BMP was done today, we will order one for this afternoon. Vital signs are stable, blood pressures 107/86, room air pulse ox is 99%. Lung sounds are positive for bibasilar rhonchi. Urine culture was positive for Enterococcus faecalis, patient is currently on a combination of cefepime and vancomycin. His heparin drip has been discontinued, and patient has been transitioned to Xarelto. The patient is seen again today 03/08/2018 in follow-up on the selective care unit. He is doing much better. He denies any worsening shortness of breath, cough or congestion. He's been up emulating in the room without any acute distress. He is currently sitting in a chair at the bedside. He is maintaining O2 saturations up to 100% on room air. He's been afebrile. Blood pressure stable. Still slightly tachycardic. Urine culture positive for Enterococcus faecalis. Blood cultures reveal no growth to date. White count 19.4. Hemoglobin 8.5. Creatinine 0.81. He is currently on Augmentin and vancomycin. He was given IV Lasix yesterday and started on oral Lasix today. His chest x-ray is improved. The patient is seen again today 03/09/2018 in follow-up on the selective care unit. He is awake and alert in no acute distress. He denies any worsening shortness of breath, cough or congestion. Maintaining good O2 saturations up to 100% on room air. He's been afebrile. Hemodynamically stable. White count 25.9. Hemoglobin 8.3. Creatinine 0.89. He is hoping to go home today. Objective - Vital Signs Vital signs: Vital Signs Temp 97.7 F 03/09/18 08:00 Pulse 99 03/09/18 08:00 Resp 16 03/09/18 08:00 BP 111/73 03/09/18 08:00 Pulse Ox 100 03/09/18 04:00 Intake & Output 03/08/18 03/09/18 03/09/18 18:59 06:59 18:59 Intake Total 840 480 Output Total 950 0 Balance -110 480 Weight 91.2 kg Intake: Oral 840 480 Output: Urine 950 0 Other: Voiding Method Urinal Urinal Urinal # Voids 1 # Bowel Movements 0 - Exam - Constitutional General appearance: average body habitus, mild distress - EENT Eyes: EOMI, PERRLA ENT: hearing grossly normal - Neck Neck: normal ROM Carotids: bilateral: upstroke normal Thyroid: bilateral: normal size - Respiratory Respiratory: bilateral: Bibasilar rhonchi - Cardiovascular Heart rate: 119 Rhythm: regular Heart sounds: normal: S1, S2 - Gastrointestinal General gastrointestinal: normal bowel sounds - Genitourinary Male genitourinary: enlarged prostate - Integumentary Integumentary: normal turgor, nonpitting edema in bilateral upper and lower extremities - Neurologic Neurologic: CNII-XII intact - Musculoskeletal Musculoskeletal: generalized weakness - Psychiatric Psychiatric: A&O x's 3, appropriate affect, intact judgment & insight - Labs CBC & Chem 7: 03/09/18 06:21 03/09/18 06:21 Labs: Abnormal Lab Results - Last 24 Hours (Table) 03/08/18 03/08/18 03/08/18 Range/Units 11:30 16:30 21:01 WBC (3.8-10.6) k/uL RBC (4.30-5.90) m/uL Hgb (13.0-17.5) gm/dL Hct (39.0-53.0) % MCV (80.0-100.0) fL MCHC (31.0-37.0) g/dL RDW (11.5-15.5) % Neutrophils # (Manual) (1.3-7.7) k/uL Monocytes # (Manual) (0-1.0) k/uL Metamyelocytes # (Man) (0) k/uL Myelocytes # (Manual) (0) k/uL Glucose (74-99) mg/dL POC Glucose (mg/dL) 152 H 158 H 169 H (75-99) mg/dL 03/09/18 03/09/18 03/09/18 Range/Units 06:21 06:21 06:28 WBC 25.9 H (3.8-10.6) k/uL RBC 2.71 L (4.30-5.90) m/uL Hgb 8.3 L (13.0-17.5) gm/dL Hct 27.2 L (39.0-53.0) % MCV 100.5 H (80.0-100.0) fL MCHC 30.4 L (31.0-37.0) g/dL RDW 18.9 H (11.5-15.5) % Neutrophils # (Manual) 22.00 H (1.3-7.7) k/uL Monocytes # (Manual) 1.30 H (0-1.0) k/uL Metamyelocytes # (Man) 1.04 H (0) k/uL Myelocytes # (Manual) 0.78 H (0) k/uL Glucose 112 H (74-99) mg/dL POC Glucose (mg/dL) 116 H (75-99) mg/dL Microbiology - Last 24 Hours (Table) 03/04/18 11:26 Blood Culture - Preliminary Blood No Growth after 96 hours Assessment and Plan Assessment: Impression: #1 Acute febrile illness with pancytopenia secondary to chemotherapy and enterococcus faecalis urinary tract infection. Currently on Augmentin. #2 Acute hypoxic respiratory failure secondary to suspected pulmonary embolism involving the root of the right pulmonary artery, and right lower lobe branches. Small left pleural effusion. There is interval development of an abnormal increased attenuation within the mediastinum at the aorticopulmonary window region, ill-defined soft tissue is present, extension towards the hilar regions. Anticoagulated with Xarelto. #3 Urinary tract infection secondary to Enterococcus faecalis. #4 Metastatic non-small cell carcinoma consistent with adenocarcinoma via FNA of the left supra clavicular mass in August 2017 with metastatic lymphadenopathy throughout the mediastinum and skeletal and liver involvement per PET scan in August 2017. Status post chemo/immunotherapy. Follow-up scans show improvement. #5 Left vocal cord paralysis secondary to above. #6 History of chronic tobacco dependence. #7 Recent admission in November 2017 for large pericardial effusion suspect secondary to immunotherapy. #8 History of alcoholism. Quit drinking in 2002. #9 History of hypertension. #10 Osteoarthritis. Plan: The patient was seen and evaluated by Dr. Peralta. He has been transitioned to Xarelto. Continue antibiotics in the form of Augmentin. He is currently stable from the pulmonary standpoint and maintaining good O2 saturations in the upper 90s on room air. He is cleared for discharge. He'll follow-up in our office in 1-2 weeks' time. We can repeat a chest x-ray then. I, the cosigning physician, performed a history & physical examination of the patient. Lungs sounds with faint crackles in left posterior base. Maintaining good O2 saturations in the 90s on room air. I discussed the assessment and plan of care with my nurse practitioner, Sruthi Stone. I attest to the above consultation as dictated by her.
--- NOTE | 2018-03-09 11:31 | P.DS ---
Providers Date of admission: 03/04/18 14:43 Attending physician: Edwin Be Consults: 03/04/18 14:42 Consult Physician Urgent Consulting Provider: Hima Donovan Consult Reason/Comments: oncological care Do you want consulting provider notified?: Already Contacted 03/05/18 16:28 Consult Physician Routine Consulting Provider: Jeremy Peralta Consult Reason/Comments: PE Do you want consulting provider notified?: Yes Primary care physician: Stated None Hospital Course: 58-year-old male with a known history of lung cancer with metastases diagnosed in August 2017 currently receiving chemotherapy last dose on Sunday last week, hypertension, GERD, COPD and history of smoking came to ER with complaints of fever and chest pain. Patient says that he had chemotherapy on last Sunday. Since Sunday and his condition has been declining as per patient. Patient has been having fever for last 3 days and has been very shaky. Patient also developed chest pain which is sharp and coming on and off. Patient also been has been tachycardic with heart rate going up to 140s as per patient. Patient felt very weak and felt dizzy. Patient was feeling very weak even after going 4-5 steps. Patient went for follow-up today and was advised to come to ER for further evaluation. Patient does have cough without sputum production. Chest pain gets worse with coughing episodes. No leg swelling. No nausea vomiting or diarrhea. CT angiogram of the chest showed findings compatible with pulmonary emboli there may be a chronic component with recannulization or possibly the formation. Abnormal soft tissues in the mediastinum could be related to his diagnosis. Chest x-ray showed no acute cardiopulmonary process WBC 1.5, platelets 139 and hemoglobin 9.3 UA showed large leukocyte esterase and WBC greater than 60 Patient was tachycardic on admission and T-max 100.7 on admission 03/05/2018 Patient says that chest pain is slightly improved. Continued on heparin drip. Otherwise hemoglobin dropped to 7.6. No signs of active bleeding noted. Patient is still neutropenic. Patient is pancytopenic secondary to chemotherapy Oncology is following. Pulmonary was consulted. Continue the antibiotics for urinary tract infection and sepsis. Patient has been afebrile. Continued on vancomycin and cefepime. 03/06/2018 Patient denied any complaints of chest pain today. Patient does have shortness of breath and basilar crackles were heard in the lung exam. IV fluids were discontinued. Otherwise hemoglobin is at 7.5 today. Heparin drip will be discontinued and patient will be started on xarelto for anticoagulation. Patient has been afebrile. Urine culture showed group D enterococcus species. We will de-escalate antibiotics based on. Neutropenia improved with WBC count 5.1 today. No nausea vomiting or abdominal pain. No other acute overnight issues. 03/07/2018 Patient is complaining of shortness of breath today. Chest x-ray showed developing vascular congestion. Underlying pneumonitis and with recent immunotherapy. Patient was started on IV steroids. IV fluids have been held yesterday. Patient was given a dose of IV Lasix. Otherwise patient is tachycardic. WBC up to 11.0. Hemoglobin 7.6 is fairly stable. Patient is being continued on xarelto now. Urine culture showed Enterococcus faecalis. Patient will be continued on vancomycin and cefepime at this time. No fever no chills. Blood cultures are negative so far. 03/08/2018 Patient has enterococcus in the urine chest x-ray is not consistent with pneumonia patient will be switched to Augmentin because of enterococcus. Patient doesn't have any issues with neutropenia now patient has leukocytosis is secondary to systemic steroids patient is bit tachycardic appears to be chronic. We'll increase the dose of metoprolol to 25 twice a day patient's TSH is within normal limits. Patient has sinus tachycardia. Patient is still bit short of breath upon amputation because of which I will hold his day discharged today will monitor overnight possibility of discharge tomorrow patient does not appear to be in COPD exacerbation patient will be switched to oral steroids. 03/09/2018 Patient is clinically doing well will be discharged today. Heart rate is better controlled today discussed with oncology patient doesn't appear to have drug-induced pneumonitis steroids will be discontinued. Patient is not requiring Lasix that'll be discussed uterine as well patient need to be monitored for chronic diastolic dysfunction as an outpatient. PHYSICAL EXAMINATION: Patient is lying in the bed comfortably, no acute distress, awake alert and oriented.. HEENT: Normocephalic. Neck is supple. Pupils reactive. Nostrils clear. Oral cavity is moist. Ears reveal no drainage. Neck reveals no JVD, carotid bruits, or thyromegaly. CHEST EXAMINATION: Trachea is central. Symmetrical expansion. Bibasilar crackles and rhonchi. No wheezing otherwise Lung ramirez clear to auscultation and percussion. CARDIAC: Normal S1, S2 with no gallops. No murmurs . Tachycardic. ABDOMEN: Soft. Bowel sounds normal. No organomegaly. No abdominal bruits. Extremities: reveal no edema. No clubbing or cyanosis Neurologically awake, alert, oriented x3 with well-coordinated movements. No focal deficits noted Skin: No rash or skin lesions. Psychiatric: Coperative. Nonsuicidal. Anxious Musculoskeletal: No joint swelling or deformity. Normal range of motion. Assessment and Plan Plan: Febrile neutropenia secondary to chemotherapy and urinary tract infection, neutropenia improved patient has enterococcus in the urine for which patient will be discharged on Augmentin Acute pulmonary embolism: Discharged on oral anticoagulation with Xarelto Acute hypoxic respiratory Failure secondary to Pulmonary embolism, Lung Carcinoma, my suspicion is extremely low for pneumonia Sepsis secondary to group B enterococcus urinary tract infection Pancytopenia secondary to recent chemotherapy Lung cancer with metastases diagnosed in August 2017 currently receiving chemotherapy. History of alcohol abuse GERD COPD with former smoking history Osteoarthritis of multiple joints Hypertension BPH rt carpal tunel release, skin cancer removed from face/nose, colonoscopy/ polypectomy-per pt was neg. -Sinus tachycardia improved now with metoprolol -Being discharged home with home care Patient Condition at Discharge: Serious Plan - Discharge Summary Discharge Rx Participant: Yes New Discharge Prescriptions: New Amoxic-Pot Clav 875-125Mg [Augmentin 875-125] 1 each PO Q12HR #10 tab Nystatin 100,000 Unit/ml Susp [Mycostatin Oral Susp] 500,000 unit PO QID #30 cup Rivaroxaban [Xarelto] 15 mg PO BID-W/MEALS #40 tab Continue traZODone HCL [Desyrel] 50 mg PO HS PRN PRN Reason: Insomnia Omeprazole Magnesium [PriLOSEC OTC] 20 mg PO BID Multivitamin [Men's Multi-Vitamin] 1 tab PO DAILY Glucosamine/Chondr Meneses A Sod [Osteo Bi-Flex Caplet] 1 tab PO DAILY Ondansetron [Zofran] 4 mg PO Q6H PRN PRN Reason: Nausea And Vomiting Benzonatate [Tessalon Perles] 100 mg PO DAILY PRN PRN Reason: Cough Sennosides-Docusate Sodium [Senokot-S] 2 tab PO HS PRN PRN Reason: Constipation Folic Acid 1 mg PO DAILY Tamsulosin HCl [Flomax] 0.4 mg PO HS Diphenox-Atrop 2.5-0.025 mg [Lomotil] 1 tab PO DAILY PRN PRN Reason: Diarrhea HYDROcodone/APAP 7.5-325MG [Sharon 7.5-325] 1 tab PO Q6HR PRN PRN Reason: Pain Albuterol Inhaler [Ventolin Hfa Inhaler] 2 inhalation BID PRN PRN Reason: shortness of breath Changed Metoprolol Tartrate [Lopressor] 37.5 mg PO BID #60 tab Discharge Medication List traZODone HCL [Desyrel] 50 mg PO HS PRN 12/10/13 [History] Glucosamine/Chondr Meneses A Sod [Osteo Bi-Flex Caplet] 1 tab PO DAILY 08/23/17 [ History] Multivitamin [Men's Multi-Vitamin] 1 tab PO DAILY 08/23/17 [History] Omeprazole Magnesium [PriLOSEC OTC] 20 mg PO BID 08/23/17 [History] Benzonatate [Tessalon Perles] 100 mg PO DAILY PRN 11/13/17 [History] Folic Acid 1 mg PO DAILY 11/13/17 [History] Ondansetron [Zofran] 4 mg PO Q6H PRN 11/13/17 [History] Sennosides-Docusate Sodium [Senokot-S] 2 tab PO HS PRN 11/13/17 [History] Diphenox-Atrop 2.5-0.025 mg [Lomotil] 1 tab PO DAILY PRN 02/06/18 [History] Tamsulosin HCl [Flomax] 0.4 mg PO HS 02/06/18 [History] HYDROcodone/APAP 7.5-325MG [Sharon 7.5-325] 1 tab PO Q6HR PRN 03/04/18 [History] Albuterol Inhaler [Ventolin Hfa Inhaler] 2 inhalation BID PRN 03/07/18 [History] Amoxic-Pot Clav 875-125Mg [Augmentin 875-125] 1 each PO Q12HR #10 tab 03/09/18 [ Rx] Metoprolol Tartrate [Lopressor] 37.5 mg PO BID #60 tab 03/09/18 [Rx] Nystatin 100,000 Unit/ml Susp [Mycostatin Oral Susp] 500,000 unit PO QID #30 cup 03/09/18 [Rx] Rivaroxaban [Xarelto] 15 mg PO BID-W/MEALS #40 tab 03/09/18 [Rx] Follow up Appointment(s)/Referral(s): Stan Perry MD [STAFF PHYSICIAN] - [facility] Week [facility], [NON-STAFF] - Patient Instructions/Handouts: Pulmonary Embolism (DC), Urinary Tract Infection in Men (DC), Thrombocytopenia (DC), Safe Use of Anticoagulants (DC) Activity/Diet/Wound Care/Special Instructions: Patient has a $0 monthly copay for xarelto or eliquis. Discharge Disposition: HOME WITH HOME HEALTH SERVICES
[2018-03-09 11:41] LABS: Glucose,Whole Blood 112 mg/dL (75-99)
[2018-03-09] MEDS: FOLIC ACID 1 MG TAB PO SCH (12:15)
[2018-03-09] MEDS: MULTIVITAMINS, THERA 1 EACH TAB PO SCH (12:15)
[2018-03-09 14:13] VITALS: BP 108/68; PULSE 98
== END 2018-03-09 13:03 | disposition home health service (06) | DRG 871 ==
LOC: EC 10:23 → 3SCARD 14:43
PROVIDERS: ADMIT Internal Medicine; ATTEND Internal Medicine
DX: A41.81 Sepsis due to Enterococcus (principal); D61.810 Antineoplastic chemotherapy induced pancytopenia; I26.99 Other pulmonary embolism without acute cor pulmonale; J96.01 Acute respiratory failure with hypoxia; C34.32 Malignant neoplasm of lower lobe, left bronchus or lung; C77.8 Secondary and unspecified malignant neoplasm of lymph nodes of multiple regions; C78.02 Secondary malignant neoplasm of left lung; C79.72 Secondary malignant neoplasm of left adrenal gland; C79.51 Secondary malignant neoplasm of bone; C79.89 Secondary malignant neoplasm of other specified sites; N39.0 Urinary tract infection, site not specified; C78.7 Secondary malignant neoplasm of liver and intrahepatic bile duct; J90 Pleural effusion, not elsewhere classified; J38.01 Paralysis of vocal cords and larynx, unilateral; I95.9 Hypotension, unspecified; F10.21 Alcohol dependence, in remission; I10 Essential (primary) hypertension; K21.9 Gastro-esophageal reflux disease without esophagitis; M15.9 Polyosteoarthritis, unspecified; N40.0 Benign prostatic hyperplasia without lower urinary tract symptoms; R50.81 Fever presenting with conditions classified elsewhere; T45.1X5A Adverse effect of antineoplastic and immunosuppressive drugs, initial encounter; D72.829 Elevated white blood cell count, unspecified; T38.0X5A Adverse effect of glucocorticoids and synthetic analogues, initial encounter; J44.9 Chronic obstructive pulmonary disease, unspecified; Z79.899 Other long term (current) drug therapy; Z87.891 Personal history of nicotine dependence; Z85.828 Personal history of other malignant neoplasm of skin; Z87.01 Personal history of pneumonia (recurrent); Y92.239 Unspecified place in hospital as the place of occurrence of the external cause
CPT/HCPCS: 36415; 71045; 71046; 71275; 80048; 80053; 80202; 81001; 82550; 82553; 83036; 83605; 83615; 83880; 84443; 84484; 85025; 85610; 85730; 87040; 87077; 87086; 87186; 93005; 94640; 96365; 96368; 96376; 99285

== ENCOUNTER 2018-05-01 11:45 | Inpatient (IN) | payer BC, OTHER ==
[2018-05-01] MEDS ORDERED: SODIUM CHLORIDE 0.9% 1,000 ML IV STA (12:17)
[2018-05-01 13:17] LABS: Anisocytosis Slight; Basophils % (A) 0 %; Eosinophils # (A) 0.2 k/uL (0-0.7); Eosinophils % (A) 4 %; HCT 32.7 % (39.0-53.0); HGB 10.3 gm/dL (13.0-17.5); Lymphocytes # (A) 0.3 k/uL (1.0-4.8); Lymphocytes % (A) 5 %; MCH 29.7 pg (25.0-35.0); MCHC 31.5 g/dL (31.0-37.0); Mean Platelet Volume 6.8; Monocytes # (A) 0.2 k/uL (0-1.0); Monocytes % (A) 5 %; Neutrophils # (A) 4.2 k/uL (1.3-7.7); Neutrophils % (A) 85 %; Platelet Count 178 k/uL (150-450); RBC 3.47 m/uL (4.30-5.90); RDW 17.6 % (11.5-15.5)
[2018-05-01 13:18] LABS: MCV 94.3 fL (80.0-100.0)
--- NOTE | 2018-05-01 13:19 | ED ---
General Adult HPI - General Stated complaint: rash, poss allergic reaction Time Seen by Provider: 05/01/18 12:09 Source: patient, RN notes reviewed Mode of arrival: ambulatory Limitations: no limitations - History of Present Illness Initial comments: 58-year-old male presents emergency Department chief complaint of possible reaction to his chemotherapy. Patient states that he's been developing waves of feeling flushed, chills. Patient states his skin is very red diffusely from his neck down to his upper thighs. Patient states that this is been getting worse for last 3 days. Patient admits that his last chemotherapy was on 2017. This was a third round of his chemo and is had certain reactions each time. Patient states that his oncologist is Dr. Gomes. Patient is being treated for stage IV lung cancer. Patient states he has had prior blood transfusions in the past. Patient also states she's felt short of breath and his heart rate has been more elevated recently though he does admit this is been going on for a while. Patient is currently on Xarelto for PE. He denies any chest pain. Patient denies any known fever. Patient denies any URI symptoms. Patient does admit that he feels fatigued, run down - Related Data Home Medications Medication Instructions Recorded Confirmed traZODone HCL [Desyrel] 100 mg PO HS PRN 12/10/13 05/01/18 Omeprazole Magnesium [PriLOSEC OTC] 20 mg PO DAILY 08/23/17 05/01/18 Folic Acid 1 mg PO DAILY 11/13/17 05/01/18 Ondansetron [Zofran] 4 mg PO Q6H PRN 11/13/17 05/01/18 Tamsulosin HCl [Flomax] 0.4 mg PO HS 02/06/18 05/01/18 Acetaminophen Tab [Tylenol Tab] 650 mg PO Q6H PRN 05/01/18 05/01/18 Nystatin 100,000 Unit/ml Susp 500,000 unit PO DAILY PRN 05/01/18 05/01/18 [Mycostatin Oral Susp] Rivaroxaban [Xarelto] 20 mg PO HS 05/01/18 05/01/18 Previous Rx's Medication Instructions Recorded Metoprolol Tartrate [Lopressor] 37.5 mg PO BID #60 tab 03/09/18 Allergies Allergy/AdvReac Type Severity Reaction Status Date / Time No Known Allergies Allergy Verified 05/01/18 12:40 Review of Systems ROS Statement: Those systems with pertinent positive or pertinent negative responses have been documented in the HPI. ROS Other: All systems not noted in ROS Statement are negative. Past Medical History Past Medical History: Cancer, COPD, GERD/Reflux, Hypertension, Osteoarthritis ( OA), Pneumonia, Prostate Disorder Additional Past Medical History / Comment(s): recovering alcoholic-quit 2002,hx of skin ca(sx), pt stated lung cancer w/ mets dx august 2017 currently recieving chemo(PER PT had a tx last sunday02-25-18 and immunotherapy), occ episodes of liteheadedness w/ exertion,HX LT VOCAL CORD PARALYSIS(SX0 History of Any Multi-Drug Resistant Organisms: None Reported Past Surgical History: Orthopedic Surgery Additional Past Surgical History / Comment(s): rt carpal tunel release, skin cancer removed from face/nose, colonoscopy/polypectomy-per pt was neg. 02-13-18 LT MEDIALIZATION THROIDPLASTY Past Anesthesia/Blood Transfusion Reactions: Family History of Problems w/ Anesthesia Additional Past Anesthesia/Blood Transfusion Reaction / Comment(s): FATHER WOKE UP VERY AGITATED AND HAD TO BE "RE-MEDICATED". HAD BLOOD TRANSFUSION-NO REACTION Past Psychological History: No Psychological Hx Reported Smoking Status: Former smoker Past Alcohol Use History: None Reported Past Drug Use History: None Reported - Past Family History Father Family Medical History: Myocardial Infarction ([place]) Additional Family Medical History / Comment(s): ALCOHOLIC-- Mother Family Medical History: Myocardial Infarction ([place]) Additional Family Medical History / Comment(s): ALCOHOLIC. General Exam Limitations: no limitations General appearance: alert, in no apparent distress Head exam: Present: atraumatic, normocephalic, normal inspection Eye exam: Present: normal appearance, PERRL, EOMI. Absent: scleral icterus, conjunctival injection, periorbital swelling ENT exam: Present: normal oropharynx Neck exam: Present: normal inspection, full ROM. Absent: tenderness, meningismus, lymphadenopathy Respiratory exam: Present: normal lung sounds bilaterally. Absent: respiratory distress, wheezes, rales, rhonchi, stridor Cardiovascular Exam: Present: normal rhythm, tachycardia, normal heart sounds. Absent: systolic murmur, diastolic murmur, rubs, gallop, clicks GI/Abdominal exam: Present: soft, normal bowel sounds. Absent: distended, tenderness, guarding, rebound, rigid Skin exam: Present: warm, dry, intact, normal color, rash (Diffuse blanchable erythema on the torso and upper thighs) Course Vital Signs 05/01/18 05/01/18 05/01/18 12:14 12:15 12:20 Temperature 98.4 F Pulse Rate 138 H 122 H Respiratory 22 20 Rate Blood Pressure 108/97 116/89 108/97 O2 Sat by Pulse 96 95 96 Oximetry 05/01/18 05/01/18 05/01/18 12:30 12:40 12:50 Temperature Pulse Rate 121 H 118 H Respiratory 22 21 Rate Blood Pressure 108/97 126/89 126/89 O2 Sat by Pulse 98 97 Oximetry 05/01/18 13:00 Temperature Pulse Rate Respiratory Rate Blood Pressure 126/89 O2 Sat by Pulse Oximetry EKG Findings - EKG Comments: EKG Findings:: EKG performed at 12:32 sinus tachycardia with rate of 05/27/1943 QRS 92 QT status QTC 3:30/466 Medical Decision Making - Medical Decision Making 58-year-old male presented for feeling well, rash. Patient is found have urinary tract infection, immunocompromise on chemotherapy and tachycardia. Patient will be admitted for possible sepsis. Patient was started on Rocephin, patient will be admitted to Dr. nataliia MORENO with consult to oncology. - Lab Data Result diagrams: 05/01/18 12:34 05/01/18 12:34 Lab Results 05/01/18 05/01/18 05/01/18 Range/Units 12:34 12:34 12:34 WBC 5.0 (3.8-10.6) k/uL RBC 3.47 L (4.30-5.90) m/uL Hgb 10.3 L (13.0-17.5) gm/dL Hct 32.7 L (39.0-53.0) % MCV 94.3 D (80.0-100.0) fL MCH 29.7 (25.0-35.0) pg MCHC 31.5 (31.0-37.0) g/dL RDW 17.6 H (11.5-15.5) % Plt Count 178 (150-450) k/uL Neutrophils % 85 % Lymphocytes % 5 % Monocytes % 5 % Eosinophils % 4 % Basophils % 0 % Neutrophils # 4.2 (1.3-7.7) k/uL Lymphocytes # 0.3 L (1.0-4.8) k/uL Monocytes # 0.2 (0-1.0) k/uL Eosinophils # 0.2 (0-0.7) k/uL Basophils # 0.0 (0-0.2) k/uL Anisocytosis Slight PT (9.0-12.0) sec INR (<1.2) APTT (22.0-30.0) sec Sodium 133 L (137-145) mmol/L Potassium 4.1 (3.5-5.1) mmol/L Chloride 98 (98-107) mmol/L Carbon Dioxide 23 (22-30) mmol/L Anion Gap 12 mmol/L BUN 11 (9-20) mg/dL Creatinine 0.96 (0.66-1.25) mg/dL Est GFR (CKD-EPI)AfAm >90 (>60 ml/min/1.73 sqM) Est GFR (CKD-EPI)NonAf 89 (>60 ml/min/1.73 sqM) Glucose 110 H (74-99) mg/dL Plasma Lactic Acid Pierre 1.6 (0.7-2.0) mmol/L Calcium 8.6 (8.4-10.2) mg/dL Total Bilirubin 1.1 (0.2-1.3) mg/dL AST 34 (17-59) U/L ALT 30 (21-72) U/L Alkaline Phosphatase 126 (38-126) U/L Troponin I (0.000-0.034) ng/mL Total Protein 6.3 (6.3-8.2) g/dL Albumin 3.1 L (3.5-5.0) g/dL Urine Color Urine Appearance (Clear) Urine pH (5.0-8.0) Ur Specific Newton (1.001-1.035) Urine Protein (Negative) Urine Glucose (UA) (Negative) Urine Ketones (Negative) Urine Blood (Negative) Urine Nitrite (Negative) Urine Bilirubin (Negative) Urine Urobilinogen (<2.0) mg/dL Ur Leukocyte Esterase (Negative) Urine RBC (0-5) /hpf Urine WBC (0-5) /hpf Urine WBC Clumps (None) /hpf Urine Bacteria (None) /hpf Hyaline Casts (0-2) /lpf Urine Mucus (None) /hpf 05/01/18 05/01/18 05/01/18 Range/Units 12:34 12:34 12:45 WBC (3.8-10.6) k/uL RBC (4.30-5.90) m/uL Hgb (13.0-17.5) gm/dL Hct (39.0-53.0) % MCV (80.0-100.0) fL MCH (25.0-35.0) pg MCHC (31.0-37.0) g/dL RDW (11.5-15.5) % Plt Count (150-450) k/uL Neutrophils % % Lymphocytes % % Monocytes % % Eosinophils % % Basophils % % Neutrophils # (1.3-7.7) k/uL Lymphocytes # (1.0-4.8) k/uL Monocytes # (0-1.0) k/uL Eosinophils # (0-0.7) k/uL Basophils # (0-0.2) k/uL Anisocytosis PT 10.4 (9.0-12.0) sec INR 1.0 (<1.2) APTT 26.5 (22.0-30.0) sec Sodium (137-145) mmol/L Potassium (3.5-5.1) mmol/L Chloride (98-107) mmol/L Carbon Dioxide (22-30) mmol/L Anion Gap mmol/L BUN (9-20) mg/dL Creatinine (0.66-1.25) mg/dL Est GFR (CKD-EPI)AfAm (>60 ml/min/1.73 sqM) Est GFR (CKD-EPI)NonAf (>60 ml/min/1.73 sqM) Glucose (74-99) mg/dL Plasma Lactic Acid Pierre (0.7-2.0) mmol/L Calcium (8.4-10.2) mg/dL Total Bilirubin (0.2-1.3) mg/dL AST (17-59) U/L ALT (21-72) U/L Alkaline Phosphatase (38-126) U/L Troponin I 0.014 (0.000-0.034) ng/mL Total Protein (6.3-8.2) g/dL Albumin (3.5-5.0) g/dL Urine Color Yellow Urine Appearance Cloudy (Clear) Urine pH 6.0 (5.0-8.0) Ur Specific Newton 1.017 (1.001-1.035) Urine Protein 1+ H (Negative) Urine Glucose (UA) Negative (Negative) Urine Ketones Negative (Negative) Urine Blood Trace H (Negative) Urine Nitrite Negative (Negative) Urine Bilirubin 1+ H (Negative) Urine Urobilinogen 2.0 (<2.0) mg/dL Ur Leukocyte Esterase Large H (Negative) Urine RBC 6 H (0-5) /hpf Urine WBC >182 H (0-5) /hpf Urine WBC Clumps Few H (None) /hpf Urine Bacteria Rare H (None) /hpf Hyaline Casts 38 H (0-2) /lpf Urine Mucus Moderate H (None) /hpf Disposition Clinical Impression: Urinary tract infection, Tachycardia, Chemotherapy adverse reaction, Lung cancer Disposition: ADMITTED IP TO THIS [facility] Condition: Fair Referrals: None,Stated [Primary Care Provider] - 1-2 days
[2018-05-01 13:21] LABS: ALT 30 U/L (21-72); AST 34 U/L (17-59); Albumin 3.1 g/dL (3.5-5.0); Alkaline Phosphatase 126 U/L (38-126); Anion Gap 12 mmol/L; Blood Urea Nitrogen 11 mg/dL (9-20); Calcium 8.6 mg/dL (8.4-10.2); Carbon Dioxide 23 mmol/L (22-30); Chloride 98 mmol/L (98-107); Glucose 110 mg/dL (74-99); Potassium 4.1 mmol/L (3.5-5.1); Sodium 133 mmol/L (137-145); Total Bilirubin 1.1 mg/dL (0.2-1.3); Total Protein 6.3 g/dL (6.3-8.2)
[2018-05-01 13:24] LABS: Partial Thromboplastin Time 26.5 sec (22.0-30.0); Prothrombin Time 10.4 sec (9.0-12.0)
[2018-05-01 13:27] LABS: Appearance,Urine Cloudy (Clear); Bilirubin,Urine 1+ (Negative); Blood,Urine Trace (Negative); Color,Urine Yellow; Glucose,Urine (UA) Negative (Negative); Ketones,Urine Negative (Negative); Leukocyte Esterase,Urine Large (Negative); Nitrite,Urine Negative (Negative); Protein,Urine 1+ (Negative); Specific Gravity,Urine 1.017 (1.001-1.035)
[2018-05-01 13:28] LABS: Bacteria,Urine Rare /hpf; Hyaline Casts,Urine 38 /lpf (0-2); Mucus,Urine Moderate /hpf; RBC,Urine 6 /hpf (0-5); WBC,Urine >182 /hpf (0-5)
--- NOTE | 2018-05-01 13:49 | XR ---
EXAMINATION TYPE: XR chest 2V DATE OF EXAM: 05/01/2018 COMPARISON: March 08, 2018 HISTORY: Shortness of breath TECHNIQUE: Frontal and lateral views of the chest are obtained. FINDINGS: Scattered senescent parenchymal changes noted. Hyperinflation compatible with COPD. Patchy perihilar and basilar increased density may reflect developing pneumonia. Heart size is stable. Mediastinal structures are stable and grossly unremarkable. No evidence for hilar prominence. Degenerative changes dorsal spine. IMPRESSION: 1. Patchy perihilar and basilar increased density may reflect developing pneumonia.
[2018-05-01] MEDS ORDERED: diphenhydrAMINE 50 MG/ML 1 ML VIAL IVP STA (14:01)
[2018-05-01] MEDS ORDERED: ONDANSETRON 4 MG/2 ML VIAL IVP PRN (14:06)
[2018-05-01] MEDS: SODIUM CHLORIDE 0.9% 1,000 ML IV SCH ×2 (14:15→17:47)
[2018-05-01] MEDS ORDERED: methylPREDNISolone SOD SUCCI 125 MG/2 ML VIAL IV STA (18:26)
--- NOTE | 2018-05-01 18:28 | P.HPIM ---
History of Present Illness This is a pleasant 58 years old male with past medical history of lung cancer with metastases status post chemo and immunotherapy. COPD, GERD, hypertension, posterior arthritis, benign prostatic hypertrophy, history of left vocal cord paralysis. Patient has recently diagnosed with lung cancer and lisinopril and his diet chemotherapy, and each time she develops rash has ALLERGIC reaction to his chemotherapy management. This time he has started developing a rash about 3 days ago which was getting worse. However patient also was complaining from exertional dyspnea and dry coughing for the last 3- 4 days. Patient denies chest pain but he has right upper quadrant pain and tenderness. Patient also complaining of from loose bowel movement but no significant abdominal pain or nausea or vomiting. And the emergency room patient got some fluids and Benadryl. We going to add steroids and Pepcid. The emergency room Vitas looks stable except for tachycardia with heart rate 126. CBC and BMP were unremarkable except for mild hyponatremia. Chest x-ray showing perihilar and basilar opacity, suspicious for pneumonia. He uses also was suspicious for infection. Patient was started on ceftriaxone emergency room. Review of Systems CONSTITUTIONAL: No fever, no malaise, no fatigue. HEENT: No recent visual problems or hearing problems. Denied any sore throat. CARDIOVASCULAR: No orthopnea, PND, no palpitations, no syncope. PULMONARY: No shortness of breath, no cough, no hemoptysis. GASTROINTESTINAL: No diarrhea, no nausea, no vomiting, no abdominal pain. Normoactive bowel sounds. NEUROLOGICAL: No headaches, no weakness, no numbness. HEMATOLOGICAL: Denies any bleeding or petechiae. GENITOURINARY: Denies any burning micturition, frequency, or urgency. MUSCULOSKELETAL/RHEUMATOLOGICAL: Denies any joint pain, swelling, or any muscle pain. ENDOCRINE: Denies any polyuria or polydipsia. Past Medical History Past Medical History: Cancer, COPD, GERD/Reflux, Hypertension, Osteoarthritis ( OA), Pneumonia, Prostate Disorder Additional Past Medical History / Comment(s): recovering alcoholic-quit 2002,hx of skin ca(sx), pt stated lung cancer w/ mets dx august 2017 currently recieving chemo(PER PT had a tx last sunday02-25-18 and immunotherapy), occ episodes of liteheadedness w/ exertion,HX LT VOCAL CORD PARALYSIS(SX0 History of Any Multi-Drug Resistant Organisms: None Reported Past Surgical History: Orthopedic Surgery Additional Past Surgical History / Comment(s): rt carpal tunel release, skin cancer removed from face/nose, colonoscopy/polypectomy-per pt was neg. 02-13-18 LT MEDIALIZATION THROIDPLASTY Past Anesthesia/Blood Transfusion Reactions: Family History of Problems w/ Anesthesia Additional Past Anesthesia/Blood Transfusion Reaction / Comment(s): FATHER WOKE UP VERY AGITATED AND HAD TO BE "RE-MEDICATED". HAD BLOOD TRANSFUSION-NO REACTION Past Psychological History: No Psychological Hx Reported Smoking Status: Former smoker Past Alcohol Use History: None Reported Past Drug Use History: None Reported - Past Family History Father Family Medical History: Myocardial Infarction ([place]) Additional Family Medical History / Comment(s): ALCOHOLIC-- Mother Family Medical History: Myocardial Infarction ([place]) Additional Family Medical History / Comment(s): ALCOHOLIC. Medications and Allergies Home Medications Medication Instructions Recorded Confirmed Type traZODone HCL [Desyrel] 100 mg PO HS PRN 12/10/13 05/01/18 History Omeprazole Magnesium [PriLOSEC OTC] 20 mg PO DAILY 08/23/17 05/01/18 History Folic Acid 1 mg PO DAILY 11/13/17 05/01/18 History Ondansetron [Zofran] 4 mg PO Q6H PRN 11/13/17 05/01/18 History Tamsulosin HCl [Flomax] 0.4 mg PO HS 02/06/18 05/01/18 History Metoprolol Tartrate [Lopressor] 37.5 mg PO BID #60 tab 03/09/18 05/01/18 Rx Acetaminophen Tab [Tylenol Tab] 650 mg PO Q6H PRN 05/01/18 05/01/18 History Nystatin 100,000 Unit/ml Susp 500,000 unit PO DAILY PRN 05/01/18 05/01/18 History [Mycostatin Oral Susp] Rivaroxaban [Xarelto] 20 mg PO HS 05/01/18 05/01/18 History Allergies Allergy/AdvReac Type Severity Reaction Status Date / Time No Known Allergies Allergy Verified 05/01/18 12:40 Physical Exam Vitals: Vital Signs Temp Pulse Resp BP Pulse Ox 05/01/18 13:00 126/89 05/01/18 12:50 126/89 05/01/18 12:40 118 H 21 126/89 97 05/01/18 12:30 121 H 22 108/97 98 05/01/18 12:20 122 H 20 108/97 96 05/01/18 12:15 98.4 F 138 H 22 116/89 95 05/01/18 12:14 108/97 96 Intake and Output 05/01/18 05/01/18 05/01/18 06:59 14:59 22:59 Other: Weight 95.254 kg GENERAL: The patient is alert and oriented x3, not in any acute distress. Well developed, well nourished. HEENT: Pupils are round and equally reacting to light. EOMI. No scleral icterus. No conjunctival pallor. Normocephalic, atraumatic. No pharyngeal erythema. No thyromegaly. CARDIOVASCULAR: S1 and S2 present. No murmurs, rubs, or gallops. PULMONARY: Chest is clear to auscultation, no wheezing or crackles. ABDOMEN: Soft, nontender, nondistended, normoactive bowel sounds. No palpable organomegaly. MUSCULOSKELETAL: No joint swelling or deformity. EXTREMITIES: No cyanosis, clubbing, or pedal edema. NEUROLOGICAL: Gross neurological examination did not reveal any focal deficits. SKIN: No rashes. Results CBC & Chem 7: 05/01/18 12:34 05/01/18 12:34 Labs: Abnormal Lab Results - Last 24 Hours (Table) 05/01/18 05/01/18 05/01/18 Range/Units 12:34 12:34 12:45 RBC 3.47 L (4.30-5.90) m/uL Hgb 10.3 L (13.0-17.5) gm/dL Hct 32.7 L (39.0-53.0) % RDW 17.6 H (11.5-15.5) % Lymphocytes # 0.3 L (1.0-4.8) k/uL Sodium 133 L (137-145) mmol/L Glucose 110 H (74-99) mg/dL Albumin 3.1 L (3.5-5.0) g/dL Urine Protein 1+ H (Negative) Urine Blood Trace H (Negative) Urine Bilirubin 1+ H (Negative) Ur Leukocyte Esterase Large H (Negative) Urine RBC 6 H (0-5) /hpf Urine WBC >182 H (0-5) /hpf Urine WBC Clumps Few H (None) /hpf Urine Bacteria Rare H (None) /hpf Hyaline Casts 38 H (0-2) /lpf Urine Mucus Moderate H (None) /hpf Assessment and Plan Assessment: Possible pneumonia Dehydration Urinary tract infection Mild hyponatremia lung cancer with metastases status post chemo and immunotherapy. COPD GERD Hypertension Osteoarthritis Benign prostatic hypertrophy History of left vocal cord paralysis Plan: This is a pleasant 58 years old male who presents because of ALLERGIC reaction to chemotherapy, with possible pneumonia and UTI. Continue with antibiotics. Continue with IV fluids. We'll provide steroids, Benadryl and Pepcid. Send for urine culture which is pending. Call pulmonary consult and hematology/ oncology consult. Labs and medication were reviewed.. Continue same treatment. Continue with symptomatic treatment. Resume home medication. Monitor lytes and vitals. DVT and GI prophylaxis. Further recommendations of the clinical course of the patient DVT prophylaxis: xarelto GI Prophylaxis: Pepcid Prognosis is guarded
[2018-05-01] MEDS ORDERED: NYSTATIN 100,000 UNIT/ML SUSP 500,000 UNIT/5 ML CUP PO PRN (20:22)
[2018-05-01] MEDS ORDERED: ACETAMINOPHEN TAB 325 MG TAB PO PRN (20:22)
[2018-05-01] MEDS ORDERED: BENZONATATE 100 MG CAP PO PRN (20:31)
[2018-05-01] MEDS: RIVAROXABAN 20 MG TAB PO SCH (22:11)
[2018-05-01] MEDS: TAMSULOSIN 0.4 MG CAP.ER.24H PO SCH (22:11)
[2018-05-01] MEDS: FAMOTIDINE 20 MG/2 ML VIAL IV SCH (22:11)
[2018-05-01] MEDS: METOPROLOL TARTRATE 12.5 MG TAB PO SCH (22:11)
[2018-05-01] MEDS: diphenhydrAMINE 50 MG/ML 1 ML VIAL IVP PRN (22:17)
[2018-05-02] MEDS: diphenhydrAMINE 50 MG/ML 1 ML VIAL IVP PRN (04:58)
[2018-05-02] MEDS: FAMOTIDINE 20 MG/2 ML VIAL IV SCH (07:35)
[2018-05-02] MEDS: METOPROLOL TARTRATE 12.5 MG TAB PO SCH ×2 (07:35→21:18)
[2018-05-02] MEDS: SODIUM CHLORIDE 0.9% 1,000 ML IV SCH ×2 (07:38→12:17)
[2018-05-02 09:27] LABS: Anisocytosis Slight; Basophils % (A) 0 %; Eosinophils # (A) 0.1 k/uL (0-0.7); Eosinophils % (A) 2 %; HCT 28.5 % (39.0-53.0); Hypochromasia Slight; Lymphocytes # (A) 0.3 k/uL (1.0-4.8); Lymphocytes % (A) 5 %; MCH 30.5 pg (25.0-35.0); MCHC 31.7 g/dL (31.0-37.0); MCV 96.2 fL (80.0-100.0); Mean Platelet Volume 7.6; Monocytes # (A) 0.2 k/uL (0-1.0); Monocytes % (A) 2 %; Neutrophils # (A) 6.7 k/uL (1.3-7.7); Neutrophils % (A) 90 %; Platelet Count 203 k/uL (150-450); RBC 2.96 m/uL (4.30-5.90); RDW 17.5 % (11.5-15.5); WBC 7.5 k/uL (3.8-10.6)
[2018-05-02 09:44] LABS: Anion Gap 12 mmol/L; Blood Urea Nitrogen 12 mg/dL (9-20); Calcium 8.1 mg/dL (8.4-10.2); Carbon Dioxide 20 mmol/L (22-30); Chloride 104 mmol/L (98-107); Glucose 178 mg/dL (74-99); Potassium 4.6 mmol/L (3.5-5.1); Sodium 136 mmol/L (137-145)
[2018-05-02] MEDS: FOLIC ACID 1 MG TAB PO SCH (12:11)
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
[2018-05-02] MEDS ORDERED: FUROSEMIDE 10 MG/ML 4 ML VIAL IV STA (16:20)
--- NOTE | 2018-05-02 17:28 | US ---
EXAMINATION TYPE: US venous doppler duplex LE DATE OF EXAM: 05/02/2018 5:19 PM COMPARISON: NONE CLINICAL HISTORY: Rule out DVT. SIDE PERFORMED: Bilateral TECHNIQUE: The lower extremity deep venous system is examined utilizing real time linear array sonog tamara with graded compression, doppler sonography and color-flow sonography. VESSELS IMAGED: External Iliac Vein (EIV) Common Femoral Vein Deep Femoral Vein Greater Saphenous Vein * Femoral Vein Popliteal Vein Small Saphenous Vein * Proximal Calf Veins (* superficial vessels) Right Leg: From proximal femoral vein through proximal popliteal vein, vein appears thready and only partially compressible. Possible chronic changes seen at this level. Left Leg: Negative for DVT IMPRESSION: There is evidence of chronic deep venous thrombosis in the right leg. No evidence of deep venous thrombosis in the left leg.
[2018-05-02] MEDS: FAMOTIDINE 20 MG TAB PO SCH (21:18)
[2018-05-02] MEDS: RIVAROXABAN 20 MG TAB PO SCH (21:18)
[2018-05-02] MEDS: TAMSULOSIN 0.4 MG CAP.ER.24H PO SCH (21:18)
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
[2018-05-02] MEDS: traZODone HCL 50 MG TAB PO PRN (22:26)
[2018-05-03 05:52] LABS: Glucose,Whole Blood 100 mg/dL (75-99)
[2018-05-03] MEDS: SODIUM CHLORIDE 0.9% 1,000 ML IV SCH (06:01)
[2018-05-03] MEDS: METOPROLOL TARTRATE 12.5 MG TAB PO SCH ×2 (08:10→21:11)
[2018-05-03] MEDS: FAMOTIDINE 20 MG TAB PO SCH ×2 (08:10→21:10)
[2018-05-03 08:21] LABS: Anisocytosis Slight; Basophils % (A) 0 %; Eosinophils # (A) 0.7 k/uL (0-0.7); Eosinophils % (A) 8 %; HCT 30.5 % (39.0-53.0); HGB 9.3 gm/dL (13.0-17.5); Hypochromasia Moderate; Lymphocytes # (A) 0.8 k/uL (1.0-4.8); Lymphocytes % (A) 10 %; MCH 29.7 pg (25.0-35.0); MCHC 30.5 g/dL (31.0-37.0); MCV 97.5 fL (80.0-100.0); Macrocytosis Slight; Mean Platelet Volume 7.5; Monocytes # (A) 0.4 k/uL (0-1.0); Monocytes % (A) 5 %; Neutrophils # (A) 6.3 k/uL (1.3-7.7); Neutrophils % (A) 75 %; Platelet Count 227 k/uL (150-450); RBC 3.13 m/uL (4.30-5.90); RDW 17.5 % (11.5-15.5); WBC 8.5 k/uL (3.8-10.6)
[2018-05-03 08:50] LABS: Anion Gap 10 mmol/L; Blood Urea Nitrogen 17 mg/dL (9-20); Calcium 8.4 mg/dL (8.4-10.2); Carbon Dioxide 21 mmol/L (22-30); Chloride 108 mmol/L (98-107); Glucose 91 mg/dL (74-99); Potassium 4.2 mmol/L (3.5-5.1); Sodium 139 mmol/L (137-145)
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
[2018-05-03] MEDS: FOLIC ACID 1 MG TAB PO SCH (12:43)
--- NOTE | 2018-05-03 14:27 | CONS ---
CONSULTATION This is a 58-year-old gentleman who has been admitted with lung cancer with metastasis, post chemo and immunotherapy. Patient has developed some mild allergic reaction to chemotherapy and has rash developed under care of Medicine. I was consulted for vascular evaluation. No history of rest pain or tissue loss. The patient has some peripheral cyanosis. MEDICAL HISTORY: History of CA of the lung, history of hypertension, history of pneumonia and, history of prostate disorder. PHYSICAL EXAMINATION: Patient was seen in his room. Her neck is supple. Trachea central. CHEST: Clear to auscultation. ABDOMEN: Soft. Femorals are 1+ . PTT by the Doppler. Patient has some mild edema of the dorsal aspect of the foot. No evidence of any venous stasis ulcer or any ischemic ulcer. At this point, patient has some chronic vascular insufficiency. The patient can be seen in my office in 2 weeks. At this point, no need for any major surgical intervention. MMODL / IJN: [id number] /
--- NOTE | 2018-05-03 14:27 | CONS ---
CONSULTATION ADDENDUM: This patient had a history of PE and ultrasound of the right leg showed patient has a chronic DVT of the right common femoral and proximal popliteal vein. No evidence of acute clot seen. MMODL / IJN: [id number] /
--- NOTE | 2018-05-03 16:37 | P.PN ---
Subjective This is a pleasant 58 years old male with past medical history of lung cancer with metastases status post chemo and immunotherapy. COPD, GERD, hypertension, posterior arthritis, benign prostatic hypertrophy, history of left vocal cord paralysis. Patient has recently diagnosed with lung cancer and lisinopril and his diet chemotherapy, and each time she develops rash has ALLERGIC reaction to his chemotherapy management. This time he has started developing a rash about 3 days ago which was getting worse. However patient also was complaining from exertional dyspnea and dry coughing for the last 3- 4 days. Patient denies chest pain but he has right upper quadrant pain and tenderness. Patient also complaining of from loose bowel movement but no significant abdominal pain or nausea or vomiting. And the emergency room patient got some fluids and Benadryl. We going to add steroids and Pepcid. The emergency room Vitas looks stable except for tachycardia with heart rate 126. CBC and BMP were unremarkable except for mild hyponatremia. Chest x-ray showing perihilar and basilar opacity, suspicious for pneumonia. He uses also was suspicious for infection. Patient was started on ceftriaxone emergency room. 05/03/2018 The patient rash is significantly improved, no more itching. Patient says that he hasn't filled cough with no phlegm and that has been improved, he denies dyspnea. He has right lower side chest wall pain, mostly related to cough and irrigated at 2/10 in severity compared to 70/10 when he came in. He says that his abscess H much improved, yesterday was noticed that his legs getting edematous from IV fluid, he got 1 dose of Lasix and decreased/stop IV fluids. His leg swelling both sides have gone down. Yesterday his right lower leg was more bluish than the left side, venous Doppler showing threaded vein with partially compressible, possible chronic changes on the right femoral and popliteal veins. However as stated before it is improved. Vascular surgeon Dr. Chavez evaluate the patient and recommended outpatient follow-up in 2 weeks. Patient remains on antibiotic for urinary tract infection, unlikely he has pneumonia. Urine culture growing enterococcus. However find the results of urine culture and sensitivity is still pending. No leukocytosis or fever Objective - Vital Signs Vital signs: Vital Signs Temp 97.7 F 05/03/18 05:00 Pulse 81 05/03/18 05:00 Resp 18 05/03/18 05:00 BP 101/60 05/03/18 05:00 Pulse Ox 94 L 05/03/18 05:00 Intake & Output 05/02/18 05/03/18 05/03/18 18:59 06:59 18:59 Intake Total 400 1920 Balance 400 1920 Weight 95.254 kg Intake: Intake, IV Titration 400 700 Amount Sodium Chloride 0.9% 1, 350 000 ml @ 30 mls/hr IV . Q24H [facility] Rx#:[id number] cefTRIAXone 1,000 mg In 50 700 Sodium Chloride 0.9% 50 ml @ 100 mls/hr IVPB Q24H [facility] Rx#:[id number] Oral 1220 Other: Voiding Method Toilet Toilet Toilet # Voids 4 2 # Bowel Movements 350 - Exam GENERAL: The patient is alert and oriented x3, not in any acute distress. Well developed, well nourished. HEENT: Pupils are round and equally reacting to light. EOMI. No scleral icterus. No conjunctival pallor. Normocephalic, atraumatic. No pharyngeal erythema. No thyromegaly. CARDIOVASCULAR: S1 and S2 present. No murmurs, rubs, or gallops. PULMONARY: Chest is clear to auscultation, no wheezing or crackles. ABDOMEN: Soft, nontender, nondistended, normoactive bowel sounds. No palpable organomegaly. MUSCULOSKELETAL: No joint swelling or deformity. -EXTREMITIES: No cyanosis, clubbing, mild bilateral leg edema, color symmetrical in both sides NEUROLOGICAL: Gross neurological examination did not reveal any focal deficits. -SKIN: Punctate rashes on the trunk and extremity is fading away. - Labs CBC & Chem 7: 05/03/18 07:58 05/03/18 07:58 Labs: Abnormal Lab Results - Last 24 Hours (Table) 05/03/18 05/03/18 05/03/18 Range/Units 05:50 07:58 07:58 RBC 3.13 L (4.30-5.90) m/uL Hgb 9.3 L (13.0-17.5) gm/dL Hct 30.5 L (39.0-53.0) % MCHC 30.5 L (31.0-37.0) g/dL RDW 17.5 H (11.5-15.5) % Lymphocytes # 0.8 L (1.0-4.8) k/uL Chloride 108 H (98-107) mmol/L Carbon Dioxide 21 L (22-30) mmol/L POC Glucose (mg/dL) 100 H (75-99) mg/dL Microbiology - Last 24 Hours (Table) 05/01/18 12:45 Urine Culture - Preliminary Urine,Voided Group D Enterococcus 05/01/18 12:34 Blood Culture - Preliminary Blood No Growth after 24 hours Assessment and Plan Assessment: ALLERGIC rash to chemotherapy, improved Dehydration Urinary tract infection secondary to enterococcus. Chronic right lower extremity changes in the veins. Mild hyponatremia lung cancer with metastases status post chemo and immunotherapy. COPD GERD Hypertension Osteoarthritis Benign prostatic hypertrophy History of left vocal cord paralysis Plan: This is a pleasant 58 years old male who presents because of ALLERGIC reaction to chemotherapy, with possible pneumonia and UTI. Continue with antibiotics. Continue with IV fluids. We'll provide steroids, Benadryl and Pepcid. Send for urine culture which is pending. Call pulmonary consult and hematology/ oncology consult. Will consult infectious disease for UTI. Labs and medication were reviewed.. Continue same treatment. Continue with symptomatic treatment. Resume home medication. Monitor lytes and vitals. DVT and GI prophylaxis. Further recommendations of the clinical course of the patient DVT prophylaxis: xarelto GI Prophylaxis: Pepcid Prognosis is guarded
[2018-05-03] MEDS: TAMSULOSIN 0.4 MG CAP.ER.24H PO SCH (21:11)
[2018-05-03] MEDS: RIVAROXABAN 20 MG TAB PO SCH (21:11)
[2018-05-03] MEDS: traZODone HCL 50 MG TAB PO PRN (21:30)
--- NOTE | 2018-05-03 22:27 | CONS ---
CONSULTATION DATE OF SERVICE: 05/03/2018 REASON FOR CONSULTATION: Enterococcus urinary tract infection. HISTORY OF PRESENT ILLNESS: The patient is a 58-year-old male with a past medical history significant for metastatic adenocarcinoma of the lung, for which the patient has been on chemotherapy with a newer agent started recently with Alimta and Keytruda. The patient presented to the ER with chief complaints of burning rash which is mostly generalized, itching, and some fever with overall weakness. The patient has been diagnosed with possible reaction to his chemo. On presentation the patient has been afebrile. No fever has been recorded. His white count was normal. The patient's urine was significantly positive with large leukocyte esterase, more than 182 WBCs and bacteria with the urine culture showing enterococcus. The patient did have a chest x-ray that was patchy perihilar and basilar increased density that may reflect developing pneumonia. The patient himself denies significant cough or sputum production. He is currently being treated with Rocephin; however, with the urine showing enterococcus, I was asked to see the patient for further recommendations. The patient gives a history of frequency of urine; no significant burning or difficult urination, though. Suprapubic flank pain. No nausea, vomiting, or any diarrhea. REVIEW OF SYSTEMS: Positive points have been mentioned in the HPI. The rest of the systems have been negative. PAST MEDICAL HISTORY: Significant for: 1. Hypertension. 2. Osteoarthritis. 3. Pneumonia. 4. Metastatic adenocarcinoma of the lung. 5. COPD. PAST SURGICAL HISTORY: 1. Right carpal tunnel release. 2. Skin cancer removal. 3. Colonoscopy with polypectomy. SOCIAL HISTORY: Remote history of smoking. No drinking or drug use. FAMILY HISTORY: Both parents with a history of CO. ALLERGIES: NO KNOWN DRUG ALLERGIES. MEDICATION: Current medications include: 1. Folic acid. 2. Lopressor. 3. Nystatin oral suspension. 4. Zofran. 5. Xarelto. 6. Flomax. 7. Desyrel. 8. Rocephin 1 gram daily. 9. Tessalon Perles. 10.Tylenol. PHYSICAL EXAMINATION: Blood pressure 98/61 with a pulse of 82, temperature 97.5. He is 95% on room air. General description is a middle-aged male up in the chair in no distress. No tachypnea or accessory muscle of respiration use. HEENT examination shows pallor. No scleral icterus. Oral mucosa membrane is dry. No pharyngeal erythema or thrush. NECK: Trachea is central. No thyromegaly. LUNGS: Unlabored breathing. Decreased breath sounds at the bases. No wheeze or crackle. HEART: S1, S2. Regular rate and rhythm. ABDOMEN: Soft. No tenderness. No guarding or rigidity. EXTREMITIES: No edema of feet. SKIN EXAMINATION: No rash or mass palpable. Neurologically the patient is awake, alert, oriented x3. Mood and affect normal. LABS: Hemoglobin 9.3, white count 8.5. BUN of 17, creatinine 0.94. UA was positive with large leukocyte esterase, more than 182 WBCs. Culture now showing enterococcus. DIAGNOSTIC IMPRESSION AND PLAN: Patient admitted to hospital with a generalized rash possibly related to the chemo. It is currently being managed by the oncology team. The patient also has urinary frequency, positive UA with the urine culture showing enterococcus, likely the infecting pathogen in a patient who currently does not give any symptoms suggestive of a urinary outflow obstruction, and his creatinine is not elevated. PLAN: 1. We will discontinue the Rocephin. 2. Start the patient on Unasyn 1.5 q.8 hours for the enterococcus UTI, but if sensitive, can be transitioned to Augmentin on discharge for a short course of 5 to 7 days to finish his course of therapy. 3. We will follow clinical course and culture to further adjust medication if needed. Thank you for this consultation. Will follow this patient along with you. MMODL / IJN: [id number] /
[2018-05-03] MEDS: AMPICILLIN-SULBACTAM 1.5 GM in SODIUM CHLORIDE 0.9% 50 ML IVPB SCH (23:11)
[2018-05-04] MEDS: diphenhydrAMINE 25 MG CAP PO PRN ×2 (02:21→08:36)
[2018-05-04] MEDS: AMPICILLIN-SULBACTAM 1.5 GM in SODIUM CHLORIDE 0.9% 50 ML IVPB SCH ×3 (05:46→17:51)
[2018-05-04 06:39] VITALS: PULSE 92
[2018-05-04] MEDS: SODIUM CHLORIDE 0.9% 1,000 ML IV SCH ×2 (08:32→09:36)
[2018-05-04] MEDS: FAMOTIDINE 20 MG TAB PO SCH (08:32)
[2018-05-04] MEDS ORDERED: METOPROLOL TARTRATE 25 MG TAB PO SCH (09:00)
[2018-05-04] MEDS ORDERED: FUROSEMIDE 40 MG TAB PO STA (09:31)
[2018-05-04] MEDS: FOLIC ACID 1 MG TAB PO SCH (12:22)
[2018-05-04 13:07] VITALS: BP 121/83; RESP 20; TEMP 97.5
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
[2018-05-04] MEDS ORDERED: AMOXIC-POT CLAV 875-125MG 1 EACH TAB PO SCH (21:00)
--- NOTE | 2018-05-04 21:12 | P.DS ---
Providers Date of admission: 05/01/18 14:21 Attending physician: Vladimir Graves MD Consults: 05/01/18 14:06 Consult Physician Stat Consulting Provider: Stephanie Gomes Consult Reason/Comments: Lung cancer, chemotherapy Do you want consulting provider notified?: Yes 05/01/18 18:16 Consult Physician Routine Consulting Provider: Art Crandall Consult Reason/Comments: pna Do you want consulting provider notified?: Yes 05/02/18 16:13 Consult Physician Urgent Consulting Provider: Chucky Rayo Consult Reason/Comments: blue lower ext Do you want consulting provider notified?: Yes 05/03/18 11:15 Consult Physician Urgent Consulting Provider: Chad Styles Consult Reason/Comments: Enterococcus UTI Do you want consulting provider notified?: Yes Primary care physician: Stated None Hospital Course: Diagnoses: ALLERGIC rash to chemotherapy, improved Dehydration Urinary tract infection secondary to enterococcus. Chronic right lower extremity changes in the veins. Mild hyponatremia lung cancer with metastases status post chemo and immunotherapy. COPD GERD Hypertension Osteoarthritis Benign prostatic hypertrophy History of left vocal cord paralysis Hospital course: his is a pleasant 58 years old male with past medical history of lung cancer with metastases status post chemo and immunotherapy. COPD, GERD, hypertension, posterior arthritis, benign prostatic hypertrophy, history of left vocal cord paralysis. Patient has recently diagnosed with lung cancer s/p chemotherapy, and it is suspected each time he get chemotherapy he develops rash has ALLERGIC reaction to his chemotherapy management. Patient rash was treated with steroids , Benadryl and anitacids, patient showed interval improvement and on the day of discharge his rash almost was fading away all the patient has some itching but he relates that to lack of shower for the last 5 days and he will take shower today. oncology team are aware of his allergic reaction as well as the pt he was informed not to take medication causing allergic reaction , it is not known exactly which medication can cause such reaction. Also patient on admission and found to have urinary tract infection secondary to enteroccocus which is sensitive to medications. Patient has been discharged on Augmentin for 5-7 days as per ID recommendation. On admission it was suspected patient has pneumonia, however as per pulmonary evaluation patient does not have pneumonia. Patient also found to have right lower extremity venous insufficiency, vascular surgeon evaluated the patient and recommended to continue with same treatment with outpatient follow-up in 2 weeks. Patient was informed by hold the above recommendation and to follow up with the doctors. He verbalized understanding and acceptance. Patient himself feels he can be discharged home yesterday, but it was pending his urine culture and sensitivity. Patient breathing is fine as is telling me today, we have some little cough, but no phlegm and no chest pain his right lower chest pain and tenderness has completely resolved as per patient. Patient has some leg swelling today but color is normal compared to the left side his normal saline at 30 mL/h was stopped and he given 1 dose of Lasix 40 mg. Patient was cleared for discharge by infectious disease, oncology and pulmonary team. Problems and management plan was discussed with the patient and he verbalized understanding and acceptance. Patient is found stable and can be discharged home and guarded prognosis, however he needs follow-up as an outpatient. Patient agrees with the appointments and timing made for him and he stated to me he will follow-up. He told me he sees Dr. Gomes, oncologist as his primary doctor as well. scripts for antibiotic and antihypertensive, Benadryl and antitussive medication is provided for the pt., he did not want more script from his home medication Gen: patient is a AAOx3, no distress CVS: S1-S2, RRR, no murmur Lungs: B/L CTA, no wheezing Abdomen: soft, no distention, no tenderness, positive bowel sounds Extremity: no leg edema or induration Time spent more than 35 minutes Patient Condition at Discharge: Fair Plan - Discharge Summary Discharge Rx Participant: No New Discharge Prescriptions: New Amoxic-Pot Clav 875-125Mg [Augmentin 875-125] 1 tab PO Q12HR 7 Days #14 tablet RX: Benzonatate [Tessalon Perles] 100 mg PO TID PRN #12 cap PRN Reason: Cough RX: diphenhydrAMINE [Benadryl] 25 mg PO Q6HR PRN #10 cap PRN Reason: Allergy Symptoms RX: Metoprolol Tartrate [Lopressor] 25 mg PO BID #60 tab Continue RX: traZODone HCL [Desyrel] 100 mg PO HS PRN PRN Reason: Insomnia RX: Omeprazole Magnesium [PriLOSEC OTC] 20 mg PO DAILY RX: Ondansetron [Zofran] 4 mg PO Q6H PRN PRN Reason: Nausea And Vomiting RX: Folic Acid 1 mg PO DAILY RX: Tamsulosin HCl [Flomax] 0.4 mg PO HS RX: Acetaminophen Tab [Tylenol] 650 mg PO Q6H PRN PRN Reason: Pain RX: Nystatin 100,000 Unit/ml Susp [Mycostatin Oral Susp] 500,000 unit PO DAILY PRN PRN Reason: SKIN RX: Rivaroxaban [Xarelto] 20 mg PO HS Discontinued RX: Metoprolol Tartrate [Lopressor] 37.5 mg PO BID #60 tab Discharge Medication List RX: traZODone HCL [Desyrel] 100 mg PO HS PRN 12/10/13 [History] RX: Omeprazole Magnesium [PriLOSEC OTC] 20 mg PO DAILY 08/23/17 [History] RX: Folic Acid 1 mg PO DAILY 11/13/17 [History] RX: Ondansetron [Zofran] 4 mg PO Q6H PRN 11/13/17 [History] RX: Tamsulosin HCl [Flomax] 0.4 mg PO HS 02/06/18 [History] RX: Acetaminophen Tab [Tylenol] 650 mg PO Q6H PRN 05/01/18 [History] RX: Nystatin 100,000 Unit/ml Susp [Mycostatin Oral Susp] 500,000 unit PO DAILY PRN 05/01/18 [History] RX: Rivaroxaban [Xarelto] 20 mg PO HS 05/01/18 [History] Amoxic-Pot Clav 875-125Mg [Augmentin 875-125] 1 tab PO Q12HR 7 Days #14 tablet 05/04/18 [Rx] RX: Benzonatate [Tessalon Perles] 100 mg PO TID PRN #12 cap 05/04/18 [Rx] RX: Metoprolol Tartrate [Lopressor] 25 mg PO BID #60 tab 05/04/18 [Rx] RX: diphenhydrAMINE [Benadryl] 25 mg PO Q6HR PRN #10 cap 05/04/18 [Rx] Follow up Appointment(s)/Referral(s): Chucky Rayo MD [STAFF PHYSICIAN] - 05/16/18 1:00 pm Stephanie Gomes MD [STAFF PHYSICIAN] - 05/08/18 2:30 pm Patient Instructions/Handouts: Benzonatate (By mouth), Metoprolol (By mouth), Diphenhydramine (By mouth), Amoxicillin/Clavulanate Potassium (By mouth), Urinary Tract Infection in Men (DC), Lung Cancer (DC) Activity/Diet/Wound Care/Special Instructions: cardiac diet activity is limited till yous see your doctor Discharge Disposition: HOME SELF-CARE
== END 2018-05-04 20:03 | disposition home or self-care (01) | DRG 607 ==
LOC: EC 11:45 → 3NMEDONC 14:21
PROVIDERS: ADMIT Internal Medicine; ATTEND Internal Medicine
DX: L27.0 Generalized skin eruption due to drugs and medicaments taken internally (principal); N39.0 Urinary tract infection, site not specified; C78.7 Secondary malignant neoplasm of liver and intrahepatic bile duct; C79.51 Secondary malignant neoplasm of bone; C77.0 Secondary and unspecified malignant neoplasm of lymph nodes of head, face and neck; C77.3 Secondary and unspecified malignant neoplasm of axilla and upper limb lymph nodes; C77.1 Secondary and unspecified malignant neoplasm of intrathoracic lymph nodes; E87.1 Hypo-osmolality and hyponatremia; C34.32 Malignant neoplasm of lower lobe, left bronchus or lung; I82.511 Chronic embolism and thrombosis of right femoral vein; I82.531 Chronic embolism and thrombosis of right popliteal vein; T45.1X5A Adverse effect of antineoplastic and immunosuppressive drugs, initial encounter; L29.9 Pruritus, unspecified; B95.2 Enterococcus as the cause of diseases classified elsewhere; J38.01 Paralysis of vocal cords and larynx, unilateral; E86.0 Dehydration; J44.9 Chronic obstructive pulmonary disease, unspecified; N40.0 Benign prostatic hyperplasia without lower urinary tract symptoms; K21.9 Gastro-esophageal reflux disease without esophagitis; I10 Essential (primary) hypertension; F10.21 Alcohol dependence, in remission; M19.90 Unspecified osteoarthritis, unspecified site; Z79.01 Long term (current) use of anticoagulants; Z79.899 Other long term (current) drug therapy; Z87.891 Personal history of nicotine dependence; Z86.711 Personal history of pulmonary embolism; Z85.828 Personal history of other malignant neoplasm of skin; Z87.01 Personal history of pneumonia (recurrent); Z82.49 Family history of ischemic heart disease and other diseases of the circulatory system; Z81.1 Family history of alcohol abuse and dependence
CPT/HCPCS: 36415; 71046; 80048; 80053; 81001; 83605; 84443; 84484; 85025; 85610; 85730; 87040; 87077; 87086; 87186; 93005; 93970; 96361; 96365; 96366; 96375; 99284

== ENCOUNTER → 2018-06-12 | Outpatient (CLI) | payer BC, OTHER ==
--- NOTE | 2018-06-13 09:08 | CT ---
EXAMINATION TYPE: CT ChestAbdPelvis w con DATE OF EXAM: 06/12/2018 COMPARISON: Prior CT chest abdomen pelvis 01/16/2018 HISTORY: lung ca CT DLP: 1091.4 mGycm Automated exposure control for dose reduction was used. CONTRAST: CT scan of the chest, abdomen and pelvis is performed with Oral Contrast and with IV Contrast, patien t injected with 100 mL of Isovue 300. FINDINGS: LUNGS: The lungs are stable, there is no concerning parenchymal mass or nodule identified. There is minimal left effusion with associated atelectasis at the left lung base or possibly pleural reaction which was not seen on prior.. The tracheobronchial tree is patent. MEDIASTINUM: There are no greater than 1 cm hilar or mediastinal lymph nodes. No pericardial effusi on is seen. Abnormal soft tissue extending to the level of the esophagus and within the aorticopulmon melissa window shows no interval change. Suspect some local calcification at the level of the previously described lymph node in the aorticopulmonary window, increased density is small in the left hilar reg ion and may be related to posttreatment change. Coronary artery calcifications are dense. Subcarinal nodes are calcified but not enlarged. There is present in the pulmonary artery likely introduced intr avenously. AORTA: No significant abnormality is seen. OTHER: No additional significant abnormality is seen. LIVER/GB: No significant abnormality is appreciated. PANCREAS: No significant abnormality is seen. SPLEEN: No significant abnormality is seen. ADRENALS: No significant abnormality is seen. KIDNEYS: Stable, calcification is present in the lower pole left kidney as on prior exam is nonobstru ctive. REPRODUCTIVE ORGANS: No gross abnormality seen. BOWEL: No significant abnormality is seen. FREE AIR: No Free Air visible. ASCITES: None seen. RETROPERITONEAL ADENOPATHY: No retroperitoneal adenopathy is seen. LYMPH NODES: No greater than 1 cm abdominal or pelvic lymph nodes are appreciated. URINARY BLADDER: No significant abnormality is seen. PELVIC ADENOPATHY: None visualized. OSSEOUS STRUCTURES: No significant interval change is seen. IMPRESSION: Suspect posttreatment changes. Minimal possible pleural reaction as described left lung b ase.
== END | disposition home or self-care (01) ==
LOC: RADCTMAIN 14:51
PROVIDERS: ATTEND Internal Medicine Hematology & Oncology
DX: C34.32 Malignant neoplasm of lower lobe, left bronchus or lung (principal)
CPT/HCPCS: 71260; 74177; Q9967

== ENCOUNTER → 2018-08-12 | Outpatient (CLI) | payer BC, OTHER ==
--- NOTE | 2018-08-12 15:24 | CT ---
EXAMINATION TYPE: CT ChestAbdPelvis w con DATE OF EXAM: 08/12/2018 COMPARISON: 06/12/2018 HISTORY: Follow up lung cancer. CT DLP: 1325 mGycm CONTRAST: CT scan of the chest, abdomen and pelvis is performed with Oral Contrast and with IV Contrast, patien t injected with 100 mL of Isovue M300. CT Chest: LUNGS: The lungs are stable, there is no concerning parenchymal mass or nodule identified. There is m inimal left effusion with associated atelectasis at the left lung base or possibly pleural reaction . The tracheobronchial tree is patent. MEDIASTINUM: Thoracic aorta is of normal caliber. The heart is not enlarged. No evidence for media stinal mass or adenopathy. HILAR STRUCTURES: No evidence for mass. No hilar adenopathy is appreciated. OTHER: No significant abnormality. CONTRAST CT ABDOMEN AND PELVIS FINDINGS: LIVER/GB: No calcified gallstones. No space occupying hepatic lesion. Biliary tree is of normal ca liber. PANCREAS: No inflammation. No distinct mass. SPLEEN: No splenic enlargement. No lesion seen. ADRENALS: No nodule. No thickening. KIDNEYS/BLADDER: No hydronephrosis. Stable nonobstructing calculus lower pole left kidney. No discti nct renal mass. BOWEL: Normal appendix. Normal bowel caliber. No inflammation. GENITAL ORGANS: No gross abnormality. LYMPH NODES: No greater than 1cm abdominal or pelvic lymph nodes are appreciated. AORTA: No significant abnormality. OSSEOUS STRUCTURES: No significant abnormality is seen. OTHER: No significant additional abnormality is seen. IMPRESSION: 1. Stable posttreatment changes left lung. Stable pleural reaction left lower lobe. No evidence for m etastatic disease.
== END | disposition home or self-care (01) ==
LOC: RADCTMAIN 12:13
PROVIDERS: ATTEND Internal Medicine Hematology & Oncology
DX: C34.32 Malignant neoplasm of lower lobe, left bronchus or lung (principal); Z98.890 Other specified postprocedural states
CPT/HCPCS: 71260; 74177; Q9967

== ENCOUNTER → 2018-08-19 | Outpatient (CLI) | payer BC, OTHER | END | disposition home or self-care (01) | LOC: LABPAT 11:04 | PROVIDERS: ATTEND Internal Medicine Interventional Cardiology | DX: Z53.9 Procedure and treatment not carried out, unspecified reason (principal) ==

== ENCOUNTER → 2018-08-23 | Day surgery (SDC) | payer BC, OTHER ==
[2018-08-20 15:38] VITALS: BMI 27.8
[~2018-08-23] MED LIST changes: +ACETAMINOPHEN TAB 325 MG TAB PO PRN; +ALPRAZolam 0.25 MG TAB PO PRN; +ASPIRIN 325 MG TAB PO ONE; -DEXAMETHASONE SOD PHOSPHATE 4 MG/ML 1 ML VIAL IV ONE; -FAMOTIDINE 20 MG/2 ML VIAL IV ONE; +HEPARIN SODIUM 1,000 UN/ML (10ML VL) IV ONE; +HEPARIN SODIUM 1,000 UN/ML (10ML VL) ONE; -HYDROmorphone 0.5 MG/0.5 ML SYRINGE IVP PRN; +IOPAMIDOL-370 100ML BTL INJ ONE; +IOPAMIDOL-370 50ML BTL INJ ONE; -LACTATED RINGERS 1,000 ML IV SCH; +LIDOCAINE 1% INJ 10MG/ML (20 ML MDV) ONE; +LIDOCAINE 1% INJ 10MG/ML (20 ML MDV) SQ ONE; +MIDAZOLAM (PF) 2 MG/2 ML VIAL IV ONE; -MORPHINE SULFATE 2 MG/ML SYRINGE IV PRN; +NITROGLYCERIN SL TABS 0.4 MG TAB SUBLINGUAL PRN; -ONDANSETRON 4 MG/2 ML VIAL IVP ONE; +RX INFO: IV CONTRAST WAS GIVEN 1 EACH MISC MISCELLANE PRN; +SODIUM CHLORIDE 0.9% 1,000 ML IV SCH; +SODIUM CHLORIDE 0.9% 1,000 ML in EMPTY BAG 1 BAG IV ONE; +SODIUM CHLORIDE 0.9% 500 ML 500 ML IV ONE; +VERAPAMIL 2.5 MG/ML 2 ML AMP ONE; -ceFAZolin 1,000 MG in DEXTROSE/WATER 1 50ML.BAG IV ONE; -ceFAZolin IN SWFI 2 GM/20 ML SYRINGE IVP ONE; +fentaNYL (PF) 50 MCG/ML 2 ML AMP IV ONE; +fentaNYL (PF) 50 MCG/ML 2 ML AMP ONE; -metroNIDAZOLE-NS PMX 500 MG in SALINE 1 100ML.BAG IVPB ONE
[2018-08-23 06:48] VITALS: RESP 18; TEMP 97.5
[2018-08-23] MEDS: VERAPAMIL SYRINGE (5 MG/10 ML) INTRAARTER ONE ×2 (07:55→08:11)
--- NOTE | 2018-08-23 08:54 | LTR ---
DATE OF SERVICE: 08/23/2018 Re: David Noonan Dear Dr. Rico: Mr. David Noonan was diagnosed recently with severe cardiomyopathy. As you know, he does have lung cancer and he was on chemotherapy, but none of them has any cardiotoxicity. Because of his history of smoking, I was concerned about severe underlying coronary artery disease behind his cardiomyopathy and I did recommend proceeding with coronary angiogram. Coronary angiogram revealed extremely calcified right and left coronary systems with eccentric plaque involving the left main appeared to be in the range of 30% as well as subtotally occluded left circumflex which is also extremely calcified. At this point. I did recommend maximized medical treatment and follow up with him. I am going to obtain a stress test to assess for the size of ischemia in the left circumflex territory. I will keep you updated regarding him and I want to thank you for allowing me to participate in his care. Sincerely, MD SIERRA Jordan / DILLAN: [id number] /
--- NOTE | 2018-08-23 09:02 | CC ---
CARDIAC CATHETERIZATION REPORT DATE OF SERVICE: August 23, 2018 PERFORMING PHYSICIAN: Roel Ocasio MD, pathology laboratory aide. PROCEDURE PERFORMED: 1. Selective right and left coronary angiogram. 2. Left heart catheterization. 3. Left ventriculography. INDICATION: This is a pleasant 58-year-old gentleman with history of lung cancer, who received chemotherapy in the past. He used to be a smoker as well. His ejection fraction is known to be normal. Recently, he underwent an echocardiogram for a followup on history of pericardial effusion and the echo showed severe cardiomyopathy with EF around 30%. In view of his history of smoking as a risk factor for coronary artery disease, a heart catheterization was advised to rule out severe underlying coronary artery disease besides his cardiomyopathy. The patient was not on any chemotherapy with cardiotoxicity. APPROACH: Right radial artery. COMPLICATION: None. LEVEL OF SEDATION: Moderate with sedation length of 20 minutes. PROCEDURE DESCRIPTION: After obtaining an informed consent, the patient was brought to the cardiac laboratory chief. The right radial artery was cannulated using micropuncture technique, the micropuncture wire passed easily then I placed a 5-[place] sheath 11 cm in the right radial artery. After that I gave the patient 2 mg of verapamil IA and 10,000 units of heparin IV. Subsequently, I did selective right and left coronary angiogram using JR4 and JL3.5 catheters. Left heart catheterization was performed using 6-[place] pigtail catheter. I did also left ventriculography using 5-[place] pigtail catheter. The procedure was completed without any complication. SELECTIVE CORONARY ANGIOGRAM: 1. The right coronary artery is a large caliber vessel and it is a dominant vessel. The RCA is calcified. In the proximal portion has mild disease only as well as in the midportion. Distally appeared to be angiographically normal. It bifurcates into PDA and PLV branches both appeared to be angiographically normal. 2. The left main is calcified with eccentric plaque appeared to be in the range of 30%. The left main bifurcates into left circumflex as well as left anterior descending artery. 3. The left circumflex is a large caliber vessel and it is a nondominant vessel. The left circumflex in the proximal portion appeared to be subtotally occluded. This is just by the bifurcation of a large OM branch. 4. The LAD is extremely calcified. The proximal LAD has a plaque appears to be in the range of 30% to 40%. The mid LAD is a large caliber vessel and extremely calcified with mild disease only. The LAD distally appeared to be normal. The LAD gives rise into a large diagonal branch which appears to have an ostial disease. The ostial disease appeared to be in the range of 60% to 70%. HEMODYNAMICS: The left ventricular end-diastolic pressure was about 6 to 8 mmHg without significant gradient across the aortic valve. LEFT VENTRICULOGRAPHY: Left ventriculography was performed in the ANN projection and using a power injection. The left ventricular systolic function appeared to be impaired with EF between 35% to 40%. CONCLUSION: 1. Extremely calcified right and left coronary systems. 2. Subtotally occluded left circumflex in the proximal portion which is calcified left circumflex. 3. Eccentric plaque in the left main coronary artery appears to be in the range of 30% to 40%. POSTPROCEDURE MANAGEMENT: 1. Giving the above anatomy, I did recommend maximized medical treatment at this point of time. 2. Obtain a stress test to assess the size of ischemia in the left circumflex territory. 3. Get more information from the patient's chemistry technologist/oncologist regarding the prognosis of the lung cancer. 4. Follow up with the patient. MMODL / IJN: [id number] /
[2018-08-23 12:42] VITALS: BP 90/56; PULSE 88
== END | disposition home or self-care (01) ==
LOC: CATHCVL 06:13
PROVIDERS: ATTEND Internal Medicine Interventional Cardiology
DX: I25.10 Atherosclerotic heart disease of native coronary artery without angina pectoris (principal); I42.9 Cardiomyopathy, unspecified; I31.3 Pericardial effusion (noninflammatory); I73.9 Peripheral vascular disease, unspecified; Z87.891 Personal history of nicotine dependence; Z92.21 Personal history of antineoplastic chemotherapy; Z85.118 Personal history of other malignant neoplasm of bronchus and lung; J44.9 Chronic obstructive pulmonary disease, unspecified; Z86.718 Personal history of other venous thrombosis and embolism; Z79.01 Long term (current) use of anticoagulants; Z87.440 Personal history of urinary (tract) infections; Z82.49 Family history of ischemic heart disease and other diseases of the circulatory system; Z79.899 Other long term (current) drug therapy
CPT/HCPCS: 93458; C1769; C1894; J2001; J3010; J1644; Q9967 ×2; J2250

== ENCOUNTER 2018-11-02 12:42 | Inpatient (IN) | payer BC, OTHER ==
[2018-11-02] MEDS ORDERED: KETOROLAC 30 MG/ML 1 ML VIAL IVP STA (13:37)
[2018-11-02] MEDS ORDERED: SODIUM CHLORIDE 0.9% 1,000 ML IV ONE (13:37)
[2018-11-02] MEDS ORDERED: ONDANSETRON 4 MG/2 ML VIAL IVP STA ×2 (13:37→16:33)
[2018-11-02] MEDS ORDERED: DICYCLOMINE 20 MG TAB PO STA (13:38)
--- NOTE | 2018-11-02 13:41 | ED ---
General Adult HPI - General Chief complaint: Nausea/Vomiting/Diarrhea Stated complaint: Vomiting, Dizzy Time Seen by Provider: 11/02/18 12:51 Source: patient Mode of arrival: wheelchair Limitations: no limitations - History of Present Illness Initial comments: Patient is a 58-year-old male with a history of metastatic lung cancer, currently in remission, who presents with a chief complaint of cough, headache, and weakness. He was diagnosed with pneumonia at his primary care doctor's office 3 days ago. He states that since that time his symptoms have not gotten any better. He cannot identify inciting incident. There are no aggravating or alleviating factors. Timing is constant. He states he has a productive cough that is yellow and green. He states he is having diarrhea about 9-10 times per day. Other medical history includes congestive heart failure, last EF was 40%. - Related Data Home Medications Medication Instructions Recorded Confirmed traZODone HCL [Desyrel] 100 mg PO HS PRN 12/10/13 11/02/18 Folic Acid 1 mg PO DAILY 11/13/17 11/02/18 Ascorbic Acid [Vitamin C] 500 mg PO DAILY 08/20/18 11/02/18 Biotin 5,000 mcg PO DAILY 08/20/18 11/02/18 Glucosam/Colin-Msm1/C/Patel/Bosw 1 tab PO DAILY 08/20/18 11/02/18 [Glucosamine-Chondroitin Tablet] Multivitamins, Thera [Multivitamin 1 tab PO DAILY 08/20/18 11/02/18 (formulary)] Spironolactone [Aldactone] 12.5 mg PO DAILY 08/20/18 11/02/18 diphenhydrAMINE [Benadryl] 25 mg PO HS 08/20/18 11/02/18 Benzonatate [Tessalon Perles] 100 mg PO TID PRN 11/02/18 11/02/18 Furosemide [Lasix] 20 mg PO DAILY 11/02/18 11/02/18 Levofloxacin [Levaquin] 500 mg PO DAILY 11/02/18 11/02/18 Metoprolol Tartrate [Lopressor] 25 mg PO DAILY 11/02/18 11/02/18 Omeprazole 40 mg PO DAILY 11/02/18 11/02/18 Ondansetron HCl [Zofran] 8 mg PO Q8H PRN 11/02/18 11/02/18 Rivaroxaban [Xarelto] 20 mg PO DAILY 11/02/18 11/02/18 Rosuvastatin Calcium [Crestor] 40 mg PO DAILY 11/02/18 11/02/18 predniSONE See Taper PO DAILY 11/02/18 11/02/18 Allergies Allergy/AdvReac Type Severity Reaction Status Date / Time pembrolizumab [From [facility]] AdvReac Nausea & Verified 11/02/18 14:13 Vomiting Review of Systems ROS Statement: Those systems with pertinent positive or pertinent negative responses have been documented in the HPI. ROS Other: All systems not noted in ROS Statement are negative. Respiratory: Reports: cough, dyspnea Gastrointestinal: Reports: nausea, vomiting, diarrhea Musculoskeletal: Reports: back pain Past Medical History Past Medical History: Cancer, COPD, GERD/Reflux, Hypertension, Osteoarthritis (O A), Pneumonia, Prostate Disorder Additional Past Medical History / Comment(s): recovering alcoholic-quit 2002,hx of skin ca(sx), pt stated lung cancer w/ mets dx august occ episodes of liteheadedness w/ exertion,HX LT VOCAL CORD PARALYSIS(SX0 History of Any Multi-Drug Resistant Organisms: None Reported Past Surgical History: Orthopedic Surgery Additional Past Surgical History / Comment(s): rt carpal tunel release, skin cancer removed from face/nose, colonoscopy/polypectomy-per pt was neg. 02-13-18 LT MEDIALIZATION THROIDPLASTY Past Anesthesia/Blood Transfusion Reactions: Family History of Problems w/ Anesthesia Additional Past Anesthesia/Blood Transfusion Reaction / Comment(s): FATHER WOKE UP VERY AGITATED AND HAD TO BE "RE-MEDICATED". HAD BLOOD TRANSFUSION-NO REACTION Past Psychological History: No Psychological Hx Reported Smoking Status: Former smoker Past Alcohol Use History: None Reported Past Drug Use History: None Reported - Past Family History Father Family Medical History: Myocardial Infarction ([place]) Additional Family Medical History / Comment(s): ALCOHOLIC-- Mother Family Medical History: Myocardial Infarction ([place]) Additional Family Medical History / Comment(s): ALCOHOLIC. General Exam Limitations: no limitations General appearance: alert, in no apparent distress Head exam: Present: atraumatic, normocephalic Eye exam: Present: normal appearance ENT exam: Present: normal exam Neck exam: Present: normal inspection Respiratory exam: Present: decreased breath sounds. Absent: respiratory distress, wheezes Cardiovascular Exam: Present: normal rhythm, tachycardia GI/Abdominal exam: Present: soft. Absent: distended, tenderness Rectal exam: Present: deferred Extremities exam: Present: normal inspection. Absent: pedal edema Back exam: Present: normal inspection, vertebral tenderness Neurological exam: Present: alert, oriented X3 Psychiatric exam: Present: normal affect, normal mood Skin exam: Present: warm, dry, intact Course Vital Signs 11/02/18 11/02/18 11/02/18 13:17 14:11 15:22 Temperature 97.7 F 97.8 F Pulse Rate 119 H 110 H 102 H Respiratory 18 18 16 Rate Blood Pressure 103/76 100/77 123/92 O2 Sat by Pulse 98 100 98 Oximetry Medical Decision Making - Medical Decision Making Patient presents with chief complaint of cough, fatigue, and recent diagnosis of pneumonia. On initial evaluation, but also showed tachycardia but otherwise stable. Patient is in no acute distress. He'll be evaluated basic labs include cardiac enzymes, chest x-ray, back x-ray, and Legionella urine antigen. Patient given 1 L of fluid given his history of congestive heart failure. 4:37 PM Laboratory evaluation this patient is unremarkable. Troponin is negative, BNP mildly elevated at 1120. Clinically, patient is not in congestive heart failure. X-ray shows findings consistent with bronchitis, no focal consolidation or effusions noted. Patient given breathing treatments and steroids. On reevaluation he is still nauseated, he was given another dose of Zofran. At this time, patient will be admitted for intractable nausea, COPD exacerbation. Case discussed with Dr. rodriguez to accept admission. Patient is agreeable with the care plan. - Lab Data Result diagrams: 11/02/18 13:58 11/02/18 13:58 Lab Results 11/02/18 11/02/18 11/02/18 Range/Units 13:58 13:58 13:58 WBC 9.3 (3.8-10.6) k/uL RBC 5.38 (4.30-5.90) m/uL Hgb 16.5 (13.0-17.5) gm/dL Hct 49.6 (39.0-53.0) % MCV 92.2 (80.0-100.0) fL MCH 30.8 (25.0-35.0) pg MCHC 33.3 (31.0-37.0) g/dL RDW 15.3 (11.5-15.5) % Plt Count 194 (150-450) k/uL Neutrophils % 79 % Lymphocytes % 10 % Monocytes % 7 % Eosinophils % 1 % Basophils % 0 % Neutrophils # 7.3 (1.3-7.7) k/uL Lymphocytes # 0.9 L (1.0-4.8) k/uL Monocytes # 0.7 (0-1.0) k/uL Eosinophils # 0.1 (0-0.7) k/uL Basophils # 0.0 (0-0.2) k/uL Sodium 136 L (137-145) mmol/L Potassium 4.3 (3.5-5.1) mmol/L Chloride 103 (98-107) mmol/L Carbon Dioxide 22 (22-30) mmol/L Anion Gap 11 mmol/L BUN 18 (9-20) mg/dL Creatinine 1.03 (0.66-1.25) mg/dL Est GFR (CKD-EPI)AfAm >90 (>60 ml/min/1.73 sqM) Est GFR (CKD-EPI)NonAf 81 (>60 ml/min/1.73 sqM) Glucose 95 (74-99) mg/dL Calcium 9.4 (8.4-10.2) mg/dL Troponin I <0.012 (0.000-0.034) ng/mL NT-Pro-B Natriuret Pep pg/mL 11/02/18 Range/Units 15:30 WBC (3.8-10.6) k/uL RBC (4.30-5.90) m/uL Hgb (13.0-17.5) gm/dL Hct (39.0-53.0) % MCV (80.0-100.0) fL MCH (25.0-35.0) pg MCHC (31.0-37.0) g/dL RDW (11.5-15.5) % Plt Count (150-450) k/uL Neutrophils % % Lymphocytes % % Monocytes % % Eosinophils % % Basophils % % Neutrophils # (1.3-7.7) k/uL Lymphocytes # (1.0-4.8) k/uL Monocytes # (0-1.0) k/uL Eosinophils # (0-0.7) k/uL Basophils # (0-0.2) k/uL Sodium (137-145) mmol/L Potassium (3.5-5.1) mmol/L Chloride (98-107) mmol/L Carbon Dioxide (22-30) mmol/L Anion Gap mmol/L BUN (9-20) mg/dL Creatinine (0.66-1.25) mg/dL Est GFR (CKD-EPI)AfAm (>60 ml/min/1.73 sqM) Est GFR (CKD-EPI)NonAf (>60 ml/min/1.73 sqM) Glucose (74-99) mg/dL Calcium (8.4-10.2) mg/dL Troponin I (0.000-0.034) ng/mL NT-Pro-B Natriuret Pep 1120 pg/mL Disposition Clinical Impression: COPD exacerbation, Bronchitis, Intractable nausea and vomiting Disposition: ADMITTED IP TO THIS HOSP Condition: Fair Is patient prescribed a controlled substance at d/c from ED?: No Referrals: Ron Rico MD [Primary Care Provider] - 1-2 days Decision to Admit Reason: Admit from EC - Out of Hospital Transfer - Req. Specs Out of Hospital Transfer - Requested Specifics: Telemetry Unit
[2018-11-02 14:17] LABS: Basophils % (A) 0 %; Eosinophils # (A) 0.1 k/uL (0-0.7); Eosinophils % (A) 1 %; HCT 49.6 % (39.0-53.0); HGB 16.5 gm/dL (13.0-17.5); Lymphocytes # (A) 0.9 k/uL (1.0-4.8); Lymphocytes % (A) 10 %; MCH 30.8 pg (25.0-35.0); MCHC 33.3 g/dL (31.0-37.0); MCV 92.2 fL (80.0-100.0); Mean Platelet Volume 7.5; Monocytes # (A) 0.7 k/uL (0-1.0); Monocytes % (A) 7 %; Neutrophils # (A) 7.3 k/uL (1.3-7.7); Neutrophils % (A) 79 %; Platelet Count 194 k/uL (150-450); RBC 5.38 m/uL (4.30-5.90); RDW 15.3 % (11.5-15.5); WBC 9.3 k/uL (3.8-10.6)
[2018-11-02 14:25] LABS: African American GFR (CKD) >90 (>60 ml/min/1.73 sqM); Anion Gap 11 mmol/L; Blood Urea Nitrogen 18 mg/dL (9-20); Calcium 9.4 mg/dL (8.4-10.2); Carbon Dioxide 22 mmol/L (22-30); Chloride 103 mmol/L (98-107); Glucose 95 mg/dL (74-99); Potassium 4.3 mmol/L (3.5-5.1); Sodium 136 mmol/L (137-145)
--- NOTE | 2018-11-02 14:31 | XR ---
EXAMINATION TYPE: XR thoracic spine complete DATE OF EXAM: 11/02/2018 CLINICAL HISTORY: Back pain. Known lung cancer. TECHNIQUE: Frontal, lateral, and swimmer's view of thoracic spine are obtained. COMPARISON: CT of the chest, abdomen and pelvis dated 08/12/2018. FINDINGS: Chronic left perihilar peribronchial cuffing is seen on the prior of 08/12/2018. Thoracic spi ne show satisfactory alignment without evidence of acute fracture or dislocation. Vertebral body hei ghts and disc space heights are preserved. The known lytic lesion of L1 is better seen on the prior C T of 08/12/2018 and PET/CT dated 08/24/2017. There is redemonstration of multiple ill-defined sclerotic lesions throughout the thoracic spine that are indeterminate. Multilevel mild degenerative changes of the thoracic spine are seen as anterior osteophytes and intervertebral disc space narrowing. Visuali zed ribs are unremarkable. Calcified lymph node at the aorticopulmonary window is unchanged from th e prior CT dated 06/12/2018. IMPRESSION: 1. Chronic left perihilar peribronchial cuffing may represent posttreatment change as seen on the shakira or CT dated 08/12/2018. Line 2. No new compression deformity or malalignment of the thoracic spine. No acute fracture. Mild multil evel degenerative disc disease. 3. There is a known lytic lesion of L1 and multiple stable sclerotic foci throughout the thoracic spi ne that are indeterminate. Continued surveillance with PET CT or nuclear medicine bone scan are recom mended for metastatic workup is surveillance.
--- NOTE | 2018-11-02 14:33 | XR ---
EXAMINATION TYPE: XR chest 2V DATE OF EXAM: 11/02/2018 COMPARISON: X-ray dated 05/01/2018 HISTORY: Chest pain TECHNIQUE: Frontal and lateral views of the chest are obtained. FINDINGS: Chronic left perihilar and right perihilar peribronchial cuffing and right lower lobe as we ll as left superhilar airspace disease is unchanged from the prior chest x-ray of 05/01/2018. There i s no new focal air space opacity, pleural effusion, or pneumothorax seen. The cardiac silhouette siz e is stable and mildly enlarged. The osseous structures are intact and demonstrate multiple nonspec ific sclerotic lesions of the thoracic spine and degenerative change. IMPRESSION: 1. No acute cardiopulmonary process. 2. Unchanged peribronchial cuffing and airspace disease in the left superhilar region and right lower lobe in comparison to the chest x-ray of 05/01/2018. Surveillance with PET CT is recommended for thi s patient to ensure no new hypermetabolic activity on a nonemergent basis.
[2018-11-02] MEDS ORDERED: IPRATROPIUM-ALBUTEROL 3 ML NEB INHALATION STA (16:34)
[2018-11-02] MEDS ORDERED: predniSONE 20 MG TAB PO STA (16:34)
[2018-11-02] MEDS ORDERED: AZITHROMYCIN 500 MG in SODIUM CHLORIDE 0.9% 250 ML IVPB STA (16:38)
[2018-11-02] MEDS ORDERED: NALOXONE 0.4 MG/ML 1 ML VIAL IV PRN (16:39)
[2018-11-02] MEDS ORDERED: ONDANSETRON 4 MG/2 ML VIAL IVP PRN (16:39)
[2018-11-02 20:22] LABS: Appearance,Urine Clear (Clear); Bacteria,Urine Rare /hpf; Bilirubin,Urine Negative (Negative); Blood,Urine Negative (Negative); Color,Urine Yellow; Glucose,Urine (UA) Negative (Negative); Ketones,Urine Negative (Negative); Leukocyte Esterase,Urine Large (Negative); Nitrite,Urine Negative (Negative); Protein,Urine Negative (Negative); RBC,Urine 1 /hpf (0-5); Specific Gravity,Urine 1.007 (1.001-1.035); Urobilinogen,Urine <2.0 mg/dL (<2.0)
[2018-11-02] MEDS: PANTOPRAZOLE 40 MG TABLET PO SCH (21:02)
[2018-11-02] MEDS: traZODone HCL 50 MG TAB PO SCH (21:02)
[2018-11-02] MEDS: RIVAROXABAN 20 MG TAB PO SCH (21:02)
[2018-11-02] MEDS: KETOROLAC 30 MG/ML 1 ML VIAL IVP PRN (21:05)
[2018-11-02] MEDS: BENZONATATE 100 MG CAP PO PRN (22:31)
[2018-11-03 08:28] LABS: African American GFR (CKD) >90 (>60 ml/min/1.73 sqM); Anion Gap 10 mmol/L; Basophils % (A) 0 %; Blood Urea Nitrogen 16 mg/dL (9-20); Calcium 8.4 mg/dL (8.4-10.2); Carbon Dioxide 21 mmol/L (22-30); Chloride 105 mmol/L (98-107); Eosinophils % (A) 0 %; Glucose 86 mg/dL (74-99); HCT 39.8 % (39.0-53.0); Lymphocytes # (A) 0.9 k/uL (1.0-4.8); Lymphocytes % (A) 13 %; MCH 30.3 pg (25.0-35.0); MCHC 32.3 g/dL (31.0-37.0); Mean Platelet Volume 7.7; Monocytes # (A) 0.5 k/uL (0-1.0); Monocytes % (A) 7 %; Neutrophils # (A) 5.6 k/uL (1.3-7.7); Neutrophils % (A) 78 %; Platelet Count 179 k/uL (150-450); Potassium 4.4 mmol/L (3.5-5.1); RBC 4.24 m/uL (4.30-5.90); RDW 15.1 % (11.5-15.5); Sodium 136 mmol/L (137-145); WBC 7.2 k/uL (3.8-10.6)
[2018-11-03 08:31] LABS: HGB 12.9 gm/dL (13.0-17.5)
[2018-11-03] MEDS: KETOROLAC 30 MG/ML 1 ML VIAL IVP PRN ×3 (09:21→22:20)
[2018-11-03] MEDS: ONDANSETRON 4 MG/2 ML VIAL IVP PRN ×3 (09:22→22:20)
[2018-11-03] MEDS: BENZONATATE 100 MG CAP PO PRN ×2 (11:48→22:22)
[2018-11-03 16:27] VITALS: BMI 26.4
[2018-11-03] MEDS ORDERED: methylPREDNISolone SOD SUCCI 40 MG/ML 1 ML VIAL IV SCH (16:30)
--- NOTE | 2018-11-03 16:41 | P.HPIM ---
History of Present Illness H&P Date: 11/03/18 Chief Complaint: Cough History of presenting complaint: This is a very pleasant 58-year-old patient of Dr. Ron Rico. Also following with Dr. Gomes from oncology. Chronic stable medical conditions include GERD, hypertension, osteoarthritis, history of pulmonary embolism, left vocal cord paralysis. Patient also has history of metastatic lung cancer. Finished chemotherapy about 4-5 months ago. Has been told he is in remission. Patient's had a cough for about 10 days. Predominantly dry. No fever or phlegm. Please had some fever. Last few days she's been vomiting every time he coughs. Often when he speaks he coughs. Appetite is gone down. Has been feeling tired and rundown. Review of systems: GEN.: Tired EYES: None HEENT: Discomfort in the throat NECK: None RESPIRATORY: As above CARDIOVASCULAR: None GASTROINTESTINAL: None GENITOURINARY: None MUSCULOSKELETAL: None LYMPHATICS: None HEMATOLOGICAL: None PSYCHIATRY: None NEUROLOGICAL: None. Family history: Myocardial infarction, alcoholism Physical examination: VITAL SIGNS: 97.7, 119, 18, 103/76, 98% room air GENERAL: Average built, sitting up, comfortable. EYES: Pupils equal. Conjunctiva normal. HEENT: External appearance of nose and ears normal, oral cavity grossly normal. NECK: JVD not raised; masses not palpable. HEART: First and second heart sounds are normal; no edema. LUNGS: Respiratory rate normal; decreased breath sounds, prolonged expiration. ABDOMEN: Soft, nontender, liver spleen not palpable, no masses palpable. PSYCH: Alert and oriented x3; mood and affect normal. NEUROLOGICAL: Cranial nerves grossly intact; no facial asymmetry, power and sensation grossly intact. LYMPHATICS: No lymph nodes palpable in the axilla and neck Investigations: White count 9.3, hemoglobin 16.5, platelets 194, potassium 4.3, urine 18, creatinine 1.03 ProBNP 1120 Chest x-ray film personally reviewed by me and also looked at the report that R infiltrates which is reportedly old. Questionable fluid overload Assessment: -Acute COPD exacerbation and and X smoker, associated with acute pharyngitis tracheobronchitis -Metastatic lung cancer currently in remission last chemotherapy at 4-5 months ago -GERD -Essential hypertension -Primary osteoarthritis -History of pulmonary embolism -Chronic left vocal cord paralysis Plan: Patient was started on bronchodilators and steroids of both inhaled and IV. On the home medications were resumed. Patient told to use warm water with salt gargles every few hours and avoid cold liquid status is to precipitate his bouts of coughing also. Patient does see Dr. Roque as an outpatient and he'll be consulted. Care was discussed with the patient questions were answered. Past Medical History Past Medical History: Cancer, COPD, GERD/Reflux, Hypertension, Osteoarthritis (OA), Pneumonia, Prostate Disorder, Pulmonary Embolus (PE) Additional Past Medical History / Comment(s): Recovering alcoholic - quit 2002, hx of skin ca (sx), lung cancer w/ mets, occ episodes of lightheadedness w/ exertion, hx left vocal cord paralysis (sx). History of Any Multi-Drug Resistant Organisms: None Reported Past Surgical History: Orthopedic Surgery Additional Past Surgical History / Comment(s): Right carpal tunnel release, skin ca removed from face/nose, colonoscopy/polypectomy (per patient - negative), 02-13-18 left medialization thyroidplasy. Past Anesthesia/Blood Transfusion Reactions: Family History of Problems w/ Anesthesia Additional Past Anesthesia/Blood Transfusion Reaction / Comment(s): FATHER WOKE UP VERY AGITATED AND HAD TO BE "RE-MEDICATED". HAD BLOOD TRANSFUSION-NO REACTION Past Psychological History: No Psychological Hx Reported Additional Psychological History / Comment(s): Pt. lives alone in single level home that has 3 porch steps. No home care services, is independant. 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 states he is a recovering alcoholic and is 15 years clean. Has not had a drink since . Started smoking 1973 and quit ; was smoking 1.5 - 2 PPD. Past Drug Use History: None Reported Additional Drug Use History / Comment(s): Past cocaine and benzo abuse - quit 2002. - Past Family History Father Family Medical History: Myocardial Infarction ([place]) Additional Family Medical History / Comment(s): Alcoholic. . Mother Family Medical History: Myocardial Infarction ([place]) Additional Family Medical History / Comment(s): Alcoholic. . Medications and Allergies Home Medications Medication Instructions Recorded Confirmed Type traZODone HCL [Desyrel] 100 mg PO HS PRN 12/10/13 11/02/18 History Folic Acid 1 mg PO DAILY 11/13/17 11/02/18 History Ascorbic Acid [Vitamin C] 500 mg PO DAILY 08/20/18 11/02/18 History Biotin 5,000 mcg PO DAILY 08/20/18 11/02/18 History Glucosam/Colin-Msm1/C/Patel/Bosw 1 tab PO DAILY 08/20/18 11/02/18 History [Glucosamine-Chondroitin Tablet] Multivitamins, Thera [Multivitamin 1 tab PO DAILY 08/20/18 11/02/18 History (formulary)] Spironolactone [Aldactone] 12.5 mg PO DAILY 08/20/18 11/02/18 History diphenhydrAMINE [Benadryl] 25 mg PO HS 08/20/18 11/02/18 History Benzonatate [Tessalon Perles] 100 mg PO TID PRN 11/02/18 11/02/18 History Furosemide [Lasix] 20 mg PO DAILY 11/02/18 11/02/18 History Levofloxacin [Levaquin] 500 mg PO DAILY 11/02/18 11/02/18 History Metoprolol Tartrate [Lopressor] 25 mg PO DAILY 11/02/18 11/02/18 History Omeprazole 40 mg PO DAILY 11/02/18 11/02/18 History Ondansetron HCl [Zofran] 8 mg PO Q8H PRN 11/02/18 11/02/18 History Rivaroxaban [Xarelto] 20 mg PO DAILY 11/02/18 11/02/18 History Rosuvastatin Calcium [Crestor] 40 mg PO DAILY 11/02/18 11/02/18 History predniSONE See Taper PO DAILY 11/02/18 11/02/18 History Allergies Allergy/AdvReac Type Severity Reaction Status Date / Time pembrolizumab [From [facility]] AdvReac Nausea & Verified 11/02/18 20:06 Vomiting Physical Exam Vitals: Vital Signs Temp Pulse Pulse Pulse Resp BP BP 11/03/18 05:51 97.6 F 103 H 16 109/64 11/02/18 21:00 98.5 F 84 16 114/79 11/02/18 18:13 100 18 124/74 11/02/18 15:22 102 H 16 123/92 11/02/18 14:11 97.8 F 110 H 18 100/77 11/02/18 13:17 97.7 F 119 H 18 103/76 Pulse Ox 11/03/18 05:51 93 L 11/02/18 21:00 95 11/02/18 18:13 98 11/02/18 15:22 98 11/02/18 14:11 100 11/02/18 13:17 98 Intake and Output 11/02/18 11/03/18 11/03/18 22:59 06:59 14:59 Intake Total 900 Balance 900 Intake: Oral 900 Other: Voiding Method Toilet # Voids 1 5 # Bowel Movements 1 Results CBC & Chem 7: 11/03/18 07:48 11/03/18 07:48 Labs: Abnormal Lab Results - Last 24 Hours (Table) 11/02/18 11/02/18 11/02/18 Range/Units 13:58 13:58 19:50 RBC (4.30-5.90) m/uL Hgb (13.0-17.5) gm/dL Lymphocytes # 0.9 L (1.0-4.8) k/uL Sodium 136 L (137-145) mmol/L Carbon Dioxide (22-30) mmol/L Ur Leukocyte Esterase Large H (Negative) Urine WBC 29 H (0-5) /hpf Urine Bacteria Rare H (None) /hpf 11/03/18 11/03/18 Range/Units 07:48 07:48 RBC 4.24 L (4.30-5.90) m/uL Hgb 12.9 L D (13.0-17.5) gm/dL Lymphocytes # 0.9 L (1.0-4.8) k/uL Sodium 136 L (137-145) mmol/L Carbon Dioxide 21 L (22-30) mmol/L Ur Leukocyte Esterase (Negative) Urine WBC (0-5) /hpf Urine Bacteria (None) /hpf Thrombosis Risk Factor Assmnt - Choose All That Apply Any of the Below Risk Factors Present?: Yes Each Factor Represents 1 point: Abnormal pulmonary function (COPD), Age 41-60 years Each Risk Factor Represents 2 Points: Malignancy Each Risk Factor Represents 3 Points: Family history of DVT/PE Other congenital or acquired thrombophilia - If yes, enter type in comment: No Thrombosis Risk Factor Assessment Total Risk Factor Score: 7 Thrombosis Risk Factor Assessment Level: High Risk
[2018-11-03] MEDS: METOPROLOL TARTRATE 25 MG TAB PO SCH (17:47)
[2018-11-03] MEDS: INSULIN ASPART (NovoLOG) 100 UNIT/ML VIAL SQ SCH ×2 (17:48→20:45)
[2018-11-03] MEDS: MULTIVITAMINS, THERA 1 EACH TAB PO SCH (17:50)
[2018-11-03] MEDS: predniSONE 20 MG TAB PO SCH (17:50)
[2018-11-03] MEDS: ATORVASTATIN 80 MG TAB PO SCH (17:50)
[2018-11-03] MEDS: FOLIC ACID 1 MG TAB PO SCH (17:50)
[2018-11-03 18:01] LABS: Glucose,Whole Blood 84 mg/dL (75-99)
[2018-11-03] MEDS: IPRATROPIUM-ALBUTEROL 3 ML NEB INHALATION SCH ×3 (19:58→23:47)
[2018-11-03] MEDS: BUDESONIDE 1 MG/2 ML NEBU INHALATION SCH ×3 (19:58→20:01)
[2018-11-03 20:30] LABS: Glucose,Whole Blood 104 mg/dL (75-99)
[2018-11-03] MEDS: PANTOPRAZOLE 40 MG TABLET PO SCH (20:48)
[2018-11-03] MEDS: RIVAROXABAN 20 MG TAB PO SCH (20:48)
[2018-11-03] MEDS: traZODone HCL 50 MG TAB PO SCH (20:48)
[2018-11-04 06:59] LABS: Glucose,Whole Blood 132 mg/dL (75-99)
[2018-11-04] MEDS: INSULIN ASPART (NovoLOG) 100 UNIT/ML VIAL SQ SCH ×4 (07:52→21:54)
[2018-11-04] MEDS: ONDANSETRON 4 MG/2 ML VIAL IVP PRN ×3 (07:53→21:55)
[2018-11-04] MEDS: KETOROLAC 30 MG/ML 1 ML VIAL IVP PRN ×3 (07:54→21:55)
[2018-11-04] MEDS: SPIRONOLACTONE 25 MG TAB PO SCH (07:55)
[2018-11-04] MEDS: METOPROLOL TARTRATE 25 MG TAB PO SCH (07:55)
[2018-11-04] MEDS: MULTIVITAMINS, THERA 1 EACH TAB PO SCH (07:55)
[2018-11-04] MEDS: ATORVASTATIN 80 MG TAB PO SCH (07:56)
[2018-11-04] MEDS: predniSONE 20 MG TAB PO SCH (07:56)
[2018-11-04] MEDS: FOLIC ACID 1 MG TAB PO SCH (07:58)
[2018-11-04] MEDS: ASCORBIC ACID 500 MG TAB PO SCH (07:58)
[2018-11-04] MEDS: BUDESONIDE 1 MG/2 ML NEBU INHALATION SCH ×2 (08:23→21:18)
[2018-11-04] MEDS: IPRATROPIUM-ALBUTEROL 3 ML NEB INHALATION SCH ×4 (08:23→21:18)
[2018-11-04] MEDS ORDERED: NON-FORMULARY DRUG (Biotin [Biotin] 5,000 MCG) PO SCH (09:00)
[2018-11-04 11:18] LABS: Glucose,Whole Blood 104 mg/dL (75-99)
[2018-11-04] MEDS ORDERED: IOPAMIDOL-300 CONTRAST 30 ML VIAL (ORAL USE) PO PRN (13:18)
[2018-11-04] MEDS: IOPAMIDOL-300 CONTRAST 30 ML VIAL (ORAL USE) PO PRN ×2 (15:03→16:19)
[2018-11-04 17:16] LABS: Glucose,Whole Blood 112 mg/dL (75-99)
--- NOTE | 2018-11-04 18:23 | P.PN ---
Subjective 58-year-old gentleman with a history of COPD, metastatic lung cancer comes in because of shortness of breath and cough. He follows Dr. Gomes and pulmonology. Today he says that he still has cough and shortness of breath No chest pain or racing heart No abdominal pain, nausea and vomiting, or diarrhea constipation Objective - Vital Signs Vital signs: Vital Signs Temp 97.8 F 11/04/18 11:41 Pulse 78 11/04/18 11:41 Resp 16 11/04/18 11:41 BP 122/76 11/04/18 11:41 Pulse Ox 95 11/04/18 11:41 Intake & Output 11/03/18 11/04/18 11/04/18 18:59 06:59 18:59 Intake Total 1440 240 Balance 1440 240 Weight 86.183 kg Intake: Oral 1440 240 Other: Voiding Method Toilet Toilet Toilet # Voids 4 1 4 # Bowel Movements 1 - Exam On exam, alert and oriented x3. HEENT: Conjunctivae normal. eyes normal. NECK: No JVD. No thyroid enlargement. No LNs CARDIOVASCULAR: S2 positive RESPIRATION: patient has diminished breath sounds. I was not able to appreciate any abnormal breath sounds ABDOMEN: Soft, nontender . No guarding. no masses palpable. No ascites, No hepatosplenomegaly.Bowel sounds heard. LEGS: No edema. no swelling NERVOUS SYSTEM: Cranial N 2-12 grossly normal. Moves all 4 limbs. No focal deficits. No sensory deficit. No signs of cerebellar dysfucntion. Skin: no ulcer no rash - Labs CBC & Chem 7: 11/03/18 07:48 11/03/18 07:48 Labs: Abnormal Lab Results - Last 24 Hours (Table) 11/03/18 11/04/18 11/04/18 Range/Units 20:29 06:58 11:15 POC Glucose (mg/dL) 104 H 132 H 104 H (75-99) mg/dL 11/04/18 Range/Units 17:15 POC Glucose (mg/dL) 112 H (75-99) mg/dL Microbiology - Last 24 Hours (Table) 11/02/18 19:50 Urine Culture - Final Urine,Voided Assessment and Plan Assessment: - acute COPD exacerbation - Acute tracheal bronchitis - History of metastatic lung cancer - Hypertension - History of PE - History of GERD - History of chronic left focal cord paralysis Plan - Continue breathing treatments and steroids - Pulmonology consulted. Appreciate the recommendations. Patient to get CT of the chest abdomen pelvis - Continue rest of the medical care - We'll follow the patient
--- NOTE | 2018-11-04 18:36 | CT ---
EXAMINATION TYPE: CT ChestAbdPelvis w con DATE OF EXAM: 11/04/2018 COMPARISON: 08/12/2018 HISTORY: Abdominal pain, Hx lung ca CT DLP: 1505.9 mGycm Automated exposure control for dose reduction was used. CONTRAST: CT scan of the chest, abdomen and pelvis is performed with Oral Contrast and with IV Contrast, patien t injected with 100 mL of Isovue 300. FINDINGS: There is a moderate left pleural effusion. There is some consolidation and atelectasis in the left lo wer lobe that measures 4 x 3 cm. There is coarse interstitial infiltrate in the mid and lower lung fi elds. Heart is enlarged. There is no pericardial effusion. There are calcified granulomata in the med iastinum. There are enlarged bronchial and mediastinal lymph nodes up to 1 cm. Stomach has normal size. There are numerous hypodense lesions throughout the liver. There is heteroge neous enhancement of the spleen also. There is no evidence of pancreatic mass. There is some bulkines s of the left adrenal gland that measures 3 x 1.5 cm. The kidneys show satisfactory contrast opacific ation. There is no hydronephrosis. Ureters are not dilated. There is no retroperitoneal adenopathy. T here is atheromatous change in the abdominal aorta and its branches. Bladder distends smoothly. There is no inguinal hernia. There is no free fluid in the pelvis. There i s minimal fat stranding in the left paracolic gutter. There is no sign of free air. There is no evide nce of a bowel obstruction. There is no mesenteric edema. Appendix appears normal. There are nonobstr ucting calculi lower pole left kidney. There are sclerotic foci scattered in the thoracic and lumbar spine. There are discrete osteoscleroti c foci in the bony pelvis. IMPRESSION: There is masslike consolidation in the left lower lobe consistent with tumor. Coarse inte rstitial infiltrates in both lower lobes. Left pleural effusion. Chest abnormality increased compared to last exam. There is increased mediastinal and bronchial adenopathy compared to old exam. There are multiple low-density lesions throughout the liver and spleen consistent with metastatic dis ease that appear new compared to recent exam. Normal appendix. There is osteoblastic focus in the inferior aspect of the L4 vertebral body that is consistent with m etastatic disease and appears new compared to old exam.
[2018-11-04 21:04] LABS: Glucose,Whole Blood 111 mg/dL (75-99)
[2018-11-04] MEDS: RIVAROXABAN 20 MG TAB PO SCH (21:55)
[2018-11-04] MEDS: PANTOPRAZOLE 40 MG TABLET PO SCH (21:55)
[2018-11-04] MEDS: traZODone HCL 50 MG TAB PO SCH (21:55)
--- NOTE | 2018-11-04 22:46 | P.CNPUL ---
History of Present Illness Consult date: 11/04/18 Requesting physician: Manpreet Jon Reason for consult: dyspnea, cough Chief complaint: Acute exacerbation of COPD, history of metastatic adenocarcinoma of lung History of present illness: This is a 58-year-old white male patient with history of metastatic adenocarcinoma of the lung, post chemo and immunotherapy with Keytruda. Most recent CAT scan of the chest abdomen and pelvis from July 2018 showed no measurable disease, patient appears to be in remission. 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 History of nonocclusive coronary artery disease, patient follows with Dr. Todd. Other history includes hypertension, GERD/reflux. On 11/02/2018 patient presented to the Ed with complaints of dyspnea, cough, congestion, green phlegm production, nausea, right upper quadrant and left lower quadrant abdominal pain. Denied fever chills, denied chest pain, pleurisy, hemoptysis. Was seen by PCP 3 days prior and started on oral steroids, with no improvement. CXR showed left hilar infiltrate and interstitial pattern. Patient does have a history of chronic systolic CHF with EF of 40%. BNP 1120, trop negative times one, WBC 9.3, Hgb 16.5, Na 136, K4.3, Chloride 103, CO@ 22, BUN 18, Cr 1.03. Afebrile, no acute dystress, complains of coughing spells and abdominal discomfort and nausea Review of Systems All systems: negative Constitutional: Denies chills, Denies fever Eyes: denies blurred vision, denies pain Ears, nose, mouth and throat: Denies headache, Denies sore throat Cardiovascular: Denies chest pain, Denies shortness of breath Respiratory: Reports congestion, Reports cough, Reports cough with sputum, Reports dyspnea, Reports respiratory infections Gastrointestinal: Denies abdominal pain, Denies diarrhea, Denies nausea, Denies vomiting Musculoskeletal: Denies myalgias Integumentary: Denies pruritus, Denies rash Neurological: Denies numbness, Denies weakness Psychiatric: Denies anxiety, Denies depression Endocrine: Denies fatigue, Denies weight change Past Medical History Past Medical History: Cancer, COPD, GERD/Reflux, Hypertension, Osteoarthritis (OA), Pneumonia, Prostate Disorder, Pulmonary Embolus (PE) Additional Past Medical History / Comment(s): Recovering alcoholic - quit 2002, hx of skin ca (sx), lung cancer w/ mets, occ episodes of lightheadedness w/ exertion, hx left vocal cord paralysis (sx). History of Any Multi-Drug Resistant Organisms: None Reported Past Surgical History: Orthopedic Surgery Additional Past Surgical History / Comment(s): Right carpal tunnel release, skin ca removed from face/nose, colonoscopy/polypectomy (per patient - negative), 02-13-18 left medialization thyroidplasy. Past Anesthesia/Blood Transfusion Reactions: Family History of Problems w/ Anesthesia Additional Past Anesthesia/Blood Transfusion Reaction / Comment(s): FATHER WOKE UP VERY AGITATED AND HAD TO BE "RE-MEDICATED". HAD BLOOD TRANSFUSION-NO REACTION Past Psychological History: No Psychological Hx Reported Additional Psychological History / Comment(s): Pt. lives alone in single level home that has 3 porch steps. No home care services, is independant. 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 states he is a recovering alcoholic and is 15 years clean. Has not had a drink since . Started smoking 1973 and quit ; was smoking 1.5 - 2 PPD. Past Drug Use History: None Reported Additional Drug Use History / Comment(s): Past cocaine and benzo abuse - quit 2002. - Past Family History Father Family Medical History: Myocardial Infarction ([place]) Additional Family Medical History / Comment(s): Alcoholic. . Mother Family Medical History: Myocardial Infarction ([place]) Additional Family Medical History / Comment(s): Alcoholic. . Medications and Allergies Home Medications Medication Instructions Recorded Confirmed Type traZODone HCL [Desyrel] 100 mg PO HS PRN 12/10/13 11/02/18 History Folic Acid 1 mg PO DAILY 11/13/17 11/02/18 History Ascorbic Acid [Vitamin C] 500 mg PO DAILY 08/20/18 11/02/18 History Biotin 5,000 mcg PO DAILY 08/20/18 11/02/18 History Glucosam/Colin-Msm1/C/Patel/Bosw 1 tab PO DAILY 08/20/18 11/02/18 History [Glucosamine-Chondroitin Tablet] Multivitamins, Thera [Multivitamin 1 tab PO DAILY 08/20/18 11/02/18 History (formulary)] Spironolactone [Aldactone] 12.5 mg PO DAILY 08/20/18 11/02/18 History diphenhydrAMINE [Benadryl] 25 mg PO HS 08/20/18 11/02/18 History Benzonatate [Tessalon Perles] 100 mg PO TID PRN 11/02/18 11/02/18 History Furosemide [Lasix] 20 mg PO DAILY 11/02/18 11/02/18 History Levofloxacin [Levaquin] 500 mg PO DAILY 11/02/18 11/02/18 History Metoprolol Tartrate [Lopressor] 25 mg PO DAILY 11/02/18 11/02/18 History Omeprazole 40 mg PO DAILY 11/02/18 11/02/18 History Ondansetron HCl [Zofran] 8 mg PO Q8H PRN 11/02/18 11/02/18 History Rivaroxaban [Xarelto] 20 mg PO DAILY 11/02/18 11/02/18 History Rosuvastatin Calcium [Crestor] 40 mg PO DAILY 11/02/18 11/02/18 History predniSONE See Taper PO DAILY 11/02/18 11/02/18 History Allergies Allergy/AdvReac Type Severity Reaction Status Date / Time pembrolizumab [[facility]] AdvReac Nausea & Verified 11/02/18 20:06 Vomiting Physical Exam Vitals: Vital Signs Temp Pulse Resp BP BP BP BP 11/04/18 11:41 97.8 F 78 16 122/76 11/04/18 05:19 98.2 F 44 L 16 105/67 11/03/18 23:27 16 11/03/18 20:35 98.1 F 93 16 99/61 93/61 99/60 Pulse Ox 11/04/18 11:41 95 11/04/18 05:19 94 L 11/03/18 23:27 11/03/18 20:35 94 L Intake and Output 11/04/18 11/04/18 11/04/18 06:59 14:59 22:59 Other: Voiding Method Toilet Toilet Toilet # Voids 1 4 - Constitutional General appearance: average body habitus, cooperative, no acute distress - EENT Eyes: EOMI ENT: NA/AT, normal oropharynx - Respiratory Respiratory: bilateral: diminished, wheezing - Cardiovascular Rhythm: regular - Gastrointestinal Localized gastrointestinal: tender: RUQ, LLQ - Integumentary Integumentary: normal turgor - Neurologic Neurologic: CNII-XII intact - Musculoskeletal Musculoskeletal: gait normal - Psychiatric Psychiatric: A&O x's 3, appropriate affect, intact judgment & insight Results - Laboratory Findings CBC and BMP: 11/03/18 07:48 11/03/18 07:48 Abnormal lab findings: Abnormal Labs 11/02/18 11/02/18 11/02/18 13:58 13:58 19:50 RBC Hgb Lymphocytes # 0.9 L Sodium 136 L Carbon Dioxide POC Glucose (mg/dL) Ur Leukocyte Esterase Large H Urine WBC 29 H Urine Bacteria Rare H 11/03/18 11/03/18 11/03/18 07:48 07:48 20:29 RBC 4.24 L Hgb 12.9 L D Lymphocytes # 0.9 L Sodium 136 L Carbon Dioxide 21 L POC Glucose (mg/dL) 104 H Ur Leukocyte Esterase Urine WBC Urine Bacteria 11/04/18 11/04/18 11/04/18 06:58 11:15 17:15 RBC Hgb Lymphocytes # Sodium Carbon Dioxide POC Glucose (mg/dL) 132 H 104 H 112 H Ur Leukocyte Esterase Urine WBC Urine Bacteria - Diagnostic Findings Chest x-ray: report reviewed, image reviewed CT scan - chest: report reviewed, image reviewed Assessment and Plan Plan: Assessment: 1. Dyspnea, related to what appears to be recurrent metastatic lung cancer, CT c hest/Abdomen/Pelvis shows masslike consolidation in the left lower lobe consistent with tumor, coarse interstial infitrates in both lower lobes, left pleural effusion increased from prior CT chest in July,. Increased mediastinal and bronchial adenopathy, low density lesions throughout liver and spleen consistent with metastatic disease in addition to the osteoblastic focus in the inferior aspect of L4 consistent with metastatic disease 2. Metastatic adenocarcinoma of lung stage IV, status chemo and immunotherapy, was in remission until now 3. Abdominal pain in right upper quadrant and left lower quadrant, nausea likely related to metastatic disease 4. Chronic systolic CHF 5. Former nicotine dependence 6. History of left vocal cord paralysis, s/p vocal cord medialization 7. Non-occlusive corodnary artery disease 8. History of previous pneumonia Plan: CT chest/abdomen/pelvis reviewed and consistent with recurrent of metastatic lung cancer. Consult Medical oncology. Continue current medical treatment. Send procalcitonin. Will hold off on antibiotcs for now. Continue with oral steroids and breathing treatments, obtain sputum culture. Will follow This patient was seen and evaluated along with IRAIS Brown. Agree with the above exam findings and evaluation. Time with Patient: Greater than 30
[2018-11-04] MEDS: PROMETHAZ-COD 6.25-10 MG/5 ML 5 ML CUP PO PRN (23:26)
[2018-11-05] MEDS: ONDANSETRON 4 MG/2 ML VIAL IVP PRN ×2 (04:26→18:53)
[2018-11-05] MEDS: KETOROLAC 30 MG/ML 1 ML VIAL IVP PRN ×3 (04:26→17:45)
[2018-11-05] MEDS: BUDESONIDE 1 MG/2 ML NEBU INHALATION SCH ×2 (07:32→21:10)
[2018-11-05] MEDS: IPRATROPIUM-ALBUTEROL 3 ML NEB INHALATION SCH ×4 (07:32→21:10)
[2018-11-05 07:36] LABS: HCT 41.3 % (39.0-53.0); HGB 12.8 gm/dL (13.0-17.5); MCH 29.9 pg (25.0-35.0); MCHC 30.9 g/dL (31.0-37.0); MCV 96.5 fL (80.0-100.0); Mean Platelet Volume 7.3; Platelet Count 178 k/uL (150-450); RBC 4.28 m/uL (4.30-5.90); RDW 14.2 % (11.5-15.5); WBC 11.3 k/uL (3.8-10.6)
[2018-11-05 07:37] LABS: Glucose,Whole Blood 90 mg/dL (75-99)
[2018-11-05 07:49] LABS: African American GFR (CKD) >90 (>60 ml/min/1.73 sqM); Anion Gap 9 mmol/L; Blood Urea Nitrogen 18 mg/dL (9-20); Calcium 8.9 mg/dL (8.4-10.2); Carbon Dioxide 20 mmol/L (22-30); Chloride 111 mmol/L (98-107); Glucose 82 mg/dL (74-99); Sodium 140 mmol/L (137-145)
[2018-11-05] MEDS: INSULIN ASPART (NovoLOG) 100 UNIT/ML VIAL SQ SCH ×4 (08:09→21:22)
[2018-11-05] MEDS: ATORVASTATIN 80 MG TAB PO SCH (08:59)
[2018-11-05] MEDS: SPIRONOLACTONE 25 MG TAB PO SCH (08:59)
[2018-11-05] MEDS: MULTIVITAMINS, THERA 1 EACH TAB PO SCH (08:59)
[2018-11-05] MEDS: predniSONE 20 MG TAB PO SCH (08:59)
[2018-11-05] MEDS: METOPROLOL TARTRATE 25 MG TAB PO SCH (09:00)
[2018-11-05] MEDS: ASCORBIC ACID 500 MG TAB PO SCH (09:00)
[2018-11-05] MEDS: FOLIC ACID 1 MG TAB PO SCH (09:00)
[2018-11-05] MEDS: PROMETHAZ-COD 6.25-10 MG/5 ML 5 ML CUP PO PRN ×2 (11:00→22:54)
[2018-11-05 11:18] LABS: Glucose,Whole Blood 126 mg/dL (75-99)
--- NOTE | 2018-11-05 15:39 | P.CONS ---
History of Present Illness - Reason for Consult Consult date: 11/05/18 Recurrent Malignancy Requesting physician: Caroline Roque - Chief Complaint Dyspnea and cough - History of Present Illness This is a very nice patient who was first evaluated on 08/26/2017 as inpatient who he was admitted because of persistent cough and hoarness of his voice of about 3 months duration. On 08/23/2017,CT scan of neck revealed left supraclavicular node,CT of chest revealed 1.3cm LLL mass and left hilar adenopathy and bulky mediastinal nodes. On 08/24/2017,biopsy of left supraclavicular node was positive for adenocarcinoma,IHC stains were non specific but felt in view of clinical picture to be compatible with lung origin. On 09/01/2017,PET scan revealed suspicious uptake in bulky mediastinal nodes,bilateral supraclavicular nodes,LLL lesion,6 suspicious liver lesions and small lytic lesion on T8-L1 PDL-1 was negative,NexGen revealed TP53 mutation,negative EGFR,ALK,ROS- 1,BRAF,MET He started carboplatin/alimta/keytruda on 09/24/2017. Repeat CT scan of chest/abdomen/pelvis on 11/12/2017 revealed significant improvement in his disease,however,there was large pericardial effusion,he was admitted to the hospital,had an echocardiogram,evaluated by cardiology,did not have cardiac tamponade,it was felt that it could be related to keytruda,was put on prednisone and the fluid improved. He was seen by Dr Ocasio after discharge from hospital and repeat echo in his office revealed significant improvement in his pericardial effusion. He resumed keytruda along with carboplatin/alimta on 12/17/2017 He completed 6 cycles of carboplatin/kd/keytruda on 01/09/2018. Repeat CT scan of chest/abdomen/pelvis on 01/16/2018 continued to reveal signifi cant improvement ,no pericardial effusion. He started maintenance alimta/keytruda on 02/25/2018. However,he was admitted on 03/04/2019 for dyspnea,CT scan of chest revealed PE in RLE and was started on xarelto. He continued on Almta and Keytruda, completed in May 2018. August CT scans revealed stable disease left lung without evidence of metastatic disease. On 11/02/2018 patient presented to the Ed with complaints of dyspnea, cough, congestion, productive greenish phlegm , nausea without emesis, right upper quadrant and left lower quadrant abdominal pain. Denied fever chills, denied chest pain, pleurisy, hemoptysis. Was seen by PCP 3 days prior and started on oral steroids, with no improvement. CXR showed left hilar infiltrate and interstitial pattern. On November 04 CAT scan of the chest abdomen and pelvis was completed: There appears to be progression of disease on the computed tomography scan with a masslike consolidation left lower lobe which was consistent with his prior tumor although felt stable on last exam new left pleural effusion chest abnormality and incre ased mediastinal and bronchial adenopathy in comparison to his August CAT scan there was also multiple low-density lesions throughout the liver and spleen consistent with metastatic disease also concern for osteoblastic focus in the inferior aspect of the L4 vertebral body that is consistent with metastatic disease which is also new in comparison to his old exam He complains of RUQ pain, Abdominal Bloating and bowel changes. HIs LFTs are elevated. He is unable to take a deep breath secondary to coughing. Education on deep breaths and coughs today. Discussed case with Primary team. Review of Systems 14 point review of systems was assessed and completed in all negative except for HPI Past Medical History Past Medical History: Cancer, COPD, GERD/Reflux, Hypertension, Osteoarthritis (OA), Pneumonia, Prostate Disorder, Pulmonary Embolus (PE) Additional Past Medical History / Comment(s): Recovering alcoholic - quit 2002, hx of skin ca (sx), lung cancer w/ mets, occ episodes of lightheadedness w/ e xertion, hx left vocal cord paralysis (sx). History of Any Multi-Drug Resistant Organisms: None Reported Past Surgical History: Orthopedic Surgery Additional Past Surgical History / Comment(s): Right carpal tunnel release, skin ca removed from face/nose, colonoscopy/polypectomy (per patient - negative), 02-13-18 left medialization thyroidplasy. Past Anesthesia/Blood Transfusion Reactions: Family History of Problems w/ Anesthesia Additional Past Anesthesia/Blood Transfusion Reaction / Comm: FATHER WOKE UP VERY AGITATED AND HAD TO BE "RE-MEDICATED". HAD BLOOD TRANSFUSION-NO REACTION Past Psychological History: No Psychological Hx Reported Additional Psychological History / Comment(s): Pt. lives alone in single level h ome that has 3 porch steps. No home care services, is independant. 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 states he is a recovering alcoholic and is 15 years clean. Has not had a drink since 203. Started smoking 1973 and quit ; was smoking 1.5 - 2 PPD. Past Drug Use History: None Reported Additional Drug Use History / Comment(s): Past cocaine and benzo abuse - quit 2002. - Past Family History Father Family Medical History: Myocardial Infarction ([place]) Additional Family Medical History / Comment(s): Alcoholic. . Mother Family Medical History: Myocardial Infarction ([place]) Additional Family Medical History / Comment(s): Alcoholic. . Medications and Allergies Home Medications Medication Instructions Recorded Confirmed Type traZODone HCL [Desyrel] 100 mg PO HS PRN 12/10/13 11/02/18 History Folic Acid 1 mg PO DAILY 11/13/17 11/02/18 History Ascorbic Acid [Vitamin C] 500 mg PO DAILY 08/20/18 11/02/18 History Biotin 5,000 mcg PO DAILY 08/20/18 11/02/18 History Glucosam/Colin-Msm1/C/Patel/Bosw 1 tab PO DAILY 08/20/18 11/02/18 History [Glucosamine-Chondroitin Tablet] Multivitamins, Thera [Multivitamin 1 tab PO DAILY 08/20/18 11/02/18 History (formulary)] Spironolactone [Aldactone] 12.5 mg PO DAILY 08/20/18 11/02/18 History diphenhydrAMINE [Benadryl] 25 mg PO HS 08/20/18 11/02/18 History Benzonatate [Tessalon Perles] 100 mg PO TID PRN 11/02/18 11/02/18 History Furosemide [Lasix] 20 mg PO DAILY 11/02/18 11/02/18 History Levofloxacin [Levaquin] 500 mg PO DAILY 11/02/18 11/02/18 History Metoprolol Tartrate [Lopressor] 25 mg PO DAILY 11/02/18 11/02/18 History Omeprazole 40 mg PO DAILY 11/02/18 11/02/18 History Ondansetron HCl [Zofran] 8 mg PO Q8H PRN 11/02/18 11/02/18 History Rivaroxaban [Xarelto] 20 mg PO DAILY 11/02/18 11/02/18 History Rosuvastatin Calcium [Crestor] 40 mg PO DAILY 11/02/18 11/02/18 History predniSONE See Taper PO DAILY 11/02/18 11/02/18 History Allergies Allergy/AdvReac Type Severity Reaction Status Date / Time pembrolizumab [From [facility]] AdvReac Nausea & Verified 11/02/18 20:06 Vomiting Physical Exam Vitals: Vital Signs Temp Pulse Resp BP Pulse Ox 11/05/18 11:17 97.5 F L 80 20 127/84 95 11/05/18 05:00 97.4 F L 79 18 140/74 94 L 11/04/18 21:00 98.3 F 77 18 129/83 94 L Intake and Output 11/05/18 11/05/18 11/05/18 06:59 14:59 22:59 Intake Total 590 Balance 590 Intake: Oral 590 Other: Voiding Method Toilet # Voids 4 2 # Bowel Movements 1 General: Alert and Oriented x3, No Acute Distress Head: Normocytic, Atraumatic Neck: Supple Mouth: No Lesions, No Thrush Eyes: Non-sclerotic No Palpable cervical, supraclavicular, axillary adenopathy Heart: Regular Rate, Regular Rhythm Lungs: Clear to Ausculations, No Wheeze, No Rhonchi, Diminishe bilateral lower lobes, No increased respiratory effort noted Abdomen: Soft, Non-Distended, Non-Tended, BSx4 Extremities: No Edema, Equal Strength Neurological: No Focal Defects: No sensory or motor deficits noted Psych: Calm and cooperative Results CBC & Chem 7: 11/05/18 07:04 11/05/18 07:04 Labs: Abnormal Lab Results - Last 24 Hours (Table) 11/04/18 11/04/18 11/05/18 Range/Units 17:15 21:02 07:04 WBC 11.3 H (3.8-10.6) k/uL RBC 4.28 L (4.30-5.90) m/uL Hgb 12.8 L (13.0-17.5) gm/dL MCHC 30.9 L (31.0-37.0) g/dL Chloride (98-107) mmol/L Carbon Dioxide (22-30) mmol/L POC Glucose (mg/dL) 112 H 111 H (75-99) mg/dL 11/05/18 11/05/18 Range/Units 07:04 11:05 WBC (3.8-10.6) k/uL RBC (4.30-5.90) m/uL Hgb (13.0-17.5) gm/dL MCHC (31.0-37.0) g/dL Chloride 111 H (98-107) mmol/L Carbon Dioxide 20 L (22-30) mmol/L POC Glucose (mg/dL) 126 H (75-99) mg/dL Microbiology - Last 24 Hours (Table) 11/02/18 19:50 Urine Culture - Final Urine,Voided CT scan - abdomen: report reviewed CT scan - chest: report reviewed CT scan - pelvis: report reviewed Assessment and Plan Plan: Assessment and Recommendations: Adenocarcinoma of the Lung: - Completed treatment in May 2018, last CT scans in August showed stable disease without recurrence or metastatic disease - Now with concern for progressive disease to lymph nodes mediastinal and bronchial, liver lesions and bone (L4 osteoblastic focus) - MRI brain for full restaging - Bone Scan Increased Abdominal Bloating: - Likely secondary to increased LFTs. COncern for underlying metastatic disease - MRI Liver - GI consult resonable New Osteoblastic Lesions L4 with associated Lower back pain: - No unilateral weakness - Bone scan for restaging Persistent Nausea, Headaches: - Secondary to abdominal distention versus further cancer progression - MRI of brain to assess for metastatic disease PLan: - COntrol of current symptoms - Will plan to follow-up with Dr. Gomes for second line treatment 1-2 weeks - Await MRIs and Bone Scan, Monitor LFTs and limit hepatotoxic medications.
--- NOTE | 2018-11-05 15:50 | P.PN ---
Subjective 58-year-old gentleman with a history of COPD, metastatic lung cancer comes in because of shortness of breath and cough. He follows Dr. Gomes and pulmonology. 11/04/2018 Today he says that he still has cough and shortness of breath No chest pain or racing heart No abdominal pain, nausea and vomiting, or diarrhea constipation 11/05/2018 Patient is still short of breath and is coughing He is sad and depressed as he heard the news of his recurrence of metastatic lung cancer He says that he's having abdominal pain probably because of cough today. He is nauseous Objective - Vital Signs Vital signs: Vital Signs Temp 97.5 F L 11/05/18 11:17 Pulse 80 11/05/18 11:17 Resp 20 11/05/18 11:17 BP 127/84 11/05/18 11:17 Pulse Ox 95 11/05/18 11:17 Intake & Output 11/04/18 11/05/18 11/05/18 18:59 06:59 18:59 Intake Total 590 Balance 590 Intake: Oral 590 Other: Voiding Method Toilet Toilet # Voids 4 4 2 # Bowel Movements 1 - Exam On exam, alert and oriented x3. HEENT: Conjunctivae normal. eyes normal. NECK: No JVD. No thyroid enlargement. No LNs CARDIOVASCULAR: S2 positive RESPIRATION: patient has diminished breath sounds. I was not able to appreciate any abnormal breath sounds ABDOMEN: Soft, nontender . No guarding. no masses palpable. No ascites, No hepatosplenomegaly.Bowel sounds heard. LEGS: No edema. no swelling NERVOUS SYSTEM: Cranial N 2-12 grossly normal. Moves all 4 limbs. No focal deficits. No sensory deficit. No signs of cerebellar dysfucntion. Skin: no ulcer no rash - Labs CBC & Chem 7: 11/05/18 07:04 11/05/18 07:04 Labs: Abnormal Lab Results - Last 24 Hours (Table) 11/04/18 11/04/18 11/05/18 Range/Units 17:15 21:02 07:04 WBC 11.3 H (3.8-10.6) k/uL RBC 4.28 L (4.30-5.90) m/uL Hgb 12.8 L (13.0-17.5) gm/dL MCHC 30.9 L (31.0-37.0) g/dL Chloride (98-107) mmol/L Carbon Dioxide (22-30) mmol/L POC Glucose (mg/dL) 112 H 111 H (75-99) mg/dL 11/05/18 11/05/18 Range/Units 07:04 11:05 WBC (3.8-10.6) k/uL RBC (4.30-5.90) m/uL Hgb (13.0-17.5) gm/dL MCHC (31.0-37.0) g/dL Chloride 111 H (98-107) mmol/L Carbon Dioxide 20 L (22-30) mmol/L POC Glucose (mg/dL) 126 H (75-99) mg/dL Microbiology - Last 24 Hours (Table) 11/02/18 19:50 Urine Culture - Final Urine,Voided Assessment and Plan Assessment: - acute COPD exacerbation - Acute tracheal bronchitis - History of metastatic lung cancer - Hypertension - History of PE - History of GERD - History of chronic left focal cord paralysis Plan 11/04/2018 - Continue breathing treatments and steroids - Pulmonology consulted. Appreciate the recommendations. Patient to get CT of the chest abdomen pelvis - Continue rest of the medical care - We'll follow the patient 11/05/2018 - Hematology oncology consulted. Patient had a CT chest abdomen pelvis done which showed recurrence of lung cancer - Continue breathing treatments and steroids - Continue rest of the medical care
--- NOTE | 2018-11-05 15:51 | P.PN ---
Subjective Progress Note Date: 11/05/18 Principal diagnosis: Acute exacerbation of COPD, history of metastatic adenocarcinoma of the lung, with recurrence This is a 58-year-old white male patient with history of metastatic adenocarcinoma of the lung, post chemo and immunotherapy with Keytruda. Most recent CAT scan of the chest abdomen and pelvis from July 2018 showed no measurable disease, patient appears to be in remission. 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 History of nonocclusive coronary artery disease, patient follows with Dr. Todd. Other history includes hypertension, GERD/reflux. On 11/02/2018 patient presented to the Ed with complaints of dyspnea, cough, congestion, green phlegm production, nausea, right upper quadrant and left lower quadrant abdominal pain. Denied fever chills, denied chest pain, pleurisy, hemoptysis. Was seen by PCP 3 days prior and started on oral steroids, with no improvement. CXR showed left hilar infiltrate and interstitial pattern. Patient does have a history of chronic systolic CHF with EF of 40%. BNP 1120, trop negative times one, WBC 9.3, Hgb 16.5, Na 136, K4.3, Chloride 103, CO@ 22, BUN 18, Cr 1.03. Afebrile, no acute dystress, complains of coughing spells and abdominal discomfort and nausea On 11/05/2018 patient seen in follow-up on medical oncology floor. Denies any worsening shortness of breath, overall slightly improved, although still has a persistent cough. Room air pulse ox is 95%, he is afebrile, hemodynamically stable, patient is tolerating ambulation. Lung sounds reveal better manage breath sounds with some scattered wheezing. Today's labs have been reviewed, showing white blood cell count of 11.3, hemoglobin of 12.8, platelet count is 178, serum sodium is 140, potassium is 5.0, chloride is 111, CO2 is 20, BUN is 18, creatinine is 1.03. Procalcitonin is pending, findings of the CT chest abdomen and pelvis were discussed with the patient and they are consistent with recurrence of the metastatic disease. Medical oncology has been consulted. patient is visibly upset and emotional about recurrence of the malignancy. Objective - Vital Signs Vital signs: Vital Signs Temp 97.5 F L 11/05/18 11:17 Pulse 80 11/05/18 11:17 Resp 20 11/05/18 11:17 BP 127/84 11/05/18 11:17 Pulse Ox 95 11/05/18 11:17 Intake & Output 11/04/18 11/05/18 11/05/18 18:59 06:59 18:59 Intake Total 590 Balance 590 Intake: Oral 590 Other: Voiding Method Toilet Toilet # Voids 4 4 2 # Bowel Movements 1 - Exam GENERAL EXAM: Alert, pleasant, 58-year-old white male, on room air, comfortable in no apparent distress. HEAD: Normocephalic/atraumatic. EYES: Normal reaction of pupils, equal size. Conjunctiva pink, sclera white. NOSE: Clear with pink turbinates. THROAT: No erythema or exudates. NECK: No masses, no JVD, no thyroid enlargement, no adenopathy. CHEST: No chest wall deformity. Symmetrical expansion. LUNGS: Equal air entry with some scattered wheezes CVS: Regular rate and rhythm, normal S1 and S2, no gallops, no murmurs, no rubs ABDOMEN: Soft, nontender. No hepatosplenomegaly, normal bowel sounds, no guarding or rigidity. EXTREMITIES: No clubbing, no edema, no cyanosis, 2+ pulses and upper and lower extremities. MUSCULOSKELETAL: Muscle strength and tone normal. SPINE: No scoliosis or deformity SKIN: No rashes CENTRAL NERVOUS SYSTEM: Alert and oriented -3. No focal deficits, tone is normal in all 4 extremities. PSYCHIATRIC: Alert and oriented -3. Appropriate affect. Intact judgment and insight. - Labs CBC & Chem 7: 11/05/18 07:04 11/05/18 07:04 Labs: Abnormal Lab Results - Last 24 Hours (Table) 11/04/18 11/04/18 11/05/18 Range/Units 17:15 21:02 07:04 WBC 11.3 H (3.8-10.6) k/uL RBC 4.28 L (4.30-5.90) m/uL Hgb 12.8 L (13.0-17.5) gm/dL MCHC 30.9 L (31.0-37.0) g/dL Chloride (98-107) mmol/L Carbon Dioxide (22-30) mmol/L POC Glucose (mg/dL) 112 H 111 H (75-99) mg/dL 11/05/18 11/05/18 Range/Units 07:04 11:05 WBC (3.8-10.6) k/uL RBC (4.30-5.90) m/uL Hgb (13.0-17.5) gm/dL MCHC (31.0-37.0) g/dL Chloride 111 H (98-107) mmol/L Carbon Dioxide 20 L (22-30) mmol/L POC Glucose (mg/dL) 126 H (75-99) mg/dL Microbiology - Last 24 Hours (Table) 11/02/18 19:50 Urine Culture - Final Urine,Voided Assessment and Plan Plan: Assessment: 1. Dyspnea, related to what appears to be recurrent metastatic lung cancer, CT chest/Abdomen/Pelvis shows masslike consolidation in the left lower lobe c onsistent with tumor, coarse interstial infitrates in both lower lobes, left pleural effusion increased from prior CT chest in July,. Increased mediastinal and bronchial adenopathy, low density lesions throughout liver and spleen consistent with metastatic disease in addition to the osteoblastic focus in the inferior aspect of L4 consistent with metastatic disease 2. Metastatic adenocarcinoma of lung stage IV, status chemo and immunotherapy, was in remission until now 3. Abdominal pain in right upper quadrant and left lower quadrant, nausea likely related to metastatic disease 4. Chronic systolic CHF 5. Former nicotine dependence 6. History of left vocal cord paralysis, s/p vocal cord medialization 7. Non-occlusive corodnary artery disease 8. History of previous pneumonia Plan: Continue with breathing treatments, oral steroids, Tessalon Perles. Vital signs are stable, no fever or chills, medical oncology has been consulted, findings of the CT chest/abdomen/pelvis were discussed with the patient. Pro-calcitonin level has been ordered. We'll continue to follow, will await input of medical oncology. This patient was seen and evaluated along with IRAIS Brown. Agree with the above exam findings and evaluation. Time with Patient: Less than 30
[2018-11-05] MEDS: ALPRAZolam 0.5 MG TAB PO PRN (16:39)
[2018-11-05 17:03] LABS: Albumin 2.9 g/dL (3.5-5.0); Bilirubin, Delta 0.2 mg/dL (0.0-0.2); Bilirubin,Unconjugated 0.3 mg/dL (0.0-1.1); Total Bilirubin 0.5 mg/dL (0.2-1.3); Total Protein 5.6 g/dL (6.3-8.2)
[2018-11-05 17:09] LABS: Glucose,Whole Blood 123 mg/dL (75-99)
[2018-11-05 20:10] LABS: Glucose,Whole Blood 204 mg/dL (75-99)
[2018-11-05] MEDS: PANTOPRAZOLE 40 MG TABLET PO SCH (21:21)
[2018-11-05] MEDS: BENZONATATE 100 MG CAP PO PRN (21:21)
[2018-11-05] MEDS: RIVAROXABAN 20 MG TAB PO SCH (21:24)
[2018-11-05] MEDS: traZODone HCL 50 MG TAB PO SCH (21:24)
[2018-11-05] MEDS: IPRATROPIUM-ALBUTEROL 3 ML NEB INHALATION PRN (22:34)
[2018-11-05] MEDS: METOCLOPRAMIDE 5 MG/ML 2 ML VIAL IVP PRN (22:37)
[2018-11-06] MEDS ORDERED: METOCLOPRAMIDE 5 MG/ML 2 ML VIAL IVP SCH
[2018-11-06] MEDS: KETOROLAC 30 MG/ML 1 ML VIAL IVP PRN ×4 (00:31→21:07)
[2018-11-06] MEDS: ONDANSETRON 4 MG/2 ML VIAL IVP PRN ×4 (00:31→21:07)
[2018-11-06 07:17] LABS: Glucose,Whole Blood 93 mg/dL (75-99)
[2018-11-06] MEDS: BUDESONIDE 1 MG/2 ML NEBU INHALATION SCH ×2 (07:48→21:25)
[2018-11-06] MEDS: IPRATROPIUM-ALBUTEROL 3 ML NEB INHALATION SCH ×4 (07:49→21:25)
[2018-11-06 07:57] LABS: Basophils % (A) 0 %; Eosinophils % (A) 0 %; HCT 42.8 % (39.0-53.0); HGB 13.4 gm/dL (13.0-17.5); Lymphocytes # (A) 0.8 k/uL (1.0-4.8); Lymphocytes % (A) 7 %; MCH 30.1 pg (25.0-35.0); MCHC 31.3 g/dL (31.0-37.0); MCV 96.3 fL (80.0-100.0); Mean Platelet Volume 7.6; Monocytes # (A) 0.9 k/uL (0-1.0); Monocytes % (A) 8 %; Neutrophils # (A) 9.2 k/uL (1.3-7.7); Neutrophils % (A) 82 %; Platelet Count 183 k/uL (150-450); RBC 4.45 m/uL (4.30-5.90); RDW 14.5 % (11.5-15.5); WBC 11.2 k/uL (3.8-10.6)
[2018-11-06 08:06] LABS: INR 1.5 (<1.2); Partial Thromboplastin Time 28.7 sec (22.0-30.0); Prothrombin Time 15.1 sec (9.0-12.0)
[2018-11-06 08:22] LABS: Albumin 3.1 g/dL (3.5-5.0); Calcium 9.2 mg/dL (8.4-10.2); Total Bilirubin 0.4 mg/dL (0.2-1.3); Total Protein 5.8 g/dL (6.3-8.2)
[2018-11-06] MEDS: INSULIN ASPART (NovoLOG) 100 UNIT/ML VIAL SQ SCH ×4 (08:58→21:55)
[2018-11-06] MEDS: MULTIVITAMINS, THERA 1 EACH TAB PO SCH (09:04)
[2018-11-06] MEDS: ATORVASTATIN 80 MG TAB PO SCH (09:04)
[2018-11-06] MEDS: METOPROLOL TARTRATE 25 MG TAB PO SCH (09:05)
[2018-11-06] MEDS: predniSONE 20 MG TAB PO SCH (09:05)
[2018-11-06] MEDS: ASCORBIC ACID 500 MG TAB PO SCH (09:05)
[2018-11-06] MEDS: FOLIC ACID 1 MG TAB PO SCH (09:05)
[2018-11-06] MEDS: SPIRONOLACTONE 25 MG TAB PO SCH (09:05)
--- NOTE | 2018-11-06 09:21 | US ---
EXAMINATION TYPE: US abdomen complete DATE OF EXAM: 11/06/2018 COMPARISON: CT 2019 CLINICAL HISTORY: increased distention and LFTs - ascites mets. Abdomen pain, N/V, distention, mets EXAM MEASUREMENTS: Liver Length: 15.7 cm Gallbladder Wall: 0.4 cm CBD: 0.3 cm Spleen: 11.7 cm Right Kidney: 11.0 x 4.9 x 4.8 cm Left Kidney: 10.8 x 4.9 x 5.2 cm Pancreas: obscured by overlying midline bowel gas Liver: scanned intercostally, limited by rib shadowing, multiple hypoechoic lesions Gallbladder: wall thickening, small amount of fluid seen anterior to gallbladder Evidence for sonographic Lundy's sign: no CBD: visualized portions wnl, limited by overlying bowel gas Spleen: wnl Right Kidney: wnl Left Kidney: 0.4cm echogenic focus inferior pole Upper IVC: wnl Abd Aorta: prox and mid portion obscured, distal portion appears wnl Left pleural effusion noted IMPRESSION: 1. Small left pleural effusion. 2. There are multiple hypoechoic lesions within the liver compatible with the CT findings and suggest didier of metastases. 3. Mild gallbladder wall thickening measuring 4 mm. No definite gallstones. Correlate clinically for acalculous cholecystitis. 4. Nonobstructing left renal calculus.
[2018-11-06] MEDS: PROMETHAZ-COD 6.25-10 MG/5 ML 5 ML CUP PO PRN (10:02)
[2018-11-06] MEDS: ALPRAZolam 0.5 MG TAB PO PRN ×2 (10:04→21:55)
--- NOTE | 2018-11-06 13:36 | P.PN ---
Subjective Progress Note Date: 11/06/18 Principal diagnosis: progressive Cancer Increased LFTs. Appears secondary to new metastatic lesions in liver. Patient is still very anxious about recurrent progressive diagnosis. Objective - Vital Signs Vital signs: Vital Signs Temp 97.6 F 11/06/18 12:29 Pulse 83 11/06/18 12:29 Resp 16 11/06/18 12:29 BP 100/73 11/06/18 12:29 Pulse Ox 99 11/06/18 12:29 Intake & Output 11/05/18 11/06/18 11/06/18 18:59 06:59 18:59 Intake Total 1200 1300 Balance 1200 1300 Intake: Oral 1200 1300 Other: Voiding Method Toilet Toilet Toilet # Voids 2 1 3 - Exam General: Alert and Oriented x3, No Acute Distress Head: Normocytic, Atraumatic Neck: Supple Mouth: No Lesions, No Thrush Eyes: Non-sclerotic No Palpable cervical, supraclavicular, axillary adenopathy Heart: Regular Rate, Regular Rhythm Lungs: Diminished BLL Abdomen: firm and distended Extremities: No Edema, Equal Strength Neurological: No Focal Defects: No sensory or motor deficits - Labs CBC & Chem 7: 11/06/18 06:59 11/06/18 06:59 Labs: Abnormal Lab Results - Last 24 Hours (Table) 11/05/18 11/05/18 11/05/18 Range/Units 07:04 16:57 20:08 WBC (3.8-10.6) k/uL Neutrophils # (1.3-7.7) k/uL Lymphocytes # (1.0-4.8) k/uL PT (9.0-12.0) sec INR (<1.2) BUN (9-20) mg/dL POC Glucose (mg/dL) 123 H 204 H (75-99) mg/dL AST 283 H (17-59) U/L ALT 369 H (21-72) U/L Alkaline Phosphatase 489 H (38-126) U/L Lactate Dehydrogenase (313-618) U/L Total Protein 5.6 L (6.3-8.2) g/dL Albumin 2.9 L (3.5-5.0) g/dL 11/06/18 11/06/18 11/06/18 Range/Units 06:59 06:59 06:59 WBC 11.2 H (3.8-10.6) k/uL Neutrophils # 9.2 H (1.3-7.7) k/uL Lymphocytes # 0.8 L (1.0-4.8) k/uL PT 15.1 H (9.0-12.0) sec INR 1.5 H (<1.2) BUN 21 H (9-20) mg/dL POC Glucose (mg/dL) (75-99) mg/dL AST 467 H (17-59) U/L ALT 474 H (21-72) U/L Alkaline Phosphatase 563 H (38-126) U/L Lactate Dehydrogenase 1272 H (313-618) U/L Total Protein 5.8 L (6.3-8.2) g/dL Albumin 3.1 L (3.5-5.0) g/dL Assessment and Plan Plan: Assessment and Recommendations: Adenocarcinoma of the Lung: - Completed treatment in May 2018, last CT scans in August showed stable disease without recurrence or metastatic disease - Now with concern for progressive disease to lymph nodes mediastinal and bronchial, liver lesions and bone (L4 osteoblastic focus) - MRI brain for full restaging - Bone Scan - In light of progressive disease a repeat biopsy is not needed, will discuss further as outpatient with Dr. Gomes (Primary Oncologist) for treatment plan on second line therapy. Increased Abdominal Bloating: - Likely secondary to increased LFTs. Concern for underlying metastatic disease - MRI Liver - GI consult resonable New Osteoblastic Lesions L4 with associated Lower back pain: - No unilateral weakness - Bone scan for restaging Persistent Nausea, Headaches: - Secondary to abdominal distention versus further cancer progression - MRI of brain to assess for metastatic disease History of Pulmonary Embolism in patient with stage IV Caner - Hypercoagulable state: - Currently continured on Xarelto, although in light of new mets to liver may need to consider switching to alternative form, Eliquis. - Defer to primary Oncologist Dr. Gomes (Covering 11.07.18) Increased INR - Coagulopathy: - Secondary to Xarelto, although with increased pathology in liver, monitor. Increased LFTs: - Secondary to liver mets - Decrease dose of Toradal, will consider alternative if pain management requirement continues - Discontinue Statin PLan: - Control of current symptoms - Will plan to follow-up with Dr. Gomes for second line treatment 1-2 weeks - Await MRI Brin and Bone Scan, Monitor coags, LFTs and limit hepatotoxic medications. - May consider alternative to xarelto if liver function continues to worsen Update 0: - Patients MRI of brain is negative. I called and provided him with these results and the bone scan results. - PLan to control symptoms and discharge when medically stable - Reducation on increased activity and cough and deep breathing
--- NOTE | 2018-11-06 13:47 | P.PN ---
Subjective 58-year-old gentleman with a history of COPD, metastatic lung cancer comes in because of shortness of breath and cough. He follows Dr. Gomes and pulmonology. 11/04/2018 Today he says that he still has cough and shortness of breath No chest pain or racing heart No abdominal pain, nausea and vomiting, or diarrhea constipation 11/05/2018 Patient is still short of breath and is coughing He is sad and depressed as he heard the news of his recurrence of metastatic lung cancer He says that he's having abdominal pain probably because of cough today. He is nauseous 11/06/2018 Patient was short of breath and coughing still He said he still nauseous Complaining of abdominal pain. Objective - Vital Signs Vital signs: Vital Signs Temp 97.6 F 11/06/18 12:29 Pulse 83 11/06/18 12:29 Resp 16 11/06/18 12:29 BP 100/73 11/06/18 12:29 Pulse Ox 99 11/06/18 12:29 Intake & Output 11/05/18 11/06/18 11/06/18 18:59 06:59 18:59 Intake Total 1200 1300 Balance 1200 1300 Intake: Oral 1200 1300 Other: Voiding Method Toilet Toilet Toilet # Voids 2 1 3 - Exam On exam, alert and oriented x3. HEENT: Conjunctivae normal. eyes normal. NECK: No JVD. No thyroid enlargement. No LNs CARDIOVASCULAR: S2 positive RESPIRATION: patient has diminished breath sounds. I was not able to appreciate any abnormal breath sounds ABDOMEN: Soft, nontender . No guarding. no masses palpable. No ascites, No hepatosplenomegaly.Bowel sounds heard. LEGS: No edema. no swelling NERVOUS SYSTEM: Cranial N 2-12 grossly normal. Moves all 4 limbs. No focal deficits. No sensory deficit. No signs of cerebellar dysfucntion. Skin: no ulcer no rash - Labs CBC & Chem 7: 11/06/18 06:59 11/06/18 06:59 Labs: Abnormal Lab Results - Last 24 Hours (Table) 11/05/18 11/05/18 11/05/18 Range/Units 07:04 16:57 20:08 WBC (3.8-10.6) k/uL Neutrophils # (1.3-7.7) k/uL Lymphocytes # (1.0-4.8) k/uL PT (9.0-12.0) sec INR (<1.2) BUN (9-20) mg/dL POC Glucose (mg/dL) 123 H 204 H (75-99) mg/dL AST 283 H (17-59) U/L ALT 369 H (21-72) U/L Alkaline Phosphatase 489 H (38-126) U/L Lactate Dehydrogenase (313-618) U/L Total Protein 5.6 L (6.3-8.2) g/dL Albumin 2.9 L (3.5-5.0) g/dL 11/06/18 11/06/18 11/06/18 Range/Units 06:59 06:59 06:59 WBC 11.2 H (3.8-10.6) k/uL Neutrophils # 9.2 H (1.3-7.7) k/uL Lymphocytes # 0.8 L (1.0-4.8) k/uL PT 15.1 H (9.0-12.0) sec INR 1.5 H (<1.2) BUN 21 H (9-20) mg/dL POC Glucose (mg/dL) (75-99) mg/dL AST 467 H (17-59) U/L ALT 474 H (21-72) U/L Alkaline Phosphatase 563 H (38-126) U/L Lactate Dehydrogenase 1272 H (313-618) U/L Total Protein 5.8 L (6.3-8.2) g/dL Albumin 3.1 L (3.5-5.0) g/dL Assessment and Plan Assessment: - acute COPD exacerbation - Acute tracheal bronchitis - History of metastatic lung cancer - Hypertension - History of PE - History of GERD - History of chronic left focal cord paralysis Plan 11/04/2018 - Continue breathing treatments and steroids - Pulmonology consulted. Appreciate the recommendations. Patient to get CT of the chest abdomen pelvis - Continue rest of the medical care - We'll follow the patient 11/05/2018 - Hematology oncology consulted. Patient had a CT chest abdomen pelvis done which showed recurrence of lung cancer - Continue breathing treatments and steroids - Continue rest of the medical care 11/06/2018 - MRI brain and bone scan ordered - GI consulted as he was having abdominal pain and his LFTs are high. Is probably because of liver metastases. Need to rule out any duct obstruction in the liver causing the increased LFTs. - Hematology oncology consulted - Pulmonology following the patient as well - We'll continue to monitor
--- NOTE | 2018-11-06 13:56 | P.PN ---
Subjective Progress Note Date: 11/06/18 Principal diagnosis: Recurrent metastatic adenocarcinoma of the lung. This is a 58-year-old white male patient with history of metastatic adenocarcinoma of the lung, post chemo and immunotherapy with Keytruda. Most recent CAT scan of the chest abdomen and pelvis from July 2018 showed no measurable disease, patient appears to be in remission. 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 History of nonocclusive coronary artery disease, patient follows with Dr. Todd. Other history includes hypertension, GERD/reflux. On 11/02/2018 patient presented to the Ed with complaints of dyspnea, cough, congestion, green phlegm production, nausea, right upper quadrant and left lower quadrant abdominal pain. Denied fever chills, denied chest pain, pleurisy, hemoptysis. Was seen by PCP 3 days prior and started on oral steroids, with no improvement. CXR showed left hilar infiltrate and interstitial pattern. Patient does have a history of chronic systolic CHF with EF of 40%. BNP 1120, trop negative times one, WBC 9.3, Hgb 16.5, Na 136, K4.3, Chloride 103, CO@ 22, BUN 18, Cr 1.03. Afebrile, no acute dystress, complains of coughing spells and abdominal discomfort and nausea On 11/05/2018 patient seen in follow-up on medical oncology floor. Denies any worsening shortness of breath, overall slightly improved, although still has a persistent cough. Room air pulse ox is 95%, he is afebrile, hemodynamically stable, patient is tolerating ambulation. Lung sounds reveal better manage breath sounds with some scattered wheezing. Today's labs have been reviewed, showing white blood cell count of 11.3, hemoglobin of 12.8, platelet count is 178, serum sodium is 140, potassium is 5.0, chloride is 111, CO2 is 20, BUN is 18, creatinine is 1.03. Procalcitonin is pending, findings of the CT chest abdomen and pelvis were discussed with the patient and they are consistent with recurrence of the metastatic disease. Medical oncology has been consulted. patient is visibly upset and emotional about recurrence of the malignancy. Patient is seen today 11/06/2017 in follow-up on the medical oncology floor. He is currently awake and alert in no acute distress. He is maintaining good O2 saturations in the high 90s on room air. He's been afebrile. Hemodynamically s table. Continues with a loose nonproductive cough. White count 11.2. Hemoglobin 13.4. INR 1.5. Creatinine 1.22. AST 467, ALT 474, alk phos 563, LDH 1272, total protein 5.8. Albumin 3.1. Abdominal ultrasound reveals a small left pleural effusions. There are multiple hypo-echoic lesions within the liver compatible with the CT findings and suggested of the past assist. Mild gallbladder thickening. Nonobstructing left renal calculus. Objective - Vital Signs Vital signs: Vital Signs Temp 97.6 F 11/06/18 12:29 Pulse 83 11/06/18 12:29 Resp 16 11/06/18 12:29 BP 100/73 11/06/18 12:29 Pulse Ox 99 11/06/18 12:29 Intake & Output 11/05/18 11/06/18 11/06/18 18:59 06:59 18:59 Intake Total 1200 1300 Balance 1200 1300 Intake: Oral 1200 1300 Other: Voiding Method Toilet Toilet Toilet # Voids 2 1 3 - Exam GENERAL EXAM: Alert, pleasant, 58-year-old male patient, on room air, comfortable in no apparent distress. HEAD: Normocephalic/atraumatic. EYES: Normal reaction of pupils, equal size. Conjunctiva pink, sclera white. NOSE: Clear with pink turbinates. THROAT: No erythema or exudates. NECK: No masses, no JVD, no thyroid enlargement, no adenopathy. CHEST: No chest wall deformity. Symmetrical expansion. LUNGS: Equal air entry with some scattered rhonchi CVS: Regular rate and rhythm, normal S1 and S2, no gallops, no murmurs, no rubs ABDOMEN: Soft, nontender. No hepatosplenomegaly, normal bowel sounds, no guarding or rigidity. EXTREMITIES: No clubbing, no edema, no cyanosis, 2+ pulses and upper and lower extremities. MUSCULOSKELETAL: Muscle strength and tone normal. SPINE: No scoliosis or deformity SKIN: No rashes CENTRAL NERVOUS SYSTEM: No focal deficits, tone is normal in all 4 extremities. PSYCHIATRIC: Alert and oriented -3. Appropriate affect. Intact judgment and insight. - Labs CBC & Chem 7: 11/06/18 06:59 11/06/18 06:59 Labs: Abnormal Lab Results - Last 24 Hours (Table) 11/05/18 11/05/18 11/05/18 Range/Units 07:04 16:57 20:08 WBC (3.8-10.6) k/uL Neutrophils # (1.3-7.7) k/uL Lymphocytes # (1.0-4.8) k/uL PT (9.0-12.0) sec INR (<1.2) BUN (9-20) mg/dL POC Glucose (mg/dL) 123 H 204 H (75-99) mg/dL AST 283 H (17-59) U/L ALT 369 H (21-72) U/L Alkaline Phosphatase 489 H (38-126) U/L Lactate Dehydrogenase (313-618) U/L Total Protein 5.6 L (6.3-8.2) g/dL Albumin 2.9 L (3.5-5.0) g/dL 11/06/18 11/06/18 11/06/18 Range/Units 06:59 06:59 06:59 WBC 11.2 H (3.8-10.6) k/uL Neutrophils # 9.2 H (1.3-7.7) k/uL Lymphocytes # 0.8 L (1.0-4.8) k/uL PT 15.1 H (9.0-12.0) sec INR 1.5 H (<1.2) BUN 21 H (9-20) mg/dL POC Glucose (mg/dL) (75-99) mg/dL AST 467 H (17-59) U/L ALT 474 H (21-72) U/L Alkaline Phosphatase 563 H (38-126) U/L Lactate Dehydrogenase 1272 H (313-618) U/L Total Protein 5.8 L (6.3-8.2) g/dL Albumin 3.1 L (3.5-5.0) g/dL Assessment and Plan Assessment: Assessment: 1. Dyspnea, related to what appears to be recurrent metastatic lung cancer, CT chest/Abdomen/Pelvis shows masslike consolidation in the left lower lobe consistent with tumor, coarse interstial infitrates in both lower lobes, left pleural effusion increased from prior CT chest in July,. Increased mediastinal and bronchial adenopathy, low density lesions throughout liver and spleen consistent with metastatic disease in addition to the osteoblastic focus in the inferior aspect of L4 consistent with metastatic disease 2. Metastatic adenocarcinoma of lung stage IV, status chemo and immunotherapy, was in remission until now 3. Abdominal pain in right upper quadrant and left lower quadrant, nausea likely related to metastatic disease 4. Chronic systolic CHF 5. Former nicotine dependence 6. History of left vocal cord paralysis, s/p vocal cord medialization 7. Non-occlusive corodnary artery disease 8. History of previous pneumonia Plan: The patient was seen and evaluated by Dr. Roque. He is currently stable from the pulmonary standpoint. Continues with a loose nonproductive cough. On room air. Abdominal ultrasound reviewed. Bone scan pending. MRI of the brain pending. We will continue to follow make further recommendations based on his clinical status. I, the cosigning physician, performed a history & physical examination of the patient. Lungs sounds with few scattered rhonchi. Maintaining good O2 saturations in the 90s on room air. I discussed the assessment and plan of care with my nurse practitioner, Sruthi Stone. I attest to the above note as dictated by her.
--- NOTE | 2018-11-06 14:14 | NM ---
EXAMINATION TYPE: NM bone scan whole body DATE OF EXAM: 11/06/2018 COMPARISON: CT scan 11/04/2018 HISTORY: Lung cancer Delayed whole-body scanning was performed following the injection of 22.3 mCi Tc 99m MDP. Images acq uired 5 hours post injection. FINDINGS: Abnormal uptake at L4 corresponding to the CT abnormality suggestive of metastases. Abnormal uptake involving the left maxilla is nonspecific. Abnormal uptake involving the thoracic spine appears to correspond to small areas of increased densit y and CT scans suggestive of metastases. Abnormal uptake throughout the rib cage bilaterally suspicious for metastases. X line abnormal uptake involving the sternum suspicious for metastases. Abnormal uptake involving the knees and shoulders likely post arthritic. IMPRESSION: Findings suggestive of diffuse bony metastases.
--- NOTE | 2018-11-06 14:44 | MR ---
EXAMINATION TYPE: MR brain wo/w con DATE OF EXAM: 11/06/2018 2:36 PM COMPARISON: 09/20/2017 HISTORY: COPD, bronchitis, restaging lung ca Contrast: Gadavist 8.5ml FINDINGS: The ventricles, basal cisterns and sulci overlying the cerebral convexities are mildly enlarged. There is evidence of mild periventricular white matter ischemic demyelination. Remote deep white matter insults are also noted. No acute edema is seen on diffusion weighted imaging. There is no evidence for midline shift or mass effect. Acute intracranial hemorrhage or extra-axial collection is not evident. The paranasal sinuses and mastoid air cells are well-aerated. IMPRESSION: 1. No evidence of metastatic disease. 2. Age-related atrophic and chronic small vessel ischemic change. No acute intracranial process at t his time.
[2018-11-06 17:34] LABS: Glucose,Whole Blood 127 mg/dL (75-99)
[2018-11-06 20:58] LABS: Glucose,Whole Blood 205 mg/dL (75-99)
[2018-11-06] MEDS: RIVAROXABAN 20 MG TAB PO SCH (21:01)
[2018-11-06] MEDS: PANTOPRAZOLE 40 MG TABLET PO SCH (21:01)
[2018-11-06] MEDS: traZODone HCL 50 MG TAB PO SCH (21:01)
[2018-11-07] MEDS: ONDANSETRON 4 MG/2 ML VIAL IVP PRN ×2 (03:44→16:01)
[2018-11-07 07:15] LABS: Glucose,Whole Blood 78 mg/dL (75-99)
[2018-11-07] MEDS: INSULIN ASPART (NovoLOG) 100 UNIT/ML VIAL SQ SCH ×2 (07:35→13:07)
[2018-11-07] MEDS: KETOROLAC 30 MG/ML 1 ML VIAL IVP PRN (07:36)
[2018-11-07 08:47] LABS: Basophils % (A) 0 %; Eosinophils % (A) 0 %; HCT 48.1 % (39.0-53.0); HGB 14.9 gm/dL (13.0-17.5); Hypochromasia Moderate; Lymphocytes # (A) 1.2 k/uL (1.0-4.8); Lymphocytes % (A) 9 %; MCH 30.4 pg (25.0-35.0); MCV 98.3 fL (80.0-100.0); Monocytes % (A) 8 %; Neutrophils # (A) 10.6 k/uL (1.3-7.7); Neutrophils % (A) 82 %; Platelet Count 200 k/uL (150-450); RBC 4.89 m/uL (4.30-5.90); RDW 15.1 % (11.5-15.5); WBC 12.9 k/uL (3.8-10.6)
[2018-11-07] MEDS: BUDESONIDE 1 MG/2 ML NEBU INHALATION SCH ×2 (08:47→20:44)
[2018-11-07] MEDS: IPRATROPIUM-ALBUTEROL 3 ML NEB INHALATION SCH ×4 (08:47→20:44)
[2018-11-07 08:59] LABS: INR 1.4 (<1.2); Prothrombin Time 14.3 sec (9.0-12.0)
[2018-11-07 09:08] LABS: ALT 576 U/L (21-72); AST 578 U/L (17-59); African American GFR (CKD) >90 (>60 ml/min/1.73 sqM); Albumin 3.3 g/dL (3.5-5.0); Alkaline Phosphatase 584 U/L (38-126); Anion Gap 13 mmol/L; Blood Urea Nitrogen 21 mg/dL (9-20); Calcium 9.3 mg/dL (8.4-10.2); Carbon Dioxide 22 mmol/L (22-30); Chloride 106 mmol/L (98-107); Glucose 85 mg/dL (74-99); Potassium 4.9 mmol/L (3.5-5.1); Sodium 141 mmol/L (137-145); Total Bilirubin 0.8 mg/dL (0.2-1.3); Total Protein 6.2 g/dL (6.3-8.2)
[2018-11-07] MEDS: FOLIC ACID 1 MG TAB PO SCH (09:48)
[2018-11-07] MEDS: METOPROLOL TARTRATE 25 MG TAB PO SCH (09:49)
[2018-11-07] MEDS: SPIRONOLACTONE 25 MG TAB PO SCH (09:49)
[2018-11-07] MEDS: MULTIVITAMINS, THERA 1 EACH TAB PO SCH (09:49)
[2018-11-07] MEDS: ASCORBIC ACID 500 MG TAB PO SCH (09:49)
[2018-11-07] MEDS: predniSONE 20 MG TAB PO SCH (09:49)
[2018-11-07] MEDS: HYDROmorphone 0.5 MG/0.5 ML SYRINGE IVP PRN ×3 (11:01→21:03)
[2018-11-07 11:17] LABS: Glucose,Whole Blood 136 mg/dL (75-99)
--- NOTE | 2018-11-07 11:34 | PN ---
PROGRESS NOTE DATE OF SERVICE: November 07, 2018. CHIEF COMPLAINT: Headache and nausea and back pain. Will is seen today as a followup. He is very tired. He has cough. He has right upper quadrant pain. He has mid thoracic back pain he describes as 10/10 in severity and he has right frontal headaches. No nausea or vomiting. He is coughing and he is short of breath and he is overall very weak. The pain in his back is not radiating and is worsened when he coughs. MEDICATIONS: Reviewed in his electronic medical record. PHYSICAL EXAMINATION: He is alert, oriented x3. He does appear to be in pain. Temperature 97.6 afebrile, pulse 102, respiration 18, blood pressure 149/98. HEENT: Normocephalic, atraumatic. NECK: Supple. CHEST: Coarse breath sounds bilaterally. LUNGS: Revealed decreased breath sounds in the left base. ABDOMEN: Soft. There is tenderness and enlarged liver and there is mild hepatomegaly and tenderness in the right upper quadrant. EXTREMITIES: Reveal no significant edema and he is moving all extremities appropriately. He does have percussion tenderness in the mid thoracic spine. LABORATORY DATA: WBC of 12.9, hemoglobin 14.9, hematocrit 48.1, platelet 200. Sodium 141, potassium 4.9, chloride 106, CO2 is 22, BUN is 21, creatinine is 1.01. IMPRESSION: 1. Non-small cell lung carcinoma. The patient now has clinical and radiographic evidence of disease progression with multiple liver lesions and osseous metastases. 2. Intractable pain secondary to above. 3. Dyspnea, this is in part related to recurrent metastatic lung carcinoma. RECOMMENDATION: 1. I discussed the recent brain MRI with the patient today. There was no evidence of intraparenchymal brain metastases. 2. In regard to his severe back pain, an MRI of the back will be obtained. If there is any destructive lesion causing his pain, then palliative radiation therapy would be considered. 3. Continue current pain medication regimen. 4. Overall prognosis is very is guarded. 5. If the patient's conditions improve then we may consider second-line systemic treatment in the outpatient setting. The above was discussed with the patient and answered his questions. MMODL / IJN: [id number] /
--- NOTE | 2018-11-07 15:26 | P.PN ---
Subjective 58-year-old gentleman with a history of COPD, metastatic lung cancer comes in because of shortness of breath and cough. He follows Dr. Gomes and pulmonology. 11/04/2018 Today he says that he still has cough and shortness of breath No chest pain or racing heart No abdominal pain, nausea and vomiting, or diarrhea constipation 11/05/2018 Patient is still short of breath and is coughing He is sad and depressed as he heard the news of his recurrence of metastatic lung cancer He says that he's having abdominal pain probably because of cough today. He is nauseous 11/06/2018 Patient was short of breath and coughing still He said he still nauseous Complaining of abdominal pain. 11/07/2018 Patient still very short of breath and coughing He still complaining of abdominal pain and back pain Still very nauseous Objective - Vital Signs Vital signs: Vital Signs Temp 97.4 F L 11/07/18 11:24 Pulse 94 11/07/18 12:35 Resp 15 11/07/18 11:24 BP 101/70 11/07/18 11:24 Pulse Ox 90 L 11/07/18 11:24 Intake & Output 11/06/18 11/07/18 11/07/18 18:59 06:59 18:59 Intake Total 1300 100 240 Balance 1300 100 240 Weight 86.183 kg Intake: Oral 1300 100 240 Other: Voiding Method Toilet Toilet # Voids 3 2 3 - Exam On exam, alert and oriented x3. HEENT: Conjunctivae normal. eyes normal. NECK: No JVD. No thyroid enlargement. No LNs CARDIOVASCULAR: S2 positive RESPIRATION: patient has diminished breath sounds. I was not able to appreciate any abnormal breath sounds ABDOMEN: Soft, nontender . No guarding. no masses palpable. No ascites, No hepatosplenomegaly.Bowel sounds heard. LEGS: No edema. no swelling NERVOUS SYSTEM: Cranial N 2-12 grossly normal. Moves all 4 limbs. No focal deficits. No sensory deficit. No signs of cerebellar dysfucntion. Skin: no ulcer no rash - Labs CBC & Chem 7: 11/07/18 08:04 11/07/18 08:04 Labs: Abnormal Lab Results - Last 24 Hours (Table) 11/06/18 11/06/18 11/07/18 Range/Units 17:32 20:57 08:04 WBC 12.9 H (3.8-10.6) k/uL Neutrophils # 10.6 H (1.3-7.7) k/uL PT (9.0-12.0) sec INR (<1.2) BUN (9-20) mg/dL POC Glucose (mg/dL) 127 H 205 H (75-99) mg/dL AST (17-59) U/L ALT (21-72) U/L Alkaline Phosphatase (38-126) U/L Total Protein (6.3-8.2) g/dL Albumin (3.5-5.0) g/dL 11/07/18 11/07/18 11/07/18 Range/Units 08:04 08:04 11:15 WBC (3.8-10.6) k/uL Neutrophils # (1.3-7.7) k/uL PT 14.3 H (9.0-12.0) sec INR 1.4 H (<1.2) BUN 21 H (9-20) mg/dL POC Glucose (mg/dL) 136 H (75-99) mg/dL AST 578 H (17-59) U/L ALT 576 H (21-72) U/L Alkaline Phosphatase 584 H (38-126) U/L Total Protein 6.2 L (6.3-8.2) g/dL Albumin 3.3 L (3.5-5.0) g/dL Assessment and Plan Assessment: - acute COPD exacerbation - Acute tracheal bronchitis - History of metastatic lung cancer - Hypertension - History of PE - History of GERD - History of chronic left focal cord paralysis Plan 11/04/2018 - Continue breathing treatments and steroids - Pulmonology consulted. Appreciate the recommendations. Patient to get CT of the chest abdomen pelvis - Continue rest of the medical care - We'll follow the patient 11/05/2018 - Hematology oncology consulted. Patient had a CT chest abdomen pelvis done which showed recurrence of lung cancer - Continue breathing treatments and steroids - Continue rest of the medical care 11/06/2018 - MRI brain and bone scan ordered - GI consulted as he was having abdominal pain and his LFTs are high. Is probably because of liver metastases. Need to rule out any duct obstruction in the liver causing the increased LFTs. - Hematology oncology consulted - Pulmonology following the patient as well - We'll continue to monitor 11/07/2018 - MRI of the spine ordered to rule out any bony metastases - GI evaluation pending for increased LFTs suspect it's probably due to liver metastases. - Patient has recurrence of lung cancer. Hematology oncology following the patient - Continue steroids and breathing treatments. Pulmonology following the patient
[2018-11-07] MEDS: ALPRAZolam 0.5 MG TAB PO PRN (15:56)
[2018-11-07] MEDS ORDERED: methylPREDNISolone SOD SUCCI 40 MG/ML 1 ML VIAL IV ONE (20:00)
[2018-11-07] MEDS ORDERED: methylPREDNISolone SOD SUCCI 40 MG/ML 1 ML VIAL IV SCH (20:00)
[2018-11-07 20:39] LABS: Glucose,Whole Blood 178 mg/dL (75-99)
[2018-11-07] MEDS: METOCLOPRAMIDE 5 MG/ML 2 ML VIAL IVP PRN (20:59)
[2018-11-07] MEDS: PANTOPRAZOLE 40 MG TABLET PO SCH (21:03)
[2018-11-07] MEDS: RIVAROXABAN 20 MG TAB PO SCH (21:03)
[2018-11-07] MEDS: traZODone HCL 50 MG TAB PO SCH (21:04)
[2018-11-07] MEDS: POLYETHYLENE GLYCOL 3350 17 GM POWD.PACK PO SCH (21:09)
--- NOTE | 2018-11-07 21:13 | P.CONS ---
History of Present Illness - Reason for Consult Consult date: 11/07/18 Elevated liver enzymes Requesting physician: Manpreet Jon - Chief Complaint Cough, Shortness of breath - History of Present Illness 58-year-old male with a medical history significant for metastatic adenocarcinoma of the lung, prior pulmonary embolism, coronary artery disease, hypertension and GERD who presented to the hospital with complaints of shortness of breath and cough. The patient reports a productive cough which has been severe even resulting in episodes of vomiting. Also reports abdominal pain dominantly in the lower abdomen. Patient had previously been treated for metastatic adenocarcinoma of lung and completed chemo and immunotherapy earlier in the year at which time it was felt that the cancer was in remission. On current admission patient had evaluation with computed tomography scan of the chest/abdomen and pelvis which showed a masslike consolidation in the left lower lobe of the lungs which is consistent with tumor as well as multiple low-density lesions throughout the liver and spleen consistent with metastases and an osteob lastic focus in the inferior aspect of L4 consistent with metastases as well. Laboratory evaluation has been significant for a CBC with a WBC 12.9, hemoglobin 14.9, platelet count 200,000. Liver enzymes elevated on presentation which were normal on numerous lab evaluations up until earlier in the year with total bilirubin 0.8, alkaline phosphatase 584, AST 578 and ALT 576. On discussion with the patient he denies any any history of liver disease, IV drug abuse, viral hepatitis, new drugs in the past 6 months or herbal supplementations. He does report that he had a 30 year history of alcoholism between the ages of 17 and 42 where he would drink daily. He also reports a remote history of cocaine abuse. He reports being sober since the age of 47. Patient also noting that he has been constipated and has not had a bowel movement in the past few days. Denies any blood per rectum or GI bleeding. Review of Systems REVIEW OF SYSTEMS: CONSTITUTIONAL: Denies any fevers, chills, but does report fatigue. CARDIOVASCULAR: Denies any palpitations high or low blood pressures RESPIRATORY: Shortness of breath, cough and sputum production all improved since presentation. GENITOURINARY: No dysuria or hematuria. MUSCULOSKELETAL: No focal weakness reported. SKIN: Denies any new rashes or lesions, jaundice or pallor. PSYCHIATRIC: Denies any suicidal thoughts. NEUROLOGY: Denies headache, denies any new focal deficits. EARS/NOSE/THROAT: No recent hearing change, congestion, nasal discharge or but does report a sore throat. EYES: No pain in eyes, discharge or change in vision. GASTROINTESTINAL: As per HPI. Past Medical History Past Medical History: Cancer, COPD, GERD/Reflux, Hypertension, Osteoarthritis (OA), Pneumonia, Prostate Disorder, Pulmonary Embolus (PE) Additional Past Medical History / Comment(s): Recovering alcoholic - quit 2002, hx of skin ca (sx), lung cancer w/ mets, occ episodes of lightheadedness w/ exertion, hx left vocal cord paralysis (sx). History of Any Multi-Drug Resistant Organisms: None Reported Past Surgical History: Orthopedic Surgery Additional Past Surgical History / Comment(s): Right carpal tunnel release, skin ca removed from face/nose, colonoscopy/polypectomy (per patient - negative), 02-13-18 left medialization thyroidplasy. Past Anesthesia/Blood Transfusion Reactions: Family History of Problems w/ An esthesia Additional Past Anesthesia/Blood Transfusion Reaction / Comm: FATHER WOKE UP VERY AGITATED AND HAD TO BE "RE-MEDICATED". HAD BLOOD TRANSFUSION-NO REACTION Past Psychological History: No Psychological Hx Reported Additional Psychological History / Comment(s): Pt. lives alone in single level home that has 3 porch steps. No home care services, is independant. 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 states he is a recovering alcoholic and is 15 years clean. Has not had a drink since 203. Started smoking 1973 and quit ; was smoking 1.5 - 2 PPD. Past Drug Use History: None Reported Additional Drug Use History / Comment(s): Past cocaine and benzo abuse - quit 2002. - Past Family History Father Family Medical History: Myocardial Infarction (NM) Additional Family Medical History / Comment(s): Alcoholic. . Mother Family Medical History: Myocardial Infarction (NM) Additional Family Medical History / Comment(s): Alcoholic. . Medications and Allergies Home Medications Medication Instructions Recorded Confirmed Type traZODone HCL [Desyrel] 100 mg PO HS PRN 12/10/13 11/02/18 History Folic Acid 1 mg PO DAILY 11/13/17 11/02/18 History Ascorbic Acid [Vitamin C] 500 mg PO DAILY 08/20/18 11/02/18 History Biotin 5,000 mcg PO DAILY 08/20/18 11/02/18 History Glucosam/Colin-Msm1/C/Patel/Bosw 1 tab PO DAILY 08/20/18 11/02/18 History [Glucosamine-Chondroitin Tablet] Multivitamins, Thera [Multivitamin 1 tab PO DAILY 08/20/18 11/02/18 History (formulary)] Spironolactone [Aldactone] 12.5 mg PO DAILY 08/20/18 11/02/18 History diphenhydrAMINE [Benadryl] 25 mg PO HS 08/20/18 11/02/18 History Benzonatate [Tessalon Perles] 100 mg PO TID PRN 11/02/18 11/02/18 History Furosemide [Lasix] 20 mg PO DAILY 11/02/18 11/02/18 History Levofloxacin [Levaquin] 500 mg PO DAILY 11/02/18 11/02/18 History Metoprolol Tartrate [Lopressor] 25 mg PO DAILY 11/02/18 11/02/18 History Omeprazole 40 mg PO DAILY 11/02/18 11/02/18 History Ondansetron HCl [Zofran] 8 mg PO Q8H PRN 11/02/18 11/02/18 History Rivaroxaban [Xarelto] 20 mg PO DAILY 11/02/18 11/02/18 History Rosuvastatin Calcium [Crestor] 40 mg PO DAILY 11/02/18 11/02/18 History predniSONE See Taper PO DAILY 11/02/18 11/02/18 History Allergies Allergy/AdvReac Type Severity Reaction Status Date / Time pembrolizumab [From [facility]] AdvReac Nausea & Verified 11/02/18 20:06 Vomiting Physical Exam Vitals: Vital Signs Temp Pulse Pulse Pulse Resp BP BP 11/07/18 16:29 80 11/07/18 16:16 84 11/07/18 12:35 94 11/07/18 12:24 88 11/07/18 11:24 97.4 F L 102 H 15 101/70 11/07/18 09:06 98 11/07/18 08:49 102 H 11/07/18 05:00 97.6 F 95 20 149/98 11/06/18 21:39 86 11/06/18 21:23 86 11/06/18 21:00 97.6 F 91 20 125/81 Pulse Ox 11/07/18 16:29 11/07/18 16:16 11/07/18 12:35 11/07/18 12:24 11/07/18 11:24 90 L 11/07/18 09:06 11/07/18 08:49 11/07/18 05:00 95 11/06/18 21:39 11/06/18 21:23 11/06/18 21:00 96 Intake and Output 11/07/18 11/07/18 11/07/18 06:59 14:59 22:59 Intake Total 100 240 Balance 100 240 Intake: Oral 100 240 Other: Voiding Method Toilet # Voids 2 3 On physical examination, patient appears comfortable in no apparent distress. HEAD: Normocephalic, atraumatic. EYES: No scleral icterus. No conjunctival injection. MOUTH: No lesions, tongue midline. NECK: Trachea midline, no gross abnormalities. CHEST: Decreased air entry in all lung ramirez, some expiratory wheezing noted. HEART: Regular rate and rhythm. ABDOMEN: Soft, obese, diffusely tender. Bowel sounds are positive. No organomegaly. No guarding or rigidity. EXTREMITIES: No pedal edema. SKIN: No rashes, no jaundice. NEUROLOGIC: Alert and oriented x3. No focal deficits. Results CBC & Chem 7: 11/07/18 08:04 11/07/18 08:04 Labs: Abnormal Lab Results - Last 24 Hours (Table) 11/06/18 11/07/18 11/07/18 Range/Units 20:57 08:04 08:04 WBC 12.9 H (3.8-10.6) k/uL Neutrophils # 10.6 H (1.3-7.7) k/uL PT 14.3 H (9.0-12.0) sec INR 1.4 H (<1.2) BUN (9-20) mg/dL POC Glucose (mg/dL) 205 H (75-99) mg/dL AST (17-59) U/L ALT (21-72) U/L Alkaline Phosphatase (38-126) U/L Total Protein (6.3-8.2) g/dL Albumin (3.5-5.0) g/dL 11/07/18 11/07/18 Range/Units 08:04 11:15 WBC (3.8-10.6) k/uL Neutrophils # (1.3-7.7) k/uL PT (9.0-12.0) sec INR (<1.2) BUN 21 H (9-20) mg/dL POC Glucose (mg/dL) 136 H (75-99) mg/dL AST 578 H (17-59) U/L ALT 576 H (21-72) U/L Alkaline Phosphatase 584 H (38-126) U/L Total Protein 6.2 L (6.3-8.2) g/dL Albumin 3.3 L (3.5-5.0) g/dL US - abdomen: report reviewed (Ultrasound abdomen significant for nonobstructing renal calculi, mild thickening of the gallbladder wall without any definite ch olelithiasis noted, and multiple hepatic lesions suspicious for metastatic disease) Assessment and Plan (1) Elevated liver enzymes Narrative/Plan: 58-year-old male with metastatic adenocarcinoma of the lung who presented to the hospital with complaints of cough, sputum production and shortness of breath and subsequently found to have a new lung mass with imaging consistent with metastatic disease to the liver and spine. Patient's liver enzymes found to be elevated on presentation with normal liver enzymes noted on review of the record earlier this year. Total bilirubin 0.8, alkaline phosphatase 584, AST 578, and ALT 576. Patient's INR has remained stable at 1.4 from 1.5 yesterday. No evidence of encephalopathy. Unclear etiology of this elevation in enzymes, given patient's extensive history of alcohol abuse would expect the degree of liver fibrosis exacerbating other insights to the liver. Consideration is also for hypoperfusion with the patient relatively hypotensive on presentation likely in the setting of vomiting secondary to cough, on review of the literature the patient's immunotherapy has also been associated with hepatocellular elevations in liver enzymes and up to 10% of patients however this usually occurs after the first 6 cycles and the patient has completed therapy since the beginning of the year making this less likely. We'll rule out viral etiology. Suspicion for biliary pathology is low as the patient's bile duct was normal on imaging and bilirubin has remained within normal limits. Current Visit: Yes Status: Acute Code(s): R74.8 - ABNORMAL LEVELS OF OTHER SERUM ENZYMES SNOMED Code(s): 460567075 (2) Intractable nausea and vomiting Current Visit: Yes Status: Acute Code(s): R11.2 - NAUSEA WITH VOMITING, UNSPECIFIED SNOMED Code(s): 979383659 (3) Lung cancer Current Visit: No Status: Acute Code(s): C34.90 - MALIGNANT NEOPLASM OF UNSP PART OF UNSP BRONCHUS OR LUNG SNOMED Code(s): 904774959 (4) Constipation Narrative/Plan: Suspicion is for opioid-induced constipation with plan for addition of laxatives to be titrated to bowel movements. Current Visit: Yes Status: Acute Code(s): K59.00 - CONSTIPATION, UNSPECIFIED SNOMED Code(s): 31900697 (5) Abdominal pain Narrative/Plan: Likely multifactorial in the setting of constipation, metastatic cancer to the liver and spine, as well as history of retching prior to presentation. Current Visit: Yes Status: Acute Code(s): R10.9 - UNSPECIFIED ABDOMINAL PAIN SNOMED Code(s): 53339322 Plan: Supportive care Okay for diet Continue to monitor liver enzymes, INR and clinically No plan for endoscopic evaluation at this time and Acute viral hepatitis panel pending Prednisone changed to Solu-Medrol 40 every 8 hours Bowel regimen started with MiraLAX daily ordered, to be titrated to bowel movements Continue pain control per primary team Continue antiemetic therapy Thank you for allowing us to participate in the care of the patient we will continue to follow
--- NOTE | 2018-11-07 21:22 | PN ---
PROGRESS NOTE DATE OF SERVICE: 11/07/2018 This is a very pleasant 58-year-old gentleman who was admitted with increasing shortness of breath, cough and congestion. Workup revealed recurrent metastatic adenocarcinoma of the lung. He is seen today on the Oncology floor in followup. He is awake and alert, in no acute distress. He continues to maintain good O2 saturations in the 90s on room air. He is afebrile. Hemodynamically stable. Urine culture reveals no growth. Lab results revealed WBC 12.9, hemoglobin 14.9, platelet count 200,000. Creatinine 1.01. AST 578, ALT 576. He remains on bronchodilators, Tessalon Perles, prednisone taper. Anticoagulated with Xarelto. PHYSICAL EXAM: He is alert and oriented, in no acute distress. Vital signs revealed blood pressure 110/70, heart rate 102, respirations 16, temperature is 97.4. He is 90% on room air. HEAD: Normocephalic. Sclerae anicteric. NECK: Supple. Trachea midline. LUNGS have bilateral scattered rhonchi. HEART is regular S1 and S2. ABDOMEN: Soft, nontender. Bowel sounds are present. EXTREMITIES: There is no significant peripheral edema. No clubbing or cyanosis. The pulses are intact. INVESTIGATIONS: Lab results revealed WBC 12.9, hemoglobin 14.9, platelet count 200,000. INR 1.4. Sodium 141, potassium 4.9, creatinine 1.01. Medications are reviewed. IMPRESSION: 1. Dyspnea, secondary to recurrent metastatic lung cancer. CT of the abdomen and pelvis showed masslike consolidation in the left lower lobe consistent with tumor, coarse interstitial infiltrates in both lower lobes, left pleural effusion, increased from previous. Increased mediastinal and bronchial adenopathy, low- density lesions throughout the liver and spleen consistent with metastatic disease. Additional osteoblastic focus in the inferior aspect of L4 consistent with metastatic disease. Bone scan revealed diffuse bony metastasis. 2. Metastatic adenocarcinoma of the lung, stage IV, status post chemo and immunotherapy, was in remission until now. 3. Abdominal pain in the right upper quadrant and left lower quadrants with nausea secondary to metastatic disease to the liver. 4. Chronic systolic congestive heart failure. 5. Former chronic nicotine dependence. 6. History of left vocal cord paralysis, status post vocal cord medialization. 7. Nonocclusive coronary artery disease. 8. Previous history of pneumonia. PLAN: The patient was seen and evaluated by Dr. Roque. Bone scan reviewed. The patient does have diffuse metastatic disease. Oncology is on the case. MRI of the back has been ordered. If there is any destructive lesion causing his pain, palliative radiation might be considered. If the patient improves, we may consider second-line systemic treatment. His overall prognosis is quite guarded. We will continue to follow and make further recommendations based on his clinical status. I, the cosigning physician, performed history and physical examination on the patient. Lung sounds with bilateral scattered rhonchi. Maintain O2 saturations in the 90s on room air. I discussed this with my nurse practitioner, Sruthi Stone. I attest to the above note as dictated by her. MMODL / IJN: [id number] /
[2018-11-08] MEDS: methylPREDNISolone SOD SUCCI 40 MG/ML 1 ML VIAL IV SCH ×3 (00:10→15:00)
[2018-11-08] MEDS: HYDROmorphone 0.5 MG/0.5 ML SYRINGE IVP PRN ×6 (01:19→21:35)
[2018-11-08] MEDS: ONDANSETRON 4 MG/2 ML VIAL IVP PRN ×3 (01:19→18:24)
[2018-11-08] MEDS: POLYETHYLENE GLYCOL 3350 17 GM POWD.PACK PO SCH (08:48)
[2018-11-08] MEDS: METOCLOPRAMIDE 5 MG/ML 2 ML VIAL IVP PRN ×3 (08:48→20:33)
[2018-11-08] MEDS: METOPROLOL TARTRATE 25 MG TAB PO SCH (08:49)
[2018-11-08] MEDS: FOLIC ACID 1 MG TAB PO SCH (08:49)
[2018-11-08] MEDS: SPIRONOLACTONE 25 MG TAB PO SCH (08:49)
[2018-11-08] MEDS: ASCORBIC ACID 500 MG TAB PO SCH (08:49)
[2018-11-08] MEDS: MULTIVITAMINS, THERA 1 EACH TAB PO SCH (08:49)
[2018-11-08] MEDS: BUDESONIDE 1 MG/2 ML NEBU INHALATION SCH ×2 (09:42→21:43)
[2018-11-08] MEDS: IPRATROPIUM-ALBUTEROL 3 ML NEB INHALATION SCH ×4 (09:42→21:43)
--- NOTE | 2018-11-08 10:57 | MR ---
EXAMINATION TYPE: MR thoracic spine wo/w con DATE OF EXAM: 11/08/2018 COMPARISON: Bone scan 11/06/2018, CT scan 11/04/2018 HISTORY: back pain,lung cancer,r/o cord compression CONTRAST: Standard multiplanar, multisequence MRI departmental protocol utilizing 8.5 mL intravenous Gadavist g adolinium contrast. FINDINGS: Exam is limited due to motion artifact. Alignment is anatomic there is multilevel degenerative disc disease seen throughout the visualized th oracic spine. Marrow signal is heterogeneous in metastasis would be in the differential diagnosis. Th ere is no disc herniation or cord compression. Neural foramina remain patent. Bilateral adrenal gland thickening is noted. Suspect pulmonary nodules within the right lung and ther e is a left-sided pleural effusion. Suspect hepatic metastases. No abnormal signal within the visualized spinal cord. Heterogeneous signal within the posterior rib c age bilaterally also is suggestive of metastases. Multilevel facet arthropathy. Note is made is severe multilevel degenerative disc disease involving the cervical spine with probabl e disc bulging. IMPRESSION: 1. Multilevel moderate to severe degenerative disc disease with no disc herniation or canal stenosis. No enhancing mass. 2. Diffuse heterogeneous pattern to the marrow within the visualized thoracic vertebral segments is s uspicious for metastasis and compatible with the CT scan findings of multiple sclerotic punctate lesi ons. 3. Pulmonary metastases also noted with pleural effusion. 4. Thickened adrenal gland suspicious for metastases. 5. Hepatic metastases
[2018-11-08 11:01] LABS: INR 1.4 (<1.2)
[2018-11-08 11:07] LABS: ALT 599 U/L (21-72); AST 542 U/L (17-59); African American GFR (CKD) >90 (>60 ml/min/1.73 sqM); Alkaline Phosphatase 568 U/L (38-126); Anion Gap 12 mmol/L; Bilirubin, Delta 0.3 mg/dL (0.0-0.2); Bilirubin,Unconjugated 0.3 mg/dL (0.0-1.1); Blood Urea Nitrogen 23 mg/dL (9-20); Calcium 8.8 mg/dL (8.4-10.2); Carbon Dioxide 22 mmol/L (22-30); Chloride 106 mmol/L (98-107); Glucose 169 mg/dL (74-99); Potassium 5.1 mmol/L (3.5-5.1); Sodium 140 mmol/L (137-145); Total Bilirubin 0.6 mg/dL (0.2-1.3); Total Protein 5.8 g/dL (6.3-8.2)
[2018-11-08 11:35] LABS: Glucose,Whole Blood 167 mg/dL (75-99)
[2018-11-08] MEDS: INSULIN ASPART (NovoLOG) 100 UNIT/ML VIAL SQ SCH ×3 (12:41→20:33)
--- NOTE | 2018-11-08 13:40 | P.PN ---
Subjective C/O persistent skeletal pain, mostly in back MRI of spine with Marrow disease, but no zayda destructive lesions seen On Dilaudid 0.5mg Q 3 hours PRN Objective - Vital Signs Vital signs: Vital Signs Temp 97.6 F 11/08/18 05:00 Pulse 90 11/08/18 05:00 Resp 18 11/08/18 05:00 BP 105/80 11/08/18 05:00 Pulse Ox 92 L 11/08/18 05:00 Intake & Output 11/07/18 11/08/18 11/08/18 18:59 06:59 18:59 Intake Total 240 420 Output Total 300 Balance 240 120 Intake: Oral 240 420 Output: Emesis 300 Other: Voiding Method Toilet # Voids 3 4 - Constitutional General appearance: Present: average body habitus - EENT Eyes: Present: EOMI, PERRLA - Respiratory Respiratory: bilateral: CTA - Cardiovascular Rhythm: regular Heart sounds: normal: S1, S2 - Gastrointestinal General gastrointestinal: Present: soft - Neurologic Neurologic: Present: CNII-XII intact - Musculoskeletal Musculoskeletal: Present: gait normal - Psychiatric Psychiatric: Present: A&O x's 3 - Labs CBC & Chem 7: 11/07/18 08:04 11/08/18 10:01 Labs: Abnormal Lab Results - Last 24 Hours (Table) 11/07/18 11/08/18 11/08/18 Range/Units 20:36 10:00 10:01 PT 14.0 H (9.0-12.0) sec INR 1.4 H (<1.2) BUN 23 H (9-20) mg/dL Glucose 169 H (74-99) mg/dL POC Glucose (mg/dL) 178 H (75-99) mg/dL Delta Bilirubin 0.3 H (0.0-0.2) mg/dL AST 542 H (17-59) U/L ALT 599 H (21-72) U/L Alkaline Phosphatase 568 H (38-126) U/L Total Protein 5.8 L (6.3-8.2) g/dL Albumin 3.0 L (3.5-5.0) g/dL 11/08/18 Range/Units 11:19 PT (9.0-12.0) sec INR (<1.2) BUN (9-20) mg/dL Glucose (74-99) mg/dL POC Glucose (mg/dL) 167 H (75-99) mg/dL Delta Bilirubin (0.0-0.2) mg/dL AST (17-59) U/L ALT (21-72) U/L Alkaline Phosphatase (38-126) U/L Total Protein (6.3-8.2) g/dL Albumin (3.5-5.0) g/dL - Imaging and Cardiology MRI - abdomen: report reviewed Assessment and Plan (1) COPD exacerbation Current Visit: Yes Status: Acute Code(s): J44.1 - CHRONIC OBSTRUCTIVE PULMONARY DISEASE W (ACUTE) EXACERBATION SNOMED Code(s): 597698825 (2) Elevated liver enzymes Current Visit: Yes Status: Acute Code(s): R74.8 - ABNORMAL LEVELS OF OTHER SERUM ENZYMES SNOMED Code(s): 400133616 (3) Lung cancer Current Visit: No Status: Acute Code(s): C34.90 - MALIGNANT NEOPLASM OF UNSP PART OF UNSP BRONCHUS OR LUNG SNOMED Code(s): 055726847 Plan: 1- Reviewed MRI results with patient & sister 2- I don't recommend XRT to spine based on MRI results 3- Start MS Contin 30mg Bid 4- Continue Dilaudid for breakthrough analgesia 5- Further systemic treatment of lung cancer after discharge Answered all questions and concerns D/W nursing staff
--- NOTE | 2018-11-08 14:25 | P.PN ---
Subjective Progress Note Date: 11/08/18 Principal diagnosis: Acute exacerbation of COPD, history of metastatic adenocarcinoma of the lung, with recurrence This is a 58-year-old white male patient with history of metastatic adenocarcinoma of the lung, post chemo and immunotherapy with Keytruda. Most recent CAT scan of the chest abdomen and pelvis from July 2018 showed no measurable disease, patient appears to be in remission. 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 History of nonocclusive coronary artery disease, patient follows with Dr. Todd. Other history includes hypertension, GERD/reflux. On 11/02/2018 patient presented to the Ed with complaints of dyspnea, cough, congestion, green phlegm production, nausea, right upper quadrant and left lower quadrant abdominal pain. Denied fever chills, denied chest pain, pleurisy, hemoptysis. Was seen by PCP 3 days prior and started on oral steroids, with no improvement. CXR showed left hilar infiltrate and interstitial pattern. Patient does have a history of chronic systolic CHF with EF of 40%. BNP 1120, trop negative times one, WBC 9.3, Hgb 16.5, Na 136, K4.3, Chloride 103, CO@ 22, BUN 18, Cr 1.03. Afebrile, no acute dystress, complains of coughing spells and abdominal discomfort and nausea On 11/05/2018 patient seen in follow-up on medical oncology floor. Denies any worsening shortness of breath, overall slightly improved, although still has a persistent cough. Room air pulse ox is 95%, he is afebrile, hemodynamically stable, patient is tolerating ambulation. Lung sounds reveal better manage breath sounds with some scattered wheezing. Today's labs have been reviewed, showing white blood cell count of 11.3, hemoglobin of 12.8, platelet count is 178, serum sodium is 140, potassium is 5.0, chloride is 111, CO2 is 20, BUN is 18, creatinine is 1.03. Procalcitonin is pending, findings of the CT chest abdomen and pelvis were discussed with the patient and they are consistent with recurrence of the metastatic disease. Medical oncology has been consulted. patient is visibly upset and emotional about recurrence of the malignancy. On 11/08/2018 patient seen in follow-up on medical oncology floor. Patient is having persistent back pain, abdominal pain has subsided, but still remains. No nausea or vomiting. Thoracic spine MRI showed multilevel moderate to severe degenerative disc disease with no disc herniation or canal stenosis, no enhancing mass, diffuse heterogeneous pattern to the marrow within the visualized thoracic vertebral segments is suspicious for metastasis and compatible with the computed tomography scan findings of multiple sclerotic punctate lesions. Luminary metastasis with pleural effusion. Medical oncology is following, and did not recommend XRT to the spine based on MRI results. From pulmonary perspective patient is improving, breathing easier, he is on room air, with a pulse ox of 91 and 92%, afebrile. Lung sounds are clear to auscultation. Today's labs have been reviewed, no new chest x-rays, she continues on IV steroids, nebulized bronchodilators Objective - Vital Signs Vital signs: Vital Signs Temp 98.9 F 11/08/18 13:55 Pulse 84 11/08/18 13:55 Resp 16 11/08/18 13:55 BP 93/63 11/08/18 13:55 Pulse Ox 91 L 11/08/18 13:55 Intake & Output 11/07/18 11/08/18 11/08/18 18:59 06:59 18:59 Intake Total 240 420 Output Total 300 Balance 240 120 Intake: Oral 240 420 Output: Emesis 300 Other: Voiding Method Toilet # Voids 3 4 - Exam GENERAL EXAM: Alert, pleasant, 58-year-old white male, comfortable in no apparent distress. HEAD: Normocephalic/atraumatic. EYES: Normal reaction of pupils, equal size. Conjunctiva pink, sclera white. NOSE: Clear with pink turbinates. THROAT: No erythema or exudates. NECK: No masses, no JVD, no thyroid enlargement, no adenopathy. CHEST: No chest wall deformity. Symmetrical expansion. LUNGS: Equal air entry with with no significant wheezing or rhonchi CVS: Regular rate and rhythm, normal S1 and S2, no gallops, no murmurs, no rubs ABDOMEN: Soft, nontender. No hepatosplenomegaly, normal bowel sounds, no guarding or rigidity. EXTREMITIES: No clubbing, no edema, no cyanosis, 2+ pulses and upper and lower extremities. MUSCULOSKELETAL: Muscle strength and tone normal. SPINE: No scoliosis or deformity SKIN: No rashes CENTRAL NERVOUS SYSTEM: Alert and oriented -3. No focal deficits, tone is normal in all 4 extremities. PSYCHIATRIC: Alert and oriented -3. Appropriate affect. Intact judgment and insight. - Labs CBC & Chem 7: 11/07/18 08:04 11/08/18 10:01 Labs: Abnormal Lab Results - Last 24 Hours (Table) 11/07/18 11/08/18 11/08/18 Range/Units 20:36 10:00 10:01 PT 14.0 H (9.0-12.0) sec INR 1.4 H (<1.2) BUN 23 H (9-20) mg/dL Glucose 169 H (74-99) mg/dL POC Glucose (mg/dL) 178 H (75-99) mg/dL Delta Bilirubin 0.3 H (0.0-0.2) mg/dL AST 542 H (17-59) U/L ALT 599 H (21-72) U/L Alkaline Phosphatase 568 H (38-126) U/L Total Protein 5.8 L (6.3-8.2) g/dL Albumin 3.0 L (3.5-5.0) g/dL 11/08/18 Range/Units 11:19 PT (9.0-12.0) sec INR (<1.2) BUN (9-20) mg/dL Glucose (74-99) mg/dL POC Glucose (mg/dL) 167 H (75-99) mg/dL Delta Bilirubin (0.0-0.2) mg/dL AST (17-59) U/L ALT (21-72) U/L Alkaline Phosphatase (38-126) U/L Total Protein (6.3-8.2) g/dL Albumin (3.5-5.0) g/dL Assessment and Plan Plan: Assessment: 1. Dyspnea, related to what appears to be recurrent metastatic lung cancer, CT chest/Abdomen/Pelvis shows masslike consolidation in the left lower lobe consistent with tumor, coarse interstial infitrates in both lower lobes, left pleural effusion increased from prior CT chest in July,. Increased mediastinal and bronchial adenopathy, low density lesions throughout liver and s pleen consistent with metastatic disease in addition to the osteoblastic focus in the inferior aspect of L4 consistent with metastatic disease 2. Metastatic adenocarcinoma of lung stage IV, status chemo and immunotherapy, was in remission until now 3. Abdominal pain in right upper quadrant and left lower quadrant, nausea likely related to metastatic disease 4. Chronic systolic CHF 5. Former nicotine dependence 6. History of left vocal cord paralysis, s/p vocal cord medialization 7. Non-occlusive corodnary artery disease 8. History of previous pneumonia Plan: Continue with nebulized bronchodilators, IV steroids, from pulmonary perspective patient less congested and wheezy. Still having persistent back pain, medical oncology is following, and XRT was not recommended. Maintain pain control. We'll continue supportive treatment. This patient was seen and evaluated along with IRAIS Brown. Agree with the above exam findings and evaluation. Time with Patient: Less than 30
[2018-11-08 16:03] LABS: Hepatitis A Antibody IgM Non-Reactive (Non-Reactive); Hepatitis B Core IgM Non-Reactive (Non-Reactive)
[2018-11-08 17:03] LABS: Glucose,Whole Blood 108 mg/dL (75-99)
[2018-11-08 20:08] LABS: Glucose,Whole Blood 147 mg/dL (75-99)
--- NOTE | 2018-11-08 20:09 | P.PN ---
Subjective 58-year-old gentleman with a history of COPD, metastatic lung cancer comes in because of shortness of breath and cough. He follows Dr. Gomes and pulmonology. 11/04/2018 Today he says that he still has cough and shortness of breath No chest pain or racing heart No abdominal pain, nausea and vomiting, or diarrhea constipation 11/05/2018 Patient is still short of breath and is coughing He is sad and depressed as he heard the news of his recurrence of metastatic lung cancer He says that he's having abdominal pain probably because of cough today. He is nauseous 11/06/2018 Patient was short of breath and coughing still He said he still nauseous Complaining of abdominal pain. 11/07/2018 Patient still very short of breath and coughing He still complaining of abdominal pain and back pain Still very nauseous 11/08/2018 Pt less sob and cough Still having abd pain, nausea Objective - Vital Signs Vital signs: Vital Signs Temp 98.9 F 11/08/18 13:55 Pulse 88 11/08/18 16:39 Resp 16 11/08/18 13:55 BP 93/63 11/08/18 13:55 Pulse Ox 91 L 11/08/18 13:55 Intake & Output 11/08/18 11/08/18 11/09/18 06:59 18:59 06:59 Intake Total 420 Output Total 300 Balance 120 Intake: Oral 420 Output: Emesis 300 Other: Voiding Method Toilet # Voids 4 1 - Exam On exam, alert and oriented x3. HEENT: Conjunctivae normal. eyes normal. NECK: No JVD. No thyroid enlargement. No LNs CARDIOVASCULAR: S2 positive RESPIRATION: patient has diminished breath sounds. I was not able to appreciate any abnormal breath sounds ABDOMEN: Soft, nontender . No guarding. no masses palpable. No ascites, No hepatosplenomegaly.Bowel sounds heard. LEGS: No edema. no swelling NERVOUS SYSTEM: Cranial N 2-12 grossly normal. Moves all 4 limbs. No focal deficits. No sensory deficit. No signs of cerebellar dysfucntion. Skin: no ulcer no rash - Labs CBC & Chem 7: 11/07/18 08:04 11/08/18 10:01 Labs: Abnormal Lab Results - Last 24 Hours (Table) 11/07/18 11/08/18 11/08/18 Range/Units 20:36 10:00 10:01 PT 14.0 H (9.0-12.0) sec INR 1.4 H (<1.2) BUN 23 H (9-20) mg/dL Glucose 169 H (74-99) mg/dL POC Glucose (mg/dL) 178 H (75-99) mg/dL Delta Bilirubin 0.3 H (0.0-0.2) mg/dL AST 542 H (17-59) U/L ALT 599 H (21-72) U/L Alkaline Phosphatase 568 H (38-126) U/L Total Protein 5.8 L (6.3-8.2) g/dL Albumin 3.0 L (3.5-5.0) g/dL 11/08/18 11/08/18 Range/Units 11:19 16:58 PT (9.0-12.0) sec INR (<1.2) BUN (9-20) mg/dL Glucose (74-99) mg/dL POC Glucose (mg/dL) 167 H 108 H (75-99) mg/dL Delta Bilirubin (0.0-0.2) mg/dL AST (17-59) U/L ALT (21-72) U/L Alkaline Phosphatase (38-126) U/L Total Protein (6.3-8.2) g/dL Albumin (3.5-5.0) g/dL Assessment and Plan Assessment: - acute COPD exacerbation - Acute tracheal bronchitis - History of metastatic lung cancer - Hypertension - History of PE - History of GERD - History of chronic left focal cord paralysis Plan 11/04/2018 - Continue breathing treatments and steroids - Pulmonology consulted. Appreciate the recommendations. Patient to get CT of the chest abdomen pelvis - Continue rest of the medical care - We'll follow the patient 11/05/2018 - Hematology oncology consulted. Patient had a CT chest abdomen pelvis done which showed recurrence of lung cancer - Continue breathing treatments and steroids - Continue rest of the medical care 11/06/2018 - MRI brain and bone scan ordered - GI consulted as he was having abdominal pain and his LFTs are high. Is probably because of liver metastases. Need to rule out any duct obstruction in the liver causing the increased LFTs. - Hematology oncology consulted - Pulmonology following the patient as well - We'll continue to monitor 11/07/2018 - MRI of the spine ordered to rule out any bony metastases - GI evaluation pending for increased LFTs suspect it's probably due to liver metastases. - Patient has recurrence of lung cancer. Hematology oncology following the patient - Continue steroids and breathing treatments. Pulmonology following the patient 11/08/2018 - MRI reviewed. Reviewed hem/onc recs. No rad therapy recommended per hem/onc - Continue breathing treatments, steroids - Discussed with Gi re" elevated LFTs. Thinks its due to combination of fibrosis and pts H/O alcoholism. was started on steroids to see responses - Will conitnue to monitor
[2018-11-08] MEDS: PROMETHAZ-COD 6.25-10 MG/5 ML 5 ML CUP PO PRN (20:10)
[2018-11-08] MEDS: RIVAROXABAN 20 MG TAB PO SCH (20:31)
[2018-11-08] MEDS: MORPHINE SULFATE ER 30 MG TABLET PO SCH (20:31)
[2018-11-08] MEDS: traZODone HCL 50 MG TAB PO SCH (20:32)
[2018-11-08] MEDS: PANTOPRAZOLE 40 MG TABLET PO SCH (20:32)
--- NOTE | 2018-11-08 22:13 | P.PN ---
Subjective Progress Note Date: 11/08/18 Principal diagnosis: Elevated liver enzymes Patient seen lying in bed reporting that he is tolerating diet but oral intake is still poor. Less nausea and vomiting. Shortness of breath improved. Still no bowel movement but would like to continue on current bowel regimen. Objective - Vital Signs Vital signs: Vital Signs Temp 97.6 F 11/08/18 21:00 Pulse 96 11/08/18 21:00 Resp 16 11/08/18 21:00 BP 107/75 11/08/18 21:00 Pulse Ox 93 L 11/08/18 21:00 Intake & Output 11/08/18 11/08/18 11/09/18 06:59 18:59 06:59 Intake Total 420 Output Total 300 Balance 120 Intake: Oral 420 Output: Emesis 300 Other: Voiding Method Toilet # Voids 4 1 - Exam On physical examination, patient appears comfortable in no apparent distress. HEAD: Normocephalic, atraumatic. EYES: No scleral icterus. No conjunctival injection. MOUTH: No lesions, tongue midline. NECK: Trachea midline, no gross abnormalities. CHEST: Decreased air entry bilaterally. HEART: Regular rate and rhythm. ABDOMEN: Soft, obese. Bowel sounds are positive. No organomegaly. No guarding or rigidity. EXTREMITIES: No pedal edema. SKIN: No rashes, no jaundice. NEUROLOGIC: Alert and oriented x3. No focal deficits. - Labs CBC & Chem 7: 11/07/18 08:04 11/08/18 10:01 Labs: Abnormal Lab Results - Last 24 Hours (Table) 11/08/18 11/08/18 11/08/18 Range/Units 10:00 10:01 11:19 PT 14.0 H (9.0-12.0) sec INR 1.4 H (<1.2) BUN 23 H (9-20) mg/dL Glucose 169 H (74-99) mg/dL POC Glucose (mg/dL) 167 H (75-99) mg/dL Delta Bilirubin 0.3 H (0.0-0.2) mg/dL AST 542 H (17-59) U/L ALT 599 H (21-72) U/L Alkaline Phosphatase 568 H (38-126) U/L Total Protein 5.8 L (6.3-8.2) g/dL Albumin 3.0 L (3.5-5.0) g/dL 11/08/18 11/08/18 Range/Units 16:58 20:06 PT (9.0-12.0) sec INR (<1.2) BUN (9-20) mg/dL Glucose (74-99) mg/dL POC Glucose (mg/dL) 108 H 147 H (75-99) mg/dL Delta Bilirubin (0.0-0.2) mg/dL AST (17-59) U/L ALT (21-72) U/L Alkaline Phosphatase (38-126) U/L Total Protein (6.3-8.2) g/dL Albumin (3.5-5.0) g/dL Assessment and Plan (1) Elevated liver enzymes Narrative/Plan: 58-year-old male with metastatic adenocarcinoma of the lung who presented to the hospital with complaints of cough, sputum production and shortness of breath and subsequently found to have a new lung mass with imaging consistent with metastatic disease to the liver and spine. Patient's liver enzymes found to be elevated on presentation with normal liver enzymes noted on review of the record earlier this year. Total bilirubin 0.8, alkaline phosphatase 584, AST 578, and ALT 576 on initial evaluation and remain elevated but stable. Patient's INR has remained stable. No evidence of encephalopathy. Unclear etiology of this elevation in enzymes, given patient's extensive history of alcohol abuse would expect the degree of liver fibrosis and this in combination with patient's extensive metastatic disease to the liver is likely the cause of elevation in the liver enzymes. Ischemia and medication effect considered but less likely. Suspicion for biliary pathology is low as the patient's bile duct was normal on imaging and bilirubin has remained within normal limits. Current Visit: Yes Status: Acute Code(s): R74.8 - ABNORMAL LEVELS OF OTHER SERUM ENZYMES SNOMED Code(s): 303733501 (2) Intractable nausea and vomiting Current Visit: Yes Status: Acute Code(s): R11.2 - NAUSEA WITH VOMITING, UNSPECIFIED SNOMED Code(s): 638784410 (3) Lung cancer Current Visit: No Status: Acute Code(s): C34.90 - MALIGNANT NEOPLASM OF UNSP PART OF UNSP BRONCHUS OR LUNG SNOMED Code(s): 357864915 (4) Constipation Narrative/Plan: Suspicion is for opioid-induced constipation with plan for addition of laxatives to be titrated to bowel movements. Current Visit: Yes Status: Acute Code(s): K59.00 - CONSTIPATION, UNSPECIFIED SNOMED Code(s): 16979323 (5) Abdominal pain Narrative/Plan: Likely multifactorial in the setting of constipation, metastatic cancer to the liver and spine, as well as history of retching prior to presentation. Current Visit: Yes Status: Acute Code(s): R10.9 - UNSPECIFIED ABDOMINAL PAIN SNOMED Code(s): 89704965 Plan: Supportive care Okay for diet Continue to monitor liver enzymes, INR and clinically No plan for endoscopic evaluation at this time and Acute viral hepatitis panel negative Prednisone changed to Solu-Medrol 40 every 8 hours, okay to discontinue on discharge if no improvement in liver enzymes as elevation in liver enzymes secondary to immunotherapy less likely than underlying fibrosis/cirrhosis and metastatic disease as the cause of elevation in liver enzymes Bowel regimen started with MiraLAX daily ordered Continue pain control per primary team Continue antiemetic therapy Thank you for allowing us to participate in the care of the patient we will continue to follow
[2018-11-09] MEDS: methylPREDNISolone SOD SUCCI 40 MG/ML 1 ML VIAL IV SCH ×3 (00:52→16:43)
[2018-11-09] MEDS: HYDROmorphone 0.5 MG/0.5 ML SYRINGE IVP PRN ×3 (00:53→20:22)
[2018-11-09] MEDS: ONDANSETRON 4 MG/2 ML VIAL IVP PRN ×3 (00:53→20:21)
[2018-11-09] MEDS: METOCLOPRAMIDE 5 MG/ML 2 ML VIAL IVP PRN ×2 (04:34→22:12)
[2018-11-09 07:09] LABS: Glucose,Whole Blood 109 mg/dL (75-99)
[2018-11-09] MEDS: INSULIN ASPART (NovoLOG) 100 UNIT/ML VIAL SQ SCH ×4 (07:24→22:10)
[2018-11-09] MEDS: BUDESONIDE 1 MG/2 ML NEBU INHALATION SCH ×2 (07:43→21:03)
[2018-11-09] MEDS: IPRATROPIUM-ALBUTEROL 3 ML NEB INHALATION SCH ×4 (07:43→21:03)
[2018-11-09] MEDS: SPIRONOLACTONE 25 MG TAB PO SCH (08:05)
[2018-11-09] MEDS: MULTIVITAMINS, THERA 1 EACH TAB PO SCH (08:05)
[2018-11-09] MEDS: ASCORBIC ACID 500 MG TAB PO SCH (08:05)
[2018-11-09] MEDS: FOLIC ACID 1 MG TAB PO SCH (08:05)
[2018-11-09] MEDS: METOPROLOL TARTRATE 25 MG TAB PO SCH (08:05)
[2018-11-09] MEDS: POLYETHYLENE GLYCOL 3350 17 GM POWD.PACK PO SCH (08:06)
[2018-11-09] MEDS: MORPHINE SULFATE ER 30 MG TABLET PO SCH ×2 (08:06→22:10)
[2018-11-09 12:30] LABS: Glucose,Whole Blood 166 mg/dL (75-99)
--- NOTE | 2018-11-09 12:48 | P.PN ---
Subjective Progress Note Date: 11/09/18 Principal diagnosis: Recurrent metastatic adenocarcinoma of the lung. This is a 58-year-old white male patient with history of metastatic adenocarcinoma of the lung, post chemo and immunotherapy with Keytruda. Most recent CAT scan of the chest abdomen and pelvis from July 2018 showed no measurable disease, patient appears to be in remission. 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 History of nonocclusive coronary artery disease, patient follows with Dr. Todd. Other history includes hypertension, GERD/reflux. On 11/02/2018 patient presented to the Ed with complaints of dyspnea, cough, congestion, green phlegm production, nausea, right upper quadrant and left lower quadrant abdominal pain. Denied fever chills, denied chest pain, pleurisy, hemoptysis. Was seen by PCP 3 days prior and started on oral steroids, with no improvement. CXR showed left hilar infiltrate and interstitial pattern. Patient does have a history of chronic systolic CHF with EF of 40%. BNP 1120, trop negative times one, WBC 9.3, Hgb 16.5, Na 136, K4.3, Chloride 103, CO@ 22, BUN 18, Cr 1.03. Afebrile, no acute dystress, complains of coughing spells and abdominal discomfort and nausea The patient is seen today 11/09/2018 in follow-up on the oncology unit. He is currently sitting up in bed. Awake and alert. Having issues with ongoing nausea. Receiving Zofran. Still having some cough. He remains on Phenergan bronchodilators and IV Solu-Medrol. His pain is better controlled. Objective - Vital Signs Vital signs: Vital Signs Temp 98.2 F 11/09/18 05:00 Pulse 94 11/09/18 11:48 Resp 16 11/09/18 05:00 BP 92/62 11/09/18 05:00 Pulse Ox 91 L 11/09/18 05:00 Intake & Output 11/08/18 11/09/18 11/09/18 18:59 06:59 18:59 Intake Total 300 Balance 300 Intake: Oral 300 Other: Voiding Method Toilet Toilet # Voids 1 1 - Exam GENERAL EXAM: Alert, pleasant, 58-year-old male patient, on room air, issues with nausea. HEAD: Normocephalic/atraumatic. EYES: Normal reaction of pupils, equal size. Conjunctiva pink, sclera white. NOSE: Clear with pink turbinates. THROAT: No erythema or exudates. NECK: No masses, no JVD, no thyroid enlargement, no adenopathy. CHEST: No chest wall deformity. Symmetrical expansion. LUNGS: Equal air entry with some scattered rhonchi CVS: Regular rate and rhythm, normal S1 and S2, no gallops, no murmurs, no rubs ABDOMEN: Soft, nontender. No hepatosplenomegaly, normal bowel sounds, no guarding or rigidity. EXTREMITIES: No clubbing, no edema, no cyanosis, 2+ pulses and upper and lower extremities. MUSCULOSKELETAL: Muscle strength and tone normal. SPINE: Ongoing back pain. SKIN: No rashes CENTRAL NERVOUS SYSTEM: No focal deficits, tone is normal in all 4 extremities. PSYCHIATRIC: Alert and oriented -3. Appropriate affect. Intact judgment and insight. - Labs CBC & Chem 7: 11/07/18 08:04 11/08/18 10:01 Labs: Abnormal Lab Results - Last 24 Hours (Table) 11/08/18 11/08/18 11/09/18 Range/Units 16:58 20:06 07:08 POC Glucose (mg/dL) 108 H 147 H 109 H (75-99) mg/dL 11/09/18 Range/Units 12:29 POC Glucose (mg/dL) 166 H (75-99) mg/dL Assessment and Plan Assessment: Assessment: 1. Dyspnea, related to what appears to be recurrent metastatic lung cancer, CT chest/Abdomen/Pelvis shows masslike consolidation in the left lower lobe consistent with tumor, coarse interstial infitrates in both lower lobes, left pleural effusion increased from prior CT chest in July,. Increased mediastinal and bronchial adenopathy, low density lesions throughout liver and spleen consistent with metastatic disease in addition to the osteoblastic focus in the inferior aspect of L4 consistent with metastatic disease. Improving. Currently maintaining O2 saturations in the low 90s on 2 L/m per nasal cannula. 2. Metastatic adenocarcinoma of lung stage IV, status chemo and immunotherapy, was in remission until now 3. Abdominal pain in right upper quadrant and left lower quadrant, nausea likely related to metastatic disease 4. Chronic systolic CHF 5. Former nicotine dependence 6. History of left vocal cord paralysis, s/p vocal cord medialization 7. Non-occlusive corodnary artery disease 8. History of previous pneumonia Plan: The patient was seen and evaluated by Dr. Roque. He is currently stable from the pulmonary standpoint. Adequate pain control on oral medications prior to discharge. We will continue to follow make further recommendations based on his clinical status. I, the cosigning physician, performed a history & physical examination of the patient. Lungs sounds with few scattered rhonchi. Maintaining good O2 saturations in the 90s on 2 L/m per nasal cannula. I discussed the assessment and plan of care with my nurse practitioner, Sruthi Stone. I attest to the above note as dictated by her.
--- NOTE | 2018-11-09 14:18 | P.PN ---
Subjective 58-year-old gentleman with a history of COPD, metastatic lung cancer comes in because of shortness of breath and cough. He follows Dr. Gomes and pulmonology. 11/04/2018 Today he says that he still has cough and shortness of breath No chest pain or racing heart No abdominal pain, nausea and vomiting, or diarrhea constipation 11/05/2018 Patient is still short of breath and is coughing He is sad and depressed as he heard the news of his recurrence of metastatic lung cancer He says that he's having abdominal pain probably because of cough today. He is nauseous 11/06/2018 Patient was short of breath and coughing still He said he still nauseous Complaining of abdominal pain. 11/07/2018 Patient still very short of breath and coughing He still complaining of abdominal pain and back pain Still very nauseous 11/08/2018 Pt less sob and cough Still having abd pain, nausea 11/09/2018 Patient says that his pain is a little better controlled today Is able to breathe better still coughing but is better Patient says that he still nauseous Objective - Vital Signs Vital signs: Vital Signs Temp 97.7 F 11/09/18 13:39 Pulse 63 11/09/18 13:39 Resp 16 11/09/18 13:39 BP 86/55 11/09/18 13:39 Pulse Ox 93 L 11/09/18 13:39 Intake & Output 11/08/18 11/09/18 11/09/18 18:59 06:59 18:59 Intake Total 300 20 Balance 300 20 Intake: IV 20 flush 20 Oral 300 Other: Voiding Method Toilet Toilet # Voids 1 1 3 - Exam On exam, alert and oriented x3. HEENT: Conjunctivae normal. eyes normal. NECK: No JVD. No thyroid enlargement. No LNs CARDIOVASCULAR: S2 positive RESPIRATION: patient has diminished breath sounds. I was not able to appreciate any abnormal breath sounds ABDOMEN: Soft, nontender . No guarding. no masses palpable. No ascites, No hepatosplenomegaly.Bowel sounds heard. LEGS: No edema. no swelling NERVOUS SYSTEM: Cranial N 2-12 grossly normal. Moves all 4 limbs. No focal deficits. No sensory deficit. No signs of cerebellar dysfucntion. Skin: no ulcer no rash - Labs CBC & Chem 7: 11/07/18 08:04 11/08/18 10:01 Labs: Abnormal Lab Results - Last 24 Hours (Table) 11/08/18 11/08/18 11/09/18 Range/Units 16:58 20:06 07:08 POC Glucose (mg/dL) 108 H 147 H 109 H (75-99) mg/dL 11/09/18 Range/Units 12:29 POC Glucose (mg/dL) 166 H (75-99) mg/dL Assessment and Plan Assessment: - acute COPD exacerbation - Acute tracheal bronchitis - History of metastatic lung cancer - Hypertension - History of PE - History of GERD - History of chronic left focal cord paralysis Plan 11/04/2018 - Continue breathing treatments and steroids - Pulmonology consulted. Appreciate the recommendations. Patient to get CT of the chest abdomen pelvis - Continue rest of the medical care - We'll follow the patient 11/05/2018 - Hematology oncology consulted. Patient had a CT chest abdomen pelvis done w [facility] showed recurrence of lung cancer - Continue breathing treatments and steroids - Continue rest of the medical care 11/06/2018 - MRI brain and bone scan ordered - GI consulted as he was having abdominal pain and his LFTs are high. Is probably because of liver metastases. Need to rule out any duct obstruction in the liver causing the increased LFTs. - Hematology oncology consulted - Pulmonology following the patient as well - We'll continue to monitor 11/07/2018 - MRI of the spine ordered to rule out any bony metastases - GI evaluation pending for increased LFTs suspect it's probably due to liver metastases. - Patient has recurrence of lung cancer. Hematology oncology following the p atient - Continue steroids and breathing treatments. Pulmonology following the patient 11/08/2018 - MRI reviewed. Reviewed hem/onc recs. No rad therapy recommended per hem/onc - Continue breathing treatments, steroids - Discussed with Gi re" elevated LFTs. Thinks its due to combination of fibrosis and pts H/O alcoholism. was started on steroids to see responses - Will conitnue to monitor 11/09/2018 - Patient slowly getting better and pain is slowly getting under control - We'll continue pain control and IV steroids for now - If the patient continues to better the patient probably will be discharged the next 48 hours - Patient needs better pain control plan
[2018-11-09 16:40] LABS: Glucose,Whole Blood 216 mg/dL (75-99)
[2018-11-09 21:32] LABS: Glucose,Whole Blood 150 mg/dL (75-99)
[2018-11-09] MEDS: PANTOPRAZOLE 40 MG TABLET PO SCH (22:09)
[2018-11-09] MEDS: RIVAROXABAN 20 MG TAB PO SCH (22:09)
[2018-11-09] MEDS: traZODone HCL 50 MG TAB PO SCH (22:10)
[2018-11-10] MEDS: HYDROmorphone 0.5 MG/0.5 ML SYRINGE IVP PRN ×2 (00:37→16:42)
[2018-11-10] MEDS: methylPREDNISolone SOD SUCCI 40 MG/ML 1 ML VIAL IV SCH ×4 (00:38→23:31)
[2018-11-10] MEDS: IPRATROPIUM-ALBUTEROL 3 ML NEB INHALATION PRN (03:55)
[2018-11-10 07:01] LABS: Glucose,Whole Blood 94 mg/dL (75-99)
[2018-11-10] MEDS: IPRATROPIUM-ALBUTEROL 3 ML NEB INHALATION SCH ×4 (07:33→19:11)
[2018-11-10] MEDS: BUDESONIDE 1 MG/2 ML NEBU INHALATION SCH ×2 (07:33→19:12)
[2018-11-10 07:40] LABS: HCT 47.4 % (39.0-53.0); HGB 14.9 gm/dL (13.0-17.5); MCH 30.6 pg (25.0-35.0); MCHC 31.3 g/dL (31.0-37.0); MCV 97.6 fL (80.0-100.0); Mean Platelet Volume 7.8; Platelet Count 194 k/uL (150-450); RBC 4.86 m/uL (4.30-5.90); RDW 14.5 % (11.5-15.5); WBC 16.9 k/uL (3.8-10.6)
[2018-11-10] MEDS: INSULIN ASPART (NovoLOG) 100 UNIT/ML VIAL SQ SCH ×4 (07:47→21:04)
[2018-11-10 07:52] LABS: ALT 662 U/L (21-72); AST 573 U/L (17-59); African American GFR (CKD) >90 (>60 ml/min/1.73 sqM); Albumin 3.3 g/dL (3.5-5.0); Alkaline Phosphatase 649 U/L (38-126); Anion Gap 9 mmol/L; Blood Urea Nitrogen 35 mg/dL (9-20); Carbon Dioxide 28 mmol/L (22-30); Chloride 102 mmol/L (98-107); Glucose 96 mg/dL (74-99); Potassium 5.2 mmol/L (3.5-5.1); Sodium 139 mmol/L (137-145); Total Bilirubin 0.7 mg/dL (0.2-1.3); Total Protein 6.1 g/dL (6.3-8.2)
[2018-11-10 08:03] LABS: INR 1.5 (<1.2); Prothrombin Time 14.7 sec (9.0-12.0)
[2018-11-10] MEDS: SPIRONOLACTONE 25 MG TAB PO SCH (08:09)
[2018-11-10] MEDS: MULTIVITAMINS, THERA 1 EACH TAB PO SCH (08:10)
[2018-11-10] MEDS: METOPROLOL TARTRATE 25 MG TAB PO SCH (08:10)
[2018-11-10] MEDS: MORPHINE SULFATE ER 30 MG TABLET PO SCH ×2 (08:10→21:03)
[2018-11-10] MEDS: METOCLOPRAMIDE 5 MG/ML 2 ML VIAL IVP PRN (08:10)
[2018-11-10] MEDS: FOLIC ACID 1 MG TAB PO SCH (08:11)
[2018-11-10] MEDS: ASCORBIC ACID 500 MG TAB PO SCH (08:11)
[2018-11-10] MEDS: POLYETHYLENE GLYCOL 3350 17 GM POWD.PACK PO SCH (08:11)
[2018-11-10] MEDS: PROMETHAZ-COD 6.25-10 MG/5 ML 5 ML CUP PO PRN (08:11)
--- NOTE | 2018-11-10 09:08 | P.PN ---
Subjective Progress Note Date: 11/09/18 Principal diagnosis: Elevated liver enzymes Attempted to see patient but not in his room, will see tomorrow. Objective - Vital Signs Vital signs: Vital Signs Temp 98.2 F 11/09/18 05:00 Pulse 94 11/09/18 11:48 Resp 16 11/09/18 05:00 BP 92/62 11/09/18 05:00 Pulse Ox 91 L 11/09/18 05:00 Intake & Output 11/08/18 11/09/18 11/09/18 18:59 06:59 18:59 Intake Total 300 Balance 300 Intake: Oral 300 Other: Voiding Method Toilet Toilet # Voids 1 1 - Labs CBC & Chem 7: 11/10/18 07:08 11/10/18 07:08 Labs: Abnormal Lab Results - Last 24 Hours (Table) 11/08/18 11/08/18 11/09/18 Range/Units 16:58 20:06 07:08 POC Glucose (mg/dL) 108 H 147 H 109 H (75-99) mg/dL 11/09/18 Range/Units 12:29 POC Glucose (mg/dL) 166 H (75-99) mg/dL Assessment and Plan (1) Elevated liver enzymes Current Visit: Yes Status: Acute Code(s): R74.8 - ABNORMAL LEVELS OF OTHER SERUM ENZYMES SNOMED Code(s): 071956260 (2) Intractable nausea and vomiting Current Visit: Yes Status: Acute Code(s): R11.2 - NAUSEA WITH VOMITING, UNSPECIFIED SNOMED Code(s): 036049254 (3) Lung cancer Current Visit: No Status: Acute Code(s): C34.90 - MALIGNANT NEOPLASM OF UNSP PART OF UNSP BRONCHUS OR LUNG SNOMED Code(s): 061631141 (4) Constipation Current Visit: Yes Status: Acute Code(s): K59.00 - CONSTIPATION, UNSPECIFIED SNOMED Code(s): 99921065 (5) Abdominal pain Current Visit: Yes Status: Acute Code(s): R10.9 - UNSPECIFIED ABDOMINAL PAIN SNOMED Code(s): 25886374
--- NOTE | 2018-11-10 12:25 | P.PN ---
Subjective Progress Note Date: 11/10/18 Principal diagnosis: Acute exacerbation of COPD, history of metastatic adenocarcinoma of the lung, with recurrence This is a 58-year-old white male patient with history of metastatic adenocarcinoma of the lung, post chemo and immunotherapy with Keytruda. Most recent CAT scan of the chest abdomen and pelvis from July 2018 showed no measurable disease, patient appears to be in remission. 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 History of nonocclusive coronary artery disease, patient follows with Dr. Todd. Other history includes hypertension, GERD/reflux. On 11/02/2018 patient presented to the Ed with complaints of dyspnea, cough, congestion, green phlegm production, nausea, right upper quadrant and left lower quadrant abdominal pain. Denied fever chills, denied chest pain, pleurisy, hemoptysis. Was seen by PCP 3 days prior and started on oral steroids, with no improvement. CXR showed left hilar infiltrate and interstitial pattern. Patient does have a history of chronic systolic CHF with EF of 40%. BNP 1120, trop negative times one, WBC 9.3, Hgb 16.5, Na 136, K4.3, Chloride 103, CO@ 22, BUN 18, Cr 1.03. Afebrile, no acute dystress, complains of coughing spells and abdominal discomfort and nausea On 11/05/2018 patient seen in follow-up on medical oncology floor. Denies any worsening shortness of breath, overall slightly improved, although still has a persistent cough. Room air pulse ox is 95%, he is afebrile, hemodynamically stable, patient is tolerating ambulation. Lung sounds reveal better manage breath sounds with some scattered wheezing. Today's labs have been reviewed, showing white blood cell count of 11.3, hemoglobin of 12.8, platelet count is 178, serum sodium is 140, potassium is 5.0, chloride is 111, CO2 is 20, BUN is 18, creatinine is 1.03. Procalcitonin is pending, findings of the CT chest abdomen and pelvis were discussed with the patient and they are consistent with recurrence of the metastatic disease. Medical oncology has been consulted. patient is visibly upset and emotional about recurrence of the malignancy. On 11/08/2018 patient seen in follow-up on medical oncology floor. Patient is having persistent back pain, abdominal pain has subsided, but still remains. No nausea or vomiting. Thoracic spine MRI showed multilevel moderate to severe degenerative disc disease with no disc herniation or canal stenosis, no enhancing mass, diffuse heterogeneous pattern to the marrow within the visualized thoracic vertebral segments is suspicious for metastasis and compatible with the computed tomography scan findings of multiple sclerotic punctate lesions. Luminary metastasis with pleural effusion. Medical oncology is following, and did not recommend XRT to the spine based on MRI results. From pulmonary perspective patient is improving, breathing easier, he is on room air, with a pulse ox of 91 and 92%, afebrile. Lung sounds are clear to auscultation. Today's labs have been reviewed, no new chest x-rays, she continues on IV steroids, nebulized bronchodilators On 11/10/2018 patient seen in follow-up on medical oncology floor. He is resting in bed, he states his breathing is stable, still has some occasional cough, not any worse than usual. No fever, no chills, still has some nausea, bu t no vomiting, he is tolerating oral diet. Vital signs are stable, patient is on room air, rheumatic pulse ox is 93%. Urine culture was negative. Today's labs have been reviewed, showing white blood cell count of 16.9, hemoglobin of 14.9, serum sodium is 139, potassium is 5.2, chloride is 102, CO2 is 28, B1 is 35, creatinine 0.92. Liver enzymes are slightly increased on today's labs compared to yesterday. GI service is following, and patient is continuing on IV steroids. Objective - Vital Signs Vital signs: Vital Signs Temp 97.5 F L 11/10/18 04:40 Pulse 88 11/10/18 11:59 Resp 18 11/10/18 04:40 BP 107/76 11/10/18 04:40 Pulse Ox 93 L 11/10/18 04:40 Intake & Output 11/09/18 11/10/18 11/10/18 18:59 06:59 18:59 Intake Total 20 Balance 20 Intake: IV 20 flush 20 Other: Voiding Method Toilet Toilet Toilet # Voids 3 3 - Exam GENERAL EXAM: Alert, pleasant, 58-year-old white male, comfortable in no apparent distress. HEAD: Normocephalic/atraumatic. EYES: Normal reaction of pupils, equal size. Conjunctiva pink, sclera white. NOSE: Clear with pink turbinates. THROAT: No erythema or exudates. NECK: No masses, no JVD, no thyroid enlargement, no adenopathy. CHEST: No chest wall deformity. Symmetrical expansion. LUNGS: Equal air entry with with no significant wheezing or rhonchi CVS: Regular rate and rhythm, normal S1 and S2, no gallops, no murmurs, no rubs ABDOMEN: Soft, nontender. No hepatosplenomegaly, normal bowel sounds, no guarding or rigidity. EXTREMITIES: No clubbing, no edema, no cyanosis, 2+ pulses and upper and lower extremities. MUSCULOSKELETAL: Muscle strength and tone normal. SPINE: No scoliosis or deformity SKIN: No rashes CENTRAL NERVOUS SYSTEM: Alert and oriented -3. No focal deficits, tone is normal in all 4 extremities. PSYCHIATRIC: Alert and oriented -3. Appropriate affect. Intact judgment and insight. - Labs CBC & Chem 7: 11/10/18 07:08 11/10/18 07:08 Labs: Abnormal Lab Results - Last 24 Hours (Table) 11/09/18 11/09/18 11/09/18 Range/Units 12:29 16:39 21:29 WBC (3.8-10.6) k/uL PT (9.0-12.0) sec INR (<1.2) Potassium (3.5-5.1) mmol/L BUN (9-20) mg/dL POC Glucose (mg/dL) 166 H 216 H 150 H (75-99) mg/dL AST (17-59) U/L ALT (21-72) U/L Alkaline Phosphatase (38-126) U/L Total Protein (6.3-8.2) g/dL Albumin (3.5-5.0) g/dL 11/10/18 11/10/18 11/10/18 Range/Units 07:08 07:08 07:08 WBC 16.9 H (3.8-10.6) k/uL PT 14.7 H (9.0-12.0) sec INR 1.5 H (<1.2) Potassium 5.2 H (3.5-5.1) mmol/L BUN 35 H (9-20) mg/dL POC Glucose (mg/dL) (75-99) mg/dL AST 573 H (17-59) U/L ALT 662 H (21-72) U/L Alkaline Phosphatase 649 H (38-126) U/L Total Protein 6.1 L (6.3-8.2) g/dL Albumin 3.3 L (3.5-5.0) g/dL Assessment and Plan Plan: Assessment: 1. Dyspnea, related to what appears to be recurrent metastatic lung cancer, CT chest/Abdomen/Pelvis shows masslike consolidation in the left lower lobe consist ent with tumor, coarse interstial infitrates in both lower lobes, left pleural effusion increased from prior CT chest in July,. Increased mediastinal and bronchial adenopathy, low density lesions throughout liver and spleen consistent with metastatic disease in addition to the osteoblastic focus in the inferior aspect of L4 consistent with metastatic disease 2. Metastatic adenocarcinoma of lung stage IV, status chemo and immunotherapy, was in remission until now 3. Abdominal pain in right upper quadrant and left lower quadrant, nausea likely related to metastatic disease 4. Chronic systolic CHF 5. Former nicotine dependence 6. History of left vocal cord paralysis, s/p vocal cord medialization 7. Non-occlusive corodnary artery disease 8. History of previous pneumonia Plan: Patient is stable from pulmonary perspective in terms of his COPD, less congested, no significant cough, no complaints of chest pain. Still has some nausea, no vomiting, tolerating oral diet, from pulmonary perspective patient could be considered for discharge as long his been cleared by GI service, on today's labs there is some slight increase in the liver enzymes. Otherwise no acute events overnight. Follow-up on as-needed basis. This patient was seen and evaluated along with IRAIS Brown. Agree with the above exam findings and evaluation. Time with Patient: Less than 30
[2018-11-10 12:35] LABS: Glucose,Whole Blood 141 mg/dL (75-99)
--- NOTE | 2018-11-10 16:24 | P.DS ---
Providers Date of admission: 11/04/18 09:10 Expected date of discharge: 11/10/18 Attending physician: Manpreet Jon Consults: 11/03/18 11:29 Consult Physician Routine Consulting Provider: Art Crandall Consult Reason/Comments: Pneumonia Do you want consulting provider notified?: Yes 11/04/18 22:46 Consult Physician Routine Consulting Provider: Hima Donovan Consult Reason/Comments: recurrent metastatic lung CA Do you want consulting provider notified?: Yes 11/06/18 13:14 Consult Physician Routine Consulting Provider: James Jorge Consult Reason/Comments: increased LFTs Do you want consulting provider notified?: Yes 11/08/18 11:39 Consult Physician Routine Consulting Provider: Grant Pagan Consult Reason/Comments: Back pain with mets Do you want consulting provider notified?: Yes Primary care physician: Ron Winter [facility] Course: 67-year-old gentleman past medical history significant for hypertension, osteoarthritis, PE history of lung cancer comes in with cough and shortness of breath. He was initially very wheezy and coarse. He was also having abdominal pain. He was having nausea vomiting and he was constipated. He was admitted to the hospital for possible treatment for bronchitis. Pulmonology is consulted who ordered for a CT of the chest abdomen and pelvis which showed recurrence of the metastatic lung cancer. Oncology was consulted. He was continued on steroids, breathing treatments. Pulmonology is continuing to follow the patient. Oncology also follow the patient will does CT of the head which showed no metastases to the brain and also CT of the spine. They did not recommend radiation treatment. Oncology recommended to the patient is to follow up as an outpatient for evaluation for possible chemotherapy. Patient was continued to have shortness of breath and cough. He was continued abdominal pain. His LFTs were high. GI was consulted for things that is probably because of a combination of its metastatic lesions, history of alcoholism. They recommended to continue steroids to see if it helps. On 11/10/2018 Patient says that he's feeling better His shortness of breath and cough is better No chest pain or racing heart His abdominal pain is better is not completely gone.On exam, alert and oriented x3. His exam HEENT: Conjunctivae normal. eyes normal. NECK: No JVD. No thyroid enlargement. No LNs CARDIOVASCULAR: S1, S2 muffled. No murmur RESPIRATION: Very minimal wheezing better when compared to previously ABDOMEN: Soft, tenderness appreciated mostly in the right upper quadrant. No guarding. no masses palpable. No ascites, No hepatosplenomegaly.Bowel sounds heard. LEGS: No edema. no swelling NERVOUS SYSTEM: Cranial N 2-12 grossly normal. Moves all 4 limbs. No focal deficits. No sensory deficit. No signs of cerebellar dysfucntion. Skin: no ulcer no rash Patient was cleared by pulmonology to be discharged and follow them up as an outpatient as needed Hematology oncology was to see the patient as an outpatient. We will have him follow them in a week. Patient's pain was controlled with MS Contin twice a day and Dilaudid when necessary IV while in the hospital. We'll discharge him on MS Contin twice a day and [place] for breakthrough pain The patient will be discharged once cleared by GI. Patient Condition at Discharge: Fair Plan - Discharge Summary Discharge Rx Participant: No New Discharge Prescriptions: New Ipratropium-Albuterol Nebulize [Duoneb 0.5 mg-3 mg/3 ml Soln] 3 ml INHALATION RT-QID PRN #60 ampul.neb PRN Reason: Shortness Of Breath Or Wheezing Polyethylene Glycol 3350 [Miralax] 17 gm PO DAILY PRN #30 powd.pack PRN Reason: Constipation Morphine Sulfate ER [Ms Contin] 30 mg PO Q12HR #60 tablet HYDROcodone/APAP 7.5-325MG [[place] 7.5-325] 1 tab PO Q6HR PRN 3 Days #60 tab PRN Reason: Pain Promethaz-Cod 6.25-10 mg/5 ml [Phenergan with Codeine] 5 ml PO Q4H PRN #200 ml PRN Reason: Cold Symptoms Continue Benzonatate [Tessalon Perles] 100 mg PO TID PRN PRN Reason: Cough Furosemide [Lasix] 20 mg PO DAILY Omeprazole 40 mg PO DAILY Rivaroxaban [Xarelto] 20 mg PO DAILY Rosuvastatin Calcium [Crestor] 40 mg PO DAILY Metoprolol Tartrate [Lopressor] 25 mg PO DAILY predniSONE See Taper PO DAILY #60 tab Ondansetron HCl [Zofran] 8 mg PO Q8H PRN #60 tablet PRN Reason: Nausea Discontinued Levofloxacin [Levaquin] 500 mg PO DAILY No Action traZODone HCL [Desyrel] 100 mg PO HS PRN PRN Reason: Insomnia Folic Acid 1 mg PO DAILY Spironolactone [Aldactone] 12.5 mg PO DAILY diphenhydrAMINE [Benadryl] 25 mg PO HS Biotin 5,000 mcg PO DAILY Multivitamins, Thera [Multivitamin (formulary)] 1 tab PO DAILY Glucosam/Colin-Msm1/C/Patel/Bosw [Glucosamine-Chondroitin Tablet] 1 tab PO DAILY Ascorbic Acid [Vitamin C] 500 mg PO DAILY Discharge Medication List traZODone HCL [Desyrel] 100 mg PO HS PRN 12/10/13 [History] Folic Acid 1 mg PO DAILY 11/13/17 [History] Ascorbic Acid [Vitamin C] 500 mg PO DAILY 08/20/18 [History] Biotin 5,000 mcg PO DAILY 08/20/18 [History] Glucosam/Colin-Msm1/C/Patel/Bosw [Glucosamine-Chondroitin Tablet] 1 tab PO DAILY 0 08/20/18 [History] Multivitamins, Thera [Multivitamin (formulary)] 1 tab PO DAILY 08/20/18 [History] Spironolactone [Aldactone] 12.5 mg PO DAILY 08/20/18 [History] diphenhydrAMINE [Benadryl] 25 mg PO HS 08/20/18 [History] Benzonatate [Tessalon Perles] 100 mg PO TID PRN 11/02/18 [History] Furosemide [Lasix] 20 mg PO DAILY 11/02/18 [History] Metoprolol Tartrate [Lopressor] 25 mg PO DAILY 11/02/18 [History] Omeprazole 40 mg PO DAILY 11/02/18 [History] Rivaroxaban [Xarelto] 20 mg PO DAILY 11/02/18 [History] Rosuvastatin Calcium [Crestor] 40 mg PO DAILY 11/02/18 [History] HYDROcodone/APAP 7.5-325MG [[place] 7.5-325] 1 tab PO Q6HR PRN 3 Days #60 tab 11/10/18 [Rx] Ipratropium-Albuterol Nebulize [Duoneb 0.5 mg-3 mg/3 ml Soln] 3 ml INHALATION RT-QID PRN #60 ampul.neb 11/10/18 [Rx] Morphine Sulfate ER [Ms Contin] 30 mg PO Q12HR #60 tablet 11/10/18 [Rx] Ondansetron HCl [Zofran] 8 mg PO Q8H PRN #60 tablet 11/10/18 [Rx] Polyethylene Glycol 3350 [Miralax] 17 gm PO DAILY PRN #30 powd.pack 11/10/18 [Rx] Promethaz-Cod 6.25-10 mg/5 ml [Phenergan with Codeine] 5 ml PO Q4H PRN #200 ml 11/10/18 [Rx] predniSONE See Taper PO DAILY #60 tab 11/10/18 [Rx] Follow up Appointment(s)/Referral(s): Ron Rico MD [Primary Care Provider] - 1-2 days Jovany Zaman MD [STAFF PHYSICIAN] - 1 Week Caroline Roque MD [STAFF PHYSICIAN] - 1 Week Activity/Diet/Wound Care/Special Instructions: If she started to have increased shortness of breath or increased cough, increased abdominal pain, increased nausea vomiting, any headache, any confusion, a loss of vision or blurry vision, any syncopal events, any chest pain racing heart, any fever or chills, please call 911 and come to the ER. Discharge Disposition: HOME WITH HOME HEALTH SERVICES
[2018-11-10 16:52] LABS: Glucose,Whole Blood 127 mg/dL (75-99)
[2018-11-10 20:13] LABS: Glucose,Whole Blood 122 mg/dL (75-99)
[2018-11-10] MEDS: RIVAROXABAN 20 MG TAB PO SCH (21:04)
[2018-11-10] MEDS: traZODone HCL 50 MG TAB PO SCH (21:04)
[2018-11-10] MEDS: PANTOPRAZOLE 40 MG TABLET PO SCH (21:04)
--- NOTE | 2018-11-10 21:33 | P.PN ---
Subjective Progress Note Date: 11/10/18 Principal diagnosis: Elevated liver enzymes Lying in bed still reporting and abdominal pain. No bowel movement reported. Objective - Vital Signs Vital signs: Vital Signs Temp 97.5 F L 11/10/18 04:40 Pulse 89 11/10/18 04:40 Resp 18 11/10/18 04:40 BP 107/76 11/10/18 04:40 Pulse Ox 93 L 11/10/18 04:40 Intake & Output 11/09/18 11/10/18 11/10/18 18:59 06:59 18:59 Intake Total 20 Balance 20 Intake: IV 20 flush 20 Other: Voiding Method Toilet Toilet Toilet # Voids 3 3 - Exam On physical examination, patient appears comfortable in no apparent distress. HEAD: Normocephalic, atraumatic. EYES: No scleral icterus. No conjunctival injection. MOUTH: No lesions, tongue midline. NECK: Trachea midline, no gross abnormalities. CHEST: Decreased air entry bilaterally. HEART: Regular rate and rhythm. ABDOMEN: Soft, obese. Bowel sounds are positive. No organomegaly. No guarding or rigidity. EXTREMITIES: No pedal edema. SKIN: No rashes, no jaundice. NEUROLOGIC: Alert and oriented x3. No focal deficits. - Labs CBC & Chem 7: 11/10/18 07:08 11/10/18 07:08 Labs: Abnormal Lab Results - Last 24 Hours (Table) 11/09/18 11/09/18 11/09/18 Range/Units 12:29 16:39 21:29 WBC (3.8-10.6) k/uL PT (9.0-12.0) sec INR (<1.2) Potassium (3.5-5.1) mmol/L BUN (9-20) mg/dL POC Glucose (mg/dL) 166 H 216 H 150 H (75-99) mg/dL AST (17-59) U/L ALT (21-72) U/L Alkaline Phosphatase (38-126) U/L Total Protein (6.3-8.2) g/dL Albumin (3.5-5.0) g/dL 11/10/18 11/10/18 11/10/18 Range/Units 07:08 07:08 07:08 WBC 16.9 H (3.8-10.6) k/uL PT 14.7 H (9.0-12.0) sec INR 1.5 H (<1.2) Potassium 5.2 H (3.5-5.1) mmol/L BUN 35 H (9-20) mg/dL POC Glucose (mg/dL) (75-99) mg/dL AST 573 H (17-59) U/L ALT 662 H (21-72) U/L Alkaline Phosphatase 649 H (38-126) U/L Total Protein 6.1 L (6.3-8.2) g/dL Albumin 3.3 L (3.5-5.0) g/dL Assessment and Plan (1) Elevated liver enzymes Narrative/Plan: 58-year-old male with metastatic adenocarcinoma of the lung who presented to the hospital with complaints of cough, sputum production and shortness of breath and subsequently found to have a new lung mass with imaging consistent with metastatic disease to the liver and spine. Patient's liver enzymes found to be elevated on presentation with normal liver enzymes noted on review of the record earlier this year. Total bilirubin 0.7, alkaline phosphatase 649, AST 573, and ALT 662 today. Patient's INR has remained stable. No evidence of encephal opathy. Unclear etiology of this elevation in enzymes, given patient's extensive history of alcohol abuse would expect the degree of liver fibrosis and this in combination with patient's extensive metastatic disease to the liver is likely the cause of elevation in the liver enzymes. Ischemia and medication effect considered but less likely. Suspicion for biliary pathology is low as the patient's bile duct was normal on imaging and bilirubin has remained within normal limits. Current Visit: Yes Status: Acute Code(s): R74.8 - ABNORMAL LEVELS OF OTHER SERUM ENZYMES SNOMED Code(s): 614100821 (2) Intractable nausea and vomiting Current Visit: Yes Status: Acute Code(s): R11.2 - NAUSEA WITH VOMITING, UNSPECIFIED SNOMED Code(s): 720459161 (3) Lung cancer Current Visit: No Status: Acute Code(s): C34.90 - MALIGNANT NEOPLASM OF UNSP PART OF UNSP BRONCHUS OR LUNG SNOMED Code(s): 447286433 (4) Constipation Narrative/Plan: Suspicion is for opioid-induced constipation with plan for addition of laxatives to be titrated to bowel movements. Current Visit: Yes Status: Acute Code(s): K59.00 - CONSTIPATION, UNSPECIFIED SNOMED Code(s): 78813774 (5) Abdominal pain Narrative/Plan: Likely multifactorial in the setting of constipation, metastatic cancer to the liver and spine, as well as history of retching prior to presentation. Current Visit: Yes Status: Acute Code(s): R10.9 - UNSPECIFIED ABDOMINAL PAIN SNOMED Code(s): 09941960 Plan: Supportive care Okay for diet Continue to monitor liver enzymes, INR and clinically No plan for endoscopic evaluation at this time and Acute viral hepatitis panel negative Prednisone changed to Solu-Medrol 40 every 8 hours, okay to discontinue on discharge if no improvement in liver enzymes as elevation in liver enzymes secondary to immunotherapy less likely than underlying fibrosis/cirrhosis and metastatic disease as the cause of elevation in liver enzymes Bowel regimen started with MiraLAX daily ordered Continue pain control per primary team Continue antiemetic therapy Thank you for allowing us to participate in the care of the patient we will continue to follow
[2018-11-11 07:26] LABS: Glucose,Whole Blood 101 mg/dL (75-99)
[2018-11-11] MEDS: INSULIN ASPART (NovoLOG) 100 UNIT/ML VIAL SQ SCH ×2 (07:43→11:34)
[2018-11-11 08:00] LABS: INR 1.6 (<1.2); Prothrombin Time 15.7 sec (9.0-12.0)
[2018-11-11 08:06] LABS: Bilirubin, Delta 0.6 mg/dL (0.0-0.2); Bilirubin,Unconjugated 0.4 mg/dL (0.0-1.1)
[2018-11-11 08:09] LABS: Albumin 3.1 g/dL (3.5-5.0); Total Protein 6.1 g/dL (6.3-8.2)
[2018-11-11] MEDS: BUDESONIDE 1 MG/2 ML NEBU INHALATION SCH (09:02)
[2018-11-11] MEDS: IPRATROPIUM-ALBUTEROL 3 ML NEB INHALATION SCH ×2 (09:02→11:42)
[2018-11-11] MEDS: METOPROLOL TARTRATE 25 MG TAB PO SCH (09:13)
[2018-11-11] MEDS: POLYETHYLENE GLYCOL 3350 17 GM POWD.PACK PO SCH (09:13)
[2018-11-11] MEDS: SPIRONOLACTONE 25 MG TAB PO SCH (09:13)
[2018-11-11] MEDS: MULTIVITAMINS, THERA 1 EACH TAB PO SCH (09:13)
[2018-11-11] MEDS: methylPREDNISolone SOD SUCCI 40 MG/ML 1 ML VIAL IV SCH (09:13)
[2018-11-11] MEDS: PROMETHAZ-COD 6.25-10 MG/5 ML 5 ML CUP PO PRN (09:14)
[2018-11-11] MEDS: ASCORBIC ACID 500 MG TAB PO SCH (09:14)
[2018-11-11] MEDS: FOLIC ACID 1 MG TAB PO SCH (09:15)
[2018-11-11] MEDS: MORPHINE SULFATE ER 30 MG TABLET PO SCH (09:26)
[2018-11-11 11:35] LABS: Glucose,Whole Blood 128 mg/dL (75-99)
[2018-11-11 11:55] VITALS: BP 92/68; PULSE 80; RESP 16; TEMP 98
== END 2018-11-11 14:00 | disposition home or self-care (01) | DRG 180 ==
LOC: EC 12:42 → 3NMEDONC 16:39 → OBSVTOIN 11-04 09:10
PROVIDERS: ADMIT Hospitalist; ATTEND Hospitalist
DX: C34.92 Malignant neoplasm of unspecified part of left bronchus or lung (principal); J18.9 Pneumonia, unspecified organism; C78.7 Secondary malignant neoplasm of liver and intrahepatic bile duct; C79.51 Secondary malignant neoplasm of bone; I31.3 Pericardial effusion (noninflammatory); I50.22 Chronic systolic (congestive) heart failure; J44.0 Chronic obstructive pulmonary disease with (acute) lower respiratory infection; J44.1 Chronic obstructive pulmonary disease with (acute) exacerbation; F10.21 Alcohol dependence, in remission; F17.200 Nicotine dependence, unspecified, uncomplicated; I11.0 Hypertensive heart disease with heart failure; I25.10 Atherosclerotic heart disease of native coronary artery without angina pectoris; J20.9 Acute bronchitis, unspecified; J38.01 Paralysis of vocal cords and larynx, unilateral; K21.9 Gastro-esophageal reflux disease without esophagitis; K59.00 Constipation, unspecified; M19.91 Primary osteoarthritis, unspecified site; M51.34 Other intervertebral disc degeneration, thoracic region; N20.0 Calculus of kidney; Z79.01 Long term (current) use of anticoagulants; Z79.899 Other long term (current) drug therapy; Z82.49 Family history of ischemic heart disease and other diseases of the circulatory system; Z86.711 Personal history of pulmonary embolism; Z92.21 Personal history of antineoplastic chemotherapy; Z88.8 Allergy status to other drugs, medicaments and biological substances
CPT/HCPCS: 36415; 70553; 71046; 71260; 72072; 72157; 74177; 76700; 78306; 80048; 80053; 80074; 80076; 81001; 82150; 82248; 83615; 83690; 83880; 84484; 85025; 85027; 85610; 85730; 87086; 87449; 93005; 94640; 96361; 96365; 96375; 96376; 99285

== ENCOUNTER → 2018-11-15 | Outpatient (CLI) | payer OTHER ==
[2018-11-15 13:43] LABS: Basophils % (A) 0 %; Eosinophils # (A) 0.1 k/uL (0-0.7); Eosinophils % (A) 1 %; HCT 51.3 % (39.0-53.0); HGB 15.9 gm/dL (13.0-17.5); Hypochromasia Slight; Lymphocytes # (A) 0.4 k/uL (1.0-4.8); Lymphocytes % (A) 3 %; MCH 30.4 pg (25.0-35.0); Monocytes # (A) 0.7 k/uL (0-1.0); Monocytes % (A) 5 %; Neutrophils # (A) 14.4 k/uL (1.3-7.7); Neutrophils % (A) 90 %; Platelet Count 156 k/uL (150-450); RBC 5.23 m/uL (4.30-5.90); RDW 14.8 % (11.5-15.5); WBC 15.9 k/uL (3.8-10.6)
[2018-11-15 14:17] LABS: ALT 959 U/L (21-72); African American GFR (CKD) 88 (>60 ml/min/1.73 sqM); Albumin 2.8 g/dL (3.5-5.0); Alkaline Phosphatase 802 U/L (38-126); Amylase 64 U/L (30-110); Anion Gap 12 mmol/L; Blood Urea Nitrogen 30 mg/dL (9-20); Carbon Dioxide 20 mmol/L (22-30); Chloride 100 mmol/L (98-107); Globulin 2.9 g/dL; Glucose 106 mg/dL (74-99); Potassium 5.4 mmol/L (3.5-5.1); Sodium 132 mmol/L (137-145); Total Bilirubin 1.5 mg/dL (0.2-1.3); Total Protein 5.7 g/dL (6.3-8.2)
[2018-11-15 14:18] LABS: AST 928 U/L (17-59)
== END ==
LOC: LABWHC1 13:08
PROVIDERS: ATTEND Family Medicine
DX: R74.8 Abnormal levels of other serum enzymes (principal)
CPT/HCPCS: 36415; 80053; 82140; 82150; 85025

== ENCOUNTER 2018-11-16 07:54 | Inpatient (IN) | payer OTHER ==
[2018-11-16] MEDS ORDERED: SODIUM CHLORIDE 0.9% 500 ML 500 ML IV STA (08:02)
[2018-11-16] MEDS ORDERED: SODIUM CHLORIDE 0.9% 1,000 ML IV STA (08:02)
[2018-11-16] MEDS ORDERED: HYDROmorphone 1 MG/ML 1 ML SYRINGE IVP STA (08:04)
[2018-11-16] MEDS ORDERED: ONDANSETRON 4 MG/2 ML VIAL IVP STA (08:04)
[2018-11-16] MEDS ORDERED: IPRATROPIUM-ALBUTEROL 3 ML NEB INHALATION STA ×2 (08:05→10:39)
--- NOTE | 2018-11-16 08:09 | ED ---
SOB HPI - General Chief Complaint: Shortness of Breath Stated Complaint: Pain Time Seen by Provider: 11/16/18 08:00 Source: patient, EMS, RN notes reviewed Mode of arrival: EMS Limitations: physical limitation - History of Present Illness Initial Comments: This is a 58-year-old male with a history of right-sided lung cancer which is now metastasized to liver or gallbladder and spine who presents by EMS with complaints of nausea and decreased oral intake and generalized pain especially the right chest shortness of breath and today it is reported also he's had some confusion with a history of elevated ammonia levels. No fevers chills sweats, reported. Patient does demonstrate exertional dyspnea. No other modifying factors at this time patient was recently hospitalized and was discharged 5 days ago MD Complaint: shortness of breath, chest pain - Related Data Home Medications Medication Instructions Recorded Confirmed traZODone HCL [Desyrel] 100 mg PO HS PRN 12/10/13 11/16/18 Folic Acid 1 mg PO DAILY 11/13/17 11/16/18 Ascorbic Acid [Vitamin C] 500 mg PO DAILY 08/20/18 11/16/18 Biotin 5,000 mcg PO DAILY 08/20/18 11/16/18 Glucosam/Colin-Msm1/C/Patel/Bosw 1 tab PO DAILY 08/20/18 11/16/18 [Glucosamine-Chondroitin Tablet] Multivitamins, Thera [Multivitamin 1 tab PO DAILY 08/20/18 11/16/18 (formulary)] Spironolactone [Aldactone] 12.5 mg PO DAILY 08/20/18 11/16/18 Benzonatate [Tessalon Perles] 100 mg PO TID PRN 11/02/18 11/16/18 Furosemide [Lasix] 20 mg PO DAILY 11/02/18 11/16/18 Metoprolol Tartrate [Lopressor] 25 mg PO DAILY 11/02/18 11/16/18 Omeprazole 40 mg PO DAILY 11/02/18 11/16/18 Rivaroxaban [Xarelto] 20 mg PO DAILY 11/02/18 11/16/18 Rosuvastatin Calcium [Crestor] 40 mg PO DAILY 11/02/18 11/16/18 Lactulose 10 gm PO BID 11/16/18 11/16/18 Previous Rx's Medication Instructions Recorded HYDROcodone/APAP 7.5-325MG [[place] 1 tab PO Q6HR PRN 3 Days #60 tab 11/10/18 7.5-325] Ipratropium-Albuterol Nebulize 3 ml INHALATION RT-QID PRN #60 11/10/18 [Duoneb 0.5 mg-3 mg/3 ml Soln] ampul.neb Morphine Sulfate ER [Ms Contin] 30 mg PO Q12HR #60 tablet 11/10/18 Ondansetron HCl [Zofran] 8 mg PO Q8H PRN #60 tablet 11/10/18 Polyethylene Glycol 3350 [Miralax] 17 gm PO DAILY PRN #30 powd.pack 11/10/18 Promethaz-Cod 6.25-10 mg/5 ml 5 ml PO Q4H PRN #200 ml 11/10/18 [Phenergan with Codeine] predniSONE See Taper PO DAILY #60 tab 11/10/18 Allergies Allergy/AdvReac Type Severity Reaction Status Date / Time [facility] AdvReac Nausea & Verified 11/16/18 09:40 Vomiting Review of Systems ROS Statement: Those systems with pertinent positive or pertinent negative responses have been documented in the HPI. ROS Other: All systems not noted in ROS Statement are negative. Past Medical History Past Medical History: Cancer, COPD, GERD/Reflux, Hypertension, Osteoarthritis (OA), Pneumonia, Prostate Disorder, Pulmonary Embolus (PE) Additional Past Medical History / Comment(s): Recovering alcoholic - quit 2002, hx of skin ca (sx), lung cancer w/ mets to liver, spine, gallbladder, occ episodes of lightheadedness w/ exertion, hx left vocal cord paralysis (sx). History of Any Multi-Drug Resistant Organisms: None Reported Past Surgical History: Orthopedic Surgery Additional Past Surgical History / Comment(s): Right carpal tunnel release, skin ca removed from face/nose, colonoscopy/polypectomy (per patient - negative), 02-13-18 left medialization thyroidplasy. Past Anesthesia/Blood Transfusion Reactions: Family History of Problems w/ Anesthesia Additional Past Anesthesia/Blood Transfusion Reaction / Comment(s): FATHER WOKE UP VERY AGITATED AND HAD TO BE "RE-MEDICATED". HAD BLOOD TRANSFUSION-NO REACTION Past Psychological History: No Psychological Hx Reported Smoking Status: Former smoker Past Alcohol Use History: None Reported Past Drug Use History: None Reported - Past Family History Father Family Medical History: Myocardial Infarction ([place]) Additional Family Medical History / Comment(s): Alcoholic. . Mother Family Medical History: Myocardial Infarction ([place]) Additional Family Medical History / Comment(s): Alcoholic. . General Exam - General Exam Comments Initial Comments: This is a well-developed well-nourished awake alert somewhat lethargic male Limitations: physical limitation General appearance: alert, lethargic Head exam: Present: atraumatic, normocephalic, normal inspection Eye exam: Present: normal appearance, PERRL, EOMI. Absent: scleral icterus, conjunctival injection, periorbital swelling ENT exam: Present: mucous membranes dry Neck exam: Present: normal inspection, full ROM, other (No stridor JVD or bruits). Absent: tenderness, meningismus, lymphadenopathy Respiratory exam: Present: decreased breath sounds (Decreased breath sounds especially on the left with occasional wheezing). Absent: respiratory distress, wheezes, rales, rhonchi, stridor Cardiovascular Exam: Present: regular rate, normal rhythm, normal heart sounds. Absent: systolic murmur, diastolic murmur, rubs, gallop, clicks GI/Abdominal exam: Present: soft, tenderness (Mild epigastric tenderness with some abdominal distention noted no guarding rebound or bruits), normal bowel sounds. Absent: distended, guarding, rebound, rigid Extremities exam: Present: normal inspection, full ROM, normal capillary refill. Absent: tenderness, pedal edema, joint swelling, calf tenderness Back exam: Present: normal inspection Neurological exam: Present: alert, oriented X3, CN II-XII intact Psychiatric exam: Present: normal affect, normal mood Skin exam: Present: warm, dry, intact, normal color. Absent: rash Course Vital Signs 11/16/18 11/16/18 11/16/18 08:01 09:22 09:32 Temperature 97.8 F Pulse Rate 76 113 H 120 H Respiratory 20 Rate Blood Pressure 121/78 O2 Sat by Pulse 95 Oximetry 11/16/18 09:51 Temperature Pulse Rate 110 H Respiratory 18 Rate Blood Pressure 120/77 O2 Sat by Pulse 2 L Oximetry - Reevaluation(s) Reevaluation #1: 11/16/18 10:40 Reevaluation patient revealed mild improvement in his breathing he still short of breath however. He still demonstrates some reproducible chest pain on the right. Medical Decision Making - Medical Decision Making I did discuss the findings with the patient family members. Patient does have evidence of new right-sided pulmonary infiltrate dehydration as well as tachycardia. He does have elevated troponin. He will be admitted for evaluation by pulmonary cardiology. Avelox will be restarted - Lab Data Result diagrams: 11/16/18 08:48 11/16/18 08:48 Lab Results 11/16/18 11/16/18 11/16/18 Range/Units 08:30 08:48 08:48 WBC 15.3 H (3.8-10.6) k/uL RBC 5.34 (4.30-5.90) m/uL Hgb 16.2 (13.0-17.5) gm/dL Hct 51.5 (39.0-53.0) % MCV 96.4 (80.0-100.0) fL MCH 30.4 (25.0-35.0) pg MCHC 31.5 (31.0-37.0) g/dL RDW 15.9 H (11.5-15.5) % Plt Count 147 L (150-450) k/uL Neutrophils % 88 % Lymphocytes % 6 % Monocytes % 5 % Eosinophils % 0 % Basophils % 0 % Neutrophils # 13.4 H (1.3-7.7) k/uL Lymphocytes # 0.9 L (1.0-4.8) k/uL Monocytes # 0.8 (0-1.0) k/uL Eosinophils # 0.0 (0-0.7) k/uL Basophils # 0.0 (0-0.2) k/uL PT (9.0-12.0) sec INR (<1.2) APTT (22.0-30.0) sec Sodium (137-145) mmol/L Potassium (3.5-5.1) mmol/L Chloride (98-107) mmol/L Carbon Dioxide (22-30) mmol/L Anion Gap mmol/L BUN (9-20) mg/dL Creatinine (0.66-1.25) mg/dL Est GFR (CKD-EPI)AfAm (>60 ml/min/1.73 sqM) Est GFR (CKD-EPI)NonAf (>60 ml/min/1.73 sqM) Glucose (74-99) mg/dL Calcium (8.4-10.2) mg/dL Magnesium (1.6-2.3) mg/dL Total Bilirubin (0.2-1.3) mg/dL AST (17-59) U/L ALT (21-72) U/L Alkaline Phosphatase (38-126) U/L Ammonia 61 H (<30) umol/L Creatine Kinase (55-170) U/L Troponin I (0.000-0.034) ng/mL Total Protein (6.3-8.2) g/dL Albumin (3.5-5.0) g/dL Lipase (23-300) U/L Urine Color Light Yellow Urine Appearance Clear (Clear) Urine pH 6.0 (5.0-8.0) Ur Specific [place] 1.004 (1.001-1.035) Urine Protein Trace H (Negative) Urine Glucose (UA) Negative (Negative) Urine Ketones Negative (Negative) Urine Blood Trace H (Negative) Urine Nitrite Negative (Negative) Urine Bilirubin Negative (Negative) Urine Urobilinogen <2.0 (<2.0) mg/dL Ur Leukocyte Esterase Moderate H (Negative) Urine RBC 1 (0-5) /hpf Ur Squamous Epith Cells <1 (0-4) /hpf 11/16/18 11/16/18 11/16/18 Range/Units 08:48 08:48 08:48 WBC (3.8-10.6) k/uL RBC (4.30-5.90) m/uL Hgb (13.0-17.5) gm/dL Hct (39.0-53.0) % MCV (80.0-100.0) fL MCH (25.0-35.0) pg MCHC (31.0-37.0) g/dL RDW (11.5-15.5) % Plt Count (150-450) k/uL Neutrophils % % Lymphocytes % % Monocytes % % Eosinophils % % Basophils % % Neutrophils # (1.3-7.7) k/uL Lymphocytes # (1.0-4.8) k/uL Monocytes # (0-1.0) k/uL Eosinophils # (0-0.7) k/uL Basophils # (0-0.2) k/uL PT 15.2 H (9.0-12.0) sec INR 1.5 H (<1.2) APTT 28.4 (22.0-30.0) sec Sodium 134 L (137-145) mmol/L Potassium 4.9 (3.5-5.1) mmol/L Chloride 101 (98-107) mmol/L Carbon Dioxide 23 (22-30) mmol/L Anion Gap 10 mmol/L BUN 26 H (9-20) mg/dL Creatinine 1.06 (0.66-1.25) mg/dL Est GFR (CKD-EPI)AfAm >90 (>60 ml/min/1.73 sqM) Est GFR (CKD-EPI)NonAf 79 (>60 ml/min/1.73 sqM) Glucose 77 (74-99) mg/dL Calcium 8.2 L (8.4-10.2) mg/dL Magnesium 2.2 (1.6-2.3) mg/dL Total Bilirubin 1.7 H (0.2-1.3) mg/dL AST 1012 H (17-59) U/L ALT 966 H (21-72) U/L Alkaline Phosphatase 910 H (38-126) U/L Ammonia (<30) umol/L Creatine Kinase 45 L (55-170) U/L Troponin I 0.042 H* (0.000-0.034) ng/mL Total Protein 5.6 L (6.3-8.2) g/dL Albumin 2.8 L (3.5-5.0) g/dL Lipase 191 (23-300) U/L Urine Color Urine Appearance (Clear) Urine pH (5.0-8.0) Ur Specific [place] (1.001-1.035) Urine Protein (Negative) Urine Glucose (UA) (Negative) Urine Ketones (Negative) Urine Blood (Negative) Urine Nitrite (Negative) Urine Bilirubin (Negative) Urine Urobilinogen (<2.0) mg/dL Ur Leukocyte Esterase (Negative) Urine RBC (0-5) /hpf Ur Squamous Epith Cells (0-4) /hpf - EKG Data -: EKG Interpreted by Me (Sinus tachycardia rate 114. Interval 140 QRS duration 104 QT since QTC 348) Critical Care Time Critical Care Time: Yes Critical Care Time: 37 minutes of critical care time which includes initial presentation with history physical labs x-rays multiple reevaluation the patient for response to therapy, review of old charting. Discussion with patient family members discussion with Dr. Jon admission orders and documentation of the above Disposition Clinical Impression: Pneumonia, Metastatic primary lung cancer, COPD exacerbation, Dehydration, Tachycardia, Hyperammonemia, Adult respiratory distress syndrome Disposition: ADMITTED IP TO THIS [facility] Condition: Fair Referrals: Nonstaff,Physician [Primary Care Provider] - 1-2 days
[2018-11-16 08:56] LABS: Appearance,Urine Clear (Clear); Bilirubin,Urine Negative (Negative); Blood,Urine Trace (Negative); Color,Urine Light Yellow; Glucose,Urine (UA) Negative (Negative); Ketones,Urine Negative (Negative); Leukocyte Esterase,Urine Moderate (Negative); Nitrite,Urine Negative (Negative); Protein,Urine Trace (Negative); RBC,Urine 1 /hpf (0-5); Specific Gravity,Urine 1.004 (1.001-1.035); Squamous Epithelial Cell,Urine <1 /hpf (0-4); Urobilinogen,Urine <2.0 mg/dL (<2.0)
[2018-11-16 09:24] LABS: INR 1.5 (<1.2); Partial Thromboplastin Time 28.4 sec (22.0-30.0); Prothrombin Time 15.2 sec (9.0-12.0)
[2018-11-16 09:27] LABS: ALT 966 U/L (21-72); African American GFR (CKD) >90 (>60 ml/min/1.73 sqM); Albumin 2.8 g/dL (3.5-5.0); Alkaline Phosphatase 910 U/L (38-126); Anion Gap 10 mmol/L; Blood Urea Nitrogen 26 mg/dL (9-20); Calcium 8.2 mg/dL (8.4-10.2); Carbon Dioxide 23 mmol/L (22-30); Chloride 101 mmol/L (98-107); Creatine Kinase 45 U/L (55-170); Glucose 77 mg/dL (74-99); Magnesium 2.2 mg/dL (1.6-2.3); Potassium 4.9 mmol/L (3.5-5.1); Sodium 134 mmol/L (137-145); Total Bilirubin 1.7 mg/dL (0.2-1.3); Total Protein 5.6 g/dL (6.3-8.2)
--- NOTE | 2018-11-16 09:35 | XR ---
EXAMINATION TYPE: XR chest 2V DATE OF EXAM: 11/16/2018 COMPARISON: History of lung cancer and COPD with shortness of breath HISTORY: CT November 04, 2018. Chest x-ray November 02, 2018. TECHNIQUE: Frontal and lateral views of the chest are obtained. FINDINGS: There is background chronic emphysematous and parenchymal changes bilaterally. There is p ersistent left suprahilar scarring. There is new patchy right midlung opacity. No right-sided pleural effusion. The cardiac silhouette size remains upper limits of normal. The osseous structures are i ntact. IMPRESSION: Chronic emphysematous and parenchymal changes with persistent left suprahilar scarring. New right mid lung lateral acute infiltrate.
[2018-11-16 09:57] LABS: AST 1012 U/L (17-59)
[2018-11-16 10:16] LABS: Basophils % (A) 0 %; Eosinophils % (A) 0 %; HCT 51.5 % (39.0-53.0); HGB 16.2 gm/dL (13.0-17.5); Lymphocytes # (A) 0.9 k/uL (1.0-4.8); Lymphocytes % (A) 6 %; MCH 30.4 pg (25.0-35.0); MCHC 31.5 g/dL (31.0-37.0); MCV 96.4 fL (80.0-100.0); Mean Platelet Volume 9.2; Monocytes # (A) 0.8 k/uL (0-1.0); Monocytes % (A) 5 %; Neutrophils # (A) 13.4 k/uL (1.3-7.7); Neutrophils % (A) 88 %; Platelet Count 147 k/uL (150-450); RBC 5.34 m/uL (4.30-5.90); RDW 15.9 % (11.5-15.5); WBC 15.3 k/uL (3.8-10.6)
[2018-11-16] MEDS ORDERED: PIPERACILLIN-TAZOBACTAM 3.375 GM in SODIUM CHLORIDE 0.9% 100 ML IVPB STA (10:31)
[2018-11-16] MEDS ORDERED: PNEUMONIA PROTOCOL UTILIZED 1 EACH MISC PO PRN (10:44)
[2018-11-16] MEDS ORDERED: LEVOFLOXACIN 750MG-D5W PMX 750 MG in DEXTROSE/WATER 1 150ML.BAG IVPB STA (10:44)
[2018-11-16] MEDS ORDERED: SODIUM CHLORIDE 0.9% 1,000 ML IV SCH (10:45)
[2018-11-16] MEDS ORDERED: PROMETHAZ-COD 6.25-10 MG/5 ML 5 ML CUP PO PRN (10:46)
[2018-11-16] MEDS ORDERED: traZODone HCL 50 MG TAB PO PRN (10:46)
[2018-11-16] MEDS ORDERED: BENZONATATE 100 MG CAP PO PRN (10:46)
[2018-11-16] MEDS ORDERED: ONDANSETRON 4 MG TAB PO PRN (10:46)
[2018-11-16] MEDS ORDERED: POLYETHYLENE GLYCOL 3350 17 GM POWD.PACK PO PRN (10:46)
[2018-11-16] MEDS: IPRATROPIUM-ALBUTEROL 3 ML NEB INHALATION SCH ×3 (12:06→21:04)
--- NOTE | 2018-11-16 13:28 | P.CNPUL ---
History of Present Illness Consult date: 11/16/18 Requesting physician: Manpreet Jon Chief complaint: Abdominal pain, nausea, right-sided chest pain, altered mental status History of present illness: This is a very pleasant 58-year-old gentleman with a known history of metastatic adenocarcinoma of the lung, status post chemo on immunotherapy with controlled. Most recent CAT scan of the chest abdomen pelvis from July 2018 showed no measurable disease and the patient appeared to be in remission. On 11/02/2018 the patient presented to the hospital here with shortness of breath, cough or congestion and right upper quadrant left lower quadrant abdominal pain. Co mputed tomography scan revealed masslike consolidation in the left lower lobe consistent with tumor. There is increased mediastinal and bronchial adenopathy. There are multiple low density lesions throughout the liver and spleen consistent with metastatic disease. There is also ostial blastic focus in the inferior aspect of L4 vertebrae consistent with metastatic disease. The patient was subsequently discharged home to see oncology and develop a plan on 11/10/2018. He will he presented here to the emergency room today with altered mental status, abdominal pain, right-sided chest pain. He is seen in consultation on the selective care unit. He is awake, uncomfortable with ongoing abdominal discomfort and right-sided chest pain. Maintaining O2 saturation in the 90s on 2 L/m per nasal cannula. He is afebrile. Tachycardic. Chest x-ray shows chronic emphysematous changes persistent left suprahilar scarring and a new right midlung acute infiltrate. Unclear if this is pneumonia or metastasis. White count 15.3. Hemoglobin 16.2. Platelet count 147,000. INR 1.5. Sodium 134. Creatinine 1.06. He is anticoagulated with Xarelto. Initiated on antibiotics in the form of Levaquin, bronchodilators and pain medications. Review of Systems Constitutional: Profound weakness, Denies chills, Denies fever Eyes: denies blurred vision, denies pain Ears, nose, mouth and throat: Denies headache, Denies sore throat Cardiovascular: Denies chest pain, Denies shortness of breath Respiratory: Reports congestion, Reports cough, Reports cough with sputum, Reports dyspnea, Reports respiratory infections Gastrointestinal: Denies abdominal pain, Denies diarrhea, Denies nausea, Denies vomiting Musculoskeletal: Denies myalgias Integumentary: Denies pruritus, Denies rash Neurological: Denies numbness, positive for weakness Psychiatric: Positive for anxiety, Denies depression Endocrine: Positive fatigue, positive weight change Past Medical History Past Medical History: Cancer, COPD, GERD/Reflux, Hypertension, Osteoarthritis (OA), Pneumonia, Prostate Disorder, Pulmonary Embolus (PE) Additional Past Medical History / Comment(s): Recovering alcoholic - quit 2002, hx of skin ca (sx), lung cancer w/ mets to liver, spine, gallbladder, occ episodes of lightheadedness w/ exertion, hx left vocal cord paralysis (sx). History of Any Multi-Drug Resistant Organisms: None Reported Past Surgical History: Orthopedic Surgery Additional Past Surgical History / Comment(s): Right carpal tunnel release, skin ca removed from face/nose, colonoscopy/polypectomy (per patient - negative), 02-13-18 left medialization thyroidplasy. Past Anesthesia/Blood Transfusion Reactions: Family History of Problems w/ Anes thesia Additional Past Anesthesia/Blood Transfusion Reaction / Comment(s): FATHER WOKE UP VERY AGITATED AND HAD TO BE "RE-MEDICATED". HAD BLOOD TRANSFUSION-NO REACTION Past Psychological History: No Psychological Hx Reported Smoking Status: Former smoker Past Alcohol Use History: None Reported Past Drug Use History: None Reported - Past Family History Father Family Medical History: Myocardial Infarction ([place]) Additional Family Medical History / Comment(s): Alcoholic. . Mother Family Medical History: Myocardial Infarction ([place]) Additional Family Medical History / Comment(s): Alcoholic. . Medications and Allergies Home Medications Medication Instructions Recorded Confirmed Type traZODone HCL [Desyrel] 100 mg PO HS PRN 12/10/13 11/16/18 History Folic Acid 1 mg PO DAILY 11/13/17 11/16/18 History Ascorbic Acid [Vitamin C] 500 mg PO DAILY 08/20/18 11/16/18 History Biotin 5,000 mcg PO DAILY 08/20/18 11/16/18 History Glucosam/Colin-Msm1/C/Patel/Bosw 1 tab PO DAILY 08/20/18 11/16/18 History [Glucosamine-Chondroitin Tablet] Multivitamins, Thera [Multivitamin 1 tab PO DAILY 08/20/18 11/16/18 History (formulary)] Spironolactone [Aldactone] 12.5 mg PO DAILY 08/20/18 11/16/18 History Benzonatate [Tessalon Perles] 100 mg PO TID PRN 11/02/18 11/16/18 History Furosemide [Lasix] 20 mg PO DAILY 11/02/18 11/16/18 History Metoprolol Tartrate [Lopressor] 25 mg PO DAILY 11/02/18 11/16/18 History Omeprazole 40 mg PO DAILY 11/02/18 11/16/18 History Rivaroxaban [Xarelto] 20 mg PO DAILY 11/02/18 11/16/18 History Rosuvastatin Calcium [Crestor] 40 mg PO DAILY 11/02/18 11/16/18 History HYDROcodone/APAP 7.5-325MG [[place] 1 tab PO Q6HR PRN 3 Days #60 tab 11/10/18 11/16/18 Rx 7.5-325] Ipratropium-Albuterol Nebulize 3 ml INHALATION RT-QID PRN #60 11/10/18 11/16/18 Rx [Duoneb 0.5 mg-3 mg/3 ml Soln] ampul.neb Morphine Sulfate ER [Ms Contin] 30 mg PO Q12HR #60 tablet 11/10/18 11/16/18 Rx Ondansetron HCl [Zofran] 8 mg PO Q8H PRN #60 tablet 11/10/18 11/16/18 Rx Polyethylene Glycol 3350 [Miralax] 17 gm PO DAILY PRN #30 powd.pack 11/10/18 11/16/18 Rx Promethaz-Cod 6.25-10 mg/5 ml 5 ml PO Q4H PRN #200 ml 11/10/18 11/16/18 Rx [Phenergan with Codeine] predniSONE See Taper PO DAILY #60 tab 11/10/18 11/16/18 Rx Lactulose 10 gm PO BID 11/16/18 11/16/18 History Allergies Allergy/AdvReac Type Severity Reaction Status Date / Time pembrolizumab [From [facility]] AdvReac Nausea & Verified 11/16/18 09:40 Vomiting Physical Exam Vitals: Vital Signs Temp Pulse Resp BP Pulse Ox 11/16/18 11:56 98 F 118 H 18 126/58 96 11/16/18 11:05 112 H 11/16/18 10:55 113 H 11/16/18 09:51 110 H 18 120/77 2 L 11/16/18 09:32 120 H 11/16/18 09:22 113 H 11/16/18 08:01 97.8 F 76 20 121/78 95 Intake and Output 11/15/18 11/16/18 11/16/18 22:59 06:59 14:59 Other: Weight 86.183 kg GENERAL EXAM: Alert, disheveled 58-year-old gentleman uncomfortable in mild distress, anxious. On 2 L nasal cannula. HEAD: Normocephalic. EYES: Normal reaction of pupils, equal size. NOSE: Clear with pink turbinates. THROAT: No erythema or exudates. NECK: No masses, no JVD. CHEST: No chest wall deformity. LUNGS: Equal air entry with scattered rhonchi bilaterally. CVS: S1 and S2 normal with no audible murmur, regular rhythm. ABDOMEN: Normal bowel sounds, tender to palpation. SPINE: No scoliosis or deformity SKIN: No rashes CENTRAL NERVOUS SYSTEM: No focal deficits, tone is normal in all 4 extremities. EXTREMITIES: There is no peripheral edema. No clubbing, no cyanosis. Peripheral pulses are intact. Results - Laboratory Findings CBC and BMP: 11/16/18 08:48 11/16/18 08:48 PT/INR, D-dimer PT 15.2 sec (9.0-12.0) H 11/16/18 08:48 INR 1.5 (<1.2) H 11/16/18 08:48 Abnormal lab findings: Abnormal Labs 11/16/18 11/16/18 11/16/18 08:30 08:48 08:48 WBC 15.3 H RDW 15.9 H Plt Count 147 L Neutrophils # 13.4 H Lymphocytes # 0.9 L PT INR Sodium BUN Calcium Total Bilirubin AST ALT Alkaline Phosphatase Ammonia 61 H Creatine Kinase Troponin I Total Protein Albumin Urine Protein Trace H Urine Blood Trace H Ur Leukocyte Esterase Moderate H Urine WBC 13 H 11/16/18 11/16/18 11/16/18 08:48 08:48 08:48 WBC RDW Plt Count Neutrophils # Lymphocytes # PT 15.2 H INR 1.5 H Sodium 134 L BUN 26 H Calcium 8.2 L Total Bilirubin 1.7 H AST 1012 H ALT 966 H Alkaline Phosphatase 910 H Ammonia Creatine Kinase 45 L Troponin I 0.042 H* Total Protein 5.6 L Albumin 2.8 L Urine Protein Urine Blood Ur Leukocyte Esterase Urine WBC - Diagnostic Findings Chest x-ray: image reviewed Assessment and Plan Assessment: Impression: #1 Altered mental status, weakness secondary to metastatic lung cancer. #2 Metastatic adenocarcinoma of the lung, stage IV, previous chemotherapy and immunotherapy and was in remission until recent findings in October 2018. Metastasis to the liver, spleen and bone. #3 Abdominal pain in the right upper quadrant, nausea likely related to metastatic disease. #4 Troponin leak. #5 Chronic systolic congestive heart failure. #6 Previous history of chronic tobacco dependence. #7 History of left vocal cord paralysis status post vocal cord medialization. #8 Nonocclusive coronary artery disease. Plan: The patient was seen and evaluated by Dr. Peralta. Chest x-ray and labs reviewed . Oncology has been consulted. His overall prognosis remains quite guarded at this point. We'll continue with antibiotics in the form of Levaquin. Bronchodilators and steroids. Adequate pain control. We will continue to follow make further recommendations based on his clinical status. I, the cosigning physician, performed a history & physical examination of the patient. Lungs sounds with scattered rhonchi. Maintaining good O2 saturations in the 90s on 2 L/m per nasal cannula. I discussed the assessment and plan of care with my nurse practitioner, Sruthi Stone. I attest to the above note as dictated by her. Time with Patient: Greater than 30
[2018-11-16] MEDS: HYDROcodone/APAP 7.5-325MG 1 EACH TAB PO PRN (13:51)
[2018-11-16] MEDS: methylPREDNISolone SOD SUCCI 125 MG/2 ML VIAL IV SCH ×2 (13:51→17:27)
[2018-11-16] MEDS ORDERED: SCOPOLAMINE 1.5MG/72HR PATCH TRANSDERM PRN (14:34)
[2018-11-16 16:46] LABS: Glucose,Whole Blood 100 mg/dL (75-99)
[2018-11-16] MEDS: INSULIN ASPART (NovoLOG) 100 UNIT/ML VIAL SQ SCH ×2 (17:14→21:37)
[2018-11-16 20:31] LABS: Glucose,Whole Blood 132 mg/dL (75-99)
[2018-11-16] MEDS: MORPHINE SULFATE ER 30 MG TABLET PO SCH (21:03)
[2018-11-16] MEDS: ONDANSETRON 4 MG/2 ML VIAL IVP PRN (21:03)
[2018-11-16] MEDS: LACTULOSE 20 GM/30 ML CUP PO SCH (21:04)
--- NOTE | 2018-11-16 22:12 | P.HPIM ---
History of Present Illness H&P Date: 11/16/18 Chief Complaint: Not feeling well Chief Complaint: Cough History of presenting complaint: This is a very pleasant 58-year-old patient of Dr. Ron Rico. Also following with Dr. Gomes from oncology. Chronic stable medical conditions include GERD, hypertension, osteoarthritis, history of pulmonary embolism, left vocal cord paralysis. Patient also has history of metastatic lung cancer. Finished chemotherapy about 4-5 months ago. Has been told he is in remission. Was recently admitted to the hospital.. Patient had a thoracic spine MRI, abdominal ultrasound and bone scan. Had computed tomography scan of the abdomen and pelvis that had shown a moderate pleural effusion and a new consolidation. Subsequently metastatic cysts was found in the bones via bone scan and also in the liver. Is also suspected metastatic to the left adrenal gland Review of systems: GEN.: Tired EYES: None HEENT: Discomfort in the throat NECK: None RESPIRATORY: As above CARDIOVASCULAR: None GASTROINTESTINAL: None GENITOURINARY: None MUSCULOSKELETAL: None LYMPHATICS: None HEMATOLOGICAL: None PSYCHIATRY: None NEUROLOGICAL: None. Family history: Myocardial infarction, alcoholism Physical examination: VITAL SIGNS: 96.9, 110, 20, 123/83, 80% on room air GENERAL: Average built, sitting up at the edge of the bed, uncomfortable EYES: Pupils equal. Conjunctiva normal. HEENT: External appearance of nose and ears normal, oral cavity dry NECK: JVD not raised; masses not palpable. HEART: First and second heart sounds are normal; no edema. LUNGS: Respiratory rate increased; decreased breath sounds, prolonged expirati on. ABDOMEN: Soft, nontender, liver spleen not palpable, no masses palpable. PSYCH: Alert and oriented x3; mood and affect anxious NEUROLOGICAL: Cranial nerves grossly intact; no facial asymmetry, power and sensation grossly intact. LYMPHATICS: No lymph nodes palpable in the axilla and neck Investigations: White count 15.3 hemoglobin 16.2 platelets 147 potassium 4.9 creatinine 1.06 AST 1012 ENT 966 Troponin I 0.04-0.050 Albumin 2.8 Chest x-ray film personally reviewed by me shows areas of infiltrate on the right side and the left upper lobe Assessment: -Acute COPD exacerbation and an ex-smoker, -Metastatic lung cancer currently in remission ~few months ago. With the recent workup including bone scan, computed tomography scan of the abdomen and chest and pelvis, abdominal ultrasound is showing metastatic disease with recurrence of colon cancer with metastatic disease to the liver bones lumbar spine and the adrenal gland. -GERD -Essential hypertension -Primary osteoarthritis -History of pulmonary embolism -Chronic left vocal cord paralysis -Clinically dehydrated -Mild protein calorie malnutrition from poor oral intake Plan: Patient be started on bronchodilators. IV fluids. Put on clear liquids. Pulmonary and oncology is consulted. Home medications were resumed. Care was discussed with patient. Questions were answered.. Past Medical History Past Medical History: Cancer, COPD, GERD/Reflux, Hypertension, Osteoarthritis ([place]), Pneumonia, Prostate Disorder, Pulmonary Embolus (PE) Additional Past Medical History / Comment(s): Recovering alcoholic - quit 2002, hx of skin ca (sx), lung cancer w/ mets to liver, spine, gallbladder, occ episodes of lightheadedness w/ exertion, hx left vocal cord paralysis (sx). History of Any Multi-Drug Resistant Organisms: None Reported Past Surgical History: Orthopedic Surgery Additional Past Surgical History / Comment(s): Right carpal tunnel release, skin ca removed from face/nose, colonoscopy/polypectomy (per patient - negative), 02-13-18 left medialization thyroidplasy. Past Anesthesia/Blood Transfusion Reactions: Family History of Problems w/ Anesthesia Additional Past Anesthesia/Blood Transfusion Reaction / Comment(s): FATHER WOKE UP VERY AGITATED AND HAD TO BE "RE-MEDICATED". HAD BLOOD TRANSFUSION-NO REACTION Past Psychological History: No Psychological Hx Reported Smoking Status: Former smoker Past Alcohol Use History: None Reported Past Drug Use History: None Reported - Past Family History Father Family Medical History: Myocardial Infarction ([place]) Additional Family Medical History / Comment(s): Alcoholic. . Mother Family Medical History: Myocardial Infarction ([place]) Additional Family Medical History / Comment(s): Alcoholic. . Medications and Allergies Home Medications Medication Instructions Recorded Confirmed Type traZODone HCL [Desyrel] 100 mg PO HS PRN 12/10/13 11/16/18 History Folic Acid 1 mg PO DAILY 11/13/17 11/16/18 History Ascorbic Acid [Vitamin C] 500 mg PO DAILY 08/20/18 11/16/18 History Biotin 5,000 mcg PO DAILY 08/20/18 11/16/18 History Glucosam/Colin-Msm1/C/Patel/Bosw 1 tab PO DAILY 08/20/18 11/16/18 History [Glucosamine-Chondroitin Tablet] Multivitamins, Thera [Multivitamin 1 tab PO DAILY 08/20/18 11/16/18 History (formulary)] Spironolactone [Aldactone] 12.5 mg PO DAILY 08/20/18 11/16/18 History Benzonatate [Tessalon Perles] 100 mg PO TID PRN 11/02/18 11/16/18 History Furosemide [Lasix] 20 mg PO DAILY 11/02/18 11/16/18 History Metoprolol Tartrate [Lopressor] 25 mg PO DAILY 11/02/18 11/16/18 History Omeprazole 40 mg PO DAILY 11/02/18 11/16/18 History Rivaroxaban [Xarelto] 20 mg PO DAILY 11/02/18 11/16/18 History Rosuvastatin Calcium [Crestor] 40 mg PO DAILY 11/02/18 11/16/18 History HYDROcodone/APAP 7.5-325MG [[place] 1 tab PO Q6HR PRN 3 Days #60 tab 11/10/18 11/16/18 Rx 7.5-325] Ipratropium-Albuterol Nebulize 3 ml INHALATION RT-QID PRN #60 11/10/18 11/16/18 Rx [Duoneb 0.5 mg-3 mg/3 ml Soln] ampul.neb Morphine Sulfate ER [Ms Contin] 30 mg PO Q12HR #60 tablet 11/10/18 11/16/18 Rx Ondansetron HCl [Zofran] 8 mg PO Q8H PRN #60 tablet 11/10/18 11/16/18 Rx Polyethylene Glycol 3350 [Miralax] 17 gm PO DAILY PRN #30 powd.pack 11/10/18 11/16/18 Rx Promethaz-Cod 6.25-10 mg/5 ml 5 ml PO Q4H PRN #200 ml 11/10/18 11/16/18 Rx [Phenergan with Codeine] predniSONE See Taper PO DAILY #60 tab 11/10/18 11/16/18 Rx Lactulose 10 gm PO BID 11/16/18 11/16/18 History Allergies Allergy/AdvReac Type Severity Reaction Status Date / Time pembrolizumab [From [facility]] AdvReac Nausea & Verified 11/16/18 09:40 Vomiting Physical Exam Vitals: Vital Signs Temp Pulse Pulse Resp BP BP Pulse Ox 11/16/18 21:14 60 11/16/18 21:04 64 16 11/16/18 20:00 98.3 F 128 H 20 116/66 93 L 11/16/18 15:31 64 98/61 93 L 11/16/18 12:40 96.9 F L 110 H 20 123/83 90 L 11/16/18 11:56 98 F 118 H 18 126/58 96 11/16/18 11:05 112 H 11/16/18 10:55 113 H 11/16/18 09:51 110 H 18 120/77 2 L 11/16/18 09:32 120 H 11/16/18 09:22 113 H 11/16/18 08:01 97.8 F 76 20 121/78 95 Intake and Output 11/16/18 11/16/18 11/16/18 06:59 14:59 22:59 Intake Total 880 Balance 880 Intake: Intake, IV Titration 400 Amount Sodium Chloride 0.9% 1, 400 000 ml @ 100 mls/hr IV . Q10H [facility] Rx#:[id number] Oral 480 Other: Voiding Method Toilet Weight 86.183 kg Results CBC & Chem 7: 11/16/18 08:48 11/16/18 08:48 Labs: Abnormal Lab Results - Last 24 Hours (Table) 11/16/18 11/16/18 11/16/18 Range/Units 08:30 08:48 08:48 WBC 15.3 H (3.8-10.6) k/uL RDW 15.9 H (11.5-15.5) % Plt Count 147 L (150-450) k/uL Neutrophils # 13.4 H (1.3-7.7) k/uL Lymphocytes # 0.9 L (1.0-4.8) k/uL PT (9.0-12.0) sec INR (<1.2) Sodium (137-145) mmol/L BUN (9-20) mg/dL POC Glucose (mg/dL) (75-99) mg/dL Calcium (8.4-10.2) mg/dL Total Bilirubin (0.2-1.3) mg/dL AST (17-59) U/L ALT (21-72) U/L Alkaline Phosphatase (38-126) U/L Ammonia 61 H (<30) umol/L Creatine Kinase (55-170) U/L Troponin I (0.000-0.034) ng/mL Total Protein (6.3-8.2) g/dL Albumin (3.5-5.0) g/dL Urine Protein Trace H (Negative) Urine Blood Trace H (Negative) Ur Leukocyte Esterase Moderate H (Negative) Urine WBC 13 H (0-5) /hpf 11/16/18 11/16/18 11/16/18 Range/Units 08:48 08:48 08:48 WBC (3.8-10.6) k/uL RDW (11.5-15.5) % Plt Count (150-450) k/uL Neutrophils # (1.3-7.7) k/uL Lymphocytes # (1.0-4.8) k/uL PT 15.2 H (9.0-12.0) sec INR 1.5 H (<1.2) Sodium 134 L (137-145) mmol/L BUN 26 H (9-20) mg/dL POC Glucose (mg/dL) (75-99) mg/dL Calcium 8.2 L (8.4-10.2) mg/dL Total Bilirubin 1.7 H (0.2-1.3) mg/dL AST 1012 H (17-59) U/L ALT 966 H (21-72) U/L Alkaline Phosphatase 910 H (38-126) U/L Ammonia (<30) umol/L Creatine Kinase 45 L (55-170) U/L Troponin I 0.042 H* (0.000-0.034) ng/mL Total Protein 5.6 L (6.3-8.2) g/dL Albumin 2.8 L (3.5-5.0) g/dL Urine Protein (Negative) Urine Blood (Negative) Ur Leukocyte Esterase (Negative) Urine WBC (0-5) /hpf 11/16/18 11/16/18 11/16/18 Range/Units 14:00 16:45 20:30 WBC (3.8-10.6) k/uL RDW (11.5-15.5) % Plt Count (150-450) k/uL Neutrophils # (1.3-7.7) k/uL Lymphocytes # (1.0-4.8) k/uL PT (9.0-12.0) sec INR (<1.2) Sodium (137-145) mmol/L BUN (9-20) mg/dL POC Glucose (mg/dL) 100 H 132 H (75-99) mg/dL Calcium (8.4-10.2) mg/dL Total Bilirubin (0.2-1.3) mg/dL AST (17-59) U/L ALT (21-72) U/L Alkaline Phosphatase (38-126) U/L Ammonia (<30) umol/L Creatine Kinase (55-170) U/L Troponin I 0.050 H* (0.000-0.034) ng/mL Total Protein (6.3-8.2) g/dL Albumin (3.5-5.0) g/dL Urine Protein (Negative) Urine Blood (Negative) Ur Leukocyte Esterase (Negative) Urine WBC (0-5) /hpf Microbiology - Last 24 Hours (Table) 11/16/18 08:30 Urine Culture - Preliminary Urine,Voided Thrombosis Risk Factor Assmnt - Choose All That Apply Each Factor Represents 1 point: Age 41-60 years Each Risk Factor Represents 2 Points: Malignancy Each Risk Factor Represents 3 Points: History of DVT/PE Thrombosis Risk Factor Assessment Total Risk Factor Score: 6 Thrombosis Risk Factor Assessment Level: High Risk
[2018-11-17] MEDS: IPRATROPIUM-ALBUTEROL 3 ML NEB INHALATION SCH ×6 (00:03→20:31)
[2018-11-17] MEDS: methylPREDNISolone SOD SUCCI 125 MG/2 ML VIAL IV SCH ×4 (00:05→19:05)
[2018-11-17 06:37] LABS: Basophils % (A) 0 %; Eosinophils % (A) 0 %; HCT 49.7 % (39.0-53.0); HGB 15.4 gm/dL (13.0-17.5); Lymphocytes # (A) 0.3 k/uL (1.0-4.8); Lymphocytes % (A) 2 %; MCH 30.3 pg (25.0-35.0); MCHC 31.1 g/dL (31.0-37.0); MCV 97.4 fL (80.0-100.0); Mean Platelet Volume 8.5; Monocytes # (A) 0.6 k/uL (0-1.0); Monocytes % (A) 4 %; Neutrophils # (A) 12.2 k/uL (1.3-7.7); Neutrophils % (A) 92 %; Platelet Count 139 k/uL (150-450); RDW 15.3 % (11.5-15.5); WBC 13.2 k/uL (3.8-10.6)
[2018-11-17 06:48] LABS: Glucose,Whole Blood 99 mg/dL (75-99)
[2018-11-17] MEDS: PANTOPRAZOLE 40 MG TABLET PO SCH (06:48)
[2018-11-17] MEDS: INSULIN ASPART (NovoLOG) 100 UNIT/ML VIAL SQ SCH ×4 (06:49→22:17)
[2018-11-17 07:09] LABS: Calcium 8.1 mg/dL (8.4-10.2); Potassium 4.8 mmol/L (3.5-5.1)
--- NOTE | 2018-11-17 07:22 | XR ---
EXAMINATION TYPE: XR chest 2V DATE OF EXAM: 11/17/2018 COMPARISON: 11/16/2018 INDICATION: Pneumonia, cough TECHNIQUE: Frontal and lateral views of the chest are obtained. FINDINGS: The heart size is normal. The pulmonary vasculature is normal. There is a consolidation in the right lower lobe. This is worsening. Irregular left upper lobe infilt rate remains present.. IMPRESSION: 1. Right lower lobe and left upper lobe infiltrates. Correlate for pneumonia. This should be followed to clearing.
[2018-11-17] MEDS: FOLIC ACID 1 MG TAB PO SCH (08:47)
[2018-11-17] MEDS: ATORVASTATIN 80 MG TAB PO SCH (08:47)
[2018-11-17] MEDS: ASCORBIC ACID 500 MG TAB PO SCH (08:47)
[2018-11-17] MEDS: MORPHINE SULFATE ER 30 MG TABLET PO SCH ×2 (08:48→22:19)
[2018-11-17] MEDS: LACTULOSE 20 GM/30 ML CUP PO SCH ×2 (08:48→22:22)
[2018-11-17] MEDS: MULTIVITAMINS, THERA 1 EACH TAB PO SCH (08:49)
[2018-11-17] MEDS: RIVAROXABAN 20 MG TAB PO SCH (08:49)
[2018-11-17] MEDS ORDERED: SPIRONOLACTONE 25 MG TAB PO SCH (09:00)
[2018-11-17] MEDS ORDERED: NON-FORMULARY DRUG (Glucosam/Chon-Msm1/C/Mang/Bosw [Glucosamine-Chondroitin Tablet] 1 TAB) PO SCH (09:00)
[2018-11-17] MEDS ORDERED: METOPROLOL TARTRATE 25 MG TAB PO SCH (09:00)
[2018-11-17] MEDS ORDERED: NON-FORMULARY DRUG (Biotin [Biotin] 5,000 MCG) PO SCH (09:00)
[2018-11-17] MEDS ORDERED: FUROSEMIDE 20 MG TAB PO SCH (09:00)
[2018-11-17] MEDS ORDERED: LISINOPRIL 10 MG TAB PO SCH (10:00)
--- NOTE | 2018-11-17 10:10 | P.CRDCN ---
History of Present Illness Consult date: 11/17/18 Reason for Consult (text): Elevated troponin History of present illness: This is a 58-year-old patient of Dr. Ocasio with past medical history of severe cardiomyopathy possibly alcohol related, coronary artery disease on medical management, metastatic adenocarcinoma of the lung with metastatic disease status post chemo on immunotherapy, COPD, DVT in February 2018, pericardial effusion, remote history of tobacco use and dependence, history of alcohol abuse. Patient states he is having nausea, vomiting, decreased appetite and generalized abd ominal pain for 3 weeks. He also is concerned about forgetfulness worsening over the past 3 weeks as well as shortness of breath. Patient denies having any chest pain and he has not reported any chest pain to the nurse overnight. He continues to have nausea and minimal vomiting. His heart rate was up to 128 during the night. EKG reveals sinus tachycardia with second-degree Mobitz 2, minimal ST depression. Echocardiogram reveals EF of 55-60% Laboratory studies: WBC 15.3, hemoglobin 16.2, platelet count 147, INR 1.5, sodium 134, BUN 26, creatinine 1.06. AST 1012, ALT 966, alkaline phosphatase 910, ammonia 61, CK 45, troponin 0.042, 0.050, lipase 191. Urinalysis trace blood, leukoesterase moderate, W BC 13. Chest x-ray revealed chronic emphysematous and print some old changes with p ersistent left suprahilar scarring. Right midlung lateral acute infiltrate Echocardiogram July 2018 revealed revealed severe cardiomyopathy with EF around 25% with previous echo showing normal LV function. Heart catheterization done 08/23/2018 revealed extremely calcified right and left coronary systems. Subtotally occluded left circumflex and the proximal portion which is calcified left circumflex. A centric plaque in the left main in the range of 30-40%. Recommendations at that time were for maximizing medical management. Stress test Review Of Systems: Constitutional: No fever, no chills, no night sweats. No weight change. Reports weakness, reports fatigue or lethargy. Reports daytime sleepiness. EENT: No headache. No blurred vision or double vision, no loss of vision. No loss of Hearing, no ringing in the ears, no dizziness. No nasal drainage or congestion. No epistaxis. No sore throat. Lungs: Reports shortness of breath, reports cough, no sputum production. No wheezing. Cardiovascular: No chest pain, no lower extremity edema. No palpitations. No paroxysmal nocturnal dyspnea. No orthopnea. No lightheadedness or dizziness. No syncopal episodes. Abdominal: Reports abdominal pain. Reports nausea, reports vomiting. No diarrhea. No constipation. Reports loss of appetite. Genitourinary: No dysuria, increased frequency, urgency. No urinary retention. Musculoskeletal: No myalgias. No muscle weakness, no gait dysfunction, no frequent falls. No back pain. No neck pain. Integumentary: No wounds, no lesions. No rash or pruritus. No unusual bruising. No change in hair or nails. Neurologic: No aphasia. No facial droop. No change in mentation. No head injury. No headache. No paralysis. No paresthesia. Psychiatric: No depression. No anxiety. No mood swings. Endocrine: Denies abnormal blood sugars. Gen: This is a 58-year-old male. He is in bed and appears to be somewhat comfortable. Mild confusion is noted. Poor historian. HEENT: Head is atraumatic, normocephalic. Pupils equal, round. Sclerae is anicteric. NECK: Supple. No JVD. No lymphadenopathy. No thyromegaly. LUNGS: Scattered rhonchi with wheezing and respiratory expiratory. No intercostal retractions. HEART: Regular rate and rhythm. No murmur. ABDOMEN: Soft. Bowel sounds are present. No masses. Mild generalized tenderness. EXTREMITIES: No pedal edema. No calf tenderness. NEUROLOGICAL: Patient is awake, alert and oriented x3. Cranial nerves 2 through 12 are grossly intact. Assessment: Troponin elevation not consistent with acute coronary syndrome. No reports of chest pain. The patient is on appropriate medical therapy. Secondary degree Mobitz 2, continue monitoring History of severe cardiomyopathy under the care of Dr. Ocasio. Chronic systolic heart failure Coronary artery disease, medical management. Metabolic encephalopathy secondary to high ammonia level and metastatic disease. Metastatic lung cancer. Nausea and vomiting, loss of appetite. History of alcohol abuse and tobacco use and dependence. Plan: Continue Lasix 20 mg daily, Lopressor 25 mg daily, Crestor. Continue spironolactone. Continue Xarelto. Initiate lisinopril 10 mg daily. Cardiology will sign off and follow on an as-needed basis. Please reconsult for any concerns. Thank you kindly for this consultation. Nurse practitioner note has been reviewed, I agree with documented findings and plan of care. Patient was seen and examined. Past Medical History Past Medical History: Cancer, COPD, GERD/Reflux, Hypertension, Osteoarthritis (OA), Pneumonia, Prostate Disorder, Pulmonary Embolus (PE) Additional Past Medical History / Comment(s): Recovering alcoholic - quit 2002, hx of skin ca (sx), lung cancer w/ mets to liver, spine, gallbladder, occ episodes of lightheadedness w/ exertion, hx left vocal cord paralysis (sx). History of Any Multi-Drug Resistant Organisms: None Reported Past Surgical History: Orthopedic Surgery Additional Past Surgical History / Comment(s): Right carpal tunnel release, skin ca removed from face/nose, colonoscopy/polypectomy (per patient - negative), 02-13-18 left medialization thyroidplasy. Past Anesthesia/Blood Transfusion Reactions: Family History of Problems w/ Anes thesia Additional Past Anesthesia/Blood Transfusion Reaction / Comment(s): FATHER WOKE UP VERY AGITATED AND HAD TO BE "RE-MEDICATED". HAD BLOOD TRANSFUSION-NO REACTION Past Psychological History: No Psychological Hx Reported Smoking Status: Former smoker Past Alcohol Use History: None Reported Past Drug Use History: None Reported - Past Family History Father Family Medical History: Myocardial Infarction ([place]) Additional Family Medical History / Comment(s): Alcoholic. . Mother Family Medical History: Myocardial Infarction ([place]) Additional Family Medical History / Comment(s): Alcoholic. . Medications and Allergies Home Medications Medication Instructions Recorded Confirmed Type traZODone HCL [Desyrel] 100 mg PO HS PRN 12/10/13 11/16/18 History Folic Acid 1 mg PO DAILY 11/13/17 11/16/18 History Ascorbic Acid [Vitamin C] 500 mg PO DAILY 08/20/18 11/16/18 History Biotin 5,000 mcg PO DAILY 08/20/18 11/16/18 History Glucosam/Colin-Msm1/C/Patel/Bosw 1 tab PO DAILY 08/20/18 11/16/18 History [Glucosamine-Chondroitin Tablet] Multivitamins, Thera [Multivitamin 1 tab PO DAILY 08/20/18 11/16/18 History (formulary)] Spironolactone [Aldactone] 12.5 mg PO DAILY 08/20/18 11/16/18 History Benzonatate [Tessalon Perles] 100 mg PO TID PRN 11/02/18 11/16/18 History Furosemide [Lasix] 20 mg PO DAILY 11/02/18 11/16/18 History Metoprolol Tartrate [Lopressor] 25 mg PO DAILY 11/02/18 11/16/18 History Omeprazole 40 mg PO DAILY 11/02/18 11/16/18 History Rivaroxaban [Xarelto] 20 mg PO DAILY 11/02/18 11/16/18 History Rosuvastatin Calcium [Crestor] 40 mg PO DAILY 11/02/18 11/16/18 History HYDROcodone/APAP 7.5-325MG [Trezevant 1 tab PO Q6HR PRN 3 Days #60 tab 11/10/18 11/16/18 Rx 7.5-325] Ipratropium-Albuterol Nebulize 3 ml INHALATION RT-QID PRN #60 11/10/18 11/16/18 Rx [Duoneb 0.5 mg-3 mg/3 ml Soln] ampul.neb Morphine Sulfate ER [Ms Contin] 30 mg PO Q12HR #60 tablet 11/10/18 11/16/18 Rx Ondansetron HCl [Zofran] 8 mg PO Q8H PRN #60 tablet 11/10/18 11/16/18 Rx Polyethylene Glycol 3350 [Miralax] 17 gm PO DAILY PRN #30 powd.pack 11/10/18 11/16/18 Rx Promethaz-Cod 6.25-10 mg/5 ml 5 ml PO Q4H PRN #200 ml 11/10/18 11/16/18 Rx [Phenergan with Codeine] predniSONE See Taper PO DAILY #60 tab 11/10/18 11/16/18 Rx Lactulose 10 gm PO BID 11/16/18 11/16/18 History Allergies Allergy/AdvReac Type Severity Reaction Status Date / Time [facility] AdvReac Nausea & Verified 11/16/18 09:40 Vomiting Physical Exam Vitals: Vital Signs Temp Pulse Pulse Resp BP BP Pulse Ox 11/17/18 08:00 111 H 20 133/79 90 L 11/17/18 04:00 98.5 F 100 18 145/67 88 L 11/17/18 00:00 98.7 F 122 H 20 128/66 93 L 11/16/18 21:14 60 11/16/18 21:04 64 16 11/16/18 20:00 98.3 F 128 H 20 116/66 93 L 11/16/18 15:31 64 98/61 93 L 11/16/18 12:40 96.9 F L 110 H 20 123/83 90 L 11/16/18 11:56 98 F 118 H 18 126/58 96 11/16/18 11:05 112 H 11/16/18 10:55 113 H 11/16/18 09:51 110 H 18 120/77 2 L 11/16/18 09:32 120 H 11/16/18 09:22 113 H Intake and Output 11/16/18 11/17/18 11/17/18 22:59 06:59 14:59 Intake Total 880 Output Total 325 Balance 555 Intake: Intake, IV Titration 400 Amount Sodium Chloride 0.9% 1, 400 000 ml @ 100 mls/hr IV . Q10H [facility] Rx#:[id number] Oral 480 Output: Urine 325 Other: Voiding Method Toilet # Voids 1 Weight 91.4 kg Results 11/17/18 05:51 11/17/18 05:51 Cardiac Enzymes 11/16/18 11/16/18 11/16/18 Range/Units 08:48 08:48 14:00 AST 1012 H (17-59) U/L Troponin I 0.042 H* 0.050 H* (0.000-0.034) ng/mL Coagulation 11/16/18 Range/Units 08:48 PT 15.2 H (9.0-12.0) sec APTT 28.4 (22.0-30.0) sec CBC 11/16/18 11/17/18 Range/Units 08:48 05:51 WBC 15.3 H 13.2 H (3.8-10.6) k/uL RBC 5.34 5.10 (4.30-5.90) m/uL Hgb 16.2 15.4 (13.0-17.5) gm/dL Hct 51.5 49.7 (39.0-53.0) % Plt Count 147 L 139 L (150-450) k/uL Comprehensive Metabolic Panel 11/16/18 11/17/18 Range/Units 08:48 05:51 Sodium 134 L 139 (137-145) mmol/L Potassium 4.9 4.8 (3.5-5.1) mmol/L Chloride 101 107 (98-107) mmol/L Carbon Dioxide 23 21 L (22-30) mmol/L BUN 26 H 23 H (9-20) mg/dL Creatinine 1.06 1.08 (0.66-1.25) mg/dL Glucose 77 116 H (74-99) mg/dL Calcium 8.2 L 8.1 L (8.4-10.2) mg/dL AST 1012 H (17-59) U/L ALT 966 H (21-72) U/L Alkaline Phosphatase 910 H (38-126) U/L Total Protein 5.6 L (6.3-8.2) g/dL Albumin 2.8 L (3.5-5.0) g/dL Current Medications Generic Name Dose Route Start Last Admin Trade Name Freq PRN Reason Stop Dose Admin Hydrocodone Bitart/Acetaminophen 1 each 11/16/18 10:46 11/16/18 13:51 Trezevant 7.5-325 PO 1 each Q6HR PRN Administration Pain Albuterol/Ipratropium 3 ml 11/16/18 12:00 11/17/18 03:24 Duoneb 0.5 Mg-3 Mg/3 Ml Soln INHALATION Not Given RT-Q4H [facility] Ascorbic Acid 500 mg 11/17/18 09:00 11/17/18 08:47 Vitamin C PO 500 mg DAILY KALI Administration Atorvastatin Calcium 80 mg 11/17/18 09:00 11/17/18 08:47 Lipitor PO 80 mg DAILY [facility] Administration Benzonatate 100 mg 11/16/18 10:46 Tessalon Perles PO TID PRN Cough Folic Acid 1 mg 11/17/18 09:00 11/17/18 08:47 Folic Acid PO 1 mg DAILY [facility] Administration Furosemide 20 mg 11/17/18 09:00 11/17/18 08:47 Lasix PO 20 mg DAILY KALI Administration Insulin Aspart 0 unit 11/16/18 17:30 11/17/18 06:49 Novolog SQ Not Given ACHS [facility] Protocol Lactulose 10 gm 11/16/18 21:00 11/17/18 08:48 Cephulac PO 10 gm BID KALI Administration Levofloxacin 750 mg 11/17/18 12:00 Levaquin PO 11/22/18 12:01 DAILY@1200 [facility] Methylprednisolone Sodium Succinate 60 mg 11/16/18 12:00 11/17/18 06:49 Solu-Medrol IV 60 mg Q6HR [facility] Administration Metoprolol Tartrate 25 mg 11/17/18 09:00 11/17/18 08:48 Lopressor PO 25 mg DAILY [facility] Administration Miscellaneous Information 1 each 11/16/18 10:44 Pneumonia Protocol Utilized PO ONCE PRN Per Protocol Morphine Sulfate 30 mg 11/16/18 21:00 11/17/18 08:48 Ms Contin PO 30 mg Q12HR [facility] Administration Multivitamins 1 each 11/17/18 09:00 11/17/18 08:49 Theragran PO 1 each DAILY [facility] Administration Ondansetron HCl 4 mg 11/16/18 14:34 11/16/18 21:03 Zofran IVP 4 mg Q6HR PRN Administration Nausea And Vomiting Pantoprazole Sodium 40 mg 11/17/18 07:30 11/17/18 06:48 Protonix PO 40 mg AC-[id number] [facility] Administration Polyethylene Glycol 17 gm 11/16/18 10:46 Miralax PO DAILY PRN Constipation Promethazine HCl/Codeine 5 ml 11/16/18 10:46 11/16/18 13:50 Phenergan With Codeine PO 5 ml Q4H PRN Administration Cold Symptoms Rivaroxaban 20 mg 11/17/18 09:00 11/17/18 08:49 Xarelto PO 20 mg DAILY [facility] Administration Scopolamine 1 patch 11/16/18 14:34 Transderm-Scop 1.5mg/72hr Patch TRANSDERM ONCE PRN nausea and dizziness Spironolactone 12.5 mg 11/17/18 09:00 11/17/18 08:49 Aldactone PO 12.5 mg DAILY [facility] Administration Trazodone HCl 100 mg 11/16/18 10:46 Desyrel PO HS PRN Insomnia Intake and Output 11/16/18 11/17/18 11/17/18 22:59 06:59 14:59 Intake Total 880 Output Total 325 Balance 555 Intake: Intake, IV Titration 400 Amount Sodium Chloride 0.9% 1, 400 000 ml @ 100 mls/hr IV . Q10H [facility] Rx#:[id number] Oral 480 Output: Urine 325 Other: Voiding Method Toilet # Voids 1 Weight 91.4 kg 11/17/18 05:51 11/17/18 05:51
--- NOTE | 2018-11-17 11:50 | P.PN ---
Subjective Progress Note Date: 11/17/18 Principal diagnosis: Abdominal pain, nausea, right-sided chest pain, altered mental status This is a very pleasant 58-year-old gentleman with a known history of metastatic adenocarcinoma of the lung, status post chemo on immunotherapy with controlled. Most recent CAT scan of the chest abdomen pelvis from July 2018 showed no measurable disease and the patient appeared to be in remission. On 11/02/2018 the patient presented to the hospital here with shortness of breath, cough or congestion and right upper quadrant left lower quadrant abdominal pain. Computed tomography scan revealed masslike consolidation in the left lower lobe consistent with tumor. There is increased mediastinal and bronchial adenopathy. There are multiple low density lesions throughout the liver and spleen consistent with metastatic disease. There is also ostial blastic focus in the inferior aspect of L4 vertebrae consistent with metastatic disease. The patient was subsequently discharged home to see oncology and develop a plan on 11/10/2018. He will he presented here to the emergency room today with altered mental status, abdominal pain, right-sided chest pain. He is seen in consulta tion on the selective care unit. He is awake, uncomfortable with ongoing abdominal discomfort and right-sided chest pain. Maintaining O2 saturation in the 90s on 2 L/m per nasal cannula. He is afebrile. Tachycardic. Chest x-ray shows chronic emphysematous changes persistent left suprahilar scarring and a new right midlung acute infiltrate. Unclear if this is pneumonia or metastasis. White count 15.3. Hemoglobin 16.2. Platelet count 147,000. INR 1.5. Sodium 134. Creatinine 1.06. He is anticoagulated with Xarelto. Initiated on antibiotics in the form of Levaquin, bronchodilators and pain medications. On 11/17/2018 patient seen in follow-up on selective care unit, he is sitting in bed, he states he is feeling better today, still slightly nauseous, did have a small emesis, getting Zofran, patient becomes tachypneic and dyspneic with any exertion even sitting up in bed, but no acute distress, lung sounds are diminished, with some end expiratory wheezes, room air pulse ox is 90%, he is afebrile. Occasional cough, with no significant phlegm production. Today's follow-up chest x-ray shows right lower lobe and left upper lobe infiltrate. She is on Levaquin for antibiotic coverage, today's labs have been reviewed, showing white blood cell count of 13.2, hemoglobin of 15.4, sodium was 139, potassium is 4.8, cord is 107, CO2 is 21, B1 is 23, creatinine is 1.08, patient's appetite is poor related to intermittent nausea, and abdominal pain, patient is still having some abdominal discomfort across his upper left and right quadrants. Objective - Vital Signs Vital signs: Vital Signs Temp 98.5 F 11/17/18 04:00 Pulse 111 H 11/17/18 08:30 Resp 20 11/17/18 08:00 BP 133/79 11/17/18 08:00 Pulse Ox 90 L 11/17/18 08:00 Intake & Output 11/16/18 11/17/18 11/17/18 18:59 06:59 18:59 Intake Total 880 Output Total 325 Balance 880 -325 Weight 86.183 kg 91.4 kg Intake: Intake, IV Titration 400 Amount Sodium Chloride 0.9% 1, 400 000 ml @ 100 mls/hr IV . Q10H [facility] Rx#:[id number] Oral 480 Output: Urine 325 Other: Voiding Method Toilet Toilet # Voids 1 - Exam GENERAL EXAM: Alert, pleasant, 58-year-old white male, on room air, sitting up on the edge to bed, comfortable in no apparent distress. HEAD: Normocephalic/atraumatic. EYES: Normal reaction of pupils, equal size. Conjunctiva pink, sclera white. NOSE: Clear with pink turbinates. THROAT: No erythema or exudates. NECK: No masses, no JVD, no thyroid enlargement, no adenopathy. CHEST: No chest wall deformity. Symmetrical expansion. LUNGS: Equal air entry with diffuse wheezes CVS: Regular rate and rhythm, normal S1 and S2, no gallops, no murmurs, no rubs ABDOMEN: Soft, nontender. No hepatosplenomegaly, normal bowel sounds, no guarding or rigidity. EXTREMITIES: No clubbing, no edema, no cyanosis, 2+ pulses and upper and lower extremities. MUSCULOSKELETAL: Muscle strength and tone normal. SPINE: No scoliosis or deformity SKIN: No rashes CENTRAL NERVOUS SYSTEM: Alert and oriented -3. No focal deficits, tone is normal in all 4 extremities. PSYCHIATRIC: Alert and oriented -3. Appropriate affect. Intact judgment and insight. - Labs CBC & Chem 7: 11/17/18 05:51 11/17/18 05:51 Labs: Abnormal Lab Results - Last 24 Hours (Table) 11/16/18 11/16/18 11/16/18 Range/Units 14:00 16:45 20:30 WBC (3.8-10.6) k/uL Plt Count (150-450) k/uL Neutrophils # (1.3-7.7) k/uL Lymphocytes # (1.0-4.8) k/uL Carbon Dioxide (22-30) mmol/L BUN (9-20) mg/dL Glucose (74-99) mg/dL POC Glucose (mg/dL) 100 H 132 H (75-99) mg/dL Calcium (8.4-10.2) mg/dL Troponin I 0.050 H* (0.000-0.034) ng/mL 11/17/18 11/17/18 Range/Units 05:51 05:51 WBC 13.2 H (3.8-10.6) k/uL Plt Count 139 L (150-450) k/uL Neutrophils # 12.2 H (1.3-7.7) k/uL Lymphocytes # 0.3 L (1.0-4.8) k/uL Carbon Dioxide 21 L (22-30) mmol/L BUN 23 H (9-20) mg/dL Glucose 116 H (74-99) mg/dL POC Glucose (mg/dL) (75-99) mg/dL Calcium 8.1 L (8.4-10.2) mg/dL Troponin I (0.000-0.034) ng/mL Microbiology - Last 24 Hours (Table) 11/16/18 08:30 Urine Culture - Preliminary Urine,Voided Assessment and Plan Plan: Assessment: #1 Altered mental status, weakness secondary to metastatic lung cancer. #2 Metastatic adenocarcinoma of the lung, stage IV, previous chemotherapy and immunotherapy and was in remission until recent findings in October 2018. Metastasis to the liver, spleen and bone. #3 Abdominal pain in the right upper quadrant, nausea likely related to metastatic disease. #4 Troponin leak. #5 Chronic systolic congestive heart failure. #6 Previous history of chronic tobacco dependence. #7 History of left vocal cord paralysis status post vocal cord medialization. #8 Nonocclusive coronary artery disease. Plan: Continue current antibiotic coverage, obtain sputum culture, patient is on room air today, his mentation seems to have improved, still having abdominal discomfort and intermittent nausea and the normal vomiting. Hemodynamically stable, he is on room air, no significant cough or phlegm production, upper complaints of chest pain. No hemoptysis. Continue with breathing treatments and IV steroids. I performed a history & physical examination of the patient and discussed their management with my nurse practitioner, Mariam Ruiz. I reviewed the nurse practitioner's note and agree with the documented findings and plan of care. Lung sounds are positive for diffuse wheezes throughout the lung ramirez. The findings and the impression was discussed with the patient. I attest to the documentation by the nurse practitioner. Time with Patient: Less than 30
[2018-11-17 12:15] LABS: Glucose,Whole Blood 135 mg/dL (75-99)
[2018-11-17] MEDS: LEVOFLOXACIN 750 MG TAB PO SCH (12:36)
[2018-11-17] MEDS: ONDANSETRON 4 MG/2 ML VIAL IVP PRN (12:36)
--- NOTE | 2018-11-17 12:37 | P.CONS ---
History of Present Illness - Reason for Consult Consult date: 11/17/18 Progressive metastatic lung cancer, shortness of breath, cancer pain - History of Present Illness The patient is a 58-year-old white male well known to our service. He had presented in 08/22 with metastatic adenocarcinoma of the lung. He was treated with carboplatin, Alimta, and Keytruda, followed by transition to maintenance Alimta and Keytruda. He continued on maintenance still 05/25. He was then on observation without evidence of progression until 10/23, when he developed pain in his lower back, and right side. He was admitted to the hospital early this month with progression of the symptoms. Imaging revealed evidence of progressive metastatic disease in the liver, as well as bone metastasis at L4 with evidence of vertebral involvement at multiple levels. The patient also had MRI of the brain on 11/06/18 that was negative for metastasis. The patient was discharged on MS Contin and [place] with reasonable control of symptoms, and had an appointment with Dr. Gomes on 11/18/18 for discussion of resuming systemic therapy. However he came back to the hospital with multiple complaints. These included increasing shortness of breath over the past 3-4 days, persistent pain with exacerbations at home with very well controlled on current regimen, as well as progressive nausea and vomiting. Appetite has been quite poor. on admission it was felt that he had COPD exacerbation and was treated for the same with improvement. However nausea and vomiting as well as pain continued to be issues. Consult was placed for further evaluation and recommendations Review of Systems Constitutional: Reports chronic pain, Reports poor appetite, Reports weakness, Reports weight loss Eyes: denies blurred vision, denies pain Ears: deny: decreased hearing, ear discharge, earache, tinnitus Ears, nose, mouth and throat: Denies headache, Denies sore throat Cardiovascular: Reports shortness of breath Respiratory: Reports dyspnea Gastrointestinal: Reports loss of appetite, Reports nausea, Reports vomiting Genitourinary: Reports as per HPI Musculoskeletal: Reports muscle weakness Integumentary: Denies pruritus, Denies rash Neurological: Reports weakness Psychiatric: Reports anxiety, Denies depression Endocrine: Reports weight change Hematologic/Lymphatic: Reports as per HPI Past Medical History Past Medical History: Cancer, COPD, GERD/Reflux, Hypertension, Osteoarthritis (OA), Pneumonia, Prostate Disorder, Pulmonary Embolus (PE) Additional Past Medical History / Comment(s): Recovering alcoholic - quit 2002, hx of skin ca (sx), lung cancer w/ mets to liver, spine, gallbladder, occ episodes of lightheadedness w/ exertion, hx left vocal cord paralysis (sx). History of Any Multi-Drug Resistant Organisms: None Reported Past Surgical History: Orthopedic Surgery Additional Past Surgical History / Comment(s): Right carpal tunnel release, skin ca removed from face/nose, colonoscopy/polypectomy (per patient - negative), 02-13-18 left medialization thyroidplasy. Past Anesthesia/Blood Transfusion Reactions: Family History of Problems w/ Anesthesia Additional Past Anesthesia/Blood Transfusion Reaction / Comm: FATHER WOKE UP VERY AGITATED AND HAD TO BE "RE-MEDICATED". HAD BLOOD TRANSFUSION-NO REACTION Past Psychological History: No Psychological Hx Reported Smoking Status: Former smoker Past Alcohol Use History: None Reported Past Drug Use History: None Reported - Past Family History Father Family Medical History: Myocardial Infarction (MA) Additional Family Medical History / Comment(s): Alcoholic. . Mother Family Medical History: Myocardial Infarction (MA) Additional Family Medical History / Comment(s): Alcoholic. . Medications and Allergies Home Medications Medication Instructions Recorded Confirmed Type traZODone HCL [Desyrel] 100 mg PO HS PRN 12/10/13 11/16/18 History Folic Acid 1 mg PO DAILY 11/13/17 11/16/18 History Ascorbic Acid [Vitamin C] 500 mg PO DAILY 08/20/18 11/16/18 History Biotin 5,000 mcg PO DAILY 08/20/18 11/16/18 History Glucosam/Colin-Msm1/C/Patel/Bosw 1 tab PO DAILY 08/20/18 11/16/18 History [Glucosamine-Chondroitin Tablet] Multivitamins, Thera [Multivitamin 1 tab PO DAILY 08/20/18 11/16/18 History (formulary)] Spironolactone [Aldactone] 12.5 mg PO DAILY 08/20/18 11/16/18 History Benzonatate [Tessalon Perles] 100 mg PO TID PRN 11/02/18 11/16/18 History Furosemide [Lasix] 20 mg PO DAILY 11/02/18 11/16/18 History Metoprolol Tartrate [Lopressor] 25 mg PO DAILY 11/02/18 11/16/18 History Omeprazole 40 mg PO DAILY 11/02/18 11/16/18 History Rivaroxaban [Xarelto] 20 mg PO DAILY 11/02/18 11/16/18 History Rosuvastatin Calcium [Crestor] 40 mg PO DAILY 11/02/18 11/16/18 History HYDROcodone/APAP 7.5-325MG [[place] 1 tab PO Q6HR PRN 3 Days #60 tab 11/10/18 11/16/18 Rx 7.5-325] Ipratropium-Albuterol Nebulize 3 ml INHALATION RT-QID PRN #60 11/10/18 11/16/18 Rx [Duoneb 0.5 mg-3 mg/3 ml Soln] ampul.neb Morphine Sulfate ER [Ms Contin] 30 mg PO Q12HR #60 tablet 11/10/18 11/16/18 Rx Ondansetron HCl [Zofran] 8 mg PO Q8H PRN #60 tablet 11/10/18 11/16/18 Rx Polyethylene Glycol 3350 [Miralax] 17 gm PO DAILY PRN #30 powd.pack 11/10/18 11/16/18 Rx Promethaz-Cod 6.25-10 mg/5 ml 5 ml PO Q4H PRN #200 ml 11/10/18 11/16/18 Rx [Phenergan with Codeine] predniSONE See Taper PO DAILY #60 tab 11/10/18 11/16/18 Rx Lactulose 10 gm PO BID 11/16/18 11/16/18 History Allergies Allergy/AdvReac Type Severity Reaction Status Date / Time pembrolizumab [From [facility]] AdvReac Nausea & Verified 11/16/18 09:40 Vomiting Physical Exam Vitals: Vital Signs Temp Pulse Pulse Resp BP Pulse Ox 11/17/18 08:30 111 H 11/17/18 08:00 111 H 20 133/79 90 L 11/17/18 04:00 98.5 F 100 18 145/67 88 L 11/17/18 00:00 98.7 F 122 H 20 128/66 93 L 11/16/18 21:14 60 11/16/18 21:04 64 16 11/16/18 20:00 98.3 F 128 H 20 116/66 93 L 11/16/18 15:31 64 98/61 93 L 11/16/18 12:40 96.9 F L 110 H 20 123/83 90 L Intake and Output 11/16/18 11/17/18 11/17/18 22:59 06:59 14:59 Intake Total 880 Output Total 325 Balance 555 Intake: Intake, IV Titration 400 Amount Sodium Chloride 0.9% 1, 400 000 ml @ 100 mls/hr IV . Q10H [facility] Rx#:[id number] Oral 480 Output: Urine 325 Other: Voiding Method Toilet Toilet # Voids 1 Weight 91.4 kg 91.4 kg - Constitutional General appearance: no acute distress - EENT Eyes: EOMI, PERRLA ENT: hearing grossly normal, normal oropharynx - Neck Neck: no lymphadenopathy Thyroid: bilateral: normal size - Respiratory Respiratory: bilateral: CTA, prolonged expiration (Mild) - Cardiovascular Rhythm: regular Heart sounds: normal: S1, S2 - Gastrointestinal General gastrointestinal: normal bowel sounds, soft - Integumentary Integumentary: normal - Neurologic Neurologic: CNII-XII intact - Musculoskeletal Musculoskeletal: generalized weakness, strength equal bilaterally - Psychiatric Psychiatric: A&O x's 3, appropriate affect Results CBC & Chem 7: 11/17/18 05:51 11/17/18 05:51 Labs: Abnormal Lab Results - Last 24 Hours (Table) 11/16/18 11/16/18 11/16/18 Range/Units 14:00 16:45 20:30 WBC (3.8-10.6) k/uL Plt Count (150-450) k/uL Neutrophils # (1.3-7.7) k/uL Lymphocytes # (1.0-4.8) k/uL Carbon Dioxide (22-30) mmol/L BUN (9-20) mg/dL Glucose (74-99) mg/dL POC Glucose (mg/dL) 100 H 132 H (75-99) mg/dL Calcium (8.4-10.2) mg/dL Troponin I 0.050 H* (0.000-0.034) ng/mL 11/17/18 11/17/18 11/17/18 Range/Units 05:51 05:51 11:57 WBC 13.2 H (3.8-10.6) k/uL Plt Count 139 L (150-450) k/uL Neutrophils # 12.2 H (1.3-7.7) k/uL Lymphocytes # 0.3 L (1.0-4.8) k/uL Carbon Dioxide 21 L (22-30) mmol/L BUN 23 H (9-20) mg/dL Glucose 116 H (74-99) mg/dL POC Glucose (mg/dL) 135 H (75-99) mg/dL Calcium 8.1 L (8.4-10.2) mg/dL Troponin I (0.000-0.034) ng/mL Microbiology - Last 24 Hours (Table) 11/16/18 08:30 Urine Culture - Preliminary Urine,Voided Chest x-ray: report reviewed Assessment and Plan (1) Metastatic primary lung cancer Narrative/Plan: Diagnostic and therapeutic circumstances as described in the HPI, as well as recent consult from earlier this month. The patient was recently diagnosed with progression. Symptoms were controlled at the time of discharge and he was to follow-up in the office for resumption of systemic therapy. However he has been admitted with worsening of his symptoms. The patient's deterioration appears to be related to rapid progression of malignancy. He did have increased shortness of breath which has improved with treatment. However pain control continues to be variable. In addition he's been having progressive nausea and vomiting with decreased appetite and poor oral intake. Labs show progressive increase in liver enzymes which indicates aggressive progression in the liver, and is most likely the etiology for his GI symptoms. The case was discussed in detail with the admitting service. The patient will need to start systemic therapy fairly quickly. We'll discuss with his primary oncologist is Dr. Gomes, to potentially give a cycle of chemotherapy in the hospital, so as to initiate treatment for his rapidly progressive disease and to ensure better control of symptoms. Current Visit: Yes Status: Acute Code(s): C34.90 - MALIGNANT NEOPLASM OF UNSP PART OF UNSP BRONCHUS OR LUNG SNOMED Code(s): 78818582 (2) Intractable nausea and vomiting Narrative/Plan: Likely due to rapidly progressive disease in the liver. MRI of the brain was negative on 11/06/18. Continue IV antibiotics. Anticipate improvement in symptoms if systemic therapy for the malignancy is effective Current Visit: No Status: Acute Code(s): R11.2 - NAUSEA WITH VOMITING, UNSPECIFIED SNOMED Code(s): 563240922 (3) Abdominal pain Narrative/Plan: Due to progressive disease in the liver from his malignancy. He also has back pain. The patient is on MS Contin, and was taking [place] at home. Pain control has been variable being satisfactory sometimes , with periods of breakthrough not well controlled on his current regimen. Given rapidly progressive disease in the liver at this time I would recommend continuing the same dose of the long-acting morphine. Continue [place] when necessary at this time with adjustment depending on his pain control over the next 24-48 hours and utilization of [place] Current Visit: No Status: Acute Code(s): R10.9 - UNSPECIFIED ABDOMINAL PAIN SNOMED Code(s): 23967897 Plan: Defer to the admitting service and other consultants for management of his other medical problems
[2018-11-17] MEDS: HYDROcodone/APAP 7.5-325MG 1 EACH TAB PO PRN (13:18)
[2018-11-17] MEDS: SODIUM CHLORIDE 0.9% 1,000 ML IV SCH ×3 (13:21→22:16)
[2018-11-17 17:16] LABS: Glucose,Whole Blood 109 mg/dL (75-99)
[2018-11-17 20:23] LABS: Glucose,Whole Blood 109 mg/dL (75-99)
--- NOTE | 2018-11-17 21:54 | P.PN ---
Progress Note - Text Progress Note Date: 11/17/18 Chief Complaint: Cough History of presenting complaint: This is a very pleasant 58-year-old patient of Dr. Ron Rico. Also following with Dr. Gomes from oncology. Chronic stable medical conditions include GERD, hypertension, osteoarthritis, history of pulmonary embolism, left vocal cord paralysis. Patient also has history of metastatic lung cancer. Finished chemotherapy about 4-5 months ago. Has been told he is in remission. Was recently admitted to the hospital.. Patient had a thoracic spine MRI, abdominal ultrasound and bone scan. Had computed tomography scan of the abdomen and pelvis that had shown a moderate pleural effusion and a new consolidation. Subsequently metastatic disease was found in the bones via bone scan and also in the liver. Is also suspected metastatic to the left adrenal gland Today-a bit better. Sitting upon a bed. Vomiting frequency far better try to eat something light. Did get some rest. Breathing better. Review of systems: Was done for constitutional, cardiovascular, GI, pulmonary. relevant finding as above Current medications are reviewed that include: DuoNeb, Levaquin, IV Solu-Medrol, 0 to, scopolamine patch normal saline Physical examination: VITAL SIGNS: 96.8, 68, 18, 110/84, 93% room air GENERAL: Propped up in bed, a bit more comfortable today EYES: Pupils equal. Conjunctiva normal. HEENT: External appearance of nose and ears normal, oral cavity dry NECK: JVD not raised; masses not palpable. HEART: First and second heart sounds are normal; no edema. LUNGS: Respiratory rate increased; decreased breath sounds, prolonged expiration. ABDOMEN: Soft, nontender, liver spleen not palpable, no masses palpable. PSYCH: Alert and oriented x3; mood and affect anxious NEUROLOGICAL: Cranial nerves grossly intact; no facial asymmetry, power and sensation grossly intact. LYMPHATICS: No lymph nodes palpable in the axilla and neck Investigations: WBC 13.2 hemoglobin 15.4 potassium 4.8 BUN 23 creatinine 1.08 AST 1012 ENT 966 Troponin I 0.04-0.050 Albumin 2.8 Chest x-ray film personally reviewed by me shows areas of infiltrate on the right side and the left upper lobe Assessment: -Acute COPD exacerbation and an ex-smoker, slow to respond -Metastatic lung cancer currently in remission ~few months ago. With the recent workup including bone scan, computed tomography scan of the abdomen and chest and pelvis, abdominal ultrasound is showing metastatic disease with recurrence of colon cancer with metastatic disease to the liver bones lumbar spine and the adrenal gland. -GERD -Essential hypertension -Primary osteoarthritis -History of pulmonary embolism -Chronic left vocal cord paralysis -Clinically dehydrated -Mild protein calorie malnutrition from poor oral intake Plan: Discussed with Dr. Donovan from oncology. Considering starting chemotherapy sooner than later. Continue bronchodilators. Spoke to the patient and the family the bedside. Continue with steroids 2. Scaled back to 40 mg every 8. Processes guarded. Continue with IV fluids
[2018-11-17] MEDS ORDERED: SODIUM CHLORIDE 0.9% 500 ML 500 ML IV ONE (22:50)
[2018-11-18] MEDS: IPRATROPIUM-ALBUTEROL 3 ML NEB INHALATION SCH ×7 (00:08→23:36)
[2018-11-18] MEDS: methylPREDNISolone SOD SUCCI 40 MG/ML 1 ML VIAL IV SCH ×3 (00:58→16:45)
[2018-11-18] MEDS ORDERED: SODIUM CHLORIDE 0.9% 1,000 ML IV ONE ×2 (03:40→06:30)
[2018-11-18 04:01] LABS: Basophils % (A) 0 %; Eosinophils # (A) 0.1 k/uL (0-0.7); Eosinophils % (A) 1 %; HCT 48.3 % (39.0-53.0); HGB 14.7 gm/dL (13.0-17.5); Hypochromasia Moderate; Lymphocytes # (A) 0.3 k/uL (1.0-4.8); Lymphocytes % (A) 2 %; MCH 30.3 pg (25.0-35.0); MCHC 30.4 g/dL (31.0-37.0); MCV 99.8 fL (80.0-100.0); Macrocytosis Slight; Mean Platelet Volume 8.3; Monocytes # (A) 0.6 k/uL (0-1.0); Monocytes % (A) 4 %; Neutrophils # (A) 15.2 k/uL (1.3-7.7); Neutrophils % (A) 93 %; Platelet Count 118 k/uL (150-450); RBC 4.84 m/uL (4.30-5.90); RDW 15.2 % (11.5-15.5); WBC 16.4 k/uL (3.8-10.6)
[2018-11-18 04:14] LABS: Calcium 7.1 mg/dL (8.4-10.2); Total Bilirubin 1.5 mg/dL (0.2-1.3)
[2018-11-18 04:35] LABS: Glucose,Whole Blood 99 mg/dL (75-99)
[2018-11-18 04:37] LABS: Albumin 2.2 g/dL (3.5-5.0); Magnesium 2.2 mg/dL (1.6-2.3); Potassium 5.8 mmol/L (3.5-5.1); Total Protein 4.9 g/dL (6.3-8.2)
[2018-11-18 06:36] LABS: Glucose,Whole Blood 88 mg/dL (75-99)
[2018-11-18] MEDS: INSULIN ASPART (NovoLOG) 100 UNIT/ML VIAL SQ SCH ×4 (06:39→20:44)
[2018-11-18] MEDS: PIPERACILLIN-TAZOBACTAM 3.375 GM in SODIUM CHLORIDE 0.9% 100 ML IVPB SCH ×2 (06:42→19:04)
--- NOTE | 2018-11-18 07:17 | XR ---
EXAMINATION TYPE: XR chest 1V portable DATE OF EXAM: 11/18/2018 COMPARISON: Prior chest x-ray 11/17/2018 HISTORY: Pneumonia TECHNIQUE: Single frontal view of the chest is obtained. FINDINGS: Pleural parenchymal changes are stable compared to prior exam. Heart size is unchanged. Th ere are overlying cardiac leads. Apical pleural thickening present on the left. IMPRESSION: Correlate for pneumonia and associated effusion. Findings may be due to patient's lung c arcinoma, interstitial spread of disease. Volume overload, pulmonary venous hypertension and intersti tial edema not excluded.
[2018-11-18] MEDS: SODIUM CHLORIDE 0.9% 1,000 ML IV SCH ×2 (08:48→16:51)
[2018-11-18] MEDS: ATORVASTATIN 80 MG TAB PO SCH (08:52)
[2018-11-18] MEDS: FOLIC ACID 1 MG TAB PO SCH (08:52)
[2018-11-18] MEDS: ASCORBIC ACID 500 MG TAB PO SCH (08:52)
[2018-11-18] MEDS: PANTOPRAZOLE 40 MG TABLET PO SCH (08:52)
[2018-11-18] MEDS: LACTULOSE 20 GM/30 ML CUP PO SCH ×2 (08:53→20:30)
[2018-11-18] MEDS: MORPHINE SULFATE ER 30 MG TABLET PO SCH ×2 (08:53→20:30)
[2018-11-18] MEDS: MULTIVITAMINS, THERA 1 EACH TAB PO SCH (08:54)
--- NOTE | 2018-11-18 10:17 | P.PN ---
Subjective Progress Note Date: 11/18/18 Principal diagnosis: Abdominal pain, nausea, right-sided chest pain, altered mental status This is a very pleasant 58-year-old gentleman with a known history of metastatic adenocarcinoma of the lung, status post chemo on immunotherapy with controlled. Most recent CAT scan of the chest abdomen pelvis from July 2018 showed no measurable disease and the patient appeared to be in remission. On 11/02/2018 the patient presented to the hospital here with shortness of breath, cough or congestion and right upper quadrant left lower quadrant abdominal pain. Computed tomography scan revealed masslike consolidation in the left lower lobe consistent with tumor. There is increased mediastinal and bronchial adenopathy. There are multiple low density lesions throughout the liver and spleen consistent with metastatic disease. There is also ostial blastic focus in the inferior aspect of L4 vertebrae consistent with metastatic disease. The patient was subsequently discharged home to see oncology and develop a plan on 11/10/2018. He will he presented here to the emergency room today with altered mental status, abdominal pain, right-sided chest pain. He is seen in consulta tion on the selective care unit. He is awake, uncomfortable with ongoing abdominal discomfort and right-sided chest pain. Maintaining O2 saturation in the 90s on 2 L/m per nasal cannula. He is afebrile. Tachycardic. Chest x-ray shows chronic emphysematous changes persistent left suprahilar scarring and a new right midlung acute infiltrate. Unclear if this is pneumonia or metastasis. White count 15.3. Hemoglobin 16.2. Platelet count 147,000. INR 1.5. Sodium 134. Creatinine 1.06. He is anticoagulated with Xarelto. Initiated on antibiotics in the form of Levaquin, bronchodilators and pain medications. On 11/17/2018 patient seen in follow-up on selective care unit, he is sitting in bed, he states he is feeling better today, still slightly nauseous, did have a small emesis, getting Zofran, patient becomes tachypneic and dyspneic with any exertion even sitting up in bed, but no acute distress, lung sounds are diminished, with some end expiratory wheezes, room air pulse ox is 90%, he is afebrile. Occasional cough, with no significant phlegm production. Today's follow-up chest x-ray shows right lower lobe and left upper lobe infiltrate. She is on Levaquin for antibiotic coverage, today's labs have been reviewed, showing white blood cell count of 13.2, hemoglobin of 15.4, sodium was 139, potassium is 4.8, cord is 107, CO2 is 21, B1 is 23, creatinine is 1.08, patient's appetite is poor related to intermittent nausea, and abdominal pain, patient is still having some abdominal discomfort across his upper left and right quadrants. On 11/18/2018 patient seen in follow-up in the intensive care unit, last night rapid response team was called for concerns of hypotension, and increased confusion, patient was transferred to the intensive care unit at around 1915 last evening, he was fluid resuscitated with 4 liters of normal saline, he did not require vasopressor support, his lactic acid went up to 3.7 yesterday, this morning is 4.6, 70 fluids are infusing at 125 ML per hour, 12.9 normal saline. Patient is lethargic, but arousable, seems at times a bit confused. Today's labs have been reviewed, showing white blood cell count of 16.4, hemoglobin of 14.7, sodium of 134, potassium is 5.8, CO2 is 20, B1 is 33, creatinine is 1.28, liver enzymes are actually trending down, serum ammonia level is 34 this morning, was 61 on yesterday's labs, patient is receiving lactulose. Afebrile, he is tachycardic in sinus mechanism with frequent PACs, blood pressures are i ntermittently low, with the systolic in the 60s. He is on 4 L of oxygen with a pulse ox of 92-96%. Today's chest x-ray has been reviewed, showing right lower lobe and left upper lobe infiltrates/perihilar fullness, interstitial spread of disease, bilateral pleural effusions. No significant abdominal discomfort, no nausea no vomiting overnight, and is on a combination of MS Contin and [place] for pain control. Cultures have been collected and sent, also showed moderate amount of leuks, and WBC of 13, urine culture was sent ending at this time, and is not expectorating any sputum, we'll unable to send sputum culture. Send for abiotic coverage in addition to oral Levaquin. Patient is on IV Solu-Medrol 40 mg every 8 hours and nebulized bronchodilators. Discussed CODE STATUS with the patient today, we will defer the decision to his sister, we spoke to patient's sister Jose F Hernandez on the phone who agrees that the patient should be a DO NOT RESUSCITATE, due to the extent of his metastatic lung cancer, and would like to have hospice consulted and social work consulted. He was supported medical treatment right now. Objective - Vital Signs Vital signs: Vital Signs Temp 97.7 F 11/18/18 08:00 Pulse 102 H 11/18/18 09:00 Resp 26 H 11/18/18 09:00 BP 97/53 11/18/18 09:00 Pulse Ox 92 L 11/18/18 09:00 Intake & Output 11/17/18 11/18/18 11/18/18 18:59 06:59 18:59 Intake Total 780 3050 1730 Output Total 1140 830 Balance 780 1910 900 Weight 91.4 kg 93.1 kg Intake: IV 2550 1250 Sodium Chloride 0.9% 1, 250 000 ml @ 125 mls/hr IV . Q8H [facility] Rx#:[id number] Sodium Chloride 0.9% 1, 2550 1000 000 ml @ 50 mls/hr IV . Q20H [facility] Rx#:[id number] Oral 780 500 480 Output: Urine 1140 830 Other: Voiding Method Toilet Indwelling Catheter Indwelling Catheter # Voids 3 1 - Exam GENERAL EXAM: Alert, pleasant, 58-year-old white male, on room air, but arousable, at times confused, currently on 4 L of oxygen with a pulse ox of 92- 96% HEAD: Normocephalic/atraumatic. EYES: Normal reaction of pupils, equal size. Conjunctiva pink, sclera white. NOSE: Clear with pink turbinates. THROAT: No erythema or exudates. NECK: No masses, no JVD, no thyroid enlargement, no adenopathy. CHEST: No chest wall deformity. Symmetrical expansion. LUNGS: Equal air entry with diffuse wheezes CVS: Regular rate and rhythm, normal S1 and S2, no gallops, no murmurs, no rubs ABDOMEN: Soft, nontender. No hepatosplenomegaly, normal bowel sounds, no guarding or rigidity. EXTREMITIES: No clubbing, no edema, no cyanosis, 2+ pulses and upper and lower extremities. MUSCULOSKELETAL: Muscle strength and tone normal. SPINE: No scoliosis or deformity SKIN: No rashes CENTRAL NERVOUS SYSTEM: Alert but arousable, confused at times. No focal deficits, tone is normal in all 4 extremities. - Labs CBC & Chem 7: 11/18/18 03:39 11/18/18 03:39 Labs: Abnormal Lab Results - Last 24 Hours (Table) 11/17/18 11/17/18 11/17/18 Range/Units 11:57 17:15 20:21 WBC (3.8-10.6) k/uL MCHC (31.0-37.0) g/dL Plt Count (150-450) k/uL Neutrophils # (1.3-7.7) k/uL Lymphocytes # (1.0-4.8) k/uL Sodium (137-145) mmol/L Potassium (3.5-5.1) mmol/L Carbon Dioxide (22-30) mmol/L BUN (9-20) mg/dL Creatinine (0.66-1.25) mg/dL Glucose (74-99) mg/dL POC Glucose (mg/dL) 135 H 109 H 109 H (75-99) mg/dL Plasma Lactic Acid Pierre (0.7-2.0) mmol/L Calcium (8.4-10.2) mg/dL Total Bilirubin (0.2-1.3) mg/dL AST (17-59) U/L ALT (21-72) U/L Alkaline Phosphatase (38-126) U/L Ammonia (<30) umol/L Total Protein (6.3-8.2) g/dL Albumin (3.5-5.0) g/dL 11/18/18 11/18/18 11/18/18 Range/Units 03:39 03:39 03:39 WBC 16.4 H (3.8-10.6) k/uL MCHC 30.4 L (31.0-37.0) g/dL Plt Count 118 L (150-450) k/uL Neutrophils # 15.2 H (1.3-7.7) k/uL Lymphocytes # 0.3 L (1.0-4.8) k/uL Sodium 134 L (137-145) mmol/L Potassium 5.8 H (3.5-5.1) mmol/L Carbon Dioxide 20 L (22-30) mmol/L BUN 33 H (9-20) mg/dL Creatinine 1.28 H (0.66-1.25) mg/dL Glucose 114 H (74-99) mg/dL POC Glucose (mg/dL) (75-99) mg/dL Plasma Lactic Acid Pierre 3.7 H* (0.7-2.0) mmol/L Calcium 7.1 L (8.4-10.2) mg/dL Total Bilirubin 1.5 H (0.2-1.3) mg/dL AST 862 H (17-59) U/L ALT 748 H (21-72) U/L Alkaline Phosphatase 739 H (38-126) U/L Ammonia (<30) umol/L Total Protein 4.9 L (6.3-8.2) g/dL Albumin 2.2 L (3.5-5.0) g/dL 11/18/18 11/18/18 Range/Units 07:17 07:17 WBC (3.8-10.6) k/uL MCHC (31.0-37.0) g/dL Plt Count (150-450) k/uL Neutrophils # (1.3-7.7) k/uL Lymphocytes # (1.0-4.8) k/uL Sodium (137-145) mmol/L Potassium (3.5-5.1) mmol/L Carbon Dioxide (22-30) mmol/L BUN (9-20) mg/dL Creatinine (0.66-1.25) mg/dL Glucose (74-99) mg/dL POC Glucose (mg/dL) (75-99) mg/dL Plasma Lactic Acid Pierre 4.6 H* (0.7-2.0) mmol/L Calcium (8.4-10.2) mg/dL Total Bilirubin (0.2-1.3) mg/dL AST (17-59) U/L ALT (21-72) U/L Alkaline Phosphatase (38-126) U/L Ammonia 34 H (<30) umol/L Total Protein (6.3-8.2) g/dL Albumin (3.5-5.0) g/dL Microbiology - Last 24 Hours (Table) 11/16/18 09:05 Blood Culture - Preliminary Blood No Growth after 24 hours Assessment and Plan Plan: Assessment: #1 septic shock, source is under investigation, chest x-ray shows evidence of infiltrate on the right side and the left upper lobe perihilar fullness, could be related to underlying metastatic lung adenocarcinoma possibility of pneumonia is not excluded #2 Metastatic adenocarcinoma of the lung, stage IV, previous chemotherapy and immunotherapy and was in remission until recent findings in October 2018. Metastasis to the liver, spleen and bone. #3 Abdominal pain in the right upper quadrant, nausea likely related to metast atic disease. #4 Troponin leak. #5 acute kidney injury related to ATN #6 lactic acidosis #7 mild hyperkalemia of 5.8 related to metabolic acidosis without rhythm disturbance #8 Chronic systolic congestive heart failure. #9 Previous history of chronic tobacco dependence. #10 History of left vocal cord paralysis status post vocal cord medialization. #11 Nonocclusive coronary artery disease. Plan: Continue current medical treatment, patient has been fluid resuscitated, continue with IV fluids at a rate of 125 ML per hour, antibiotics, cultures have been sent and are pending at this time, overall prognosis is poor, and we discussed CODE STATUS with the patient who would defer the decision to his sister who is a ZOOKEEPER, and has been taking care of him during the time of his illness. The sister agrees that patient should not be a full code in view of his widespread metastatic adenocarcinoma of the lung, and his rapidly declining condition. The sister requested hospice consultation and social work consultation. We'll continue supportive medical treatment at this time. I performed a history & physical examination of the patient and discussed their management with my nurse practitioner, Mariam Ruiz. I reviewed the nurse practitioner's note and agree with the documented findings and plan of care. Lung sounds are positive for diffuse wheezes throughout the lung ramirez. The findings and the impression was discussed with the patient. I attest to the documentation by the nurse practitioner. Time with Patient: Less than 30
[2018-11-18] MEDS: RIVAROXABAN 20 MG TAB PO SCH (10:49)
[2018-11-18 12:01] LABS: Glucose,Whole Blood 149 mg/dL (75-99)
[2018-11-18] MEDS: LEVOFLOXACIN 750 MG TAB PO SCH (12:15)
--- NOTE | 2018-11-18 16:05 | P.PN ---
Subjective Progress Note Date: 11/18/18 Principal diagnosis: Altered mental status, Metastatic non-small cell lung cancer In follow-up today patient is alert, per staff reports his mental status is improved, patient is having difficulty remembering the subject and decisions of recent conversations. He has 2 sisters at the bedside. He states persistent discomfort, generalized, no nausea, he is short of breath at rest. Objective - Vital Signs Vital signs: Vital Signs Temp 97.7 F 11/18/18 08:00 Pulse 101 H 11/18/18 15:28 Resp 18 11/18/18 15:28 BP 86/57 11/18/18 14:00 Pulse Ox 94 L 11/18/18 14:00 Intake & Output 11/17/18 11/18/18 11/18/18 18:59 06:59 18:59 Intake Total 780 3050 2355 Output Total 1140 1300 Balance 780 1910 1055 Weight 91.4 kg 93.1 kg Intake: IV 2550 1875 Sodium Chloride 0.9% 1, 875 000 ml @ 125 mls/hr IV . Q8H [facility] Rx#:[id number] Sodium Chloride 0.9% 1, 2550 1000 000 ml @ 50 mls/hr IV . Q20H [facility] Rx#:[id number] Oral 780 500 480 Output: Urine 1140 1300 Other: Voiding Method Toilet Indwelling Catheter Indwelling Catheter # Voids 3 1 - Constitutional General appearance: Present: average body habitus, cooperative, mild distress - EENT Eyes: Present: anicteric sclerae, EOMI - Respiratory Details: Respirations are shallow, mildly labored, anterior chest wheezing, some scattered rhonchi on the left - Cardiovascular Details: tachycardia Heart sounds: normal: S1, S2 - Peripheral edema leg Peripheral Edema: bilateral: Trace - Gastrointestinal General gastrointestinal: Present: normal bowel sounds, soft - Integumentary Integumentary: Present: pale - Neurologic Neurologic: Present: CNII-XII intact - Musculoskeletal Musculoskeletal: Present: generalized weakness - Psychiatric Psychiatric: Present: A&O x's 3, appropriate affect. Absent: intact judgment & insight - Labs CBC & Chem 7: 11/18/18 03:39 11/18/18 03:39 Labs: Abnormal Lab Results - Last 24 Hours (Table) 11/17/18 11/17/18 11/18/18 Range/Units 17:15 20:21 03:39 WBC 16.4 H (3.8-10.6) k/uL MCHC 30.4 L (31.0-37.0) g/dL Plt Count 118 L (150-450) k/uL Neutrophils # 15.2 H (1.3-7.7) k/uL Lymphocytes # 0.3 L (1.0-4.8) k/uL Sodium (137-145) mmol/L Potassium (3.5-5.1) mmol/L Carbon Dioxide (22-30) mmol/L BUN (9-20) mg/dL Creatinine (0.66-1.25) mg/dL Glucose (74-99) mg/dL POC Glucose (mg/dL) 109 H 109 H (75-99) mg/dL Plasma Lactic Acid Pierre (0.7-2.0) mmol/L Calcium (8.4-10.2) mg/dL Total Bilirubin (0.2-1.3) mg/dL AST (17-59) U/L ALT (21-72) U/L Alkaline Phosphatase (38-126) U/L Ammonia (<30) umol/L Total Protein (6.3-8.2) g/dL Albumin (3.5-5.0) g/dL 11/18/18 11/18/18 11/18/18 Range/Units 03:39 03:39 07:17 WBC (3.8-10.6) k/uL MCHC (31.0-37.0) g/dL Plt Count (150-450) k/uL Neutrophils # (1.3-7.7) k/uL Lymphocytes # (1.0-4.8) k/uL Sodium 134 L (137-145) mmol/L Potassium 5.8 H (3.5-5.1) mmol/L Carbon Dioxide 20 L (22-30) mmol/L BUN 33 H (9-20) mg/dL Creatinine 1.28 H (0.66-1.25) mg/dL Glucose 114 H (74-99) mg/dL POC Glucose (mg/dL) (75-99) mg/dL Plasma Lactic Acid Pierre 3.7 H* (0.7-2.0) mmol/L Calcium 7.1 L (8.4-10.2) mg/dL Total Bilirubin 1.5 H (0.2-1.3) mg/dL AST 862 H (17-59) U/L ALT 748 H (21-72) U/L Alkaline Phosphatase 739 H (38-126) U/L Ammonia 34 H (<30) umol/L Total Protein 4.9 L (6.3-8.2) g/dL Albumin 2.2 L (3.5-5.0) g/dL 11/18/18 11/18/18 Range/Units 07:17 11:57 WBC (3.8-10.6) k/uL MCHC (31.0-37.0) g/dL Plt Count (150-450) k/uL Neutrophils # (1.3-7.7) k/uL Lymphocytes # (1.0-4.8) k/uL Sodium (137-145) mmol/L Potassium (3.5-5.1) mmol/L Carbon Dioxide (22-30) mmol/L BUN (9-20) mg/dL Creatinine (0.66-1.25) mg/dL Glucose (74-99) mg/dL POC Glucose (mg/dL) 149 H (75-99) mg/dL Plasma Lactic Acid Pierre 4.6 H* (0.7-2.0) mmol/L Calcium (8.4-10.2) mg/dL Total Bilirubin (0.2-1.3) mg/dL AST (17-59) U/L ALT (21-72) U/L Alkaline Phosphatase (38-126) U/L Ammonia (<30) umol/L Total Protein (6.3-8.2) g/dL Albumin (3.5-5.0) g/dL Microbiology - Last 24 Hours (Table) 11/16/18 08:30 Urine Culture - Final Urine,Voided Enterococcus faecalis 11/16/18 09:05 Blood Culture - Preliminary Blood No Growth after 48 hours - Imaging and Cardiology Chest x-ray: report reviewed, image reviewed Assessment and Plan (1) Metastatic primary lung cancer Narrative/Plan: Examination findings will be communicated with patient's primary Oncologist Dr. Gomes. Patient is aware about discussion of chemotherapy, that chemo is palliative in intent and that his condition is not curable. Pt did seem to want to try chemo but, his in his current state treatment is more likely to cause harm, pt seemed to understand and family agreed. Infectious work up and antibiotics are ordered. If pt improves then he could be considered for palliative chemo, this was discussed with Dr. Gomes and plan is to give inpatient if necessary. We will follow with you for pt progress. Patient's conversation at times was confused with random, non sense statements. Recent MRI brain on 11/04 was negative for mets, ammonia and liver enzyme levels are decreasing. No acute changes in pain meds. Cont current abx (urine did come back positive for enterococcus faecalis). Patient's sister is currently working on getting a power of securities attorney. Encouraged her to do so in case patient becomes unable to make decisions for himself. Agree with family decision for no code, it is absolutely appropriate. Encouraged informational visit with hospice. Current Visit: Yes Status: Acute Priority: High Code(s): C34.90 - MALIGNANT NEOPLASM OF UNSP PART OF UNSP BRONCHUS OR LUNG SNOMED Code(s): 27326546 (2) Cancer related pain Narrative/Plan: No adjustments to pain meds, encourage supportive measures, positioning, heat/cold. Liver metabolism is decreased right now, starting to improve. Current Visit: Yes Status: Acute Priority: High Code(s): G89.3 - NEOPLASM RELATED PAIN (ACUTE) (CHRONIC) SNOMED Code(s): 83416567531064 (3) Elevated liver enzymes Narrative/Plan: Stable with slight improvement. Secondary to liver mets Current Visit: Yes Status: Acute Priority: Medium Code(s): R74.8 - ABNORMAL LEVELS OF OTHER SERUM ENZYMES SNOMED Code(s): 318826145 Plan: If pt is able to be stabilized then the plan is to proceed with a cycle of taxotere to try and get some disease control quickly. As to how the pt will be able to proceed from there is uncertain. Discussed sisters concerns (pt currently can't live alone, recent trouble managing his care by herself). She will be kept updated on pt progress, she will be provided info on all the options available. Attending Physician encouraged continuing current care at this time. Reviewed case with Regulatory Affairs Analyst. Time with Patient: Greater than 30 (>50% COUNSELING AND COORDINATING CARE)
[2018-11-18 17:10] LABS: Glucose,Whole Blood 154 mg/dL (75-99)
--- NOTE | 2018-11-18 17:30 | P.PN ---
Progress Note - Text Progress Note Date: 11/18/18 Chief Complaint: Cough Interval history: This is a very pleasant 58-year-old patient of Dr. Ron Rico. Also following with Dr. Gomes from oncology. Chronic stable medical conditions include GERD, hypertension, osteoarthritis, history of pulmonary embolism, left vocal cord paralysis. Patient also has history of metastatic lung cancer. Finished chemotherapy about 4-5 months ago. Has been told he is in remission. Was recently admitted to the hospital.. Patient had a thoracic spine MRI, abdominal ultrasound and bone scan. Had computed tomography scan of the abdomen and pelvis that had shown a moderate pleural effusion and a new consolidation. Subsequently metastatic disease was found in the bones via bone scan and also in the liver. Is also suspected metastatic to the left adrenal gland Today-early in the morning today patient dropped his blood pressure. Did give a fluid bolus. blood pressures running in about 60 systolics. Transfer the patient to ICU. Patient is given more fluid bolus. Veneer Measurer was consulted. Patient does feel weak and tired. Appetite is still is not good. Feels very weak tired rundown . Review of systems: Was done for constitutional, cardiovascular, GI, pulmonary. relevant finding as above Active Medications Hydrocodone Bitart/Acetaminophen ([place] 7.5-325) 1 each PO Q6HR PRN PRN Reason: Pain Last Admin: 11/17/18 13:18 Dose: 1 each Documented by: Albuterol/Ipratropium (Duoneb 0.5 Mg-3 Mg/3 Ml Soln) 3 ml INHALATION RT-Q4H [facility] Last Admin: 11/18/18 15:15 Dose: 3 ml Documented by: Ascorbic Acid (Vitamin C) 500 mg PO DAILY [facility] Last Admin: 11/18/18 08:52 Dose: 500 mg Documented by: Atorvastatin Calcium (Lipitor) 80 mg PO DAILY [facility] Last Admin: 11/18/18 08:52 Dose: 80 mg Documented by: Benzonatate (Tessalon Perles) 100 mg PO TID PRN PRN Reason: Cough Folic Acid (Folic Acid) 1 mg PO DAILY [facility] Last Admin: 11/18/18 08:52 Dose: 1 mg Documented by: Sodium Chloride (Saline 0.9%) 1,000 mls @ 125 mls/hr IV .Q8H [facility] Last Admin: 11/18/18 16:51 Dose: 125 mls/hr Documented by: Piperacillin Sod/Tazobactam (Sod 3.375 gm/ Sodium Chloride) 100 mls @ 25 mls/hr IVPB Q12H [facility] Last Admin: 11/18/18 06:42 Dose: 25 mls/hr Documented by: Insulin Aspart (Novolog) 0 unit SQ ACHS [facility]; Protocol Last Admin: 11/18/18 12:30 Dose: Not Given Documented by: Lactulose (Cephulac) 30 gm PO BID [facility] Last Admin: 11/18/18 08:53 Dose: 30 gm Documented by: Levofloxacin (Levaquin) 750 mg PO DAILY@1200 [facility] Stop: 11/22/18 12:01 Last Admin: 11/18/18 12:15 Dose: 750 mg Documented by: Methylprednisolone Sodium Succinate (Solu-Medrol) 40 mg IV Q8HR [facility] Last Admin: 11/18/18 16:45 Dose: 40 mg Documented by: Miscellaneous Information (Pneumonia Protocol Utilized) 1 each PO ONCE PRN PRN Reason: Per Protocol Morphine Sulfate (Ms Contin) 30 mg PO Q12HR [facility] Last Admin: 11/18/18 08:53 Dose: 30 mg Documented by: Multivitamins (Theragran) 1 each PO DAILY [facility] Last Admin: 11/18/18 08:54 Dose: 1 each Documented by: Ondansetron HCl (Zofran) 4 mg IVP Q6HR PRN PRN Reason: Nausea And Vomiting Last Admin: 11/17/18 12:36 Dose: 4 mg Documented by: Pantoprazole Sodium (Protonix) 40 mg PO AC-BRKFST [facility] Last Admin: 11/18/18 08:52 Dose: 40 mg Documented by: Polyethylene Glycol (Miralax) 17 gm PO DAILY PRN PRN Reason: Constipation Promethazine HCl/Codeine (Phenergan With Codeine) 5 ml PO Q4H PRN PRN Reason: Cold Symptoms Last Admin: 11/16/18 13:50 Dose: 5 ml Documented by: Rivaroxaban (Xarelto) 20 mg PO DAILY [facility] Last Admin: 11/18/18 10:49 Dose: 20 mg Documented by: Scopolamine (Transderm-Scop 1.5mg/72hr Patch) 1 patch TRANSDERM ONCE PRN PRN Reason: nausea and dizziness Trazodone HCl (Desyrel) 100 mg PO HS PRN PRN Reason: Insomnia Physical examination: VITAL SIGNS: 97.7, 101, 13, 68 x 56, 94% on 4 L GENERAL: Propped up in bed, tired appearing, short of breath EYES: Pupils equal. Conjunctiva normal. HEENT: External appearance of nose and ears normal, oral cavity dry NECK: JVD unable to assess; masses not palpable. HEART: First and second heart sounds are normal; no edema. LUNGS: Respiratory rate increased; decreased breath sounds, prolonged expiration. ABDOMEN: Soft, nontender, liver spleen not palpable, no masses palpable. PSYCH: Alert and oriented x3; mood and affect very anxious Investigations: White count 16.4, hemoglobin 14.7, platelets 118, potassium 5.8, BUN 33, creatinine 1.28 AST 862, AST 748 albumin 2.2 lactic acid 3.7 Assessment: -Acute COPD exacerbation and an ex-smoker, slow to respond -Metastatic lung cancer currently in remission ~few months ago. With the recent workup including bone scan, computed tomography scan of the abdomen and chest and pelvis, abdominal ultrasound is showing metastatic disease with recurrence of colon cancer with metastatic disease to the liver bones lumbar spine and the adrenal gland. Patient has failed immunotherapy -Hypertensive shock from fluid deficit from poor oral intake and bouts of vomiting blood -Possible pneumonia -Lactic acidosis probably poor type I and type II -GERD -Essential hypertension -Primary osteoarthritis -History of pulmonary embolism -Chronic left vocal cord paralysis -Clinically dehydrated -Mild protein calorie malnutrition from poor oral intake Plan: Patient was moved to the ICU. Given fluid boluses. Veneer Measurer was consulted. Earlier patient's decided to become DO NOT RESUSCITATE. Remains on IV Solu- Medrol and bronchodilators. Also in IV Zosyn. Did talk to patient's 2 sisters. Also spoke to Evelyn is practitioner from oncology. Prognosis guarded. Patient seen by Dr. Anderson from critical care
[2018-11-18 20:27] LABS: Glucose,Whole Blood 169 mg/dL (75-99)
[2018-11-19] MEDS: SODIUM CHLORIDE 0.9% 1,000 ML IV SCH ×3 (02:32→17:52)
[2018-11-19] MEDS ORDERED: SODIUM CHLORIDE 0.9% 500 ML 500 ML IV ONE (03:15)
[2018-11-19] MEDS: IPRATROPIUM-ALBUTEROL 3 ML NEB INHALATION SCH ×6 (03:29→23:21)
[2018-11-19 05:22] LABS: HCT 44.2 % (39.0-53.0); HGB 13.4 gm/dL (13.0-17.5); Hypochromasia Moderate; MCH 30.5 pg (25.0-35.0); MCHC 30.3 g/dL (31.0-37.0); MCV 100.6 fL (80.0-100.0); Macrocytosis Slight; Platelet Count 101 k/uL (150-450); RDW 15.7 % (11.5-15.5); WBC 17.4 k/uL (3.8-10.6)
[2018-11-19 05:44] LABS: Calcium 6.5 mg/dL (8.4-10.2); Potassium 5.1 mmol/L (3.5-5.1)
[2018-11-19] MEDS: INSULIN ASPART (NovoLOG) 100 UNIT/ML VIAL SQ SCH ×4 (05:46→22:46)
[2018-11-19] MEDS: PANTOPRAZOLE 40 MG TABLET PO SCH (06:23)
[2018-11-19] MEDS: PIPERACILLIN-TAZOBACTAM 3.375 GM in SODIUM CHLORIDE 0.9% 100 ML IVPB SCH ×2 (06:23→17:51)
--- NOTE | 2018-11-19 08:12 | XR ---
EXAMINATION TYPE: XR chest 1V portable DATE OF EXAM: 11/19/2018 COMPARISON: 11/18/2018 HISTORY: Pneumonia TECHNIQUE: Single frontal view of the chest is obtained. FINDINGS: Bilateral patchy perihilar changes are seen. There is small bilateral effusions and basila r consolidation. No pneumothorax. Heart size stable. Hypertrophic change of the spine. Gastric bubble appears to be distended. IMPRESSION: 1. Patchy bilateral areas of infiltrate with small effusions. Differential diagnosis includes CHF august shakir pneumonia. Findings are stable.
[2018-11-19] MEDS ORDERED: SODIUM CHLORIDE 0.9% 1,000 ML IV ONE (08:57)
[2018-11-19] MEDS: ASCORBIC ACID 500 MG TAB PO SCH (09:07)
[2018-11-19] MEDS: LACTULOSE 20 GM/30 ML CUP PO SCH ×2 (09:07→22:56)
[2018-11-19] MEDS: FOLIC ACID 1 MG TAB PO SCH (09:07)
[2018-11-19] MEDS: methylPREDNISolone SOD SUCCI 40 MG/ML 1 ML VIAL IV SCH ×2 (09:07)
[2018-11-19] MEDS: ATORVASTATIN 80 MG TAB PO SCH (09:07)
[2018-11-19] MEDS: MULTIVITAMINS, THERA 1 EACH TAB PO SCH (09:07)
[2018-11-19] MEDS: RIVAROXABAN 20 MG TAB PO SCH (09:16)
[2018-11-19] MEDS: MORPHINE SULFATE ER 30 MG TABLET PO SCH ×2 (09:17→22:55)
--- NOTE | 2018-11-19 10:24 | P.PN ---
Subjective Progress Note Date: 11/19/18 Principal diagnosis: Abdominal pain, nausea, right-sided chest pain, altered mental status This is a very pleasant 58-year-old gentleman with a known history of metastatic adenocarcinoma of the lung, status post chemo on immunotherapy with controlled. Most recent CAT scan of the chest abdomen pelvis from July 2018 showed no measurable disease and the patient appeared to be in remission. On 11/02/2018 the patient presented to the hospital here with shortness of breath, cough or congestion and right upper quadrant left lower quadrant abdominal pain. Computed tomography scan revealed masslike consolidation in the left lower lobe consistent with tumor. There is increased mediastinal and bronchial adenopathy. There are multiple low density lesions throughout the liver and spleen consistent with metastatic disease. There is also ostial blastic focus in the inferior aspect of L4 vertebrae consistent with metastatic disease. The patient was subsequently discharged home to see oncology and develop a plan on 11/10/2018. He will he presented here to the emergency room today with altered mental status, abdominal pain, right-sided chest pain. He is seen in consulta tion on the selective care unit. He is awake, uncomfortable with ongoing abdominal discomfort and right-sided chest pain. Maintaining O2 saturation in the 90s on 2 L/m per nasal cannula. He is afebrile. Tachycardic. Chest x-ray shows chronic emphysematous changes persistent left suprahilar scarring and a new right midlung acute infiltrate. Unclear if this is pneumonia or metastasis. White count 15.3. Hemoglobin 16.2. Platelet count 147,000. INR 1.5. Sodium 134. Creatinine 1.06. He is anticoagulated with Xarelto. Initiated on antibiotics in the form of Levaquin, bronchodilators and pain medications. On 11/17/2018 patient seen in follow-up on selective care unit, he is sitting in bed, he states he is feeling better today, still slightly nauseous, did have a small emesis, getting Zofran, patient becomes tachypneic and dyspneic with any exertion even sitting up in bed, but no acute distress, lung sounds are diminished, with some end expiratory wheezes, room air pulse ox is 90%, he is afebrile. Occasional cough, with no significant phlegm production. Today's follow-up chest x-ray shows right lower lobe and left upper lobe infiltrate. She is on Levaquin for antibiotic coverage, today's labs have been reviewed, showing white blood cell count of 13.2, hemoglobin of 15.4, sodium was 139, potassium is 4.8, cord is 107, CO2 is 21, B1 is 23, creatinine is 1.08, patient's appetite is poor related to intermittent nausea, and abdominal pain, patient is still having some abdominal discomfort across his upper left and right quadrants. On 11/18/2018 patient seen in follow-up in the intensive care unit, last night rapid response team was called for concerns of hypotension, and increased confusion, patient was transferred to the intensive care unit at around 1915 last evening, he was fluid resuscitated with 4 liters of normal saline, he did not require vasopressor support, his lactic acid went up to 3.7 yesterday, this morning is 4.6, 70 fluids are infusing at 125 ML per hour, 12.9 normal saline. Patient is lethargic, but arousable, seems at times a bit confused. Today's labs have been reviewed, showing white blood cell count of 16.4, hemoglobin of 14.7, sodium of 134, potassium is 5.8, CO2 is 20, B1 is 33, creatinine is 1.28, liver enzymes are actually trending down, serum ammonia level is 34 this morning, was 61 on yesterday's labs, patient is receiving lactulose. Afebrile, he is tachycardic in sinus mechanism with frequent PACs, blood pressures are i ntermittently low, with the systolic in the 60s. He is on 4 L of oxygen with a pulse ox of 92-96%. Today's chest x-ray has been reviewed, showing right lower lobe and left upper lobe infiltrates/perihilar fullness, interstitial spread of disease, bilateral pleural effusions. No significant abdominal discomfort, no nausea no vomiting overnight, and is on a combination of MS Contin and Mosinee for pain control. Cultures have been collected and sent, also showed moderate amount of leuks, and WBC of 13, urine culture was sent ending at this time, and is not expectorating any sputum, we'll unable to send sputum culture. Send for abiotic coverage in addition to oral Levaquin. Patient is on IV Solu-Medrol 40 mg every 8 hours and nebulized bronchodilators. Discussed CODE STATUS with the patient today, we will defer the decision to his sister, we spoke to patient's sister Jose F Hernandez on the phone who agrees that the patient should be a DO NOT RESUSCITATE, due to the extent of his metastatic lung cancer, and would like to have hospice consulted and social work consulted. He was supported medical treatment right now. On 11/19/2018 patient seen in follow-up in the intensive care unit, extensive discussion with the patient and his sister yesterday, guarding the CODE STATUS, and overall prognosis, and the patient and his sister decided on DO NOT RESUSCITATE CODE STATUS, and wanted to enroll in hospice, and transition the patient home with hospice care. On 5 L of oxygen with a pulse ox of 90%, patient became hypotensive this morning, was systolic in the 70s and he is being fluid resuscitated with a 1 L bolus of 0.9 normal saline, he is tachycardic with a rate of 114 BPM, afebrile, moderately short of breath, tachypneic, severe exertional dyspnea, today's chest x-ray has been reviewed showing patchy bilateral areas of infiltrate with small pleural effusions. No nausea. Patient is intermittently confused, he has pointed his sister as his medical decision- maker, currently arrangements are in progress for transitioning the patient home with hospice care. Todd on antibiotics, IV steroids, nebulized bronchodilators, with continuing with supportive treatment. Urine cultures positive for Enterococcus faecalis, currently on Levaquin Objective - Vital Signs Vital signs: Vital Signs Temp 98.2 F 11/19/18 00:00 Pulse 118 H 11/19/18 07:59 Resp 20 11/19/18 07:00 BP 80/61 11/19/18 07:00 Pulse Ox 90 L 11/19/18 07:00 Intake & Output 11/18/18 11/19/18 11/19/18 18:59 06:59 18:59 Intake Total 2855 3025 Output Total 1500 268 Balance 1355 2757 Weight 102.2 kg Intake: IV 2375 2125 Sodium Chloride 0.9% 1, 1375 2125 000 ml @ 125 mls/hr IV . Q8H [facility] Rx#:[id number] Sodium Chloride 0.9% 1, 1000 000 ml @ 50 mls/hr IV . Q20H [facility] Rx#:[id number] Oral 480 900 Output: Urine 1500 268 Other: Voiding Method Indwelling Catheter Indwelling Catheter - Exam GENERAL EXAM: Alert, pleasant, 58-year-old white male, on room air, but arousable, at times confused, currently on 4 L of oxygen with a pulse ox of 92- 96% HEAD: Normocephalic/atraumatic. EYES: Normal reaction of pupils, equal size. Conjunctiva pink, sclera white. NOSE: Clear with pink turbinates. THROAT: No erythema or exudates. NECK: No masses, no JVD, no thyroid enlargement, no adenopathy. CHEST: No chest wall deformity. Symmetrical expansion. LUNGS: Equal air entry with diffuse wheezes CVS: Regular rate and rhythm, normal S1 and S2, no gallops, no murmurs, no rubs ABDOMEN: Soft, nontender. No hepatosplenomegaly, normal bowel sounds, no guarding or rigidity. EXTREMITIES: No clubbing, no edema, no cyanosis, 2+ pulses and upper and lower extremities. MUSCULOSKELETAL: Muscle strength and tone normal. SPINE: No scoliosis or deformity SKIN: No rashes CENTRAL NERVOUS SYSTEM: Alert but arousable, confused at times. No focal deficits, tone is normal in all 4 extremities. - Labs CBC & Chem 7: 11/19/18 05:06 11/19/18 05:06 Labs: Abnormal Lab Results - Last 24 Hours (Table) 11/18/18 11/18/18 11/18/18 Range/Units 11:57 16:56 20:26 WBC (3.8-10.6) k/uL MCV (80.0-100.0) fL MCHC (31.0-37.0) g/dL RDW (11.5-15.5) % Plt Count (150-450) k/uL Sodium (137-145) mmol/L Chloride (98-107) mmol/L Carbon Dioxide (22-30) mmol/L BUN (9-20) mg/dL Creatinine (0.66-1.25) mg/dL Glucose (74-99) mg/dL POC Glucose (mg/dL) 149 H 154 H 169 H (75-99) mg/dL Calcium (8.4-10.2) mg/dL 11/19/18 11/19/18 Range/Units 05:06 05:06 WBC 17.4 H (3.8-10.6) k/uL MCV 100.6 H (80.0-100.0) fL MCHC 30.3 L (31.0-37.0) g/dL RDW 15.7 H (11.5-15.5) % Plt Count 101 L (150-450) k/uL Sodium 135 L (137-145) mmol/L Chloride 110 H (98-107) mmol/L Carbon Dioxide 14 L (22-30) mmol/L BUN 38 H (9-20) mg/dL Creatinine 1.68 H (0.66-1.25) mg/dL Glucose 121 H (74-99) mg/dL POC Glucose (mg/dL) (75-99) mg/dL Calcium 6.5 L (8.4-10.2) mg/dL Microbiology - Last 24 Hours (Table) 11/16/18 08:30 Urine Culture - Final Urine,Voided Enterococcus faecalis 11/16/18 09:05 Blood Culture - Preliminary Blood No Growth after 48 hours Assessment and Plan Plan: Assessment: #1 septic shock, source is under investigation, chest x-ray shows evidence of infiltrate on the right side and the left upper lobe perihilar fullness, could be related to underlying metastatic lung adenocarcinoma possibility of pneumonia is not excluded #2 Metastatic adenocarcinoma of the lung, stage IV, previous chemotherapy and immunotherapy and was in remission until recent findings in October 2018. Metastasis to the liver, spleen and bone. #3 Abdominal pain in the right upper quadrant, nausea likely related to metastatic disease. #4 Troponin leak. #5 acute kidney injury related to ATN #6 lactic acidosis #7 mild hyperkalemia of 5.8 related to metabolic acidosis without rhythm disturbance #8 Chronic systolic congestive heart failure. #9 Previous history of chronic tobacco dependence. #10 History of left vocal cord paralysis status post vocal cord medialization. #11 Nonocclusive coronary artery disease. #12 urinary tract infection with a urine cultures positive for Enterococcus faecalis Plan: Continue with supportive treatment, antibiotics nebulized treatments, IV steroids, pain medications, patient has made a decision to appoint his sister as his medical decision maker, and have decided on transitioning home with hospice care, arrangements are currently pending for hospice arrangements at home. P ray was hypotensive this morning, he is receiving a liter bolus and start on Midrin 10 milligram 3 times a day. We'll prognosis is poor, medical oncology is following, and did inform the patient that any chemotherapy would be palliative in nature. I performed a history & physical examination of the patient and discussed their management with my nurse practitioner, Mariam Ruiz. I reviewed the nurse practitioner's note and agree with the documented findings and plan of care. Lung sounds are positive for diffuse wheezes throughout the lung ramirez. The findings and the impression was discussed with the patient. I attest to the documentation by the nurse practitioner. Time with Patient: Less than 30
[2018-11-19] MEDS: MIDODRINE 5 MG TAB PO SCH ×2 (11:34→17:52)
[2018-11-19] MEDS: LEVOFLOXACIN 750 MG TAB PO SCH (11:34)
[2018-11-19 11:35] LABS: Glucose,Whole Blood 103 mg/dL (75-99)
--- NOTE | 2018-11-19 12:47 | CDI ---
Documentation Clarification Form Date: 11/19/2018 12:28:29 PM From: Sridevi Gagnon Admit Date: 11/16/2018 10:44:00 AM Patient Name: David Noonan Visit Number: [id number] ATTENTION: The Clinical Documentation Specialists (CDI) and [facility] Coding Staff appreciate your assistance in clarifying documentation. Please respond to the clarification below the line at the bottom and electronically sign. The CDI & [facility] Coding staff will review the response and follow-up if needed. Please note: Queries are made part of the Legal Health Record. If you have any questions, please contact the author of this message via ITS. Dr. Manpreet Jon Shock is documented in the Attending progress notes and the pulmonary consult causing conflicting data. Please provide clarification and further specificity if able. Patient history/risk factors: Metastatic lung ca, COPD exacerbation, primary osteoarthritis chronic left vocal cord paralysis, clinically dehydrated, mild pcm Clinical Indicators: 11/18 Pulmonary Progress Note: " septic shock, source is under investigation, chest x-ray shows evidence of infiltrate on the right side and the left upper lobe perihilar fullness, could be related to underlying metastatic lung adenocarcinoma possibility of pneumonia is not excluded." 11/18 Attending Progress Note: Patient has failed immunotherapy -Hypertensive shock from fluid deficit from poor oral intake and bouts of vomiting blood." 11/18 1999 Vitals: Temp 98, HR 88, RR 18, B/P 68/47, 87/66 spo2 86% ra Treatment: 4.5 L IVF Bolus In your professional opinion, can you please specify the type of shock if known? Septic Shock Suspected or known causative organism Any associated organ failure Hypovolemic Shock Cause Other, please specify Unable to determine (Last Revision: February 2017) documented in dc summary MTDD
--- NOTE | 2018-11-19 13:07 | CDI ---
Documentation Clarification Form Date: 11/19/2018 12:51:05 PM From: Sridevi Gagnon RN, CCDS Admit Date: 11/16/2018 10:44:00 AM Patient Name: David Noonan Visit Number: [id number] ATTENTION: The Clinical Documentation Specialists (CDI) and [facility] Coding Staff appreciate your assistance in clarifying documentation. Please respond to the clarification below the line at the bottom and electronically sign. The CDI & [facility] Coding staff will review the response and follow-up if needed. Please note: Queries are made part of the Legal Health Record. If you have any questions, please contact the author of this message via ITS. Dr. Art Crandall The patient presented with the following respiratory symptoms: SOB History/Risk Factors: Lung ca with mets to liver, gallbladder and spine, hx of pneumonia, Tobacco use: former smoker Home oxygen: no documentation that the pt is on home O2 Clinical Indicators: 11/16 EC: "lethargic, decreased breath sounds (Decreased breath sounds especially on the left with occasional wheezing). ARDS" Vital signs: temp 97.8, hr 76, RR 20, B/P 121/78, spo2 94% 2l NC Pulse oximetry: 89-91% on 4L 11/19 Pulmonary: "Lung/Breathing assessment: LUNGS: "Equal air entry with diffuse wheezes." Treatment: Breathing TX: Duoneb Q 4 hrs and PRN Iv Solumedrol tapering Dose Continuous Pulse ox: per ICU protocol O2: Increased from 2L to 4L to 5L to 15L high Flow, decreasesd back to 4L high flow In your professional opinion, can you please clarify if these findings signify one of the following conditions? Acuity Acute Chronic Acute on Chronic Specificity Respiratory Failure (further specify (if known)): With hypercapnia? (pCO2 >50 and pH <7.35) With hypoxia? (pO2 <60 mm Hg or SpO2 <91% on room air) Respiratory Distress Respiratory Insufficiency Other Diagnosis, please specify Unable to determine (Last Revision: August 2017) Acute hypoxic respiratory failure related to metastatic lung cancer and exacerbation of COPD MTDD
--- NOTE | 2018-11-19 14:42 | P.PN ---
Subjective Progress Note Date: 11/19/18 Principal diagnosis: Altered mental status, Metastatic non-small cell lung cancer In follow-up today patient is sleeping, aroused with soft touch and voice. Mental status stable from my interaction with him. He stated timeout cough as it causes him chest discomfort. Patient stated to me that he is going to continue current care, with a plan for medical large and rehab. His sisters are not at the bedside today. He denies nausea, hunger or need to go to the bathroom. He is short of breath with any activity. Objective - Vital Signs Vital signs: Vital Signs Temp 97 F L 11/19/18 12:00 Pulse 114 H 11/19/18 14:00 Resp 17 11/19/18 14:00 BP 83/61 11/19/18 14:00 Pulse Ox 92 L 11/19/18 14:00 Intake & Output 11/18/18 11/19/18 11/19/18 18:59 06:59 18:59 Intake Total 2855 3025 2249 Output Total 1500 268 115 Balance 1355 2757 2134 Weight 102.2 kg Intake: IV 2375 2125 1749 Sodium Chloride 0.9% 1, 1375 2125 625 000 ml @ 125 mls/hr IV . Q8H [facility] Rx#:[id number] Sodium Chloride 0.9% 1, 1000 000 ml @ 50 mls/hr IV . Q20H [facility] Rx#:[id number] Sodium Chloride 0.9% 500 1124 ml 500 ml @ 999 mls/hr IV .Q31M [facility] Rx#:[id number] Oral 480 900 500 Output: Urine 1500 268 115 Other: Voiding Method Indwelling Catheter Indwelling Catheter Indwelling Catheter - Constitutional General appearance: Present: average body habitus, cooperative, mild distress - EENT Eyes: Present: anicteric sclerae, EOMI - Cardiovascular Heart sounds: normal: S1, S2 - Gastrointestinal General gastrointestinal: Present: normal bowel sounds, soft - Psychiatric Psychiatric Comment(s): Arousable to voice and soft touch, she does answer questions appropriately, oriented to self and place. - Labs CBC & Chem 7: 11/19/18 05:06 11/19/18 05:06 Labs: Abnormal Lab Results - Last 24 Hours (Table) 11/18/18 11/18/18 11/19/18 Range/Units 16:56 20:26 05:06 WBC 17.4 H (3.8-10.6) k/uL MCV 100.6 H (80.0-100.0) fL MCHC 30.3 L (31.0-37.0) g/dL RDW 15.7 H (11.5-15.5) % Plt Count 101 L (150-450) k/uL Sodium (137-145) mmol/L Chloride (98-107) mmol/L Carbon Dioxide (22-30) mmol/L BUN (9-20) mg/dL Creatinine (0.66-1.25) mg/dL Glucose (74-99) mg/dL POC Glucose (mg/dL) 154 H 169 H (75-99) mg/dL Calcium (8.4-10.2) mg/dL 11/19/18 11/19/18 Range/Units 05:06 11:31 WBC (3.8-10.6) k/uL MCV (80.0-100.0) fL MCHC (31.0-37.0) g/dL RDW (11.5-15.5) % Plt Count (150-450) k/uL Sodium 135 L (137-145) mmol/L Chloride 110 H (98-107) mmol/L Carbon Dioxide 14 L (22-30) mmol/L BUN 38 H (9-20) mg/dL Creatinine 1.68 H (0.66-1.25) mg/dL Glucose 121 H (74-99) mg/dL POC Glucose (mg/dL) 103 H (75-99) mg/dL Calcium 6.5 L (8.4-10.2) mg/dL Microbiology - Last 24 Hours (Table) 11/16/18 09:05 Blood Culture - Preliminary Blood No Growth after 72 hours 11/16/18 08:30 Urine Culture - Final Urine,Voided Enterococcus faecalis Assessment and Plan (1) Metastatic primary lung cancer Current Visit: Yes Status: Acute Priority: High Code(s): C34.90 - MALIGNANT NEOPLASM OF UNSP PART OF UNSP BRONCHUS OR LUNG SNOMED Code(s): 94459981 (2) Cancer related pain Current Visit: Yes Status: Acute Priority: High Code(s): G89.3 - NEOPLASM RELATED PAIN (ACUTE) (CHRONIC) SNOMED Code(s): 13801330197735 (3) Elevated liver enzymes Current Visit: Yes Status: Acute Priority: Medium Code(s): R74.8 - ABNORMAL LEVELS OF OTHER SERUM ENZYMES SNOMED Code(s): 889110264 Plan: Patient and his family are unfortunately in a situation in which there are no perfect cancers were solutions. Patient has rapidly metastatic lung cancer. This has come on very quickly, and a matter of just a few weeks, so it is overwhelming to the patient and the family how quickly he has declined. It is obvious that patient is very much frightened, but he is also extremely concerned for his sisters who have been providing him care. He is very worried about inconveniencing them and causing them additional stress. Family is stressed out because they want to do with the patient wants to do. Patient's sister was encouraged to obtain a medical power of workers compensation defense attorney as there are serious concerns of the patient's prolonged ability to make medical decisions on his own. Case was discussed with primary oncologist Dr. Gomes, patient is absolutely hospice appropriate. Life expectancy would be measured in weeks without any further interventions. Patient's dependence on others for basic care needs is increasing. Pt sister was having some difficulty managing pt at home prior to admission. If the family is unable to provide adequate care in the home by themselves the recommen dation would be for admission to an extended care facility. If patient is admitted to an extended care facility he will not be able to receive chemotherapy based solely on location. If the pt can rehabilitate enough to leave ECF or if family is able to provide the patient with adequate care in the home and the patient is able to recuperate himself enough that he could get back and forth to appointments chemotherapy could be given. Pt and family are fully aware of palliative intent. Patient did seem to be stable today. From review of chart supportive care and treatment is going to continue at this time. Patient is appropriately a no code. We remain available for any further questions or concerns.
[2018-11-19 16:50] LABS: Glucose,Whole Blood 107 mg/dL (75-99)
[2018-11-19] MEDS: predniSONE 20 MG TAB PO SCH (17:52)
[2018-11-19 20:46] LABS: Glucose,Whole Blood 104 mg/dL (75-99)
[2018-11-19 22:13] VITALS: TEMP 97.4
--- NOTE | 2018-11-19 22:45 | P.PN ---
Progress Note - Text Progress Note Date: 11/19/18 Chief Complaint: Cough Interval history: This is a very pleasant 58-year-old patient of Dr. Ron Rico. Also following with Dr. Gomes from oncology. Chronic stable medical conditions include GERD, hypertension, osteoarthritis, history of pulmonary embolism, left vocal cord paralysis. Patient also has history of metastatic lung cancer. Finished chemotherapy about 4-5 months ago. Has been told he is in remission. Was recently admitted to the hospital.. Patient had a thoracic spine MRI, abdominal ultrasound and bone scan. Had computed tomography scan of the abdomen and pelvis that had shown a moderate pleural effusion and a new consolidation. Subsequently metastatic disease was found in the bones via bone scan and also in the liver. Is also suspected metastatic to the left adrenal gland Today-patient has continued to go downhill. Blood pressure often go down. Getting fluid boluses. Remains short of breath at rest. Often delirious. Patient's sister made the patient DO NOT RESUSCITATE. Also looking into hospice. . Review of systems: Unable to do as patient rather delirious Physical examination: VITAL SIGNS: 97.7, 101, 13, 68 x 56, 94% on 4 L GENERAL: Propped up in bed, tired appearing, short of breath EYES: Pupils equal. Conjunctiva normal. HEENT: External appearance of nose and ears normal, oral cavity dry NECK: JVD unable to assess; masses not palpable. HEART: First and second heart sounds are normal; no edema. LUNGS: Respiratory rate increased; decreased breath sounds, prolonged expiration. ABDOMEN: Soft, nontender, liver spleen not palpable, no masses palpable. PSYCH: Alert and oriented x3; mood and affect very anxious Investigations: White count 7.4 hemoglobin 13.4 platelets 101 potassium 5.1 bun 38 creatinine 1.68 Assessment: -Acute COPD exacerbation and an ex-smoker, slow to respond -Metastatic lung cancer currently in remission ~few months ago. With the recent workup including bone scan, computed tomography scan of the abdomen and chest and pelvis, abdominal ultrasound is showing metastatic disease with recurrence of colon cancer with metastatic disease to the liver bones lumbar spine and the adrenal gland. Patient has failed immunotherapy -Hypotensive shock from fluid deficit from poor oral intake and bouts of vomiting blood -Possible pneumonia -Lactic acidosis probably poor type I and type II -GERD -Essential hypertension -Primary osteoarthritis -History of pulmonary embolism -Chronic left vocal cord paralysis -Clinically dehydrated -Mild protein calorie malnutrition from poor oral intake -Acute delirium, multifactorial -Acute hypoxic respiratory failure Plan: Had a very lengthy discussion with the field nurse case manager and social media content specialist. Looking at different options. Also spoke to the liaison from [facility]. Then admitted discussion with the patient's POA that is his sister, social media content specialist. Private room not available at [facility] and that should but become available by tomorrow. The deep POA does understand there may be a cost to the room and lodging. She is okay with that. Patient will be transferred there with hospice. [facility] choices [facility]. In the meantime will taper down patient's medications keep him comfortable. Several questions were answered. Total time spent today was about 45 minutes with over 25 minutes in discussion. Patient be moved out of the ICU.
[2018-11-20] MEDS: IPRATROPIUM-ALBUTEROL 3 ML NEB INHALATION SCH ×3 (03:47→11:33)
[2018-11-20 04:51] VITALS: BP 66/38
[2018-11-20 04:54] VITALS: PULSE 98; RESP 12
[2018-11-20 06:59] LABS: Glucose,Whole Blood 93 mg/dL (75-99)
[2018-11-20] MEDS: INSULIN ASPART (NovoLOG) 100 UNIT/ML VIAL SQ SCH ×2 (08:09→11:31)
[2018-11-20] MEDS: RIVAROXABAN 20 MG TAB PO SCH (08:16)
[2018-11-20] MEDS: predniSONE 20 MG TAB PO SCH (08:16)
[2018-11-20] MEDS: PANTOPRAZOLE 40 MG TABLET PO SCH (08:16)
[2018-11-20] MEDS: ATORVASTATIN 80 MG TAB PO SCH (08:16)
[2018-11-20] MEDS: MORPHINE SULFATE ER 30 MG TABLET PO SCH (08:16)
[2018-11-20] MEDS: LACTULOSE 20 GM/30 ML CUP PO SCH (08:17)
[2018-11-20] MEDS: PIPERACILLIN-TAZOBACTAM 3.375 GM in SODIUM CHLORIDE 0.9% 100 ML IVPB SCH (10:45)
[2018-11-20] MEDS: MIDODRINE 5 MG TAB PO SCH ×2 (10:45→11:29)
[2018-11-20] MEDS: HYDROcodone/APAP 7.5-325MG 1 EACH TAB PO PRN (11:51)
--- NOTE | 2018-11-20 12:07 | P.DS ---
Providers Date of admission: 11/16/18 10:44 Expected date of discharge: 11/20/18 Attending physician: Manpreet Jon Consults: 11/16/18 10:44 Consult Physician Routine Consulting Provider: Nelson Ruiz Consult Reason/Comments: Elevated troponin Do you want consulting provider notified?: Yes 11/16/18 10:45 Consult Physician Routine Consulting Provider: Jeremy Peralta Consult Reason/Comments: Pneumonia, COPD exacerbation, lung cancer Do you want consulting provider notified?: Yes 11/16/18 12:33 Consult Physician Routine Consulting Provider: Hima Donovan Consult Reason/Comments: Metastatic cancer Do you want consulting provider notified?: Yes Primary care physician: Physician Nonstaff Hospital Course: Hospital course: This is a very pleasant 58-year-old patient of Dr. Ron Rico. Also following with Dr. Gomes from oncology. Chronic stable medical conditions include GERD, hypertension, osteoarthritis, history of pulmonary embolism, left vocal cord paralysis. Patient also has history of metastatic lung cancer. Finished chemotherapy about 4-5 months ago. Has been told he is in remission. Was recently admitted to the hospital.. Patient had a thoracic spine MRI, abdominal ultrasound and bone scan. Had computed tomography scan of the abdomen and pelvis that had shown a moderate pleural effusion and a new consolidation. Subsequently metastatic disease was found in the bones via bone scan and also in the liver. Is also suspected metastatic to the left adrenal gland Today-patient has continued to go downhill. Blood pressure often go down. Getting fluid boluses. Remains short of breath at rest. Often delirious. Patient's sister made the patient DO NOT RESUSCITATE. Also looking into hospice. Patient continues to be short of breath. Eating minimal amounts. Intermittently delirious. Today-patient remains delirious. Short of breath. Going to [facility] for hospice spoke to the sister at the bedside.. Spoke to social media sr strategy manager. Consultations: Dr. Donovan from oncology Dr. Anderson from pulmonary Dr. WELLINGTON Bennett from cardiology Physical examination: VITAL SIGNS: 97.4, 98, 12, 66 x 38, 94% on 5 L GENERAL: Propped up in bed, tired appearing, short of breath EYES: Pupils equal. Conjunctiva normal. HEART: First and second heart sounds are normal; no edema. LUNGS: Respiratory rate increased; decreased breath sounds, prolonged expiration. ABDOMEN: Soft, nontender, liver spleen not palpable, no masses palpable. PSYCH: Patient is delirious Investigations: White count 7.4 hemoglobin 13.4 platelets 101 potassium 5.1 bun 38 creatinine 1.68 Assessment: -Acute COPD exacerbation and an ex-smoker, slow to respond -Metastatic lung cancer currently in remission ~few months ago. With the recent workup including bone scan, computed tomography scan of the abdomen and chest and pelvis, abdominal ultrasound is showing metastatic disease with recurrence of colon cancer with metastatic disease to the liver bones lumbar spine and the adrenal gland. Patient has failed immunotherapy -Hypotensive shock from fluid deficit from poor oral intake and bouts of vomiting blood -Possible pneumonia -Lactic acidosis probably poor type I and type II -GERD -Essential hypertension -Primary osteoarthritis -History of pulmonary embolism -Chronic left vocal cord paralysis -Clinically dehydrated -Mild protein calorie malnutrition from poor oral intake -Acute delirium, multifactorial -Acute hypoxic respiratory failure Patient Condition at Discharge: Poor Plan - Discharge Summary Discharge Rx Participant: No New Discharge Prescriptions: New LORazepam [Ativan] 1 mg PO Q4H PRN #10 tablet PRN Reason: Anxiety Amoxicillin/Potassium Clav [Augmentin 875-125 Tablet] 1 tab PO Q12HR #10 tab predniSONE 10 mg PO DAILY #30 tab Midodrine [ProAmatine] 10 mg PO AC-TID #10 tab MORPHINE ORAL TIFF CONC 20mg/mL [Roxanol Oral Soln Conc 20Mg/ml] 5 mg PO Q4H PRN #30 ml PRN Reason: Pain Control Scopolamine 1.5MG/72Hr Patch [TransDerm Scop] 1 patch TRANSDERM Q72H #10 patch Continue traZODone HCL [Desyrel] 100 mg PO HS PRN PRN Reason: Insomnia Rivaroxaban [Xarelto] 20 mg PO DAILY Ondansetron HCl [Zofran] 8 mg PO Q8H PRN #60 tablet PRN Reason: Nausea Morphine Sulfate ER [Ms Contin] 30 mg PO Q12HR #6 tablet HYDROcodone/APAP 7.5-325MG [[place] 7.5-325] 1 tab PO Q6HR PRN 3 Days #10 tab PRN Reason: Pain Changed Ipratropium-Albuterol Nebulize [Duoneb 0.5 mg-3 mg/3 ml Soln] 3 ml INHALATION Q4H PRN #60 ampul.neb PRN Reason: Shortness Of Breath Or Wheezing Discontinued Spironolactone [Aldactone] 12.5 mg PO DAILY Biotin 5,000 mcg PO DAILY Glucosam/Colin-Msm1/C/Patel/Bosw [Glucosamine-Chondroitin Tablet] 1 tab PO DAILY Ascorbic Acid [Vitamin C] 500 mg PO DAILY Benzonatate [Tessalon Perles] 100 mg PO TID PRN PRN Reason: Cough Furosemide [Lasix] 20 mg PO DAILY Omeprazole 40 mg PO DAILY Rosuvastatin Calcium [Crestor] 40 mg PO DAILY Metoprolol Tartrate [Lopressor] 25 mg PO DAILY Polyethylene Glycol 3350 [Miralax] 17 gm PO DAILY PRN #30 powd.pack PRN Reason: Constipation Promethaz-Cod 6.25-10 mg/5 ml [Phenergan with Codeine] 5 ml PO Q4H PRN #200 ml PRN Reason: Cold Symptoms predniSONE See Taper PO DAILY #60 tab Lactulose 10 gm PO BID No Action Folic Acid 1 mg PO DAILY Multivitamins, Thera [Multivitamin (formulary)] 1 tab PO DAILY Discharge Medication List traZODone HCL [Desyrel] 100 mg PO HS PRN 12/10/13 [History] Folic Acid 1 mg PO DAILY 11/13/17 [History] Multivitamins, Thera [Multivitamin (formulary)] 1 tab PO DAILY 08/20/18 [History] Rivaroxaban [Xarelto] 20 mg PO DAILY 11/02/18 [History] Ondansetron HCl [Zofran] 8 mg PO Q8H PRN #60 tablet 11/10/18 [Rx] Amoxicillin/Potassium Clav [Augmentin 875-125 Tablet] 1 tab PO Q12HR #10 tab 11/20/18 [Rx] HYDROcodone/APAP 7.5-325MG [[place] 7.5-325] 1 tab PO Q6HR PRN 3 Days #10 tab 11/20/18 [Rx] Ipratropium-Albuterol Nebulize [Duoneb 0.5 mg-3 mg/3 ml Soln] 3 ml INHALATION Q4H PRN #60 ampul.neb 11/20/18 [Rx] LORazepam [Ativan] 1 mg PO Q4H PRN #10 tablet 11/20/18 [Rx] MORPHINE ORAL TIFF CONC 20mg/mL [Roxanol Oral Soln Conc 20Mg/ml] 5 mg PO Q4H PRN #30 ml 11/20/18 [Rx] Midodrine [ProAmatine] 10 mg PO AC-TID #10 tab 11/20/18 [Rx] Morphine Sulfate ER [Ms Contin] 30 mg PO Q12HR #6 tablet 11/20/18 [Rx] Scopolamine 1.5MG/72Hr Patch [TransDerm Scop] 1 patch TRANSDERM Q72H #10 patch 11/20/18 [Rx] predniSONE 10 mg PO DAILY #30 tab 11/20/18 [Rx] Follow up Appointment(s)/Referral(s): Nonstaff,Physician [Primary Care Provider] - 1-2 days [facility] [NON-STAFF] - 1 Week
[2018-11-20] MEDS ORDERED: ATROPINE OPHTH SOLN 1% 5ML BTL ONE (14:00)
--- NOTE | 2018-11-20 14:47 | P.PN ---
Subjective Progress Note Date: 11/20/18 Principal diagnosis: Altered mental status, Metastatic non-small cell lung cancer Today pt is sitting up in bed, he is confused at times then very lucid, he knows his home is being cleaned out, he knows that he is going to be kept comfortable. Objective - Vital Signs Vital signs: Vital Signs Temp 97.4 F L 11/20/18 04:53 Pulse 98 11/20/18 04:53 Resp 12 11/20/18 04:53 BP 66/38 11/20/18 04:50 Pulse Ox 94 L 11/20/18 04:53 Intake & Output 11/19/18 11/20/18 11/20/18 18:59 06:59 18:59 Intake Total 2644 Output Total 130 50 Balance 2514 -50 Weight 107 kg Intake: IV 2144 Sodium Chloride 0.9% 1, 1020 000 ml @ 125 mls/hr IV . Q8H KALI Rx#:[id number] Sodium Chloride 0.9% 500 1124 ml 500 ml @ 999 mls/hr IV .Q31M ONE Rx#:[id number] Oral 500 Output: Urine 130 50 Uretheral (Carr) 50 Other: Voiding Method Indwelling Catheter Indwelling Catheter Indwelling Catheter - Exam WD, thinning, frail, moderate distress at rest, respirations are labored, sh allow, rapid, anasarca, mottling of the BLE - Labs CBC & Chem 7: 11/19/18 05:06 11/19/18 05:06 Labs: Abnormal Lab Results - Last 24 Hours (Table) 11/19/18 11/19/18 Range/Units 16:47 20:45 POC Glucose (mg/dL) 107 H 104 H (75-99) mg/dL Microbiology - Last 24 Hours (Table) 11/16/18 09:05 Blood Culture - Preliminary Blood No Growth after 96 hours Assessment and Plan (1) Metastatic primary lung cancer Current Visit: Yes Status: Acute Priority: High Code(s): C34.90 - MALIGNANT NEOPLASM OF UNSP PART OF UNSP BRONCHUS OR LUNG SNOMED Code(s): 29474398 (2) Cancer related pain Current Visit: Yes Status: Acute Priority: High Code(s): G89.3 - NEOPLASM RELATED PAIN (ACUTE) (CHRONIC) SNOMED Code(s): 19289323179499 (3) Elevated liver enzymes Current Visit: Yes Status: Acute Priority: Medium Code(s): R74.8 - ABNORMAL LEVELS OF OTHER SERUM ENZYMES SNOMED Code(s): 679289749 Plan: Pt is accepting hospice with the support of his family. He will be discharged today to their care, I believe to facility where family works.
[2018-11-20 16:56] VITALS: BMI 32.8
[2018-11-20] MEDS ORDERED: PIPERACILLIN-TAZOBACTAM 3.375 GM in SODIUM CHLORIDE 0.9% 100 ML IVPB SCH (19:00)
--- NOTE | 2018-11-25 07:44 | CDI ---
Documentation Clarification Form Date: 11/25/18 From: Jeanette Landis Phone: If you have a question regarding this query, please contact Lyn Mendez at [phone] between 8am and 5pm. Admit Date: 11/16/2018 10:44:00 AM Patient Name: David Noonan Visit Number: [id number] Discharge Date: 11/20/2018- ATTENTION: The Clinical Documentation Specialists (CDI) and [facility] Coding Staff appreciate your assistance in clarifying documentation. Please respond to the clarification below the line at the bottom and electronically sign. The CDI & [facility] Coding staff will review the response and follow-up if needed. Please note: Queries are made part of the Legal Health Record. If you have any questions, please contact the author of this message via ITS. Dr. Manpreet Jon Patient was to be discharged to hospice but before discharge. In your professional opinion, can you please clarify the likely/preliminary cause of ? metastatic lung cancer MTDD
== END 2018-11-20 14:50 | disposition expired | DRG 190 ==
LOC: EC 07:54 → 3SCARD 10:44 → 2SICU 11-18 04:15 → 3NMEDONC 11-19 19:37
PROVIDERS: ADMIT Hospitalist; ATTEND Hospitalist
DX: J44.1 Chronic obstructive pulmonary disease with (acute) exacerbation (principal); J18.9 Pneumonia, unspecified organism; G93.41 Metabolic encephalopathy; J96.01 Acute respiratory failure with hypoxia; N17.0 Acute kidney failure with tubular necrosis; C34.32 Malignant neoplasm of lower lobe, left bronchus or lung; C78.7 Secondary malignant neoplasm of liver and intrahepatic bile duct; C78.89 Secondary malignant neoplasm of other digestive organs; C79.72 Secondary malignant neoplasm of left adrenal gland; C79.51 Secondary malignant neoplasm of bone; E44.1 Mild protein-calorie malnutrition; E72.20 Disorder of urea cycle metabolism, unspecified; E87.2 Acidosis; F05 Delirium due to known physiological condition; I50.22 Chronic systolic (congestive) heart failure; I42.6 Alcoholic cardiomyopathy; K92.0 Hematemesis; N39.0 Urinary tract infection, site not specified; R57.8 Other shock; J44.0 Chronic obstructive pulmonary disease with (acute) lower respiratory infection; Z51.5 Encounter for palliative care; Z66 Do not resuscitate; I11.0 Hypertensive heart disease with heart failure; J38.01 Paralysis of vocal cords and larynx, unilateral; E87.5 Hyperkalemia; E86.0 Dehydration; F10.21 Alcohol dependence, in remission; G89.3 Neoplasm related pain (acute) (chronic); I25.10 Atherosclerotic heart disease of native coronary artery without angina pectoris; R77.9 Abnormality of plasma protein, unspecified; N42.9 Disorder of prostate, unspecified; I49.1 Atrial premature depolarization; K21.9 Gastro-esophageal reflux disease without esophagitis; M19.91 Primary osteoarthritis, unspecified site; B95.2 Enterococcus as the cause of diseases classified elsewhere; Z79.01 Long term (current) use of anticoagulants; Z79.899 Other long term (current) drug therapy; Z79.891 Long term (current) use of opiate analgesic; Z79.52 Long term (current) use of systemic steroids; Z88.8 Allergy status to other drugs, medicaments and biological substances; Z92.21 Personal history of antineoplastic chemotherapy; Z87.891 Personal history of nicotine dependence; Z86.718 Personal history of other venous thrombosis and embolism; Z86.711 Personal history of pulmonary embolism; Z87.01 Personal history of pneumonia (recurrent); Z85.828 Personal history of other malignant neoplasm of skin; Z86.010 Personal history of colon polyps; Z82.49 Family history of ischemic heart disease and other diseases of the circulatory system; Z81.1 Family history of alcohol abuse and dependence
CPT/HCPCS: 36415; 71045; 71046; 80048; 80053; 81001; 82140; 82533; 82550; 83605; 83690; 83735; 84484; 85025; 85027; 85610; 85730; 87040; 87077; 87086; 87186; 87324; 93005; 94640; 94760; 96361; 96365; 96375; 99291